=== PATIENT | male | born 1970 | race Caucasian/White ===

== ENCOUNTER 2024-06-07 20:37 | Emergency (ER) | payer MEDICAID, SELFPAY ==
[2024-06-07 20:41] VITALS: BP 147/97; PULSE 114; TEMP 37; O2SAT 96
--- NOTE | 2024-06-07 20:56 | ED_ITS ---
HPI - Alcohol General Chief Complaint: Alcohol Stated Complaint: ALCOHOL Time Seen by Provider: 06/07/24 20:50 Source: patient Mode of arrival: walk-in History of Present Illness HPI narrative: patient states he is an alcoholic. States he has been admitted for alcohol detox in the past. States drinking alcohol today and smoking marijuana. States he ask his family to take him to an alcohol detox facility and they became upset with him and dropped him off here. States he would like help with his alcohol problem. States he does have history of withdrawal Related Data Allergies Allergy/AdvReac Type Severity Reaction Status Date / Time No Known Drug Allergies Allergy Verified 06/07/24 20:48 Review of Systems ROS Status of ROS 10 or more systems reviewed and unremark able except as noted in history and below Exam Constitutional Vital Signs, click to edit/add: Last Vital Signs Temp 98.6 F 06/07/24 20:41 Pulse 114 H 06/07/24 20:41 Resp 18 06/07/24 20:41 BP 147/97 H 06/07/24 20:41 Pulse Ox 96 06/07/24 20:41 O2 Del Method Room Air 06/07/24 20:41 Common normals: no apparent distress, average body habitus, oriented x3, healthy appearing, alert and well nourished [facility] Common normals: normocephalic and head/scalp atraumatic Eye Common normals: EOMs intact bilaterally and conjunctivae normal Respiratory Common normals: normal respiratory effort, no retractions, no use of accessory muscles and clear to auscultation bilaterally Cardio Common normals: regular rate, regular rhythm, S1 normal heart sound and S2 normal heart sound Extremity Common normals: normal to inspection and full ROM Neuro Common normals: oriented x3, CN's II-XII intact bilaterally, moves all extremities and no focal motor deficits Psych Appearance: grossly normal Course Vital Signs Vital signs: Vital Signs Temperature 98.6 F 06/07/24 20:41 Pulse Rate 114 H 06/07/24 20:41 Respiratory Rate 18 06/07/24 20:41 Blood Pressure 147/97 H 06/07/24 20:41 Pulse Oximetry 96 06/07/24 20:41 Oxygen Delivery Method Room Air 06/07/24 20:41 Temperature 98.6 F 06/07/24 20:41 Pulse Rate 114 H 06/07/24 20:41 Respiratory Rate 18 06/07/24 20:41 Blood Pressure 147/97 H 06/07/24 20:41 Pulse Oximetry 96 06/07/24 20:41 Oxygen Delivery Method Room Air 06/07/24 20:41 MDM - Alcohol MDM Narrative Medical decision making narrative: patient is an alcoholic and also uses marijuana. drinking tonight and informed family he wanted to be driven to a facility in [place] for assistance with alcohol abuse. Family upset with him and drop him off here. Patient cooperative . ETOH level over 370. Patient very much awake and during the time in the department felt like he was becoming anxious. medicated with Ativan and spent the rest of the time on the phone calling for a ride home. Did get a hold of someone who will come and get him for ride home Lab Data Labs: Lab Results 06/07/24 06/07/24 Range/Units 20:55 21:45 WBC 6.9 (4.0-11.0) 10^3/uL RBC 4.83 (4.70-6.10) 10^6/uL Hgb 15.8 (14.0-18.0) g/dL Hct 44.1 (42.0-54.0) % MCV 91.3 (80.0-94.0) fL MCH 32.7 (25.9-34.0) pg MCHC 35.8 H (29.9-35.2) g/dL RDW 11.1 (11.0-15.0) % Plt Count 154 (150-450) 10^3/uL MPV 8.3 L (9.5-13.5) fL Neut % (Auto) 68.2 (43.0-75.0) % Lymph % (Auto) 22.2 (20.5-60.0) % [place] % (Auto) 8.1 (1.7-12.0) % Eos % (Auto) 0.7 L (0.9-7.0) % Baso % (Auto) 0.7 (0.2-2.0) % Neut # (Auto) 4.7 (1.4-6.5) 10^3/uL Lymph # (Auto) 1.5 (1.2-3.8) 10^3/uL [place] # (Auto) 0.6 (0.3-0.8) 10^3/uL Eos # (Auto) 0.1 (0.0-0.7) 10^3/uL Baso # (Auto) 0.1 (0.0-0.1) 10^3/uL Abs Immat Gran (auto) 0.01 (0.00-0.03) 10^3/uL Imm/Tot Granulo (auto) 0.1 (0.0-0.5) % PT 13.0 H (9.0-11.6) sec INR 1.25 Sodium 136 (136-145) mmol/L Potassium 3.8 (3.5-5.1) mmol/L Chloride 98 (98-107) mmol/L Carbon Dioxide 25.8 (21.0-32.0) mmol/L Anion Gap 16.0 BUN 6.0 L (7.0-18.0) mg/dL Creatinine 0.94 (0.70-1.30) mg/dL Est GFR ( Amer) >60 (>=60) Est GFR (Non-Af Amer) >60 (>=60) BUN/Creatinine Ratio 6.4 Glucose 122 H (74-106) mg/dL Calcium 8.9 (8.5-10.1) mg/dL Magnesium 1.8 (1.8-2.4) mg/dL Total Bilirubin 0.9 (0.2-1.0) mg/dL AST 70 H (15-37) U/L ALT 51 (16-63) U/L Alkaline Phosphatase 80 (46-116) U/L Total Protein 8.0 (6.4-8.2) g/dL Albumin 4.1 (3.4-5.0) g/dL Globulin 3.9 g/dL Albumin/Globulin Ratio 1.1 Urine Opiates Screen Negative (NEGATIVE) Ur Buprenorphine Scrn Negative (NEGATIVE) Ur Oxycodone Screen Negative (NEGATIVE) Urine Methadone Screen Negative (NEGATIVE) Ur Barbiturates Screen Negative (NEGATIVE) U Tricyclic Antidepress Negative (NEGATIVE) Ur Phencyclidine Scrn Negative (NEGATIVE) Ur Amphetamines Screen Negative (NEGATIVE) U Methamphetamines Scrn Negative (NEGATIVE) U Benzodiazepines Scrn Positive A (NEGATIVE) Urine Cocaine Screen Negative (NEGATIVE) U Cannabinoids Screen Positive A (NEGATIVE) Ethanol Quant 373 mg/dL Discharge Plan Discharge Stand Alone Forms: Portal Instructions Chief Complaint: Alcohol Clinical Impression: Alcoholic intoxication Patient Disposition: Home, Self-Care Print Language: Dominican Instructions: Alcohol Intoxication (ED) Referrals: Physician,Non-Staff, MD [Primary Care Provider] - 1 week
[2024-06-07 21:31] LABS: Basophils Absolute Auto 0.1 10^3/uL (0.0-0.1); Basophils Percent Auto 0.7 % (0.2-2.0); Eosinophils Absolute Auto 0.1 10^3/uL (0.0-0.7); Eosinophils Percent Auto 0.7 % (0.9-7.0); Hematocrit 44.1 % (42.0-54.0); Hemoglobin 15.8 g/dL (14.0-18.0); Immature Granulocytes Abs Auto 0.01 10^3/uL (0.00-0.03); Immature Granulocytes Pct Auto 0.1 % (0.0-0.5); Lymphocytes Absolute Auto 1.5 10^3/uL (1.2-3.8); Lymphocytes Percent Auto 22.2 % (20.5-60.0); Mean Corpuscular HGB Conc 35.8 g/dL (29.9-35.2); Mean Corpuscular Hemoglobin 32.7 pg (25.9-34.0); Mean Corpuscular Volume 91.3 fL (80.0-94.0); Mean Platelet Volume 8.3 fL (9.5-13.5); Monocytes Absolute Auto 0.6 10^3/uL (0.3-0.8); Monocytes Percent Auto 8.1 % (1.7-12.0); Neutrophils Absolute Auto 4.7 10^3/uL (1.4-6.5); Neutrophils Percent Auto 68.2 % (43.0-75.0); Platelet Count 154 10^3/uL (150-450); Red Blood Count 4.83 10^6/uL (4.70-6.10); Red Cell Distribution Width 11.1 % (11.0-15.0); White Blood Count 6.9 10^3/uL (4.0-11.0)
[2024-06-07 21:43] LABS: INR 1.25
[2024-06-07 21:46] LABS: Alanine Aminotransferase 51 U/L (16-63); Albumin Globulin Ratio 1.1; Albumin Level 4.1 g/dL (3.4-5.0); Alkaline Phosphatase 80 U/L (46-116); Aspartate Amino Transferase 70 U/L (15-37); BUN Creatinine Ratio 6.4; Bilirubin Total 0.9 mg/dL (0.2-1.0); Calcium 8.9 mg/dL (8.5-10.1); Carbon Dioxide 25.8 mmol/L (21.0-32.0); Chloride 98 mmol/L (98-107); Estimated GFR (African America >60 (>=60); Estimated GFR (Non-African Ame >60 (>=60); Globulin 3.9 g/dL; Glucose 122 mg/dL (74-106); Potassium 3.8 mmol/L (3.5-5.1); Sodium 136 mmol/L (136-145)
[2024-06-07 21:47] LABS: Ethanol 373 mg/dL
[2024-06-07 21:48] LABS: Magnesium 1.8 mg/dL (1.8-2.4)
[2024-06-07 22:03] LABS: Amphetamine Screen Urine NEGATIVE (NEGATIVE); Barbiturates Screen Urine NEGATIVE (NEGATIVE); Benzodiazepines Screen Urine POSITIVE (NEGATIVE); Cannabinoid Screen Urine POSITIVE (NEGATIVE); Cocaine Screen Urine NEGATIVE (NEGATIVE); Methadone Screen Urine NEGATIVE (NEGATIVE); Methamphetamines Screen Urine NEGATIVE (NEGATIVE); Opiate Screen Urine NEGATIVE (NEGATIVE); Oxycodone Screen Urine NEGATIVE (NEGATIVE); Phencyclidine Screen Urine NEGATIVE (NEGATIVE); Tricyclic Antidepressant Urine NEGATIVE (NEGATIVE)
[2024-06-07 22:04] LABS: Buprenorphine Screen Urine NEGATIVE (NEGATIVE)
[2024-06-07] MEDS: LORAZEPAM 1 MG TABLET PO (22:16)
== END 2024-06-08 00:56 | disposition home or self-care (01) ==
PROVIDERS: Emergency Provider Internal Medicine
DX: F10.129 Alcohol abuse with intoxication, unspecified (principal); Y90.8 Blood alcohol level of 240 mg/100 ml or more
CPT/HCPCS: 36415; 80053; 80307; 80320; 83735; 85025; 85610; 99283

== ENCOUNTER 2024-06-28 16:47 | Emergency (ER) | payer MEDICAID, SELFPAY ==
[2024-06-28 16:52] VITALS: BP 181/97; PULSE 104; TEMP 36.6; O2SAT 96; BMI 40.2
[2024-06-28 17:00] VITALS: PULSE 88
--- NOTE | 2024-06-28 17:08 | ECG_ITS ---
The [facility] Test Date: 2024-06-28 Pat Name: LALI JAIME Department: Room: - Gender: Male Lead Operator: : 1970 Requested By: [id number] Order Number: [id number] Reading MD: ROXANA CHAPMAN Measurements Intervals [place] Rate: 82 P: 40 DE: 130 QRS: 16 QRSD: 86 T: 11 QT: 358 QTc: 396 Interpretive Statements 1100 Sinus rhythm 9110 normal ECG Compared to ECG 03/12/2022 16:08:00 Myocardial infarct finding no longer present Electronically Signed On 06-29-2024 18:27:01 EDT by ROXANA CHAPMAN
--- NOTE | 2024-06-28 17:13 | XR_ITS ---
The [address] [address] Patient Name: LALI JAIME MRN: [id number] date: 1970 Sex: M Assigned Patient Location: ER Current Patient Location: Accession/Order Number: [id number] Exam Date: 06/28/2024 17:44 Report Date: 06/28/2024 19:20 At the request of: JOSIE GLEZ Procedure: XR chest 1V EXAM: XR chest 1V HISTORY: Chest pain COMPARISON: 12/13/2021 TECHNIQUE: Chest X-ray AP, 1 view FINDINGS: Support devices: None. Lungs/pleura: No consolidation, effusion, or pneumothorax. Heart and mediastinum: Normal contours. Bones: No acute abnormality identified. XR/XR chest 1V Impression: No radiographic evidence of acute cardiopulmonary process. Electronically authenticated by: ERMA MIRANDA Date: 06/28/2024 19:20
--- NOTE | 2024-06-28 17:13 | ED_ITS ---
HPI - Chest Pain General Chief Complaint: Anxiety Stated Complaint: PANIC ATTACK Time Seen by Provider: 06/28/24 17:07 Source: patient Mode of arrival: walk-in Limitations: no limitations History of Present Illness HPI narrative: 54-year-old male presents for what he thinks is anxiety. He has been dealing with anxiety for 30 years and is not on any medications for it at home. Since yesterday he has been having a tightness in his chest which she ascribes to anxiety. He had a stress test but it has been many years ago. No fever or cough or injury. His pain is better when he crosses his arms across his chest. He reports he drinks alcohol to help with anxiety and he drank some today. Related Data Home Medications ?Medication ?Instructions ?Recorded ?Confirmed amlodipine 10 mg tablet 10 mg PO DAILY 06/28/24 06/28/24 cholecalciferol (vitamin D3) 125 125 mcg PO DAILY 06/28/24 06/28/24 mcg (5,000 unit) capsule hydrochlorothiazide 25 mg tablet 25 mg PO DAILY 06/28/24 06/28/24 Previous Rx's ?Medication ?Instructions ?Recorded lorazepam 1 mg tablet (Ativan) 1 mg PO Q8H PRN anxiety #10 tabs 06/28/24 Allergies Allergy/AdvReac Type Severity Reaction Status Date / Time hydroxyzine AdvReac Severe Anxiety Verified 06/28/24 16:57 allergy medication AdvReac Severe Anxiety Uncoded 06/28/24 16:57 Review of Systems ROS Narrative A ten point review of systems is negative except as noted above. Exam Narrative Exam Narrative: Nurses note and vital signs reviewed and patient is not hypoxic. General: The patient appears well and in no apparent distress. Patient is resting comfortably on cart. Skin: Warm, dry, no pallor noted. There is no rash noted. Head: Normocephalic, atraumatic Eye: Normal conjunctiva, no drainage Ears, Nose, Mouth, and Throat: oral mucosa is moist. Nares patent. Cardiovascular: Regular Rate and Rhythm Respiratory: Patient is in no distress, no accessory muscle use, lungs are clear to auscultation, no wheezing, rales or rhonchi Back: non-tender. GI: Soft and nontender Musculoskeletal: The patient has no evidence of calf tenderness, no pitting edema, symmetrical pulses noted bilaterally Neurological: Awake and alert Psychiatric: Cooperative Constitutional Vital Signs, click to edit/add: Last Vital Signs Temp 97.9 F 06/28/24 16:52 Pulse 104 H 06/28/24 16:52 Resp 18 06/28/24 16:52 BP 181/97 H 06/28/24 16:52 Pulse Ox 96 06/28/24 16:52 O2 Del Method Room Air 06/28/24 16:52 Course Vital Signs Vital signs: Vital Signs Temperature 97.9 F 06/28/24 16:52 Pulse Rate 104 H 06/28/24 16:52 Respiratory Rate 18 06/28/24 16:52 Blood Pressure 181/97 H 06/28/24 16:52 Pulse Oximetry 96 06/28/24 16:52 Oxygen Delivery Method Room Air 06/28/24 16:52 Temperature 97.9 F 06/28/24 16:52 Pulse Rate 104 H 06/28/24 16:52 Respiratory Rate 18 06/28/24 16:52 Blood Pressure 181/97 H 06/28/24 16:52 Pulse Oximetry 96 06/28/24 16:52 Oxygen Delivery Method Room Air 06/28/24 16:52 MDM - Chest Pain MDM Narrative Medical decision making narrative: His workup is negative. The patient reports that his workup is always negative when he goes to the emergency department with the symptoms. He was given IV Ativan and feels improved and is able to be discharged home with a short course of Ativan by mouth. Treatment diagnosis and follow-up were discussed with the patient. Differential Diagnosis Differential diagnosis: Likely pneumothorax, atypical chest pain, st elevation myocardial infarction, chest pain and other (Anxiety) Lab Data Attestation: I reviewed the patient's lab results. Labs: Lab Results 06/28/24 Range/Units 17:23 WBC 5.6 (4.0-11.0) 10^3/uL RBC 4.51 L (4.70-6.10) 10^6/uL Hgb 15.0 (14.0-18.0) g/dL Hct 41.9 L (42.0-54.0) % MCV 92.9 (80.0-94.0) fL MCH 33.3 (25.9-34.0) pg MCHC 35.8 H (29.9-35.2) g/dL RDW 11.4 (11.0-15.0) % Plt Count 173 (150-450) 10^3/uL MPV 8.4 L (9.5-13.5) fL Seg Neuts % (Manual) 76.0 H (43.0-75.0) Lymphocytes % (Manual) 19.0 L (20.5-60.0) % Monocytes % (Manual) 5.0 (1.7-12.0) % Eosinophils % (Manual) 0.0 L (0.9-7.0) % Basophils % (Manual) 0.0 L (0.2-2.0) % Neutrophils # (Manual) 4.25 (1.4-6.5) 10^3/uL Lymphocytes # (Manual) 1.06 L (1.20-3.80) 10^3/uL Monocytes # (Manual) 0.28 L (0.30-0.80) 10^3/uL Eosinophils # (Manual) 0.00 (0.00-0.70) 10^3/uL Basophils # (Manual) 0.00 (0.00-0.10) 10^3/uL Sodium 135 L (136-145) mmol/L Potassium 3.5 (3.5-5.1) mmol/L Chloride 98 (98-107) mmol/L Carbon Dioxide 26.2 (21.0-32.0) mmol/L Anion Gap 14.3 BUN 5.0 L (7.0-18.0) mg/dL Creatinine 0.89 (0.70-1.30) mg/dL Est GFR ( Amer) >60 (>=60) Est GFR (Non-Af Amer) >60 (>=60) BUN/Creatinine Ratio 5.6 Glucose 114 H (74-106) mg/dL Calcium 8.8 (8.5-10.1) mg/dL Troponin I High Sens 9.0 (4.0-76.1) pg/mL Heart Score History: Slightly/Non-Suspicious ECG: Normal Age: >45-<65 years Risk Factors: 1 or 2 Risk Factors Troponin: <Normal Limit Total Heart Score Recommendations & Risks:: 2 Discharge Plan Discharge Stand Alone Forms: Portal Instructions Chief Complaint: Anxiety Clinical Impression: Anxiety Patient Disposition: Home, Self-Care Time of Disposition Decision: 18:13 Condition: Good Mode of Transportation: Private Vehicle Prescriptions / Home Meds: New lorazepam [Ativan] 1 mg tablet 1 mg PO Q8H PRN (Reason: anxiety) Qty: 10 0RF No Action amlodipine 10 mg tablet 10 mg PO DAILY cholecalciferol (vitamin D3) 125 mcg (5,000 unit) capsule 125 mcg PO DAILY hydrochlorothiazide 25 mg tablet 25 mg PO DAILY Print Language: Sinhala Instructions: Anxiety (ED) Referrals: Physician,Non-Staff, MD [Primary Care Provider] - 1 week
[2024-06-28] MEDS: LORAZEPAM 2 MG/ML VIAL 1 MG IV (17:25)
[2024-06-28 17:31] LABS: Hematocrit 41.9 % (42.0-54.0); Mean Corpuscular HGB Conc 35.8 g/dL (29.9-35.2); Mean Corpuscular Hemoglobin 33.3 pg (25.9-34.0); Mean Corpuscular Volume 92.9 fL (80.0-94.0); Mean Platelet Volume 8.4 fL (9.5-13.5); Platelet Count 173 10^3/uL (150-450); Red Blood Count 4.51 10^6/uL (4.70-6.10); Red Cell Distribution Width 11.4 % (11.0-15.0); White Blood Count 5.6 10^3/uL (4.0-11.0)
[2024-06-28 17:55] LABS: Anion Gap 14.3; BUN Creatinine Ratio 5.6; Calcium 8.8 mg/dL (8.5-10.1); Carbon Dioxide 26.2 mmol/L (21.0-32.0); Chloride 98 mmol/L (98-107); Estimated GFR (African America >60 (>=60); Estimated GFR (Non-African Ame >60 (>=60); Glucose 114 mg/dL (74-106); Potassium 3.5 mmol/L (3.5-5.1); Sodium 135 mmol/L (136-145)
[2024-06-28 18:08] LABS: Lymphocytes Absolute Manual 1.06 10^3/uL (1.20-3.80); Monocytes Absolute Manual 0.28 10^3/uL (0.30-0.80); Segmented Neut Absolute Manual 4.25 10^3/uL (1.4-6.5)
[2024-06-28 18:19] VITALS: BP 129/80
== END 2024-06-28 18:47 | disposition home or self-care (01) ==
PROVIDERS: Emergency Provider Emergency Medicine
DX: F41.9 Anxiety disorder, unspecified (principal)
CPT/HCPCS: 36415; 71045; 80048; 84484; 85007; 85027; 93005; 96374; 99285; J2060

== ENCOUNTER 2024-07-04 20:35 | Emergency (ER) | payer MEDICAID, SELFPAY ==
[2024-07-04] VITALS (7 sets, daily range): BP systolic 111–195; BP diastolic 76–114; PULSE 95–107; TEMP 36.8; O2SAT 91–95; BMI 35.9
--- OUTSIDE RECORDS SUMMARY | 2024-07-04 20:40 | XMS_ITS | CCD ---
Author Organization [facility] Inform ion Partnership [facility] Care Team Providers Care Sas Programmer Remote Name Role Phone PHYSICIAN, DEFAULT Unavailable Unavailable PHYSICIAN, DEFAULT Unavailable Unavailable NO FAMILY, PHYSICIAN Primary Care Provider Madelineva MD Benedict Ulloa Emergency Provider [phone] REQUEST, DR NONE LISTED Primary Care Unavaila SHAIKH Hudson Admitting Unavailable SHAIKH ANDERS Attending Unavailable PAY, DR GOINS Consulting Unavailable FADO, Consulting Unavailable Jn Daly Consulting Unavailable REQUEST, NONE LISTED Primary Care Unavaila conrad SMART, DR BURRLEL Consulting Unavailable SAMSA, SELENE Admitting Unavailable SAMSA, SELENE Attending Unavailable DEON, DR PATRICIA Field Consulting Unavailable GRECHNY, IDRIS ARZOLA Consulting Unavailable HAY, DR KUMAR Consulting Unavailable SAMSA, SELENE Consulting Unavailable ASHELY LANDAVERDE Consulting Unavailable REQUEST, NONE LISTED Primary Care Unavaila TIFFANI Hinds Admitting Unavailable REYES, TIFFANI Attending Unavailable REYES, TIFFANI Consulting Unavailable Problems Problem Classification Problem Date Documented Da te Episodic/Chronic Alcohol-related disorders (8 sources) Alcohol abuse; Translations: [Alcohol abuse, uncomplicated] Onset: 12-19-2021 03-13-2022 Chronic Anxiety disorders (5 sources) Anxiety disorder, unspecified; Translations: [ANXIETY DISORDER UNSPECIFIED] Onset: 10-11-2021 Chronic E Codes: Unspecified (1 source) Blood alcohol level of 240 mg/100 ml or more; Translations: [BLOOD ALCOHOL LV 240 MG/100 ML/MORE] Onset: 03-15-2022 Episodic Essential hypertension (1 source) Essential (primary) hypertension; Translations: [ESSENTIAL PRIMARY HYPERTENSION] Onset: 12-19-2021 Chronic Nonspecific chest pain (1 source) Chest pain, unspecified; Translations: [CHEST PAIN UNSPECIFIED] Onset: 03-15-2022 Episodic Other aftercare (1 source) 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; Translations: [OTH CARE PROGRAM DIRECTOR CURRENT DRUG THERAPY] Onset: 03-15-2022 Episodic Other circulatory disease (1 source) Elevated blood-pressure reading, without diagnosis of hypertension; Translations: [ELEVATED BP READING W/O DX HTN] Onset: 03-15-2022 Episodic Other lower respiratory disease (1 source) Dyspnea, unspecified; Translations: [DYSPNEA UNSPECIFIED] Onset: 03-15-2022 Episodic Other nutritional; endocrine; and metabolic disorders (1 source) Morbid (severe) obesity due to excess calories; Translations: [MORBID SEVERE OBES D/T EXCESS LIZETTE] Onset: 03-15-2022 Chronic Other nutritional; endocrine; and metabolic disorders (1 source) Body mass index (BMI) 36.0-36.9, adult; Translations: [BODY MASS INDEX BMI 36.0-36.9 ADULT] Onset: 03-15-2022 Chronic Screening and history of mental health and substance abuse codes (1 source) Personal history of nicotine dependence; Translations: [PERSONAL HISTORY OF NICOTINE DEPEND] Onset: 12-19-2021 Episodic Suicide and intentional self-inflicted injury (1 source) Suicidal ideations; Translations: [SUICIDAL IDEATIONS] Onset: 03-15-2022 Episodic Unclassified (1 source) CONTACT W/AND (SUSP) EXPOS COVID-19; Translations: [CONTACT W/AND (SUSP) EXPOS COVID-19] Onset: 12-19-2021 Results Test Name Value Interpretation Reference Range Facility Amphetamine Screen Ql (U)Ord ered By: Benedict Robb on 03-13-2022 Amphetamines Ql (U) Negative Negative [facility] Barbiturates [Presence] in U rineOrdered By: Benedict Robb on 03-13-2022 Barbiturates Ql (U) Negative Negative [facility] Basophils Auto (Bld) [#/Vol] Ordered By: Benedict Robb on 03-13-2022 Basophils (Bld) [#/Vol] 0.0 10*3/uL 0.0-0.2 [facility] Basophils/100 WBC Auto (Bld) Ordered By: Benedict Robb on 03-13-2022 Basophils/100 WBC (Bld) 0.3 % [facility] Benzodiazepines [Presence] i n UrineOrdered By: Benedict Robb on 03-13-2022 Benzodiazepines Ql (U) Negative Negative Fi [facility] Bilirubin Test strip Ql (U)O rdered By: Benedict Robb on 03-13-2022 Bilirubin Ql (U) Negative Negative [facility] Blood hemoglobin measurement (mass/volume)Ordered By: Benedict Robb on 03-13-2022 Hemoglobin (Bld) [Mass/Vol] 14.9 g/dL 13.0-17.0 [facility] Blood leukocytes automated c ount (number/volume)Ordered By: Benedict Robb on 03-13-2022 WBC (Bld) [#/Vol] 6.2 10*3/uL 4.5-11.0 [facility] Body fluid albumin measureme nt (mass/volume)Ordered By: Benedict Robb on 03-13-2022 Albumin (Body fld) [Mass/Vol] 3.7 g/dL 3.2-5.5 [facility] COVID-19 Antigenon 2 COVID-19 Antigen Healthcare Worker?: Y Reference Range: Negative Negative results, from patients with symptom onset beyond five days, should be treated as presumptive and confirmation with a molecular assay, if necessary, for patient management, may be performed. Negative results do not rule out COVID-19 and should not be used as the sole basis for treatment or patient management decisions, including infection control decisions. Negative results should be considered in the context of a patient's recent exposures, history and the presence of clinical signs and symptoms consistent with COVID-19. The Richard SARS Antigen DUTCH does not differentiate between SARS-CoV and SARS-CoV-2. This test was developed and its performance characteristic determined by [employer] and validated at [facility]. This test has not been FDA cleared or approved. This test has been authorized by FDA under an Emergency Use Authorization (EUA). This test has been validated in accordance with the FDA's Guidance Document (Policy for Diagnostics Testing in Laboratories Certified to Perform High Complexity Testing under CLIA prior to Emergency Use Authorization for Coronavirus Disease-2019 during the Public Health Emergency) issued on February 26, 2020. This test is only authorized for the duration of time the declaration that circumstances exist justifying the authorization of the emergency use of in vitro diagnostic tests for detection of SARS-CoV-2 virus and/or diagnosis of COVID-19 infection under section 564(b)(1) of the Act, 21 U.S.C. 360bbb-3(b)(1), unless the authorization is terminated or revoked sooner. SARS-CoV+SARS-CoV-2 (COVID-19) Ag [Presence] in Respiratory specimen by Rapid immunoassay Negative for SARS Antigen by DUTCH PERFORMED BY: [place] [address] PATHOLOGIST LAP WINDER ULYSSES GODDARD M.D. Normal [facility] Comment on above: Performed By: #### C OVID-19 RICHARD, SOFIANEG #### [facility] [address] [place] [address] COVID-19 SOFIAOrdered By: Susan Robb on 03-13-2022 SARS-CoV+SARS-CoV-2 (COVID-19) Ag IA.rapid Ql (Resp) Negative Negative [facility] Comment on above: This is a duplicate Richard SARS Antigen (DUTCH) result to be used for statistical tracking purpose only. Cannabinoids [Presence] in U rine by Screen methodOrdered By: Benedict Robb on 03-13-2022 Cannabinoids Screen Ql (U) Negative Negative [facility] Comment on above: These are unconfirme d results and should not be used for legal purposes. Drug Cut-Off Concentration: AMPH 1000 ng/mL KEARA 200 ng/mL ARIEL 200 ng/mL COCM 300 ng/mL OP 300 ng/mL PCP 25 ng/mL THC 20 ng/mL Color Auto (U)Ordered By: Susan Robb on 03-13-2022 Color (U) Yellow Yellow [facility] Complete Blood Count Auto Di ffon 03-13-2022 Basophils (Bld) [#/Vol] 0.0 10*3/uL Normal 0.0-0.2 [facility] Comment on above: Result Comment: PERF ORMED BY: [place] [address] PATHOLOGIST LAP WINDER ULYSSES GODDARD M.D. Performed By: #### E LISA, CBC, CMP #### [facility] [address] [place], [place] [id number] [facility] Basophils/100 WBC (Bld) 0.3 % Normal . [facility] Comment on above: Performed By: #### E LISA, CBC, CMP #### [address] Eosinophils (Bld) [#/Vol] 0.0 10*3/uL Normal 0.0-0.45 [facility] Comment on above: Performed By: #### E LISA, CBC, CMP #### [address] Eosinophils/100 WBC (Bld) 0.2 % Normal . [facility] Comment on above: Performed By: #### E LISA, CBC, CMP #### [address] Erythrocyte distribution width (RBC) [Ratio] 13.7 % Normal 12.0-14.8 [facility] Comment on above: Performed By: #### E LISA, CBC, CMP #### [address] Hematocrit (Bld) [Volume fraction] 42.7 % Normal 38.8-50.0 [facility] Comment on above: Performed By: #### E LISA, CBC, CMP #### [address] Hemoglobin (Bld) [Mass/Vol] 14.9 g/dL Normal 13.0-17.0 [facility] Comment on above: Performed By: #### E LISA, CBC, CMP #### [address] Lymphocytes (Bld) [#/Vol] 1.1 10*3/uL Normal 1.00-4.8 [facility] Comment on above: Performed By: #### E LISA, CBC, CMP #### [address] Lymphocytes/100 WBC (Bld) 18.0 % Normal . [facility] Comment on above: Performed By: #### E LISA, CBC, CMP #### [address] [address] [place] MCH (RBC) [Entitic mass] 33.0 pg Normal 27.5-35.2 [facility] Comment on above: Performed By: #### E LISA, CBC, CMP #### [address] MCV (RBC) [Entitic vol] 94.2 fL Normal 83.5-101 [facility] Comment on above: Performed By: #### E LISA, CBC, CMP #### [address] Mean Corpuscular HGB Conc 35.0 g/dL Normal 32.5-35.6 [facility] Comment on above: Performed By: #### E LISA, CBC, CMP #### [address] Monocytes (Bld) [#/Vol] 0.5 10*3/uL Normal 0.0-0.8 [facility] Comment on above: Performed By: #### E LISA, CBC, CMP #### [address] Monocytes/100 WBC (Bld) 7.7 % Normal . [facility] Comment on above: Performed By: #### E LISA, CBC, CMP #### [address] Neutrophils (Bld) [#/Vol] 4.6 10*3/uL Normal 1.8-7.7 [facility] Comment on above: Performed By: #### E LISA, CBC, CMP #### [address] Neutrophils/100 WBC (Bld) 73.8 % Normal . [facility] Comment on above: Performed By: #### E LISA, CBC, CMP #### [address] Nucleated RBC/100 WBC (Bld) [Ratio] 0.1 % Normal 0-0.5 [facility] Comment on above: Performed By: #### E LISA, CBC, CMP #### [address] Platelet mean volume (Bld) [Entitic vol] 6.6 fL Normal 6.6-10.1 [facility] Comment on above: Performed By: #### E LISA CBC, CMP #### [address] Platelets (Bld) [#/Vol] 194 10*3/uL Normal 150-450 [facility] Comment on above: Performed By: #### E LISA CBC, CMP #### [address] RBC (Bld) [#/Vol] 4.53 10*6/uL Normal 3.90-5.60 [facility] Comment on above: Performed By: #### E LISA CBC, CMP #### [address] WBC (Bld) [#/Vol] 6.2 10*3/uL Normal 4.5-11.0 [facility] Comment on above: Performed By: #### E LISA CBC, CMP #### [address] Comprehensive Metabolic Pane jelly 03-13-2022 Albumin [Mass/Vol] 3.7 g/dL Normal 3.2-5.5 [facility] Comment on above: Performed By: #### E LISA CBC, CMP #### [address] Albumin/Globulin [Mass ratio] 1.3 {ratio} Normal [facility] Comment on above: Performed By: #### E LISA CBC, CMP #### [address] ALP [Catalytic activity/Vol] 56 U/L Normal 32-92 [facility] Comment on above: Performed By: #### E LIAS CBC, CMP #### [address] ALT [Catalytic activity/Vol] 23 U/L Normal 10-60 [facility] Comment on above: Performed By: #### E LISA CBC, CMP #### [facility] [address] [place] [address] [place] AST [Catalytic activity/Vol] 37 U/L Normal 10-42 [facility] Comment on above: Performed By: #### E LISA CBC, CMP #### [facility] [address] [place] [address] [place] Bilirubin [Mass/Vol] 1.2 mg/dL Normal 0.3-1.2 [facility] Comment on above: Performed By: #### E LISA CBC, CMP #### [facility] [address] Calcium [Mass/Vol] 8.7 mg/dL Normal 8.2-10.2 [facility] Comment on above: Performed By: #### E LISA CBC, CMP #### [place] [address] [place] Chloride [Moles/Vol] 100 mmol/L Normal 95-114 [facility] Comment on above: Performed By: #### E LISA CBC, CMP #### [place] [address] [place] CO2 [Moles/Vol] 22.9 mmol/L Normal 22.0-30.0 [facility] Comment on above: Performed By: #### E LISA CBC, CMP #### [facility] [address] [place] [address] [place] Creatinine [Mass/Vol] 0.93 mg/dL Normal 0.64-1.27 [facility] Comment on above: Performed By: #### E LISA CBC, CMP #### [facility] [address] [place] [address] [place] Creatinine Clr Calc Pharmacy 117.39 Normal [facility] Comment on above: Result Comment: PERF ORMED BY: [place] [address] PATHOLOGIST LAP WINDER ULYSSES GODDARD M.D. Performed By: #### E LISA, CBC, CMP #### [facility] [address] Estimated GFR ( Jia > 60 [facility] Comment on above: Result Comment: GFR estimated reference range: According to KDOQI guidelines, <60 ml/min/1.73m2 is sufficient to diagnose a patient with chronic kidney disease. Performed By: #### E LISA CBC, CMP #### [facility] [address] Estimated GFR (Non- Am > 60 [facility] Comment on above: Performed By: #### E LISA CBC, CMP #### [address] Globulin (S) [Mass/Vol] 2.9 g/dL Normal [facility] Comment on above: Performed By: #### E LISA CBC, CMP #### [address] Glucose [Mass/Vol] 93 mg/dL Normal 70-100 [facility] Comment on above: Result Comment: [place] Glucose Reference Range is dependent on time and content of last meal. Glucose of more than 200 mg/dL in a nonstressed, ambulatory subject supports the diagnosis of Diabetes Mellitus. ADA recommended reference range Performed By: #### E LISA CBC, CMP #### [address] Potassium [Moles/Vol] 3.6 mmol/L Normal 3.5-5.1 [facility] Comment on above: Performed By: #### E LISA CBC, CMP #### [address] Protein [Mass/Vol] 6.6 g/dL Normal 6.1-7.9 [facility] Comment on above: Performed By: #### E LISA CBC, CMP #### [address] Sodium [Moles/Vol] 137 mmol/L Normal 136-146 [facility] Comment on above: Performed By: #### E LISA, CBC, CMP #### [facility] [address] Urea nitrogen [Mass/Vol] 9 mg/dL Normal - [facility] Comment on above: Performed By: #### E LISA, CBC, CMP #### [address] Creatinine and Glomerular fi ltration rate.predicted panel (S/P/Bld)Ordered By: Benedict Robb on 03-13-2022 Creatinine [Mass/Vol] 0.93 mg/dL 0.64-1.27 [facility] Drug Screen,Urineon 03-13-20 Amphetamine Screen,Urine Negative Normal Negative [facility] Comment on above: Performed By: #### U RDS, UA #### [place] [address] [place] Barbiturate Screen,Urine Negative Normal Negative [facility] Comment on above: Performed By: #### U RDS, UA #### [place] [address] [place] Benzodiazepines Screen,Urine Negative Normal Negative [facility] Comment on above: Performed By: #### U RDS, UA #### [place] [address] [place] Cannabinoid Screen,Urine Negative Normal Negative [facility] Comment on above: Result Comment: Thes e are unconfirmed results and should not be used for legal purposes. Drug Cut-Off Concentration: AMPH 1000 ng/mL KEARA 200 ng/mL ARIEL 200 ng/mL COCM 300 ng/mL OP 300 ng/mL PCP 25 ng/mL THC 20 ng/mL PERFORMED BY: [place] [address] PATHOLOGIST LAP WINDER ULYSSES GODDARD M.D. Performed By: #### U RDS, UA #### [place] [address] [place] Cocaine Screen,Urine Negative Normal Negative [facility] Comment on above: Performed By: #### U RDS, UA #### [place] [address] [place] Opiate Screen,Urine Negative Normal Negative [facility] Comment on above: Performed By: #### U RDS, UA #### [facility] [address] [place] [id number] [facility] Phencyclidine Screen,Urine Negative Normal Negative [facility] Comment on above: Performed By: #### U RDS, UA #### [facility] [address] [place] [id number] [facility] ECHOCARDIO M/2D COMPLETEon 0 03-13-2022 ECHOCARDIO M/2D COMPLETE Patient: BRENT JAIME Exam Date: 03/13/2022 : 1970 Gender:M Ordering : SHAIKH Jim ANDERS . Admission #: [id number] Family : Order #: [id number] CLICK HERE TO VIEW EXAM ECHOCARDIOGRAM REPORT PROCEDURE: CARDIO PULMONARY ECHOCARDIO M/2D COMP INDICATIONS: Elevated cardiac enzymes, alcoholic COMPARISON: None. DESCRIPTION: COMPLETE ECHOCARDIOGRAM Real-time transthoracic echocardiography with 2D, M-mode, spectral and color flow Doppler performed. QUALITY: Technical quality was good. LEFT VENTRICLE: Normal chamber size. Normal left ventricular wall thickness. No regional wall motion abnormalities. LV EF: Normal left ventricular ejection fraction, (>55%). DIASTOLIC: Normal diastolic function. ATRIAL SEPTUM: Inadequately seen. LEFT ATRIUM: Normal chamber size. RIGHT ATRIUM: Normal chamber size. RIGHT VENTRICLE: Normal chamber size. Normal right ventricular systolic function. TRICUSPID VALVE: Normal mobility and thickness. No stenosis with no regurgitation. MITRAL VALVE: Normal mobility and thickness. No evidence of mitral valve stenosis. Mild mitral annular calcification. No mitral regurgitation. AORTIC VALVE: Normal trileaflet appearance. No visible sclerosis. Normal leaflet mobility. No evidence of aortic valve stenosis. No aortic regurgitation. AORTIC ROOT: Normal diameter and appearance. Ascending aorta is normal in size. PULMONIC VALVE: Normal thickness and mobility. No stenosis. No regurgitation. PERICARDIUM: No evidence of pericardial effusion. IVC: Not well visualized. CONCLUSION: Global left ventricular systolic function is normal; visually estimated ejection fraction is 60 to 65%. No significant wall motion abnormalities. Normal diastolic function. The right ventricle is normal in size and systolic function. No significant valvular abnormalities. Adult Echocardiography Procedure Report Left Ventricle Left Atrium Mitral Valve Right Ventricle Aorta Aortic Valve Peak Velocity(Antegrade Flow): 149.00 cm/s Peak Gradient(Antegrade Flow): 9 mm[Hg] Tricuspid Valve Pulmonic Valve Right Atrium Dictated by: Mahin Mills M.D. on 03/13/2022 at 15:30 Approved by: Mahin Mills M.D. on 03/13/2022 at 15:32 Normal [facility] Eosinophils Auto (Bld) [#/Vo l]Ordered By: Benedict Robb on 03-13-2022 Eosinophils (Bld) [#/Vol] 0.0 10*3/uL 0.0-0.45 [facility] Eosinophils/100 WBC Auto (Bl d)Ordered By: Benedict Robb on 03-13-2022 Eosinophils/100 WBC (Bld) 0.2 % [facility] Erythrocyte distribution wid th Auto (RBC) [Ratio]Ordered By: Benedict Robb on 03-13-2022 Erythrocyte distribution width (RBC) [Ratio] 13.7 % 12.0-14.8 [facility] Estimated glomerular filtrat ion rate (GFR) non- AmericanOrdered By: Benedict Robb on 03-13-2022 GFR/1.73 sq M.predicted among non-blacks MDRD (S/P/Bld) [Vol rate/Area] > 60 mL/Min [facility] Ethyl Alcohol Profileon 02-24 Ethanol [Mass/Vol] 94 mg/dL Normal [facility] Comment on above: Performed By: #### E LISA, CBC, CMP #### [facility] [address] Percent Ethanol 0.094 % Normal [facility] Comment on above: Result Comment: PERF ORMED BY: [place] [address] PATHOLOGIST LAP WINDER ULYSSES GODDARD M.D. Performed By: #### E LISA, CBC, CMP #### [facility] [address] [place] [address] [place] GLYCOHEMOGLOBIN A1Con 2021 ADA RECOMMENDATION ADA THERAPEUTIC TARGET 6.0 - 7.0 ACTION SUGGESTED > 7.0 Normal [facility] Comment on above: Performed By: #### A 1C #### [facility] [address] [address] [address] Hood Loco Glucose [Mass/Vol] 94 mg/dL Normal [facility] Comment on above: Performed By: #### A 1C #### [facility] [address] [address] [address] Hood Loco HbA1c (Bld) [Mass fraction] 4.9 % Normal <=6.0 [facility] Comment on above: Performed By: #### A 1C #### [facility] [address] [address] [address] Hood Loco Globulin Calc (S) [Mass/Vol] Ordered By: Benedict Robb on 03-13-2022 Globulin (S) [Mass/Vol] 2.9 g/dL [facility] Hematocrit Auto (Bld) [Volum e fraction]Ordered By: Benedict Robb on 03-13-2022 Hematocrit (Bld) [Volume fraction] 42.7 % 38.8-50.0 [facility] Ketones Auto test strip (U) [Mass/Vol]Ordered By: Benedict Robb on 03-13-2022 Ketones (U) [Mass/Vol] Negative Negative [facility] LIPID PROFILEon 03-13-2022 CHOL-HDL RATIO NORM SEE BELOW Normal [facility] Comment on above: Result Comment: 3.3 - 4.4 LOW RISK 4.4 - 7.1 AVERAGE RISK 7.1 - 11.0 MODERATE RISK >11.0 HIGH RISK Performed By: #### D BEENA WEINER #### [facility] [address] [address] [address] Hood Loco Cholesterol [Mass/Vol] 158 mg/dL Normal <=200 [facility] Comment on above: Performed By: #### D BEENA WEINER #### [facility] [address] [address] [address] Hood Loco Cholesterol in HDL [Mass/Vol] 70 mg/dL Critically high 40-60 [facility] Comment on above: Performed By: #### D BEENA WEINER #### [facility] [address] [address] [address] Hood Loco Cholesterol in LDL [Mass/Vol] 51.2 mg/dL Normal [facility] Comment on above: Performed By: #### D HUSAM, ERUR #### [facility] [address] [address] [address] Hood Loco Cholesterol.total/Shanti sterol in HDL [Mass ratio] 2.3 {ratio} Normal [facility] Comment on above: Performed By: #### D HUSAM, ERUR #### [facility] [address] [address] [address] Hood Loco HDL NORMAL > or = 60 mg/dl - LOW CARDIOVASCULAR RISK <40 mg/dl - HIGH CARDIOVASCULAR RISK Normal [facility] Comment on above: Performed By: #### D HUSAM, ERUR #### [facility] [address] [place] [address] Dr. Hood Loco LDL CALC NORMAL SEE BELOW Normal [facility] Comment on above: Result Comment: <100 mg/dl OPTIMAL 100 - 129 mg/dl NEAR OR ABOVE OPTIMAL 130 - 159 mg/dl BORDERLINE HIGH 160 - 189 mg/dl HIGH >190 mg/dl VERY HIGH Performed By: #### D HUSAM, ERUR #### [facility] [address] [place] [address] Dr. Hood Loco Triglyceride [Mass/Vol] 184 mg/dL Critically high <=150 [facility] Comment on above: Performed By: #### D HUSAM, ERUR #### [facility] [address] [place] [address] Dr. Hood Loco VLDL CALC 36.8 mg/dL Normal [facility] Comment on above: Performed By: #### D HUSAM, ERUR #### [facility] [address] [place] [address] Dr[address] Hood Loco [facility] - Drug toxicology Ordered By: Benedict Robb on 03-13-2022 Opiates Ql (U) Negative Negative [facility] Laboratory - Hematology and Cell countsOrdered By: Benedict Robb on 03-13-2022 Nucleated RBC/100 WBC (Bld) [Ratio] 0.1 % 0-0.5 [facility] Lymphocytes Auto (Bld) [#/Vo l]Ordered By: Benedict Robb on 03-13-2022 Lymphocytes (Bld) [#/Vol] 1.1 10*3/uL 1.00-4.8 [facility] Lymphocytes/100 WBC Auto (Bl d)Ordered By: Benedict Robb on 03-13-2022 Lymphocytes/100 WBC (Bld) 18.0 % [facility] MCH Auto (RBC) [Entitic mass ]Ordered By: Benedict Robb on 03-13-2022 MCH (RBC) [Entitic mass] 33.0 pg 27.5-35.2 [facility] MCHC Auto (RBC) [Mass/Vol]Or dered By: Benedict Robb on 03-13-2022 MCHC (RBC) [Mass/Vol] 35.0 g/dL 32.5-35.6 [facility] MCV Auto (RBC) [Entitic vol] Ordered By: Benedict Robb on 03-13-2022 MCV (RBC) [Entitic vol] 94.2 fL 83.5-101 [facility] Monocytes Auto (Bld) [#/Vol] Ordered By: Benedict Robb on 03-13-2022 Monocytes (Bld) [#/Vol] 0.5 10*3/uL 0.0-0.8 [facility] Monocytes/100 WBC Auto (Bld) Ordered By: Benedict Robb on 03-13-2022 Monocytes/100 WBC (Bld) 7.7 % [facility] Neutrophils Auto (Bld) [#/Vo l]Ordered By: Benedict Robb on 03-13-2022 Neutrophils (Bld) [#/Vol] 4.6 10*3/uL 1.8-7.7 [facility] Neutrophils/100 WBC Auto (Bl d)Ordered By: Benedict Robb on 03-13-2022 Neutrophils/100 WBC (Bld) 73.8 % [facility] Nitrite Test strip Ql (U)Ord ered By: Benedict Robb on 03-13-2022 Nitrite Ql (U) Negative Negative [facility] No Panel InformationOrdered By: Benedict Robb on 03-13-2022 SARS Antigen (LFIA) [facility] Estimated GFR () > 60 mL/Min [facility] Comment on above: GFR estimated refere nce range: According to KDOQI guidelines, <60 ml/min/1.73m2 is sufficient to diagnose a patient with chronic kidney disease. Pharmacy Creatinine Clearance (Chem 117.39 [facility] Phencyclidine Screen Ql (U)O rdered By: Benedict Robb on 03-13-2022 Phencyclidine Ql (U) Negative Negative [facility] Platelet mean volume Auto (B ld) [Entitic vol]Ordered By: Benedict Robb on 03-13-2022 Platelet mean volume (Bld) [Entitic vol] 6.6 fL 6.6-10.1 [facility] Platelets Auto (Bld) [#/Vol] Ordered By: Benedict Robb on 03-13-2022 Platelets (Bld) [#/Vol] 194 10*3/uL 150-450 [facility] Protein Auto test strip (U) [Mass/Vol]Ordered By: Benedict Robb on 03-13-2022 Protein (U) [Mass/Vol] Negative Negative Fi [facility] Protein [Mass/volume] in Ser um or PlasmaOrdered By: Benedict Robb on 03-13-2022 Protein [Mass/Vol] 6.6 g/dL 6.1-7.9 [facility] RBC Auto (Bld) [#/Vol]Ordere d By: Benedict Robb on 03-13-2022 RBC (Bld) [#/Vol] 4.53 10*6/uL 3.90-5.60 [facility] Serum or plasma alanine garcia otransferase measurement without P-5'-P (enzymatic activiOrdered By: Benedict Robb on 03-13-2022 ALT No additional P-5'-P [Catalytic activity/Vol] 23 U/L 10-60 [facility] Serum or plasma albumin/glob ulin mass ratioOrdered By: Benedict Robb on 03-13-2022 Albumin/Globulin [Mass ratio] 1.3 {ratio} [facility] Serum or plasma alkaline malini sphatase measurement (enzymatic activity/volume)Ordered By: Benedict Robb on 03-13-2022 ALP [Catalytic activity/Vol] 56 U/L 32-92 [facility] Serum or plasma aspartate am inotransferase measurement (enzymatic activity/volume)Ordered By: Benedict Robb on 03-13-2022 AST [Catalytic activity/Vol] 37 U/L 10-42 [facility] Serum or plasma calcium jennifer urement (mass/volume)Ordered By: Benedict Robb on 03-13-2022 Calcium [Mass/Vol] 8.7 mg/dL 8.2-10.2 [facility] Serum or plasma chloride joel surement (moles/volume)Ordered By: Benedict Robb on 03-13-2022 Chloride [Moles/Vol] 100 mmol/L 95-114 [facility] Serum or plasma ethanol jennifer urement (mass/volume)Ordered By: Benedict Robb on 03-13-2022 Ethanol [Mass/Vol] 94 mg/dL [facility] Ethanol [Mass/Vol] 0.094 % [facility] Serum or plasma glucose jennifer urement (mass/volume)Ordered By: Benedict Robb on 03-13-2022 Glucose [Mass/Vol] 93 mg/dL 70-100 [facility] Comment on above: ADA recommended refe rence rangeRandom Glucose Reference Range is dependent on time and content of last meal. Glucose of more than 200 mg/dL in a nonstressed, ambulatory subject supports the diagnosis of Diabetes Mellitus. Serum or plasma potassium me asurement (moles/volume)Ordered By: Benedict Robb on 03-13-2022 Potassium [Moles/Vol] 3.6 mmol/L 3.5-5.1 [facility] Serum or plasma sodium measu rement (moles/volume)Ordered By: Benedict Robb on 03-13-2022 Sodium [Moles/Vol] 137 mmol/L 136-146 [facility] Serum or plasma total biliru bin measurement (mass/volume)Ordered By: Benedict Robb on 03-13-2022 Bilirubin [Mass/Vol] 1.2 mg/dL 0.3-1.2 [facility] Serum or plasma total carbon dioxide measurement (moles/volume)Ordered By: Benedict Robb on 03-13-2022 CO2 [Moles/Vol] 22.9 mmol/L 22.0-30.0 [facility] Serum or plasma urea nitroge n measurement (mass/volume)Ordered By: Benedict Robb on 03-13-2022 Urea nitrogen [Mass/Vol] 9 mg/dL 08-18 [facility] Richard Ag Negativeon 03-13-20 Richard Ag Negative Negative Normal Negative [facility] Comment on above: Result Comment: This is a duplicate Richard SARS Antigen (DUTCH) result to be used for statistical tracking purpose only. PERFORMED BY: [place] [address] PATHOLOGIST LAP WINDER ULYSSES GODDARD M.D. Performed By: #### C OVID-19 RICHARD, SOFIANEG #### [facility] [place] [facility] [address] [place] [address] [place] Specific gravity Auto test s trip (U) [Rel density]Ordered By: Benedict Robb on 03-13-2022 Specific gravity (U) [Rel density] 1.019 1.001-1.030 [facility] TROPONIN, HIGH SENSITIVITYon 03-13-2022 HSTROP 9.9 pg/mL Normal 4.0-42.2 [facility] Comment on above: Result Comment: CUT- OFF POINTS HAVE BEEN ESTABLISHED BASED ON THE FOURTH UNIVERSAL DEFINITIONS OF MYOCARDIAL INFARCTION. THE UPPER REFERENCE LIMIT (URL) OF TROPONIN, DEFINED THE 99TH PERCENTILE OF cTnI DISTRIBUTION IN A REFERENCE POPULATION, HAS BEEN CONFIRMED THE DECISION THRESHOLD FOR IA DIAGNOSIS. Performed By: #### H STROPN #### [facility] [address] [place], [place] [address] Dr. Hood Loco Urinalysison 03-13-2022 Appearance (U) Clear Normal Clear [facility] Comment on above: Order Comment: Name Collection Type:: Clean-Voided Midstream Performed By: #### U RDS, UA #### [facility] [place] [facility] [address] [place] [address] [place] Bilirubin,Urine Negative Normal Negative [facility] Comment on above: Order Comment: Name Collection Type:: Clean-Voided Midstream Performed By: #### U RDS, UA #### [facility] [place] [facility] [address] [place] [id number] [place] Color (U) Yellow Normal Yellow [facility] Comment on above: Order Comment: Name Collection Type:: Clean-Voided Midstream Performed By: #### U RDS, UA #### [facility] [place] [facility] [address] [place] [address] [place] Glucose Ql (U) Normal Normal Normal [facility] Comment on above: Order Comment: Name Collection Type:: Clean-Voided Midstream Performed By: #### U RDS, UA #### [facility] [place] [facility] [address] [place] [address] [place] Ketones Ql (U) Negative Normal Negative [facility] Comment on above: Order Comment: Name Collection Type:: Clean-Voided Midstream Performed By: #### U RDS, UA #### [facility] [place] [facility] [address] [place] [address] [place] Leukocyte esterase Test strip Ql (U) Negative Normal Negative [facility] Comment on above: Order Comment: Name Collection Type:: Clean-Voided Midstream Performed By: #### U RDS, UA #### [facility] [place] [facility] [address] [place] [address] [place] Nitrite,Urine Negative Normal Negative [facility] Comment on above: Order Comment: Name Collection Type:: Clean-Voided Midstream Performed By: #### U RDS, UA #### [facility] [place] [facility] [address] [place] [address] [place] Occult Blood,Urine Negative Normal Negative [facility] Comment on above: Order Comment: Name Collection Type:: Clean-Voided Midstream Result Comment: PERF ORMED BY: [place] [address] PATHOLOGIST LAP WINDER ULYSSES GODDARD M.D. Performed By: #### U RDS, UA #### [facility] [place] [facility] [address] [place] [address] [place] pH (U) 7.0 [pH] Normal 5.0-9.0 [facility] Comment on above: Order Comment: Name Collection Type:: Clean-Voided Midstream Performed By: #### U RDS, UA #### [facility] [place] [facility] [address] [place] [address] [place] Protein,Urine Negative Normal Negative [facility] Comment on above: Order Comment: Name Collection Type:: Clean-Voided Midstream Performed By: #### U RDS, UA #### [facility] [address] Specificy [place],Urine 1.019 Normal 1.001-1.030 [facility] Comment on above: Order Comment: Name Collection Type:: Clean-Voided Midstream Performed By: #### U RDS, UA #### [facility] [place] [facility] [address] Urobilinogen,Urine Normal Normal Normal [facility] Comment on above: Order Comment: Name Collection Type:: Clean-Voided Midstream Performed By: #### U RDS, UA #### [facility] [place] [facility] [address] Urine clarity by refractomet ry automatedOrdered By: Benedict Robb on 03-13-2022 Clarity Refractometry automated (U) Clear Clear [facility] Urine cocaine detectionOrder ed By: Benedict Robb on 03-13-2022 Cocaine Ql (U) Negative Negative [facility] Urine glucose measurement by automated test strip (mass/volume)Ordered By: Benedict Robb on 03-13-2022 Glucose Auto test strip (U) [Mass/Vol] Normal mg/dL Normal [facility] Urine hemoglobin detection b y automated test stripOrdered By: Benedict Robb on 03-13-2022 Hemoglobin Auto test strip Ql (U) Negative Negative [facility] Urine leukocyte esterase det ection by automated test stripOrdered By: Benedict Robb on 03-13-2022 Leukocyte esterase Auto test strip Ql (U) Negative Negative [facility] Urobilinogen Auto test strip (U) [Mass/Vol]Ordered By: Benedict Robb on 03-13-2022 Urobilinogen (U) [Mass/Vol] Normal mg/dL Normal [facility] pH Auto test strip (U)Ordere d By: Benedict Robb on 03-13-2022 pH (U) 7.0 [pH] 5.0-9.0 [facility] AMMONIAon 03-12-2022 Ammonia (P) [Moles/Vol] 27 umol/L Normal 11-32 T [facility] Comment on above: Performed By: #### D YASH WEINERR #### [facility] [address] [place] [address] [address] Hood Loco BNPon 03-12-2022 Natriuretic peptide B (Bld) [Mass/Vol] 28.0 pg/mL Normal <=900.0 [facility] Comment on above: Performed By: #### P HVEN #### [facility] [address] [place] [address] Dr. Hood Loco CARDIAC GINGER ADMITon 022 CK [Catalytic activity/Vol] 338 U/L Critically high 55-170 [facility] Comment on above: Performed By: #### P HVEN #### [facility] [address] [place] [address] Dr. Hood Loco CK.MB [Mass/Vol] 1.90 ng/mL Normal <=2.37 [facility] Comment on above: Performed By: #### P HVEN #### [facility] [address] [place] [address] Dr. Hood Loco HSTROP 8.3 pg/mL Normal 4.0-42.2 [facility] Comment on above: Result Comment: CUT- OFF POINTS HAVE BEEN ESTABLISHED BASED ON THE FOURTH UNIVERSAL DEFINITIONS OF MYOCARDIAL INFARCTION. THE UPPER REFERENCE LIMIT (URL) OF TROPONIN, DEFINED THE 99TH PERCENTILE OF cTnI DISTRIBUTION IN A REFERENCE POPULATION, HAS BEEN CONFIRMED THE DECISION THRESHOLD FOR IA DIAGNOSIS. Performed By: #### P HVEN #### [facility] [address] [place] [address] Dr. Hood Loco MARY 68.0 ng/mL Normal <=121.0 [facility] Comment on above: Performed By: #### P HVEN #### [facility] [address] [place] [address] Dr. Hood Loco CBC AUTO DIFFon 03-12-2022 BASO # 0.1 103/ul Normal 0.0-0.1 [facility] Comment on above: Performed By: #### D HUSAM, ERUR #### [facility] [address] [place] [address] Dr. Hood Loco Basophils/100 WBC (Bld) 0.7 % Normal 0.2-2.0 [facility] Comment on above: Performed By: #### D HUSAM, ERUR #### [facility] [address] [place] [address] Dr. Hood Loco EO # 0.0 103/ul Normal 0.0-0.7 [facility] Comment on above: Performed By: #### D HUSAM, ERUR #### [facility] [address] [place] [address] Dr. Hood Loco Eosinophils/100 WBC (Bld) 0.3 % Critically low 0.9-7.0 [facility] Comment on above: Performed By: #### Gage WEINER, ERUR #### [facility] [address] [place] [address] Dr. Hood Loco Erythrocyte distribution width (RBC) [Ratio] 12.7 % Normal 11.0-15.0 [facility] Comment on above: Performed By: #### Gage WEINER, ERUR #### [facility] [address] [place] [address] Dr. Hood Loco Hematocrit (Bld) [Volume fraction] 44.8 % Normal 42.0-54.0 [facility] Comment on above: Performed By: #### Gage WEINER ERUR #### [facility] [address] [place] [address] Dr. Hood Loco Hemoglobin (Bld) [Mass/Vol] 15.8 g/dL Normal 14.0-18.0 [facility] Comment on above: Performed By: #### Gage WEINER, ERUR #### [facility] [address] [place] [address] Dr. Hood Loco IG # 0.04 10e3/ul Critically high 0.00-0.03 [facility] Comment on above: Performed By: #### Gage WEINER, ERUR #### [facility] [address] [place] [address] Dr. Hood Loco IG % 0.5 % Normal 0.0-0.5 [facility] Comment on above: Performed By: #### Gage WEINER, ERUR #### [facility] [address] [place] [address] Dr. Hood Loco LYMPH # 1.9 103/ul Normal 1.2-3.8 [facility] Comment on above: Performed By: #### D HUSAM, ERUR #### [facility] [address] [place] [address] Dr. Hood Loco Lymphocytes/100 WBC (Bld) 24.5 % Normal 20.5-60.0 [facility] Comment on above: Performed By: #### D HUSAM, ERUR #### [facility] [address] [place] [address] Dr. Hood Loco MANUAL DIFF REQ NO Normal [facility] Comment on above: Performed By: #### D HUSAM, ERUR #### [facility] [address] [place] [address] Dr. Hood Loco MCH (RBC) [Entitic mass] 32.6 pg Normal 25.9-34.0 [facility] Comment on above: Performed By: #### D HUSAM, ERUR #### [facility] [address] [place] [address] Dr. Hood Loco MCHC (RBC) [Mass/Vol] 35.3 g/dL Critically high 29.9-35.2 [facility] Comment on above: Performed By: #### D HUSAM, ERUR #### [facility] [address] [place] [address] Dr. Hood Loco MCV (RBC) [Entitic vol] 92.4 fL Normal 80.0-94.0 [facility] Comment on above: Performed By: #### D HUSAM, ERUR #### [facility] [address] [place] [address] Dr. Hood Loco MONO # 0.7 103/ul Normal 0.3-0.8 [facility] Comment on above: Performed By: #### D HUSAM, ERUR #### [facility] [address] [place] [address] Dr. Hood Loco Monocytes/100 WBC (Bld) 9.5 % Normal 1.7-12.0 [facility] Comment on above: Performed By: #### D HUSAM, ERUR #### [facility] [address] [place] [address] Dr. Hood Loco NEUT # 4.9 103/ul Normal 1.4-6.5 [facility] Comment on above: Performed By: #### D HUSAM, ERUR #### [facility] [address] [place] [address] Dr. Hood Loco Neutrophils/100 WBC (Bld) 64.5 % Normal 43.0-75.0 [facility] Comment on above: Performed By: #### D HUSAM, ERUR #### [facility] [address] [place] [address] Dr. Hood Loco Platelet mean volume (Bld) [Entitic vol] 8.3 fL Critically low 9.5-13.5 [facility] Comment on above: Performed By: #### D HUSAM, ERUR #### [facility] [address] [place] [address] Dr. Hood Loco PLT 187 103/ul Normal 150-450 [facility] Comment on above: Performed By: #### D HUSAM, ERUR #### [facility] [address] [place] [address] Dr. Hood Loco RBC 4.85 106/ul Normal 4.70-6.10 [facility] Comment on above: Performed By: #### D HUSAM, ERUR #### [facility] [address] [place] [address] Dr. Hood Loco WBC 7.6 103/ul Normal 4.0-11.0 [facility] Comment on above: Performed By: #### D HUSAM, ERUR #### [facility] [address] [place] [address] Dr. Hood Loco DRUG SCREEN RAPID (URINE)on 03-12-2022 AMP Negative Normal NEGATIVE [facility] Comment on above: Performed By: #### D HUSAM, ERUR #### [facility] [address] [place] [address] Dr. Hood Loco BAR Negative Normal NEGATIVE [facility] Comment on above: Performed By: #### D RUGRPD, ERUR #### [facility] [address] [place] [address] [address] Hood Loco BUP Negative Normal NEGATIVE [facility] Comment on above: Performed By: #### D RUGRPD, ERUR #### [facility] [address] [place] [address] [address] Hood Loco BZO Negative Normal NEGATIVE [facility] Comment on above: Performed By: #### D RUGRPD, ERUR #### [facility] [address] [place] [address] [address] Hood Loco TREY Negative Normal NEGATIVE [facility] Comment on above: Performed By: #### D SLAVAD, ERUR #### [facility] [address] [place] [address] [address] Hood Loco CUT-OFFS SEE BELOW Normal [facility] Comment on above: Result Comment: AMP (Amphetamine): 500ng/mL, BAR (Barbituates): 200 ng/mL, BZO (Benzodiazepines): 150 ng/mL, BUP (Buprenorphine): 10 ng/mL, TREY (Cocaine): 150 ng/mL, mAMP (Methamphetamine): 500 ng/mL, MTD (Methadone): 200 ng/mL, OPI (Opiates): 100 ng/mL, OXY (Oxycodone): 100 ng/mL, PCP (Phencyclidine): 25 ng/mL, PPX (Propoxyphene): 300 ng/mL, THC (Cannabinoids): 50 ng/mL, TCA (Trycyclic Antidepressants): 300 ng/mL Performed By: #### D RUGRPD, ERUR #### [facility] [address] [place] [address] [address] Hood Loco DRUG CUT HEADER DRUG CLASS TEST SYSTEM CUT-OFF CONCENTRATIONS ARE FOLLOWS: Normal [facility] Comment on above: Performed By: #### D SLVAAD, ERUR #### [facility] [address] [place] [address] [address] Hood Loco mAMP Negative Normal NEGATIVE [facility] Comment on above: Performed By: #### D HUSAM, ERUR #### [facility] [address] [place] [address] Dr. Hood Loco MTD Negative Normal NEGATIVE [facility] Comment on above: Performed By: #### D SLAVAD, ERUR #### [facility] [address] [place] [address] [address] Hood Loco OPI Negative Normal NEGATIVE [facility] Comment on above: Performed By: #### D RUGMILTOND, ERUR #### [facility] [address] [place] [address] Dr. Hood Loco OXY Negative Normal NEGATIVE [facility] Comment on above: Performed By: #### D RUGMILTOND, ERUR #### [facility] [address] [place] [address] Dr. Hood Loco PCP Negative Normal NEGATIVE [facility] Comment on above: Performed By: #### D HUSAM, ERUR #### [facility] [address] [place] [address] Dr. Hood Loco PPX Negative Normal NEGATIVE [facility] Comment on above: Performed By: #### D HUSAM, ERUR #### [facility] [address] [place] [address] Dr. Hood Loco TCA Negative Normal NEGATIVE [facility] Comment on above: Performed By: #### D HUSAM, ERUR #### [facility] [address] [place] [address] Dr. Hood Loco THC Negative Normal NEGATIVE [facility] Comment on above: Performed By: #### D HUSAM, ERUR #### [facility] [address] [place] [address] Dr. Hood Loco ER URINE PROFILEon 2 Bilirubin Ql (U) Negative Normal NEGATIVE [facility] Comment on above: Performed By: #### D HUSAM, ERUR #### [facility] [address] [place] [address] Dr. Hood Loco Clarity (U) CLEAR Normal CLEAR [facility] Comment on above: Performed By: #### D HUSAM, ERUR #### [facility] [address] [place] [address] Dr. Hood Loco Color (U) LT. YELLOW Normal YELLOW [facility] Comment on above: Performed By: #### Gage WEINER, ERUR #### [facility] [address] [place] [address] Dr. Hood VIDAL A micrscopic examination will be performed if indicated. Normal [facility] Comment on above: Performed By: #### D HUSAM, ERUR #### [facility] [address] [place] [address] [address] Hood Loco Glucose Ql (U) 100 mg/dl Abnormal NEGATIVE [facility] Comment on above: Performed By: #### D HUSAM, ERUR #### [facility] [address] [place] [address] Dr. Hood Loco Hemoglobin Ql (U) Negative Normal NEGATIVE [facility] Comment on above: Performed By: #### Gage WEINER, ERUR #### [facility] [address] [place] [address] Dr. Hood Loco Ketones Ql (U) Negative Normal NEGATIVE [facility] Comment on above: Performed By: #### Gage WEINER, ERUR #### [facility] [address] [place] [address] Dr. Hood Loco LEUKOCYTES Negative Normal NEGATIVE [facility] Comment on above: Performed By: #### Gage WEINER, ERUR #### [facility] [address] [place] [address] Dr. Hood Loco Nitrite Ql (U) Negative Normal NEGATIVE [facility] Comment on above: Performed By: #### Gage WEINER, ERUR #### [facility] [address] [place] [address] Dr. Hood Loco pH (U) 6.0 [pH] Normal 5-9 [facility] Comment on above: Performed By: #### Gage WEINER, ERUR #### [facility] [address] [place] [address] Dr. Hood Loco SPEC GRAVITY 1.005 Normal 1.005-<=1.[address] [facility] Comment on above: Performed By: #### D HUSAM, ERUR #### [facility] [address] [place] [address] Dr. Hood Loco UA PROTEIN Negative Normal NEGATIVE/ TRACE The [facility] Comment on above: Performed By: #### D HUSAM, ERUR #### [facility] [address] [place] [address] Dr. Hood Loco UR MICRO IND NOT INDICATED Normal The [facility] Comment on above: Performed By: #### D HUSAM, ERUR #### [facility] [address] [place] [address] Dr. Hood Loco Urobilinogen Qn (U) 0.2 {Rohith'U}/dL Normal 0.2 - 1. 0 [facility] Comment on above: Performed By: #### D HUSAM, ERUR #### [facility] [address] [place] [address] Dr. Hood Loco ETHANOL (BLD ALC)on 03-12-20 ALC NOTE NOTE: 80 mg/dl is the legal limit for a blood alcohol level Normal [facility] Comment on above: Performed By: #### D HUSAM, ERUR #### [facility] [address] [place] [address] Dr. Hood Loco Ethanol [Mass/Vol] 451 mg/dL Normal [facility] Comment on above: Performed By: #### D HUSAM, ERUR #### [facility] [address] [place] [address] Dr. Hood Loco LIPASEon 03-12-2022 Lipase [Catalytic activity/Vol] 112.0 U/L Normal 23.0-300.0 [facility] Comment on above: Performed By: #### P HVEN #### [facility] [address] [place] [address] Dr. Hood Loco MAGNESIUMon 03-12-2022 Magnesium [Mass/Vol] 1.9 mg/dL Normal 1.6-2.3 [facility] Comment on above: Performed By: #### M G #### [facility] [address] [place] [address] Dr. Hood Loco PH VENOUS BLOODon 03-12-2022 PCO2 VENOUS 42.2 mmHg Normal 40.0-52.0 [facility] Comment on above: Performed By: #### P HVEN #### [facility] [address] [place] [address] Dr. Hood Loco pH VENOUS 7.444 Critically high 7.330-7.430 [facility] Comment on above: Performed By: #### P HVEN #### [facility] [address] [place] [address] Dr. Hood Loco PROF 14(COMP METB)on 022 Albumin [Mass/Vol] 3.8 g/dL Normal 3.4-5.0 [facility] Comment on above: Performed By: #### P HVEN #### [facility] [address] [place] [address] Dr. Hood Loco Albumin/Globulin [Mass ratio] 1.0 {ratio} Normal [facility] Comment on above: Performed By: #### P HVEN #### [facility] [address] [place] [address] Dr. Hood Loco ALP [Catalytic activity/Vol] 75 U/L Normal 46-116 [facility] Comment on above: Performed By: #### P HVEN #### [facility] [address] [place] [address] Dr. Hood Loco ALT [Catalytic activity/Vol] 30 U/L Normal 16-63 [facility] Comment on above: Performed By: #### P HVEN #### [facility] [address] [place] [address] Dr. Hood Loco Anion gap [Moles/Vol] 15.4 mmol/L Normal [facility] Comment on above: Performed By: #### P HVEN #### [facility] [address] [place] [address] Dr. Hood Loco AST [Catalytic activity/Vol] 55 U/L Critically high 15-37 [facility] Comment on above: Performed By: #### P HVEN #### [facility] [address] [place] [address] Dr. Hood Loco Bilirubin [Mass/Vol] 0.8 mg/dL Normal 0.2-1.3 [facility] Comment on above: Performed By: #### P HVEN #### [facility] [address] [address] [address] Hood Loco Calcium [Mass/Vol] 8.3 mg/dL Critically low 8.5-10.1 Th e [facility] Comment on above: Performed By: #### P HVEN #### [facility] [address] [address] [address] Hood Loco Chloride [Moles/Vol] 99 mmol/L Normal 98-107 [facility] Comment on above: Performed By: #### P HVEN #### [facility] [address] [place] [address] Dr. Hood Loco CO2 [Moles/Vol] 26.9 mmol/L Normal 22.0-30.0 [facility] Comment on above: Performed By: #### P HVEN #### [facility] [address] [place] [address] Dr. Hood Loco Creatinine [Mass/Vol] 0.77 mg/dL Normal 0.66-1.25 [facility] Comment on above: Performed By: #### P HVEN #### [facility] [address] [place] [address] Dr. Hood Loco EGFR-AF TRISTANIAN >60 Normal >=60 [facility] Comment on above: Performed By: #### P HVEN #### [facility] [address] [place] [address] Dr. Hood Loco EGFR-NON AF TRISTANIAN >60 Normal >=60 [facility] Comment on above: Performed By: #### P HVEN #### [facility] [address] [place] [address] Dr. Hood Loco Globulin (S) [Mass/Vol] 3.8 g/dL Normal T [facility] Comment on above: Performed By: #### P HVEN #### [facility] [address] [place] [address] Dr. Hood Loco Glucose [Mass/Vol] 115 mg/dL Critically high 74-106 T [facility] Comment on above: Performed By: #### P HVEN #### [facility] [address] [address] [address] Hood Loco Potassium [Moles/Vol] 4.3 mmol/L Normal 3.4-5.0 [facility] Comment on above: Performed By: #### P HVEN #### [facility] [address] [place] [address] Dr. Hood Loco Protein [Mass/Vol] 7.6 g/dL Normal 6.1-8.2 [facility] Comment on above: Performed By: #### P HVEN #### [facility] [address] [place] [address] Dr. Hood Loco Sodium [Moles/Vol] 137 mmol/L Normal 137-145 [facility] Comment on above: Performed By: #### P HVEN #### [facility] [address] [place] [address] Dr. Hood Loco Urea nitrogen [Mass/Vol] 10.0 mg/dL Normal 7.0-18.0 [facility] Comment on above: Performed By: #### P HVEN #### [facility] [address] [place] [address] Dr. Hood Loco Urea nitrogen/Creatinine [Mass ratio] 13.0 mg/mg Normal [facility] Comment on above: Performed By: #### P HVEN #### [facility] [address] [place] [address] Dr. Hood Loco PROTIMEon 03-12-2022 INR Coag (PPP) [Relative time] 1.08 {INR} Normal [facility] Comment on above: Performed By: #### D BEENA WEINER #### [facility] [address] [place] [address] Dr. Hood Loco INR GUIDELINES SEE BELOW Normal [facility] Comment on above: Result Comment: CONNIE RED INR: 2.0 - 3.0 CONDITIONS NOT LISTED BELOW 2.5 - 3.5 FOR PROSTHETIC HEART VALVE REPLACEMENT 2.5 - 3.5 RECURRENT THROMBOSIS Performed By: #### D HUSAM, ERUR #### [facility] [address] [address] [address] Hood Loco PT Coag (PPP) [Time] 11.6 s Normal 9.0-11.6 [facility] Comment on above: Performed By: #### D HUSAM, ERUR #### [facility] [id number] Hood Loco PTTon 03-12-2022 aPTT Coag (Bld) [Time] 25.6 s Normal 22.3-36.2 Th e [facility] Comment on above: Performed By: #### D HUSAM, ERUR #### [facility] [address] [place] [address] Dr. Hood Loco TROPONIN, HIGH SENSITIVITYon 03-12-2022 HSTROP 8.4 pg/mL Normal 4.0-42.2 The [facility] Comment on above: Result Comment: CUT- OFF POINTS HAVE BEEN ESTABLISHED BASED ON THE FOURTH UNIVERSAL DEFINITIONS OF MYOCARDIAL INFARCTION. THE UPPER REFERENCE LIMIT (URL) OF TROPONIN, DEFINED THE 99TH PERCENTILE OF cTnI DISTRIBUTION IN A REFERENCE POPULATION, HAS BEEN CONFIRMED THE DECISION THRESHOLD FOR IA DIAGNOSIS. Performed By: #### D HUSAM, ERUR #### [facility] [address] [place] [address] Dr. Hood Loco XR CHEST 1 Von 03-12-2022 XR CHEST 1 V XR CHEST 1 V CLINICAL: CHEST PAIN, UNSPECIFIED COMPARISON: No prior studies are available. TECHNIQUE: Single AP view of the chest. FINDINGS: Heart is upper normal for technique. Central pulmonary vasculature does not appear significantly enlarged. No regional airspace consolidation, large effusion or pneumothorax. Haziness at the left lung base likely related in part to soft tissue and bronchovascular overlap. Osseous structures appear intact. IMPRESSION: No airspace consolidation or effusion. Slight asymmetric haziness left lung base likely bronchovascular and soft tissue overlap, less likely early interstitial infiltrate. Electronically authenticated by: JN DALY Date: 2022-03-12 16:33 Normal [facility] Covid-19 PCR (CVDTB)on 11-26 SARS-CoV-2 (COVID-19) RNA IGLESIA+probe Ql (Unsp spec) Not detected Normal NOT DETECTED The [facility] Comment on above: Result Comment: This test is not yet approved or cleared by the [place] FDA. When there are no FDA-approved or cleared tests available, and other criteria are met, FDA can make tests available under an emergency access mechanism called an Emergency Use Authorization (EUA). The EUA for this test is supported by the Retail Coordinator of Health and Human Service's (HHS's) declaration that circumstances exist to justify the emergency use of in vitro diagnostics for the detection and/or diagnosis of the virus that causes COVID-19. This EUA will remain in effect (meaning this test can be used) for the duration of the COVID-19 declaration justifying emergency of IVDs, unless it is terminated or revoked by FDA (after which the test may no longer be used). When diagnostic testing is negative, the possibility of a false negative should be considered in the context of a patient's recent exposures and the presence of clinical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 a n alternate section FOR RECORDS PERTAINING TO PATIENTS WHO ARE OR HAVE BEEN ENROLLED IN A CHEMICAL DEPENDENCY/SUBSTANCEABUSE PROGRAM, SOME INFORMATION MAY BE OMITTED. This clinical summary was aggregated from multiple sources. Caution should be exercised in using it in the provision of clinical care. This summary normalizes information from multiple sources, and as a consequence, information in this document may materially change the coding, format and clinical context of patient data. In addition, data may be omitted in some cases. CLINICAL DECISIONS SHOULD BE BASED ON THE PRIMARY CLINICAL RECORDS. [facility]. provides no warranty or guarantee of the accuracy or completeness of information in this document.
--- NOTE | 2024-07-04 21:01 | ED.GENADUL1 ---
HPI HPI - General Adult General Chief complaint: Nausea/Vomiting/Diarrhea Stated complaint: SOB Time Seen by Provider: 07/04/24 20:51 Source: patient Mode of arrival: Wheelchair Limitations: no limitations History of Present Illness HPI narrative: states a friend gave him a vicodin pill this AM. State he only took 1/2 of the pill. Has been sleeping all day since 10AM. Woke up and did not feel right. Decided to take a drink of alcohol and vomited. Has a history of anxiety. Feels like he is having a major anxiety attack. Took Ativan before coming in. Has not help yet Related Data Home Medications ?Medication ?Instructions ?Recorded ?Confirmed amlodipine 10 mg tablet 10 mg PO DAILY 06/28/24 07/04/24 cholecalciferol (vitamin D3) 125 125 mcg PO DAILY 06/28/24 07/04/24 mcg (5,000 unit) capsule hydrochlorothiazide 25 mg tablet 25 mg PO DAILY 06/28/24 07/04/24 Previous Rx's ?Medication ?Instructions ?Recorded lorazepam 1 mg tablet (Ativan) 1 mg PO Q8H PRN anxiety #10 tabs 06/28/24 Allergies Allergy/AdvReac Type Severity Reaction Status Date / Time hydroxyzine AdvReac Severe Anxiety Verified 06/28/24 16:57 allergy medication AdvReac Severe Anxiety Uncoded 06/28/24 16:57 Opioid HPI Opioid Management Most Recent Opioid Data: Ur Phencyclidine Scrn Negative (NEGATIVE) 07/04/24 21:10 Exam Constitutional Vital Signs, click to edit/add: Last Vital Signs Temp 98.3 F 07/04/24 20:38 Pulse 95 H 07/04/24 21:42 Resp 13 07/04/24 21:42 BP 143/94 H 07/04/24 21:42 Pulse Ox 91 L 07/04/24 21:42 O2 Del Method Room Air 07/04/24 20:38 Course Vital Signs Vital signs: Vital Signs Temperature 98.3 F 07/04/24 20:38 Pulse Rate 107 H 07/04/24 20:38 Respiratory Rate 20 07/04/24 20:38 Blood Pressure 150/80 H 07/04/24 20:38 Pulse Oximetry 95 07/04/24 20:38 Oxygen Delivery Method Room Air 07/04/24 20:38 Temperature 98.3 F 07/04/24 20:38 Pulse Rate 95 H 07/04/24 21:42 Respiratory Rate 13 07/04/24 21:42 Blood Pressure 143/94 H 07/04/24 21:42 Pulse Oximetry 91 L 07/04/24 21:42 Oxygen Delivery Method Room Air 07/04/24 20:38 Medical Decision Making MDM Narrative Medical decision making narrative: patient presents complaining of increased anxiety and vomiting. States someone gave him 1/2 vicodin pill this AM. He has been asleep all day after taking it. Woke up . Did not feel right. States he poured himself a drink of alcohol and vomited. Now presents complaining of nausea and feeling very anxious. Took Ativan before coming in but had not help yet. treated in the department with catapres for his elevated BP and anxiety. given IV magnesium to also help him relax. He is now feeling better except for dry mouth. Urine drug screen positive for oxycodone, benzo and marijuana. Patient discharged home in improved condition Lab Data Labs: Lab Results 07/04/24 07/04/24 Range/Units 20:47 21:10 WBC 5.2 (4.0-11.0) 10^3/uL RBC 4.68 L (4.70-6.10) 10^6/uL Hgb 15.4 (14.0-18.0) g/dL Hct 44.0 (42.0-54.0) % MCV 94.0 (80.0-94.0) fL MCH 32.9 (25.9-34.0) pg MCHC 35.0 (29.9-35.2) g/dL RDW 11.8 (11.0-15.0) % Plt Count 154 (150-450) 10^3/uL MPV 8.6 L (9.5-13.5) fL Neut % (Auto) 54.0 (43.0-75.0) % Lymph % (Auto) 31.3 (20.5-60.0) % [place] % (Auto) 11.9 (1.7-12.0) % Eos % (Auto) 1.0 (0.9-7.0) % Baso % (Auto) 1.0 (0.2-2.0) % Neut # (Auto) 2.8 (1.4-6.5) 10^3/uL Lymph # (Auto) 1.6 (1.2-3.8) 10^3/uL [place] # (Auto) 0.6 (0.3-0.8) 10^3/uL Eos # (Auto) 0.1 (0.0-0.7) 10^3/uL Baso # (Auto) 0.1 (0.0-0.1) 10^3/uL Abs Immat Gran (auto) 0.04 H (0.00-0.03) 10^3/uL Imm/Tot Granulo (auto) 0.8 H (0.0-0.5) % Sodium 137 (136-145) mmol/L Potassium 3.3 L (3.5-5.1) mmol/L Chloride 97 L (98-107) mmol/L Carbon Dioxide 27.8 (21.0-32.0) mmol/L Anion Gap 15.5 BUN 6.0 L (7.0-18.0) mg/dL Creatinine 1.01 (0.70-1.30) mg/dL Est GFR ( Amer) >60 (>=60) Est GFR (Non-Af Amer) >60 (>=60) BUN/Creatinine Ratio 5.9 Glucose 107 H (74-106) mg/dL Calcium 9.0 (8.5-10.1) mg/dL Troponin I High Sens 6.2 (4.0-76.1) pg/mL Urine Opiates Screen Negative (NEGATIVE) Ur Buprenorphine Scrn Negative (NEGATIVE) Ur Oxycodone Screen Positive A (NEGATIVE) Urine Methadone Screen Negative (NEGATIVE) Ur Barbiturates Screen Negative (NEGATIVE) U Tricyclic Antidepress Negative (NEGATIVE) Ur Phencyclidine Scrn Negative (NEGATIVE) Ur Amphetamines Screen Negative (NEGATIVE) U Methamphetamines Scrn Negative (NEGATIVE) U Benzodiazepines Scrn Positive A (NEGATIVE) Urine Cocaine Screen Negative (NEGATIVE) U Cannabinoids Screen Positive A (NEGATIVE) Discharge Plan Discharge Stand Alone Forms: Portal Instructions Chief Complaint: Nausea/Vomiting/Diarrhea Clinical Impression: Drug-induced nausea and vomiting, Anxiety Patient Disposition: Home, Self-Care Prescriptions / Home Meds: No Action amlodipine 10 mg tablet 10 mg PO DAILY cholecalciferol (vitamin D3) 125 mcg (5,000 unit) capsule 125 mcg PO DAILY hydrochlorothiazide 25 mg tablet 25 mg PO DAILY lorazepam [Ativan] 1 mg tablet 1 mg PO Q8H PRN (Reason: anxiety) Qty: 10 0RF Print Language: Kyrgyz Instructions: Acute Nausea and Vomiting (ED), Anxiety (ED) Additional Instructions: follow up with your doctor next week Referrals: Physician,Non-Staff, MD [Primary Care Provider] - 1 week
[2024-07-04 21:04] LABS: Basophils Absolute Auto 0.1 10^3/uL (0.0-0.1); Eosinophils Absolute Auto 0.1 10^3/uL (0.0-0.7); Hemoglobin 15.4 g/dL (14.0-18.0); Immature Granulocytes Abs Auto 0.04 10^3/uL (0.00-0.03); Immature Granulocytes Pct Auto 0.8 % (0.0-0.5); Lymphocytes Absolute Auto 1.6 10^3/uL (1.2-3.8); Lymphocytes Percent Auto 31.3 % (20.5-60.0); Mean Corpuscular Hemoglobin 32.9 pg (25.9-34.0); Mean Platelet Volume 8.6 fL (9.5-13.5); Monocytes Absolute Auto 0.6 10^3/uL (0.3-0.8); Monocytes Percent Auto 11.9 % (1.7-12.0); Neutrophils Absolute Auto 2.8 10^3/uL (1.4-6.5); Platelet Count 154 10^3/uL (150-450); Red Blood Count 4.68 10^6/uL (4.70-6.10); Red Cell Distribution Width 11.8 % (11.0-15.0); White Blood Count 5.2 10^3/uL (4.0-11.0)
[2024-07-04] MEDS: CLONIDINE HCL 0.1 MG TABLET PO (21:07)
[2024-07-04 21:21] LABS: Anion Gap 15.5; BUN Creatinine Ratio 5.9; Carbon Dioxide 27.8 mmol/L (21.0-32.0); Chloride 97 mmol/L (98-107); Estimated GFR (African America >60 (>=60); Estimated GFR (Non-African Ame >60 (>=60); Glucose 107 mg/dL (74-106); Potassium 3.3 mmol/L (3.5-5.1); Sodium 137 mmol/L (136-145); Troponin I High Sensitivity 6.2 pg/mL (4.0-76.1)
[2024-07-04 21:26] LABS: Amphetamine Screen Urine NEGATIVE (NEGATIVE); Barbiturates Screen Urine NEGATIVE (NEGATIVE); Benzodiazepines Screen Urine POSITIVE (NEGATIVE); Buprenorphine Screen Urine NEGATIVE (NEGATIVE); Cannabinoid Screen Urine POSITIVE (NEGATIVE); Cocaine Screen Urine NEGATIVE (NEGATIVE); Methadone Screen Urine NEGATIVE (NEGATIVE); Methamphetamines Screen Urine NEGATIVE (NEGATIVE); Opiate Screen Urine NEGATIVE (NEGATIVE); Oxycodone Screen Urine POSITIVE (NEGATIVE); Phencyclidine Screen Urine NEGATIVE (NEGATIVE); Tricyclic Antidepressant Urine NEGATIVE (NEGATIVE)
[2024-07-04] MEDS: CALCIUM CARBONATE 500 MG (200MG ELEMENTAL) TAB CHEW 1000 MG PO (21:33)
[2024-07-04] MEDS: MAGNESIUM SULFATE IN WATER 2 GM/50 ML PREMIX IV (22:10)
--- NOTE | 2024-07-04 22:51 | ECG_ITS ---
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
== END 2024-07-04 23:31 | disposition home or self-care (01) ==
PROVIDERS: Emergency Provider Internal Medicine
DX: R11.2 Nausea with vomiting, unspecified (principal); F41.9 Anxiety disorder, unspecified; T50.905A Adverse effect of unspecified drugs, medicaments and biological substances, initial encounter; R82.5 Elevated urine levels of drugs, medicaments and biological substances
CPT/HCPCS: 36415; 80048; 80307; 84484; 85025; 93005; 96365; 99285; J3475

== ENCOUNTER 2024-09-15 17:21 | Emergency (ER) | payer MEDICAID, SELFPAY ==
[2024-09-15 17:24] VITALS: BP 160/96; PULSE 107; TEMP 36.9; O2SAT 96; BMI 38.0
--- NOTE | 2024-09-15 17:41 | ECG_ITS ---
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
--- NOTE | 2024-09-15 17:45 | ED.GENADUL1 ---
HPI HPI - General Adult General Chief complaint: Alcohol Stated complaint: Alcohol Withdrawal Time Seen by Provider: 09/15/24 17:32 Source: patient Mode of arrival: walk-in History of Present Illness HPI narrative: Patient is a 54-year-old who is presenting to the ER today for medical clearance. Patient wants to be admitted to [facility] detox facility. Patient was just in detox facility 2 to 3 months ago. Patient has a friend at bedside to help with history. Patient has been drinking excessive alcohol for approximately 40+ years. Patient states he does not do any illicit drug use. Patient has no headache or neck pain. No chest pain or shortness of breath. No nausea but thinks he may get nauseated if the david up somewhat. Patient currently has no DTs or seizures. Patient says that he does have a history of DTs and seizure from alcohol withdrawal in the past. No recent head injury, no recent alcohol withdrawal. All systems are negative except as noted/marked. All systems reviewed and otherwise negative. Nurses note and vital signs reviewed and patient is not hypoxic. General: The patient appears pleasant, admittedly intoxicated. Patient is resting comfortably on cart. Patient is not toxic, lethargic, or listless Skin: Warm, dry, no pallor noted. There is no rash noted. No petechiae, purpura. Head: Normocephalic, atraumatic Eye: Normal conjunctiva, no drainage, EOMI. PERRL Ears, Nose, Mouth, and Throat: oral mucosa is moist. Nares patent. Mouth without vesicles. Cardiovascular: Regular Rate and Rhythm, no murmur, gallop, rub Respiratory: Patient is in no distress, no accessory muscle use, lungs are clear to auscultation, no wheezing, rales or rhonchi Back: non-tender, no CVA tenderness bilaterally to percussion. No CT LS midline pain GI: Soft, obese, no tenderness to palpation, no masses appreciated. No rebound, guarding, or rigidity noted. No distention Musculoskeletal: Patient has full range of motion of all of the extremities, no motor, sensory, or focal neurological deficits Neurological: A&O x4, normal speech Psychiatric: Cooperative, not suicidal homicidal, admittedly intoxicated, smells of alcohol. Related Data Home Medications ?Medication ?Instructions ?Recorded ?Confirmed amlodipine 10 mg tablet 10 mg PO DAILY 06/28/24 07/04/24 cholecalciferol (vitamin D3) 125 125 mcg PO DAILY 06/28/24 07/04/24 mcg (5,000 unit) capsule hydrochlorothiazide 25 mg tablet 25 mg PO DAILY 06/28/24 07/04/24 Previous Rx's ?Medication ?Instructions ?Recorded lorazepam 1 mg tablet (Ativan) 1 mg PO Q8H PRN anxiety #10 tabs 06/28/24 Allergies Allergy/AdvReac Type Severity Reaction Status Date / Time hydroxyzine AdvReac Severe Anxiety Verified 06/28/24 16:57 allergy medication AdvReac Severe Anxiety Uncoded 06/28/24 16:57 Opioid HPI Opioid Management Most Recent Opioid Data: Ur Phencyclidine Scrn Negative (NEGATIVE) 09/15/24 18:18 09/15/24 Exam Constitutional Vital Signs, click to edit/add: Last Vital Signs Temp 98.2 F 09/15/24 19:01 Pulse 97 H 09/15/24 19:01 Resp 18 09/15/24 19:01 BP 157/83 H 09/15/24 19:01 Pulse Ox 95 09/15/24 19:01 O2 Del Method Room Air 09/15/24 17:24 Course Vital Signs Vital signs: Vital Signs Temperature 98.4 F 09/15/24 17:24 Pulse Rate 107 H 09/15/24 17:24 Respiratory Rate 18 09/15/24 17:24 Blood Pressure 160/96 H 09/15/24 17:24 Pulse Oximetry 96 09/15/24 17:24 Oxygen Delivery Method Room Air 09/15/24 17:24 Temperature 98.2 F 09/15/24 19:01 Pulse Rate 97 H 09/15/24 19:01 Respiratory Rate 18 09/15/24 19:01 Blood Pressure 157/83 H 09/15/24 19:01 Pulse Oximetry 95 09/15/24 19:01 Oxygen Delivery Method Room Air 09/15/24 17:24 Medical Decision Making MDM Narrative Medical decision making narrative: Patient alcohol was 350. Patient potassium was 3.4, he was given oral potassium to drink. KAUSHIK RN will be calling [facility] facility to let them know about patient's alcohol level and see what their parameters are for taking patient for alcohol rehabilitation, detox and to help prevent withdrawal. 1900 patient is transition to Dr. Freeman for final disposition admission or transfer. Lab Data Lab results reviewed: Yes I reviewed the patient's lab results Labs: Lab Results 09/15/24 09/15/24 09/15/24 Range/Units 18:10 18:18 18:41 WBC 7.1 (4.0-11.0) 10^3/uL RBC 4.94 (4.70-6.10) 10^6/uL Hgb 16.4 (14.0-18.0) g/dL Hct 44.8 (42.0-54.0) % MCV 90.7 (80.0-94.0) fL MCH 33.2 (25.9-34.0) pg MCHC 36.6 H (29.9-35.2) g/dL RDW 11.4 (11.0-15.0) % Plt Count 251 (150-450) 10^3/uL MPV 8.2 L (9.5-13.5) fL Neut % (Auto) 59.2 (43.0-75.0) % Lymph % (Auto) 27.4 (20.5-60.0) % [place] % (Auto) 11.7 (1.7-12.0) % Eos % (Auto) 0.6 L (0.9-7.0) % Baso % (Auto) 0.8 (0.2-2.0) % Neut # (Auto) 4.2 (1.4-6.5) 10^3/uL Lymph # (Auto) 2.0 (1.2-3.8) 10^3/uL [place] # (Auto) 0.8 (0.3-0.8) 10^3/uL Eos # (Auto) 0.0 (0.0-0.7) 10^3/uL Baso # (Auto) 0.1 (0.0-0.1) 10^3/uL Abs Immat Gran (auto) 0.02 (0.00-0.03) 10^3/uL Imm/Tot Granulo (auto) 0.3 (0.0-0.5) % Sodium 138 (136-145) mmol/L Potassium 3.3 L (3.5-5.1) mmol/L Chloride 96 L (98-107) mmol/L Carbon Dioxide 29.7 (21.0-32.0) mmol/L Anion Gap 15.6 BUN 6.0 L (7.0-18.0) mg/dL Creatinine 1.03 (0.70-1.30) mg/dL Est GFR ( Amer) >60 (>=60 mL/min/1.73m^2) Est GFR (Non-Af Amer) >60 (>=60 mL/min/1.73m^2) BUN/Creatinine Ratio 5.8 Glucose 115 H (74-106) mg/dL Calcium 9.4 (8.5-10.1) mg/dL Total Bilirubin 0.8 (0.2-1.0) mg/dL AST 69 H (15-37) U/L ALT 48 (16-63) U/L Alkaline Phosphatase 71 (46-116) U/L Total Protein 7.8 (6.4-8.2) g/dL Albumin 3.9 (3.4-5.0) g/dL Globulin 3.9 g/dL Albumin/Globulin Ratio 1.0 Urine Opiates Screen Negative (NEGATIVE) Ur Buprenorphine Scrn Negative (NEGATIVE) Ur Oxycodone Screen Negative (NEGATIVE) Urine Methadone Screen Negative (NEGATIVE) Ur Barbiturates Screen Negative (NEGATIVE) U Tricyclic Antidepress Negative (NEGATIVE) Ur Phencyclidine Scrn Negative (NEGATIVE) Ur Amphetamines Screen Negative (NEGATIVE) U Methamphetamines Scrn Negative (NEGATIVE) U Benzodiazepines Scrn Positive A (NEGATIVE) Urine Cocaine Screen Negative (NEGATIVE) U Cannabinoids Screen Negative (NEGATIVE) Ethanol Quant 350 mg/dL ECG Data Attestation: I personally reviewed and interpreted this ECG as follows: (EKG interpretation. Sinus tachycardia at 101. Normal axis deviation. No acute ST elevation, no acute ectopy. QTc of 402.) Discharge Plan Discharge Chief Complaint: Alcohol Clinical Impression: Alcoholic intoxication, Hypokalemia Patient Disposition: Still a Patient Prescriptions / Home Meds: No Action amlodipine 10 mg tablet 10 mg PO DAILY cholecalciferol (vitamin D3) 125 mcg (5,000 unit) capsule 125 mcg PO DAILY hydrochlorothiazide 25 mg tablet 25 mg PO DAILY lorazepam [Ativan] 1 mg tablet 1 mg PO Q8H PRN (Reason: anxiety) Qty: 10 0RF Print Language: French Referrals: Physician,Non-Staff, MD [Primary Care Provider] - 1 week
--- OUTSIDE RECORDS SUMMARY | 2024-09-15 18:13 | XMS_ITS | CCD ---
Author Organization [facility] Care Team Providers Care [place] Supervisor Name Role Phone PHYSICIAN, DEFAULT Unavailable Unavailable PHYSICIAN, DEFAULT Unavailable Unavailable NO FAMILY, PHYSICIAN Primary Care Provider Madelineva MD Benedict Ulloa Emergency Provider REQUEST, DR NONE LISTED Primary Care Unavaila SHAIKH Hudson Admitting Unavailable SHAIKH ANDERS Attending Unavailable PAY, DR GOINS Consulting Unavailable FADO, Consulting Unavailable Jn Daly Consulting Unavailable REQUEST, NONE LISTED Primary Care Unavaila conrad SMART, DR BURRELL Consulting Unavailable SAMSA, SELENE Admitting Unavailable SAMSA, SELENE Attending Unavailable DEON, DR PATRICIA Field Consulting Unavailable GRECHNY, IDRIS ARZOLA Consulting Unavailable HAY, DR KUMAR Consulting Unavailable SAMSA, SELENE Consulting Unavailable ASHELY LANDAVERDE Consulting Unavailable REQUEST, NONE LISTED Primary Care Unavaila TIFFANI Hinds Admitting Unavailable TIFFANI CHAMBERS Attending Unavailable REYES, TIFFANI Consulting Unavailable Problems [...] 03-15-2022 Episodic Other aftercare (1 source) Other custodial (current) drug therapy; Translations: [[facility] CURRENT [facility]ERAPY] Onset: 03-15-2022 Episodic Other [...] on 03-13-2022 Amphetamines Ql (U) Negative Negative [facility] Barbiturates [Presence] in U rineOrdered By: Benedict Robb on 03-13-2022 Barbiturates Ql (U) Negative Negative [facility] Basophils Auto (Bld) [#/Vol] Ordered By: Benedict Robb on 03-13-2022 Basophils (Bld) [#/Vol] 0.0 10*3/uL 0.0-0.2 [facility] Basophils/100 WBC Auto (Bld) Ordered By: Benedict Robb on 03-13-2022 Basophils/100 WBC (Bld) 0.3 % F [facility] Benzodiazepines [Presence] i n UrineOrdered By: Benedict Robb on 03-13-2022 Benzodiazepines Ql (U) Negative Negative Fi [facility] Bilirubin Test strip Ql (U)O rdered By: Benedict Robb on 03-13-2022 Bilirubin Ql (U) Negative Negative [facility] Blood hemoglobin measurement (mass/volume)Ordered By: Benedict Robb on 03-13-2022 Hemoglobin (Bld) [Mass/Vol] 14.9 g/dL 13.0-17.0 [facility] Blood leukocytes automated c ount (number/volume)Ordered By: Benedict Robb on 03-13-2022 WBC (Bld) [#/Vol] 6.2 10*3/uL 4.5-11.0 [facility] Body fluid albumin measureme nt (mass/volume)Ordered By: Benedict Robb on 03-13-2022 Albumin (Body fld) [Mass/Vol] 3.7 g/dL 3.2-5.5 [facility] COVID-19 Antigenon 2 COVID-19 Antigen Healthcare Worker?: [...] developed and its performance characteristic determined by [employer] and validated at [facility]. This test has not been FDA cleared [...] for SARS Antigen by DUTCH PERFORMED BY: [place] [address] PATHOLOGIST BLENDER ULYSSES GODDARD M.D. Normal [facility] Comment on above: Performed By: #### C OVID-19 RICHARD, SOFIANEG #### [facility] [address] [place] [address] COVID-19 SOFIAOrdered By: Susan Robb on 03-13-2022 SARS-CoV+SARS-CoV-2 (COVID-19) Ag IA.rapid Ql (Resp) Negative Negative [facility] Comment on above: This is a duplicate Richard SARS Antigen (DUTCH) result to be used for statistical tracking purpose only. Cannabinoids [Presence] in U rine by Screen methodOrdered By: Benedict Robb on 03-13-2022 Cannabinoids Screen Ql (U) Negative Negative [facility] Comment on above: These are unconfirme d results and should not be used for legal purposes. Drug Cut-Off Concentration: AMPH 1000 ng/mL KEARA 200 ng/mL ARIEL 200 ng/mL COCM 300 ng/mL OP 300 ng/mL PCP 25 ng/mL THC 20 ng/mL Color Auto (U)Ordered By: Susan Robb on 03-13-2022 Color (U) Yellow Yellow [facility] Complete Blood Count Auto Di ffon 03-13-2022 Basophils (Bld) [#/Vol] 0.0 10*3/uL Normal 0.0-0.2 [facility] Comment on above: Result Comment: PERF ORMED BY: [place] [address] PATHOLOGIST BLENDER ULYSSES GODDARD M.D. Performed By: #### E LISA, CBC, CMP #### [facility] [address] [place], [place] [id number] [place] Basophils/100 WBC (Bld) 0.3 % Normal . [facility] Comment on above: Performed By: #### E LISA, CBC, CMP #### [address] Eosinophils (Bld) [#/Vol] 0.0 10*3/uL Normal 0.0-0.45 [facility] Comment on above: Performed By: #### E LISA, CBC, CMP #### [address] Eosinophils/100 WBC (Bld) 0.2 % Normal . [facility] Comment on above: Performed By: #### E LISA, CBC, CMP #### [address] Erythrocyte distribution width (RBC) [Ratio] 13.7 % Normal 12.0-14.8 [facility] Comment on above: Performed By: #### E LISA, CBC, CMP #### [address] Hematocrit (Bld) [Volume fraction] 42.7 % Normal 38.8-50.0 [facility] Comment on above: Performed By: #### E LISA, CBC, CMP #### [address] Hemoglobin (Bld) [Mass/Vol] 14.9 g/dL Normal 13.0-17.0 [facility] Comment on above: Performed By: #### E LISA, CBC, CMP #### [address] Lymphocytes (Bld) [#/Vol] 1.1 10*3/uL Normal 1.00-4.8 [facility] Comment on above: Performed By: #### E LISA, CBC, CMP #### [address] Lymphocytes/100 WBC (Bld) 18.0 % Normal . [facility] Comment on above: Performed By: #### E LISA, CBC, CMP #### [address] [address] [place] MCH (RBC) [Entitic mass] 33.0 pg Normal 27.5-35.2 [facility] Comment on above: Performed By: #### E LISA, CBC, CMP #### [address] MCV (RBC) [Entitic vol] 94.2 fL Normal 83.5-101 F [facility] Comment on above: Performed By: #### E LISA, CBC, CMP #### [address] Mean Corpuscular HGB Conc 35.0 g/dL Normal 32.5-35.6 [facility] Comment on above: Performed By: #### E LISA, CBC, CMP #### [address] Monocytes (Bld) [#/Vol] 0.5 10*3/uL Normal 0.0-0.8 [facility] Comment on above: Performed By: #### E LISA, CBC, CMP #### [address] Monocytes/100 WBC (Bld) 7.7 % Normal . [facility] Comment on above: Performed By: #### E LISA, CBC, CMP #### [address] Neutrophils (Bld) [#/Vol] 4.6 10*3/uL Normal 1.8-7.7 [facility] Comment on above: Performed By: #### E LISA, CBC, CMP #### [address] Neutrophils/100 WBC (Bld) 73.8 % Normal . [facility] Comment on above: Performed By: #### E LISA, CBC, CMP #### [address] Nucleated RBC/100 WBC (Bld) [Ratio] 0.1 % Normal 0-0.5 [facility] Comment on above: Performed By: #### E LISA, CBC, CMP #### [address] Platelet mean volume (Bld) [Entitic vol] 6.6 fL Normal 6.6-10.1 [facility] Comment on above: Performed By: #### E LISA CBC, CMP #### [address] Platelets (Bld) [#/Vol] 194 10*3/uL Normal 150-450 [facility] Comment on above: Performed By: #### E LISA CBC, CMP #### [address] RBC (Bld) [#/Vol] 4.53 10*6/uL Normal 3.90-5.60 [facility] Comment on above: Performed By: #### E LISA CBC, CMP #### [address] WBC (Bld) [#/Vol] 6.2 10*3/uL Normal 4.5-11.0 [facility] Comment on above: Performed By: #### E LISA CBC, CMP #### [address] Comprehensive Metabolic Pane jelly 03-13-2022 Albumin [Mass/Vol] 3.7 g/dL Normal 3.2-5.5 [facility] Comment on above: Performed By: #### E LISA CBC, CMP #### [address] Albumin/Globulin [Mass ratio] 1.3 {ratio} Normal [facility] Comment on above: Performed By: #### E LISA CBC, CMP #### [address] ALP [Catalytic activity/Vol] 56 U/L Normal 32-92 [facility] Comment on above: Performed By: #### E LISA CBC, CMP #### [address] ALT [Catalytic activity/Vol] 23 U/L Normal 10-60 [facility] Comment on above: Performed By: #### E LISA CBC, CMP #### [facility] [address] [place] [address] [place] AST [Catalytic activity/Vol] 37 U/L Normal 10-42 [facility] Comment on above: Performed By: #### E LISA CBC, CMP #### [facility] [address] [place] [address] [place] Bilirubin [Mass/Vol] 1.2 mg/dL Normal 0.3-1.2 [facility] Comment on above: Performed By: #### E LISA CBC, CMP #### [facility] [address] Calcium [Mass/Vol] 8.7 mg/dL Normal 8.2-10.2 [facility] Comment on above: Performed By: #### E LISA CBC, CMP #### [place] [address] [place] Chloride [Moles/Vol] 100 mmol/L Normal 95-114 [facility] Comment on above: Performed By: #### E LISA CBC, CMP #### [place] [address] [place] CO2 [Moles/Vol] 22.9 mmol/L Normal 22.0-30.0 [facility] Comment on above: Performed By: #### E LISA CBC, CMP #### [facility] [address] [place] [address] [place] Creatinine [Mass/Vol] 0.93 mg/dL Normal 0.64-1.27 [facility] Comment on above: Performed By: #### E LISA CBC, CMP #### [facility] [address] [place] [address] [place] Creatinine Clr Calc Pharmacy 117.39 Normal [facility] Comment on above: Result Comment: PERF ORMED BY: [place] [address] PATHOLOGIST BLENDER ULYSSES GODDARD M.D. Performed By: #### E LISA, CBC, CMP #### [facility] [address] Estimated GFR ( Jia > 60 [facility] Comment on above: Result Comment: GFR estimated reference range: According to KDOQI guidelines, <60 ml/min/1.73m2 is sufficient to diagnose a patient with chronic kidney disease. Performed By: #### E LISA CBC, CMP #### [facility] [address] Estimated GFR (Non- Am > 60 [facility] Comment on above: Performed By: #### E LISA CBC, CMP #### [address] Globulin (S) [Mass/Vol] 2.9 g/dL Normal [facility] Comment on above: Performed By: #### E LISA CBC, CMP #### [address] Glucose [Mass/Vol] 93 mg/dL Normal 70-100 [facility] Comment on above: Result Comment: [place] Glucose Reference Range is dependent on time and content of last meal. Glucose of more than 200 mg/dL in a nonstressed, ambulatory subject supports the diagnosis of Diabetes Mellitus. ADA recommended reference range Performed By: #### E LISA CBC, CMP #### [address] Potassium [Moles/Vol] 3.6 mmol/L Normal 3.5-5.1 [facility] Comment on above: Performed By: #### E LISA CBC, CMP #### [address] Protein [Mass/Vol] 6.6 g/dL Normal 6.1-7.9 [facility] Comment on above: Performed By: #### E LISA CBC, CMP #### [address] Sodium [Moles/Vol] 137 mmol/L Normal 136-146 [facility] Comment on above: Performed By: #### E LISA, CBC, CMP #### [facility] [address] Urea nitrogen [Mass/Vol] 9 mg/dL Normal - [facility] Comment on above: Performed By: #### E LISA, CBC, CMP #### [address] Creatinine and Glomerular fi ltration rate.predicted panel (S/P/Bld)Ordered By: Benedict Robb on 03-13-2022 Creatinine [Mass/Vol] 0.93 mg/dL 0.64-1.27 [facility] Drug Screen,Urineon 03-13-20 Amphetamine Screen,Urine Negative Normal Negative [facility] Comment on above: Performed By: #### U RDS, UA #### [place] [address] [place] Barbiturate Screen,Urine Negative Normal Negative [facility] Comment on above: Performed By: #### U RDS, UA #### [place] [address] [place] Benzodiazepines Screen,Urine Negative Normal Negative [facility] Comment on above: Performed By: #### U RDS, UA #### [place] [address] [place] Cannabinoid Screen,Urine Negative Normal Negative [facility] Comment on above: Result Comment: Thes e are unconfirmed results and should not be used for legal purposes. Drug Cut-Off Concentration: AMPH 1000 ng/mL KEARA 200 ng/mL ARIEL 200 ng/mL COCM 300 ng/mL OP 300 ng/mL PCP 25 ng/mL THC 20 ng/mL PERFORMED BY: [place] [address] PATHOLOGIST BLENDER ULYSSES GODDARD M.D. Performed By: #### U RDS, UA #### [place] [address] [place] Cocaine Screen,Urine Negative Normal Negative [facility] Comment on above: Performed By: #### U RDS, UA #### [place] [address] [place] Opiate Screen,Urine Negative Normal Negative [facility] Comment on above: Performed By: #### U RDS, UA #### [facility] [address] [place] [id number] [place] Phencyclidine Screen,Urine Negative Normal Negative [facility] Comment on above: Performed By: #### U RDS, UA #### [facility] [address] [place] [id number] [place] ECHOCARDIO M/2D COMPLETEon 0 03-13-2022 ECHOCARDIO M/2D COMPLETE Patient: BRENT JAIME Exam Date: 03/13/2022 : 1970 Gender:M Ordering : SHAIKH Jim ANDRES . Admission #: [id number] Family : Order #: [id number] CLICK HERE TO VIEW EXAM ECHOCARDIOGRAM REPORT [...] Mills M.D. on 03/13/2022 at 15:32 Normal [facility] Eosinophils Auto (Bld) [#/Vo l]Ordered By: Benedict Robb on 03-13-2022 Eosinophils (Bld) [#/Vol] 0.0 10*3/uL 0.0-0.45 [facility] Eosinophils/100 WBC Auto (Bl d)Ordered By: Benedict Robb on 03-13-2022 Eosinophils/100 WBC (Bld) 0.2 % [facility] Erythrocyte distribution wid th Auto (RBC) [Ratio]Ordered By: Benedict Robb on 03-13-2022 Erythrocyte distribution width (RBC) [Ratio] 13.7 % 12.0-14.8 [facility] Estimated glomerular filtrat ion rate (GFR) non- AmericanOrdered By: Benedict Robb on 03-13-2022 GFR/1.73 sq M.predicted among non-blacks MDRD (S/P/Bld) [Vol rate/Area] > 60 mL/Min [facility] Ethyl Alcohol Profileon 02-24 Ethanol [Mass/Vol] 94 mg/dL Normal [facility] Comment on above: Performed By: #### E LISA, CBC, CMP #### [facility] [address] Percent Ethanol 0.094 % Normal [facility] Comment on above: Result Comment: PERF ORMED BY: [place] [address] PATHOLOGIST BLENDER ULYSSES GODDARD M.D. Performed By: #### E LISA, CBC, CMP #### [facility] [address] [place] [address] [place] GLYCOHEMOGLOBIN A1Con 2021 ADA RECOMMENDATION ADA THERAPEUTIC TARGET 6.0 - 7.0 ACTION SUGGESTED > 7.0 Normal [facility] Comment on above: Performed By: #### A 1C #### [facility] [address] [place] [address] [address] Hood Loco Glucose [Mass/Vol] 94 mg/dL Normal [facility] Comment on above: Performed By: #### A 1C #### [facility] [address] [place] [address] [address] Hood Loco HbA1c (Bld) [Mass fraction] 4.9 % Normal <=6.0 [facility] Comment on above: Performed By: #### A 1C #### [facility] [address] [place] [address] [address] Hood Loco Globulin Calc (S) [Mass/Vol] Ordered By: Benedict Robb on 03-13-2022 Globulin (S) [Mass/Vol] 2.9 g/dL [facility] Hematocrit Auto (Bld) [Volum e fraction]Ordered By: Benedict Robb on 03-13-2022 Hematocrit (Bld) [Volume fraction] 42.7 % 38.8-50.0 [facility] Ketones Auto test strip (U) [Mass/Vol]Ordered By: Benedict Robb on 03-13-2022 Ketones (U) [Mass/Vol] Negative Negative [facility] LIPID PROFILEon 03-13-2022 CHOL-HDL RATIO NORM SEE BELOW Normal [facility] Comment on above: Result Comment: 3.3 - 4.4 LOW RISK 4.4 - 7.1 AVERAGE RISK 7.1 - 11.0 MODERATE RISK >11.0 HIGH RISK Performed By: #### D BEENA WEINER #### [facility] [address] [place] [address] [address] Hood Loco Cholesterol [Mass/Vol] 158 mg/dL Normal <=200 [facility] Comment on above: Performed By: #### D BEENA WEINER #### [facility] [address] [place] [address] [address] Hood Loco Cholesterol in HDL [Mass/Vol] 70 mg/dL Critically high 40-60 [facility] Comment on above: Performed By: #### D BEENA WEINER #### [facility] [address] [place] [address] [address] Hood Loco Cholesterol in LDL [Mass/Vol] 51.2 mg/dL Normal [facility] Comment on above: Performed By: #### D HUSAM, ERUR #### [facility] [address] [place] [address] [address] Hood Loco Cholesterol.total/Shanti sterol in HDL [Mass ratio] 2.3 {ratio} Normal [facility] Comment on above: Performed By: #### D HUSAM, ERUR #### [facility] [address] [place] [address] [address] Hood Loco HDL NORMAL > or = 60 mg/dl - LOW CARDIOVASCULAR RISK <40 mg/dl - HIGH CARDIOVASCULAR RISK Normal [facility] Comment on above: Performed By: #### D HUSAM, ERUR #### [facility] [address] [place] [address] Dr. Hood Loco LDL CALC NORMAL SEE BELOW Normal [facility] Comment on above: Result Comment: <100 mg/dl OPTIMAL 100 - 129 mg/dl NEAR OR ABOVE OPTIMAL 130 - 159 mg/dl BORDERLINE HIGH 160 - 189 mg/dl HIGH >190 mg/dl VERY HIGH Performed By: #### D HUSAM, ERUR #### [facility] [address] [place] [address] Dr. Hood Loco Triglyceride [Mass/Vol] 184 mg/dL Critically high <=150 [facility] Comment on above: Performed By: #### D HUSAM, ERUR #### [facility] [address] [place] [address] Dr. Hood Loco VLDL CALC 36.8 mg/dL Normal [facility] Comment on above: Performed By: #### D HUSAM, ERUR #### [facility] [address] [place] [address] [address] Hood Loco Laboratory - Drug toxicology Ordered By: Benedict Robb on 03-13-2022 Opiates Ql (U) Negative Negative [facility] Laboratory - Hematology and Cell countsOrdered By: Benedict Robb on 03-13-2022 Nucleated RBC/100 WBC (Bld) [Ratio] 0.1 % 0-0.5 [facility] Lymphocytes Auto (Bld) [#/Vo l]Ordered By: Benedict Robb on 03-13-2022 Lymphocytes (Bld) [#/Vol] 1.1 10*3/uL 1.00-4.8 [facility] Lymphocytes/100 WBC Auto (Bl d)Ordered By: Benedict Robb on 03-13-2022 Lymphocytes/100 WBC (Bld) 18.0 % [facility] MCH Auto (RBC) [Entitic mass ]Ordered By: Benedict Robb on 03-13-2022 MCH (RBC) [Entitic mass] 33.0 pg 27.5-35.2 [facility] MCHC Auto (RBC) [Mass/Vol]Or dered By: Benedict Robb on 03-13-2022 MCHC (RBC) [Mass/Vol] 35.0 g/dL 32.5-35.6 [facility] MCV Auto (RBC) [Entitic vol] Ordered By: Benedict Robb on 03-13-2022 MCV (RBC) [Entitic vol] 94.2 fL 83.5-101 F [facility] Monocytes Auto (Bld) [#/Vol] Ordered By: Benedict Robb on 03-13-2022 Monocytes (Bld) [#/Vol] 0.5 10*3/uL 0.0-0.8 [facility] Monocytes/100 WBC Auto (Bld) Ordered By: Benedict Robb on 03-13-2022 Monocytes/100 WBC (Bld) 7.7 % [facility] Neutrophils Auto (Bld) [#/Vo l]Ordered By: Benedict Robb on 03-13-2022 Neutrophils (Bld) [#/Vol] 4.6 10*3/uL 1.8-7.7 [facility] Neutrophils/100 WBC Auto (Bl d)Ordered By: Benedict Robb on 03-13-2022 Neutrophils/100 WBC (Bld) 73.8 % [facility] Nitrite Test strip Ql (U)Ord ered By: Benedict Robb on 03-13-2022 Nitrite Ql (U) Negative Negative [facility] No Panel InformationOrdered By: Benedict Robb on 03-13-2022 SARS Antigen (LFIA) [facility] Estimated GFR () > 60 mL/Min [facility] Comment on above: GFR estimated refere nce range: According to KDOQI guidelines, <60 ml/min/1.73m2 is sufficient to diagnose a patient with chronic kidney disease. Pharmacy Creatinine Clearance (Chem 117.39 [facility] Phencyclidine Screen Ql (U)O rdered By: Benedict Robb on 03-13-2022 Phencyclidine Ql (U) Negative Negative [facility] Platelet mean volume Auto (B ld) [Entitic vol]Ordered By: Benedict Robb on 03-13-2022 Platelet mean volume (Bld) [Entitic vol] 6.6 fL 6.6-10.1 [facility] Platelets Auto (Bld) [#/Vol] Ordered By: Beendict Robb on 03-13-2022 Platelets (Bld) [#/Vol] 194 10*3/uL 150-450 [facility] Protein Auto test strip (U) [Mass/Vol]Ordered By: Benedict Robb on 03-13-2022 Protein (U) [Mass/Vol] Negative Negative Fi [facility] Protein [Mass/volume] in Ser um or PlasmaOrdered By: Benedict Robb on 03-13-2022 Protein [Mass/Vol] 6.6 g/dL 6.1-7.9 [facility] RBC Auto (Bld) [#/Vol]Ordere d By: Benedict Robb on 03-13-2022 RBC (Bld) [#/Vol] 4.53 10*6/uL 3.90-5.60 [facility] Serum or plasma alanine garcia otransferase measurement without P-5'-P (enzymatic activiOrdered By: Benedict Robb on 03-13-2022 ALT No additional P-5'-P [Catalytic activity/Vol] 23 U/L 10-60 [facility] Serum or plasma albumin/glob ulin mass ratioOrdered By: Benedict Robb on 03-13-2022 Albumin/Globulin [Mass ratio] 1.3 {ratio} [facility] Serum or plasma alkaline malini sphatase measurement (enzymatic activity/volume)Ordered By: Benedict Robb on 03-13-2022 ALP [Catalytic activity/Vol] 56 U/L 32-92 [facility] Serum or plasma aspartate am inotransferase measurement (enzymatic activity/volume)Ordered By: Benedict Robb on 03-13-2022 AST [Catalytic activity/Vol] 37 U/L 10-42 [facility] Serum or plasma calcium jennifer urement (mass/volume)Ordered By: Benedict Robb on 03-13-2022 Calcium [Mass/Vol] 8.7 mg/dL 8.2-10.2 [facility] Serum or plasma chloride joel surement (moles/volume)Ordered By: Benedict Robb on 03-13-2022 Chloride [Moles/Vol] 100 mmol/L 95-114 [facility] Serum or plasma ethanol jennifer urement (mass/volume)Ordered By: Benedict Robb on 03-13-2022 Ethanol [Mass/Vol] 94 mg/dL [facility] Ethanol [Mass/Vol] 0.094 % [facility] Serum or plasma glucose jennifer urement (mass/volume)Ordered By: Benedict Robb on 03-13-2022 Glucose [Mass/Vol] 93 mg/dL 70-100 [facility] Comment on above: ADA recommended refe rence rangeRandom Glucose Reference Range is dependent on time and content of last meal. Glucose of more than 200 mg/dL in a nonstressed, ambulatory subject supports the diagnosis of Diabetes Mellitus. Serum or plasma potassium me asurement (moles/volume)Ordered By: Benedict Robb on 03-13-2022 Potassium [Moles/Vol] 3.6 mmol/L 3.5-5.1 [facility] Serum or plasma sodium measu rement (moles/volume)Ordered By: Benedict Robb on 03-13-2022 Sodium [Moles/Vol] 137 mmol/L 136-146 [facility] Serum or plasma total biliru bin measurement (mass/volume)Ordered By: Benedict Robb on 03-13-2022 Bilirubin [Mass/Vol] 1.2 mg/dL 0.3-1.2 [facility] Serum or plasma total carbon dioxide measurement (moles/volume)Ordered By: Benedict Robb on 03-13-2022 CO2 [Moles/Vol] 22.9 mmol/L 22.0-30.0 [facility] Serum or plasma urea nitroge n measurement (mass/volume)Ordered By: Benedict Robb on 03-13-2022 Urea nitrogen [Mass/Vol] 9 mg/dL 08-18 [facility] Richard Ag Negativeon 03-13-20 Richard Ag Negative Negative Normal Negative [facility] Comment on above: Result Comment: This is a duplicate Richard SARS Antigen (DUTCH) result to be used for statistical tracking purpose only. PERFORMED BY: [place] [address] PATHOLOGIST BLENDER ULYSSES GODDARD M.D. Performed By: #### C OVID-19 RICHARD, SOFIANEG #### [facility] [address] [place] [address] [place] Specific gravity Auto test s trip (U) [Rel density]Ordered By: Benedict Robb on 03-13-2022 Specific gravity (U) [Rel density] 1.019 1.001-1.030 [facility] TROPONIN, HIGH SENSITIVITYon 03-13-2022 HSTROP 9.9 pg/mL Normal 4.0-42.2 [facility] Comment on above: Result Comment: CUT- OFF POINTS HAVE BEEN ESTABLISHED BASED ON THE FOURTH UNIVERSAL DEFINITIONS OF MYOCARDIAL INFARCTION. THE UPPER REFERENCE LIMIT (URL) OF TROPONIN, DEFINED THE 99TH PERCENTILE OF cTnI DISTRIBUTION IN A REFERENCE POPULATION, HAS BEEN CONFIRMED THE DECISION THRESHOLD FOR CT DIAGNOSIS. Performed By: #### H STROPN #### [facility] [address] [place], [place] [address] Dr. Hood Loco Urinalysison 03-13-2022 Appearance (U) Clear Normal Clear [facility] Comment on above: Order Comment: Name Collection Type:: Clean-Voided Midstream Performed By: #### U RDS, UA #### [facility] [address] [place] [address] [place] Bilirubin,Urine Negative Normal Negative [facility] Comment on above: Order Comment: Name Collection Type:: Clean-Voided Midstream Performed By: #### U RDS, UA #### [facility] [address] [place] [id number] [place] Color (U) Yellow Normal Yellow [facility] Comment on above: Order Comment: Name Collection Type:: Clean-Voided Midstream Performed By: #### U RDS, UA #### [facility] [address] [place] [address] [place] Glucose Ql (U) Normal Normal Normal [facility] Comment on above: Order Comment: Name Collection Type:: Clean-Voided Midstream Performed By: #### U RDS, UA #### [facility] [address] [place] [address] [place] Ketones Ql (U) Negative Normal Negative [facility] Comment on above: Order Comment: Name Collection Type:: Clean-Voided Midstream Performed By: #### U RDS, UA #### [facility] [address] [place] [address] [place] Leukocyte esterase Test strip Ql (U) Negative Normal Negative [facility] Comment on above: Order Comment: Name Collection Type:: Clean-Voided Midstream Performed By: #### U RDS, UA #### [facility] [address] [place] [address] [place] Nitrite,Urine Negative Normal Negative [facility] Comment on above: Order Comment: Name Collection Type:: Clean-Voided Midstream Performed By: #### U RDS, UA #### [facility] [address] [place] [address] [place] Occult Blood,Urine Negative Normal Negative [facility] Comment on above: Order Comment: Name Collection Type:: Clean-Voided Midstream Result Comment: PERF ORMED BY: [place] [address] PATHOLOGIST BLENDER ULYSSES GODDARD M.D. Performed By: #### U RDS, UA #### [facility] [address] [place] [address] [place] pH (U) 7.0 [pH] Normal 5.0-9.0 [facility] Comment on above: Order Comment: Name Collection Type:: Clean-Voided Midstream Performed By: #### U RDS, UA #### [facility] [address] [place] [address] [place] Protein,Urine Negative Normal Negative [facility] Comment on above: Order Comment: Name Collection Type:: Clean-Voided Midstream Performed By: #### U RDS, UA #### [facility] [address] Specificy [place],Urine 1.019 Normal 1.001-1.030 [facility] Comment on above: Order Comment: Name Collection Type:: Clean-Voided Midstream Performed By: #### U RDS, UA #### [facility] [address] Urobilinogen,Urine Normal Normal Normal [facility] Comment on above: Order Comment: Name Collection Type:: Clean-Voided Midstream Performed By: #### U RDS, UA #### [facility] [address] Urine clarity by refractomet ry automatedOrdered By: Benedict Robb on 03-13-2022 Clarity Refractometry automated (U) Clear Clear [facility] Urine cocaine detectionOrder ed By: Benedict Robb on 03-13-2022 Cocaine Ql (U) Negative Negative [facility] Urine glucose measurement by automated test strip (mass/volume)Ordered By: Benedict Robb on 03-13-2022 Glucose Auto test strip (U) [Mass/Vol] Normal mg/dL Normal [facility] Urine hemoglobin detection b y automated test stripOrdered By: Benedict Robb on 03-13-2022 Hemoglobin Auto test strip Ql (U) Negative Negative [facility] Urine leukocyte esterase det ection by automated test stripOrdered By: Benedict Robb on 03-13-2022 Leukocyte esterase Auto test strip Ql (U) Negative Negative [facility] Urobilinogen Auto test strip (U) [Mass/Vol]Ordered By: Benedict Robb on 03-13-2022 Urobilinogen (U) [Mass/Vol] Normal mg/dL Normal [facility] pH Auto test strip (U)Ordere d By: Benedict Robb on 03-13-2022 pH (U) 7.0 [pH] 5.0-9.0 [facility] AMMONIAon 03-12-2022 Ammonia (P) [Moles/Vol] 27 umol/L Normal 11-32 T [facility] Comment on above: Performed By: #### D YASH WEINERR #### [facility] [address] [address] [address] Hood Loco BNPon 03-12-2022 Natriuretic peptide B (Bld) [Mass/Vol] 28.0 pg/mL Normal <=900.0 [facility] Comment on above: Performed By: #### P HVEN #### [facility] [address] [place] [address] Dr. Hood Loco CARDIAC GINGER ADMITon 022 CK [Catalytic activity/Vol] 338 U/L Critically high 55-170 [facility] Comment on above: Performed By: #### P HVEN #### [facility] [address] [place] [address] Dr. Hood Loco CK.MB [Mass/Vol] 1.90 ng/mL Normal <=2.37 [facility] Comment on above: Performed By: #### P HVEN #### [facility] [address] [place] [address] Dr. Hood Loco HSTROP 8.3 pg/mL Normal 4.0-42.2 [facility] Comment on above: Result Comment: CUT- OFF POINTS HAVE BEEN ESTABLISHED BASED ON THE FOURTH UNIVERSAL DEFINITIONS OF MYOCARDIAL INFARCTION. THE UPPER REFERENCE LIMIT (URL) OF TROPONIN, DEFINED THE 99TH PERCENTILE OF cTnI DISTRIBUTION IN A REFERENCE POPULATION, HAS BEEN CONFIRMED THE DECISION THRESHOLD FOR CT DIAGNOSIS. Performed By: #### P HVEN #### [facility] [address] [place] [address] Dr. Hood Loco MARY 68.0 ng/mL Normal <=121.0 [facility] Comment on above: Performed By: #### P HVEN #### [facility] [address] [place] [address] Dr. Hood Loco CBC AUTO DIFFon 03-12-2022 BASO # 0.1 103/ul Normal 0.0-0.1 [facility] Comment on above: Performed By: #### D HUSAM, ERUR #### [facility] [address] [place] [address] Dr. Hood Loco Basophils/100 WBC (Bld) 0.7 % Normal 0.2-2.0 [facility] Comment on above: Performed By: #### D HUSAM, ERUR #### [facility] [address] [place] [address] Dr. Hood Loco EO # 0.0 103/ul Normal 0.0-0.7 [facility] Comment on above: Performed By: #### D HUSAM, ERUR #### [facility] [address] [place] [address] Dr. Hood Loco Eosinophils/100 WBC (Bld) 0.3 % Critically low 0.9-7.0 [facility] Comment on above: Performed By: #### Gage WEINER, ERUR #### [facility] [address] [place] [address] Dr. Hood Loco Erythrocyte distribution width (RBC) [Ratio] 12.7 % Normal 11.0-15.0 [facility] Comment on above: Performed By: #### Gage WEINER, ERUR #### [facility] [address] [place] [address] Dr. Hood Loco Hematocrit (Bld) [Volume fraction] 44.8 % Normal 42.0-54.0 [facility] Comment on above: Performed By: #### Gage WEINER ERUR #### [facility] [address] [place] [address] Dr. Hood Loco Hemoglobin (Bld) [Mass/Vol] 15.8 g/dL Normal 14.0-18.0 [facility] Comment on above: Performed By: #### Gage WEINER, ERUR #### [facility] [address] [place] [address] Dr. Hood Loco IG # 0.04 10e3/ul Critically high 0.00-0.03 [facility] Comment on above: Performed By: #### Gage WEINER, ERUR #### [facility] [address] [place] [address] Dr. Hood Loco IG % 0.5 % Normal 0.0-0.5 [facility] Comment on above: Performed By: #### Gage WEINER, ERUR #### [facility] [address] [place] [address] Dr. Hood Loco LYMPH # 1.9 103/ul Normal 1.2-3.8 [facility] Comment on above: Performed By: #### D HUSAM, ERUR #### [facility] [address] [place] [address] Dr. Hood Loco Lymphocytes/100 WBC (Bld) 24.5 % Normal 20.5-60.0 [facility] Comment on above: Performed By: #### D HUSAM, ERUR #### [facility] [address] [place] [address] Dr. Hood Loco MANUAL DIFF REQ NO Normal [facility] Comment on above: Performed By: #### D HUSAM, ERUR #### [facility] [address] [place] [address] Dr. Hood Loco MCH (RBC) [Entitic mass] 32.6 pg Normal 25.9-34.0 [facility] Comment on above: Performed By: #### D HUSAM, ERUR #### [facility] [address] [place] [address] Dr. Hood Loco MCHC (RBC) [Mass/Vol] 35.3 g/dL Critically high 29.9-35.2 [facility] Comment on above: Performed By: #### D HUSAM, ERUR #### [facility] [address] [place] [address] Dr. Hood Loco MCV (RBC) [Entitic vol] 92.4 fL Normal 80.0-94.0 [facility] Comment on above: Performed By: #### D HUSAM, ERUR #### [facility] [address] [place] [address] Dr. Hood Loco MONO # 0.7 103/ul Normal 0.3-0.8 [facility] Comment on above: Performed By: #### D HUSAM, ERUR #### [facility] [address] [place] [address] Dr. Hood Loco Monocytes/100 WBC (Bld) 9.5 % Normal 1.7-12.0 [facility] Comment on above: Performed By: #### D HUSAM, ERUR #### [facility] [address] [place] [address] Dr. Hood Loco NEUT # 4.9 103/ul Normal 1.4-6.5 [facility] Comment on above: Performed By: #### D HUSAM, ERUR #### [facility] [address] [place] [address] Dr. Hood Loco Neutrophils/100 WBC (Bld) 64.5 % Normal 43.0-75.0 [facility] Comment on above: Performed By: #### D HUSAM, ERUR #### [facility] [address] [place] [address] Dr. Hood Loco Platelet mean volume (Bld) [Entitic vol] 8.3 fL Critically low 9.5-13.5 [facility] Comment on above: Performed By: #### D HUSAM, ERUR #### [facility] [address] [place] [address] Dr. Hood Loco PLT 187 103/ul Normal 150-450 [facility] Comment on above: Performed By: #### D HUSAM, ERUR #### [facility] [address] [place] [address] Dr. Hood Loco RBC 4.85 106/ul Normal 4.70-6.10 [facility] Comment on above: Performed By: #### D HUASM, ERUR #### [facility] [address] [place] [address] Dr. Hood Loco WBC 7.6 103/ul Normal 4.0-11.0 [facility] Comment on above: Performed By: #### D HUSAM, ERUR #### [facility] [address] [place] [address] Dr. Hood Loco DRUG SCREEN RAPID (URINE)on 03-12-2022 AMP Negative Normal NEGATIVE [facility] Comment on above: Performed By: #### D HUSAM, ERUR #### [facility] [address] [place] [address] Dr. Hood Loco BAR Negative Normal NEGATIVE The [facility] Comment on above: Performed By: #### D RUGRPD, ERUR #### [facility] [address] [address] [address] Hood Loco BUP Negative Normal NEGATIVE [facility] Comment on above: Performed By: #### D RUGRPD, ERUR #### [facility] [address] [address] [address] Hood Loco BZO Negative Normal NEGATIVE The [facility] Comment on above: Performed By: #### D RUGRPD, ERUR #### [facility] [address] [address] [address] Hood Loco TREY Negative Normal NEGATIVE [facility] Comment on above: Performed By: #### D SLAVAD, ERUR #### [facility] [address] [address] [address] Hood Loco CUT-OFFS SEE BELOW Normal [facility] Comment on above: Result Comment: AMP [...] Performed By: #### D RUGRPD, ERUR #### [facility] [address] [address] [address] Hood Loco DRUG CUT HEADER DRUG CLASS TEST SYSTEM CUT-OFF CONCENTRATIONS ARE FOLLOWS: Normal The [facility] Comment on above: Performed By: #### D SLAVAD, ERUR #### [facility] [address] [address] [address] Hood Loco mAMP Negative Normal NEGATIVE The [facility] Comment on above: Performed By: #### D HUSAM, ERUR #### [facility] [address] [place] [address] Dr. Hood Loco MTD Negative Normal NEGATIVE The [facility] Comment on above: Performed By: #### D SLAVAD, ERUR #### [facility] [address] [address] [address] Hood Loco OPI Negative Normal NEGATIVE The [facility] Comment on above: Performed By: #### D RUGMILTOND, ERUR #### [facility] [address] [place] [address] Dr. Hood Loco OXY Negative Normal NEGATIVE The [facility] Comment on above: Performed By: #### D RUGMILTOND, ERUR #### [facility] [address] [place] [address] Dr. Hood Loco PCP Negative Normal NEGATIVE [facility] Comment on above: Performed By: #### D HUSAM, ERUR #### [facility] [address] [place] [address] Dr. Hood Loco PPX Negative Normal NEGATIVE The [facility] Comment on above: Performed By: #### D HUSAM, ERUR #### [facility] [address] [place] [address] Dr. Hood Loco TCA Negative Normal NEGATIVE The [facility] Comment on above: Performed By: #### D HUSAM, ERUR #### [facility] [address] [place] [address] Dr. Hood Loco THC Negative Normal NEGATIVE The [facility] Comment on above: Performed By: #### D HUSAM, ERUR #### [facility] [address] [place] [address] Dr. Hood Loco ER URINE PROFILEon 2 Bilirubin Ql (U) Negative Normal NEGATIVE [facility] Comment on above: Performed By: #### D HUSAM, ERUR #### [facility] [address] [place] [address] Dr. Hood Loco Clarity (U) CLEAR Normal CLEAR The [facility] Comment on above: Performed By: #### D HUSAM, ERUR #### [facility] [address] [place] [address] Dr. Hood Loco Color (U) LT. YELLOW Normal YELLOW The [facility] Comment on above: Performed By: #### Gage WEINER, ERUR #### [facility] [address] [place] [address] Dr. Hood VIDAL A micrscopic examination will be performed if indicated. Normal The [facility] Comment on above: Performed By: #### D HUSAM, ERUR #### [facility] [address] [address] [address] Hood Loco Glucose Ql (U) 100 mg/dl Abnormal NEGATIVE [facility] Comment on above: Performed By: #### D HUSAM, ERUR #### [facility] [address] [place] [address] Dr. Hood Loco Hemoglobin Ql (U) Negative Normal NEGATIVE [facility] Comment on above: Performed By: #### Gage WEINER, ERUR #### [facility] [address] [place] [address] Dr. Hood Loco Ketones Ql (U) Negative Normal NEGATIVE [facility] Comment on above: Performed By: #### Gage WEINER, ERUR #### [facility] [address] [place] [address] Dr. Hood Loco LEUKOCYTES Negative Normal NEGATIVE [facility] Comment on above: Performed By: #### Gage WEINER, ERUR #### [facility] [address] [place] [address] Dr. Hood Loco Nitrite Ql (U) Negative Normal NEGATIVE [facility] Comment on above: Performed By: #### Gage WEINER, ERUR #### [facility] [address] [place] [address] Dr. Hood Loco pH (U) 6.0 [pH] Normal 5-9 [facility] Comment on above: Performed By: #### Gage WEINER, ERUR #### [facility] [address] [place] [address] Dr. Hood Loco SPEC GRAVITY 1.005 Normal 1.005-<=1.025 [facility] Comment on above: Performed By: #### D HUSAM, ERUR #### [facility] [address] [place] [address] Dr. Hood Loco UA PROTEIN Negative Normal NEGATIVE/ TRACE The [facility] Comment on above: Performed By: #### D HUSAM, ERUR #### [facility] [address] [place] [address] Dr. Hood Loco UR MICRO IND NOT INDICATED Normal [facility] Comment on above: Performed By: #### D HUSAM, ERUR #### [facility] [address] [place] [address] Dr. Hood Loco Urobilinogen Qn (U) 0.2 {Rohith'U}/dL Normal 0.2 - 1. 0 [facility] Comment on above: Performed By: #### D HUSAM, ERUR #### [facility] [address] [place] [address] Dr. Hood Loco ETHANOL (BLD ALC)on 03-12-20 ALC NOTE NOTE: 80 mg/dl is the legal limit for a blood alcohol level Normal [facility] Comment on above: Performed By: #### D HUSAM, ERUR #### [facility] [address] [place] [address] Dr. Hood Loco Ethanol [Mass/Vol] 451 mg/dL Normal [facility] Comment on above: Performed By: #### D HUSAM, ERUR #### [facility] [address] [place] [address] Dr. Hood Loco LIPASEon 03-12-2022 Lipase [Catalytic activity/Vol] 112.0 U/L Normal 23.0-300.0 [facility] Comment on above: Performed By: #### P HVEN #### [facility] [address] [place] [address] Dr. Hood Loco MAGNESIUMon 03-12-2022 Magnesium [Mass/Vol] 1.9 mg/dL Normal 1.6-2.3 [facility] Comment on above: Performed By: #### M G #### [facility] [address] [place] [address] Dr. Hood Loco PH VENOUS BLOODon 03-12-2022 PCO2 VENOUS 42.2 mmHg Normal 40.0-52.0 [facility] Comment on above: Performed By: #### P HVEN #### [facility] [address] [place] [address] Dr. Hood Loco pH VENOUS 7.444 Critically high 7.330-7.430 [facility] Comment on above: Performed By: #### P HVEN #### [facility] [address] [place] [address] Dr. Hood Loco PROF 14(COMP METB)on 022 Albumin [Mass/Vol] 3.8 g/dL Normal 3.4-5.0 [facility] Comment on above: Performed By: #### P HVEN #### [facility] [address] [place] [address] Dr. Hood Loco Albumin/Globulin [Mass ratio] 1.0 {ratio} Normal [facility] Comment on above: Performed By: #### P HVEN #### [facility] [address] [place] [address] Dr. Hood Loco ALP [Catalytic activity/Vol] 75 U/L Normal 46-116 [facility] Comment on above: Performed By: #### P HVEN #### [facility] [address] [place] [address] Dr. Hood Loco ALT [Catalytic activity/Vol] 30 U/L Normal 16-63 [facility] Comment on above: Performed By: #### P HVEN #### [facility] [address] [place] [address] Dr. Hood Loco Anion gap [Moles/Vol] 15.4 mmol/L Normal [facility] Comment on above: Performed By: #### P HVEN #### [facility] [address] [place] [address] Dr. Hood Loco AST [Catalytic activity/Vol] 55 U/L Critically high 15-37 [facility] Comment on above: Performed By: #### P HVEN #### [facility] [address] [place] [address] Dr. Hood Loco Bilirubin [Mass/Vol] 0.8 mg/dL Normal 0.2-1.3 [facility] Comment on above: Performed By: #### P HVEN #### [facility] [address] [address] [address] Hood Loco Calcium [Mass/Vol] 8.3 mg/dL Critically low 8.5-10.1 Th e [facility] Comment on above: Performed By: #### P HVEN #### [facility] [address] [address] [address] Hood Loco Chloride [Moles/Vol] 99 mmol/L Normal 98-107 [facility] Comment on above: Performed By: #### P HVEN #### [facility] [address] [place] [address] Dr. Hood Loco CO2 [Moles/Vol] 26.9 mmol/L Normal 22.0-30.0 [facility] Comment on above: Performed By: #### P HVEN #### [facility] [address] [place] [address] Dr. Hood Loco Creatinine [Mass/Vol] 0.77 mg/dL Normal 0.66-1.25 [facility] Comment on above: Performed By: #### P HVEN #### [facility] [address] [place] [address] Dr. Hood Loco EGFR-AF TAJIK >60 Normal >=60 [facility] Comment on above: Performed By: #### P HVEN #### [facility] [address] [place] [address] Dr. Hood Loco EGFR-NON AF TAJIK >60 Normal >=60 [facility] Comment on above: Performed By: #### P HVEN #### [facility] [address] [place] [address] Dr. Hood Loco Globulin (S) [Mass/Vol] 3.8 g/dL Normal T [facility] Comment on above: Performed By: #### P HVEN #### [facility] [address] [place] [address] Dr. Hood Loco Glucose [Mass/Vol] 115 mg/dL Critically high 74-106 T [facility] Comment on above: Performed By: #### P HVEN #### [facility] [address] [address] [address] Hood Loco Potassium [Moles/Vol] 4.3 mmol/L Normal 3.4-5.0 [facility] Comment on above: Performed By: #### P HVEN #### [facility] [address] [place] [address] Dr. Hood Loco Protein [Mass/Vol] 7.6 g/dL Normal 6.1-8.2 [facility] Comment on above: Performed By: #### P HVEN #### [facility] [address] [place] [address] Dr. Hood Loco Sodium [Moles/Vol] 137 mmol/L Normal 137-145 [facility] Comment on above: Performed By: #### P HVEN #### [facility] [address] [place] [address] Dr. Hood Loco Urea nitrogen [Mass/Vol] 10.0 mg/dL Normal 7.0-18.0 [facility] Comment on above: Performed By: #### P HVEN #### [facility] [address] [place] [address] Dr. Hood Loco Urea nitrogen/Creatinine [Mass ratio] 13.0 mg/mg Normal [facility] Comment on above: Performed By: #### P HVEN #### [facility] [address] [place] [address] Dr. Hood Loco PROTIMEon 03-12-2022 INR Coag (PPP) [Relative time] 1.08 {INR} Normal [facility] Comment on above: Performed By: #### D BEENA WEINER #### [facility] [address] [place] [address] Dr. Hood Loco INR GUIDELINES SEE BELOW Normal [facility] Comment on above: Result Comment: CONNIE RED INR: 2.0 - 3.0 CONDITIONS NOT LISTED BELOW 2.5 - 3.5 FOR PROSTHETIC HEART VALVE REPLACEMENT 2.5 - 3.5 RECURRENT THROMBOSIS Performed By: #### D HUSAM, ERUR #### [facility] [address] [address] [address] Hood Loco PT Coag (PPP) [Time] 11.6 s Normal 9.0-11.6 [facility] Comment on above: Performed By: #### D HUSAM, ERUR #### [facility] [id number] Hood Loco PTTon 03-12-2022 aPTT Coag (Bld) [Time] 25.6 s Normal 22.3-36.2 Th e [facility] Comment on above: Performed By: #### D HUSAM, ERUR #### [facility] [address] [place] [address] Dr. Hood Loco TROPONIN, HIGH SENSITIVITYon 03-12-2022 HSTROP 8.4 pg/mL Normal 4.0-42.2 The [facility] Comment on above: Result Comment: CUT- OFF POINTS HAVE BEEN ESTABLISHED BASED ON THE FOURTH UNIVERSAL DEFINITIONS OF MYOCARDIAL INFARCTION. THE UPPER REFERENCE LIMIT (URL) OF TROPONIN, DEFINED THE 99TH PERCENTILE OF cTnI DISTRIBUTION IN A REFERENCE POPULATION, HAS BEEN CONFIRMED THE DECISION THRESHOLD FOR CT DIAGNOSIS. Performed By: #### D HUSAM, ERUR #### [facility] [address] [place] [address] Dr. Hood Loco XR CHEST 1 Von [...] JN DALY Date: 2022-03-12 16:33 Normal The [facility] Covid-19 PCR (CVDTB)on 11-26 SARS-CoV-2 (COVID-19) RNA IGLESIA+probe Ql (Unsp spec) Not detected Normal NOT DETECTED The [facility] Comment on above: Result Comment: This test is not yet approved or cleared by the [place] FDA. When there are no FDA-approved or cleared tests available, and other criteria are met, FDA can make tests available under an emergency access mechanism called an Emergency Use Authorization (EUA). The EUA for this test is supported by the [place] Supervisor of Health and Human Service's (HHS's) declaration [...] Performed By: #### D HUSAM ERUR #### [facility] [address] [place] [address] Dr. Hood Loco ETHANOL (BLD ALC)on 12-14-19 22 ALC NOTE NOTE: 80 mg/dl is the legal limit for a blood alcohol level Normal [facility] Comment on above: Performed By: #### D HUSAM ERUR #### [facility] [address] [place] [address] Dr. Hood Loco Ethanol [Mass/Vol] 51 mg/dL Normal [facility] Comment on above: Performed By: #### D HUSAM, ERUR #### [facility] [address] [place] [address] Dr. Hood Loco ALC NOTE NOTE: 80 mg/dl is the legal limit for a blood alcohol level Normal The [facility] Comment on above: Performed By: #### E TH #### [facility] [address] [place] [address] Dr. Hood Loco Ethanol [Mass/Vol] 154 mg/dL Normal [facility] Comment on above: Performed By: #### E TH #### [facility] [address] [place] [address] Dr. Hood Loco ACETAMINOPHENon 12-13-2021 Acetaminophen [Mass/Vol] ug/mL Normal [facility] Comment on above: Performed By: #### P HVEN #### [facility] [address] [place] [address] Dr. Hood Loco CARDIAC GINGER ADMITon 022 CK [Catalytic activity/Vol] 215 U/L Critically high 55-170 [facility] Comment on above: Result Comment: test repeated critical value verified Performed By: #### P HVEN #### [facility] [address] [place] [address] Dr. oHod Loco CK.MB [Mass/Vol] 0.98 ng/mL Normal <=2.37 [facility] Comment on above: Performed By: #### P HVEN #### [facility] [address] [place] [address] Dr. Hood Loco HSTROP 11.3 pg/mL Normal 4.0-42.2 [facility] Comment on above: Result Comment: CUT- OFF POINTS HAVE BEEN ESTABLISHED BASED ON THE FOURTH UNIVERSAL DEFINITIONS OF MYOCARDIAL INFARCTION. THE UPPER REFERENCE LIMIT (URL) OF TROPONIN, DEFINED THE 99TH PERCENTILE OF cTnI DISTRIBUTION IN A REFERENCE POPULATION, HAS BEEN CONFIRMED THE DECISION THRESHOLD FOR CT DIAGNOSIS. Performed By: #### P HVEN #### [facility] [address] [place] [address] Dr. Hood Loco MARY 59.0 ng/mL Normal <=121.0 [facility] Comment on above: Performed By: #### P HVEN #### [facility] [address] [place] [address] Dr. Hood Loco CBC AUTO DIFFon 12-13-2021 BASO # 0.0 103/ul Normal 0.0-0.1 [facility] Comment on above: Performed By: #### C BC #### [facility] [address] [place] [address] Dr. Hood Loco Basophils/100 WBC (Bld) 0.7 % Normal 0.2-2.0 [facility] Comment on above: Performed By: #### C BC #### [facility] [address] [place] [address] Dr. Hood Loco EO # 0.0 103/ul Normal 0.0-0.7 [facility] Comment on above: Performed By: #### C BC #### [facility] [address] [place] [address] Dr. Hood Loco Eosinophils/100 WBC (Bld) 0.9 % Normal 0.9-7.0 [facility] Comment on above: Performed By: #### C BC #### [facility] [address] [place] [address] Dr. Hood Loco Erythrocyte distribution width (RBC) [Ratio] 11.8 % Normal 11.0-15.0 [facility] Comment on above: Performed By: #### C BC #### [facility] [address] [place] [address] Dr. Hood Loco Hematocrit (Bld) [Volume fraction] 42.3 % Normal 42.0-54.0 [facility] Comment on above: Performed By: #### C BC #### [facility] [address] [place] [address] Dr. Hood Loco Hemoglobin (Bld) [Mass/Vol] 14.8 g/dL Normal 14.0-18.0 [facility] Comment on above: Performed By: #### C BC #### [facility] [address] [place] [address] Dr. Hood Loco IG # 0.02 10e3/ul Normal 0.00-0.03 [facility] Comment on above: Performed By: #### C BC #### [facility] [address] [place] [address] Dr. Hood Loco IG % 0.5 % Normal 0.0-0.5 The [facility] Comment on above: Performed By: #### C BC #### [facility] [address] [place] [address] Dr. Hood Loco LYMPH # 1.1 103/ul Critically low 1.2-3.8 The [facility] Comment on above: Performed By: #### C BC #### [facility] [address] [address] [address] Hood Loco Lymphocytes/100 WBC (Bld) 24.7 % Normal 20.5-60.0 [facility] Comment on above: Performed By: #### C BC #### [facility] [address] [address] [address] Hood Loco MANUAL DIFF REQ NO Normal [facility] Comment on above: Performed By: #### C BC #### [facility] [address] [place] [address] Dr. Hood Loco MCH (RBC) [Entitic mass] 33.9 pg Normal 25.9-34.0 The [facility] Comment on above: Performed By: #### C BC #### [facility] [address] [place] [address] Dr. Hood Loco MCHC (RBC) [Mass/Vol] 35.0 g/dL Normal 29.9-35.2 The [facility] Comment on above: Performed By: #### C BC #### [facility] [address] [place] [address] Dr. Hood Loco MCV (RBC) [Entitic vol] 96.8 fL Critically high 80.0-94 .0 [facility] Comment on above: Performed By: #### C BC #### [facility] [address] [place] [address] Dr. Hood Loco MONO # 0.6 103/ul Normal 0.3-0.8 The [facility] Comment on above: Performed By: #### C BC #### [facility] [address] [place] [address] Dr. Hood Loco Monocytes/100 WBC (Bld) 14.0 % Critically high 1.7-12. 0 The [facility] Comment on above: Performed By: #### C BC #### [facility] [address] [place] [address] Dr. Hood Loco NEUT # 2.5 103/ul Normal 1.4-6.5 The [facility] Comment on above: Performed By: #### C BC #### [facility] [address] [address] [address] Hood Loco Neutrophils/100 WBC (Bld) 59.2 % Normal 43.0-75.0 [facility] Comment on above: Performed By: #### C BC #### [facility] [address] [address] [address] Hood Loco Platelet mean volume (Bld) [Entitic vol] 8.1 fL Critically low 9.5-13.5 [facility] Comment on above: Performed By: #### C BC #### [facility] [address] [address] [address] Hood Loco PLT 153 103/ul Normal 150-450 [facility] Comment on above: Performed By: #### C BC #### [facility] [address] [address] [address] Hood Loco RBC 4.37 106/ul Critically low 4.70-6.10 [facility] Comment on above: Performed By: #### C BC #### [facility] [address] [address] [address] Hood Loco WBC 4.3 103/ul Normal 4.0-11.0 [facility] Comment on above: Performed By: #### C BC #### [facility] [address] [place] [address] ABD/PELV W CONon [...] by: ASHELY LANDAVERDE Date: 2021-12-13 19:[address] [facility] [address] CHEST W CONon 12-13-2021 CT [...] ASHELY LANDAVERDE Date: 2021-12-13 19:15 Normal The [facility] CT CSPINE WO CONon 2 CT CSPINE [...] and/or use of iterative reconstruction technique. 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 MINERALIZATION: Normal. CRANIOCERVICAL AND ATLANTOAXIAL [...] ASHELY LANDAVERDE Date: 2021-12-13 19:03 Normal The [facility] CT HEAD WO CONon 12-13-2021 CT HEAD [...] ASHELY LANDAVERDE Date: 2021-12-13 19:00 Normal The [facility] DRUG SCREEN RAPID (URINE)on 12-13-2021 AMP Negative Normal NEGATIVE The [facility] Comment on above: Performed By: #### D BEENA WEINER #### [facility] [address] [address] [address] Hood Loco BAR Negative Normal NEGATIVE The [facility] Comment on above: Performed By: #### D BEENA WEINER #### [facility] [address] [address] [address] Hood Loco BUP Negative Normal NEGATIVE [facility] Comment on above: Performed By: #### D RUGRPD, ERUR #### [facility] [address] [place] [address] Dr. Hood Loco BZO Negative Normal NEGATIVE [facility] Comment on above: Performed By: #### D RUGRPD, ERUR #### [facility] [address] [place] [address] Dr. Hood Loco TREY Negative Normal NEGATIVE [facility] Comment on above: Performed By: #### D RUGRPD, ERUR #### [facility] [address] [place] [address] Dr. Hood Loco CUT-OFFS SEE BELOW Normal [facility] Comment on above: Result Comment: AMP [...] Performed By: #### D RUGRPD, ERUR #### [facility] [address] [place] [address] Dr. Hood Loco DRUG CUT HEADER DRUG CLASS TEST SYSTEM CUT-OFF CONCENTRATIONS ARE FOLLOWS: Normal The [facility] Comment on above: Performed By: #### D RUGRPD, ERUR #### [facility] [address] [place] [address] Dr. Hood Loco mAMP Negative Normal NEGATIVE [facility] Comment on above: Performed By: #### D RUGRPD, ERUR #### [facility] [address] [place] [address] Dr. Hood Loco MTD Negative Normal NEGATIVE The [facility] Comment on above: Performed By: #### D RUGRPD, ERUR #### [facility] [address] [address] [address] Hood Loco OPI Negative Normal NEGATIVE [facility] Comment on above: Performed By: #### D RUGRPD, ERUR #### [facility] [address] [address] [address] Hood Loco OXY Negative Normal NEGATIVE [facility] Comment on above: Performed By: #### D RUGRPD, ERUR #### [facility] [address] [address] [address] Hood Loco PCP Negative Normal NEGATIVE [facility] Comment on above: Performed By: #### D RUGRPD, ERUR #### [facility] [address] [place] [address] Dr. Hood Loco PPX Negative Normal NEGATIVE [facility] Comment on above: Performed By: #### D HUSAM, ERUR #### [facility] [address] [address] [address] Hood Loco TCA Negative Normal NEGATIVE [facility] Comment on above: Performed By: #### D JACKELINRPGage, ERUR #### [facility] [address] [address] [address] Hood Loco THC Negative Normal NEGATIVE [facility] Comment on above: Performed By: #### D HUSAM, ERUR #### [facility] [address] [place] [address] Dr. Hood Loco ER URINE PROFILEon 2 Bilirubin Ql (U) Negative Normal NEGATIVE [facility] Comment on above: Performed By: #### D RUGRPD, ERUR #### [facility] [address] [place] [address] Dr. Hood Loco Clarity (U) CLEAR Normal CLEAR [facility] Comment on above: Performed By: #### D JACKELINRPD, ERUR #### [facility] [address] [place] [address] Dr. Hood Loco Color (U) LT. YELLOW Normal YELLOW [facility] Comment on above: Performed By: #### D SLAVAD, ERUR #### [facility] [address] [address] [address] Hood VIDAL A micrscopic examination will be performed if indicated. Normal The [facility] Comment on above: Performed By: #### D HUSAM, ERUR #### [facility] [address] [address] [address] Hood Loco Glucose Ql (U) Negative Normal NEGATIVE The [facility] Comment on above: Performed By: #### D HUSAM, ERUR #### [facility] [address] [address] [address] Hood Loco Hemoglobin Ql (U) Negative Normal NEGATIVE [facility] Comment on above: Performed By: #### D HUSAM, ERUR #### [facility] [address] [place] [address] Dr. Hood Loco Ketones Ql (U) Negative Normal NEGATIVE The [facility] Comment on above: Performed By: #### D HUSAM, ERUR #### [facility] [address] [place] [address] Dr. Hood Loco LEUKOCYTES Negative Normal NEGATIVE [facility] Comment on above: Performed By: #### D HUSAM, ERUR #### [facility] [address] [address] [address] Hood Loco Nitrite Ql (U) Negative Normal NEGATIVE [facility] Comment on above: Performed By: #### D HUSAM, ERUR #### [facility] [address] [address] [address] Hood Loco pH (U) 7.0 [pH] Normal 5-9 [facility] Comment on above: Performed By: #### D HUSAM, ERUR #### [facility] [address] [address] [address] Hood Loco SPEC GRAVITY <=1.005 Abnormal 1.005-<=1.025 [facility] Comment on above: Performed By: #### D HUSAM, ERUR #### [facility] [address] [address] [address] Hood Loco UA PROTEIN Negative Normal NEGATIVE/ TRACE The [facility] Comment on above: Performed By: #### D HUSAM, ERUR #### [facility] [address] [place] [address] Dr. Hood Loco UR MICRO IND NOT INDICATED Normal [facility] Comment on above: Performed By: #### D HUSAM, ERUR #### [facility] [address] [place] [address] Dr. Hood Loco Urobilinogen Qn (U) 1.0 {Rohith'U}/dL Normal 0.2 - 1. 0 [facility] Comment on above: Performed By: #### D HUSAM, ERUR #### [facility] [address] [place] [address] Dr. Hood Loco ETHANOL (BLD ALC)on 12-13-19 22 ALC NOTE NOTE: 80 mg/dl is the legal limit for a blood alcohol level Normal [facility] Comment on above: Performed By: #### P HVEN #### [facility] [address] [place] [address] Dr. Hood Loco Ethanol [Mass/Vol] mg/dL Normal [facility] Comment on above: Performed By: #### P HVEN #### [facility] [address] [place] [address] Dr. Hood Loco LIPASEon 12-13-2021 Lipase [Catalytic activity/Vol] 106.0 U/L Normal 23.0-300.0 [facility] Comment on above: Performed By: #### P HVEN #### [facility] [address] [place] [address] Dr. Hood Loco PROF 14(COMP METB)on 022 Albumin [Mass/Vol] 3.9 g/dL Normal 3.5-5.0 [facility] Comment on above: Performed By: #### P HVEN #### [facility] [address] [place] [address] Dr. Hood Loco Albumin/Globulin [Mass ratio] 1.1 {ratio} Normal [facility] Comment on above: Performed By: #### P HVEN #### [facility] [address] [address] [address] Hood Loco ALP [Catalytic activity/Vol] 64 U/L Normal 38-126 [facility] Comment on above: Performed By: #### P HVEN #### [facility] [address] [address] [address] Hood Loco ALT [Catalytic activity/Vol] 52 U/L Normal 21-72 [facility] Comment on above: Performed By: #### P HVEN #### [facility] [address] [address] [address] Hood Loco Anion gap [Moles/Vol] 12.6 mmol/L Normal Th [facility] Comment on above: Performed By: #### P HVEN #### [facility] [address] [address] [address] Hood Loco AST [Catalytic activity/Vol] 60 U/L Critically high 17-59 [facility] Comment on above: Performed By: #### P HVEN #### [facility] [address] [address] [address] Hood Loco Bilirubin [Mass/Vol] 0.6 mg/dL Normal 0.2-1.3 The [facility] Comment on above: Performed By: #### P HVEN #### [facility] [address] [address] [address] Hood Loco Calcium [Mass/Vol] 8.6 mg/dL Normal 8.4-10.2 [facility] Comment on above: Performed By: #### P HVEN #### [facility] [address] [address] [address] Hood Loco Chloride [Moles/Vol] 98 mmol/L Normal 98-107 [facility] Comment on above: Performed By: #### P HVEN #### [facility] [address] [address] [address] Hood Loco CO2 [Moles/Vol] 30.6 mmol/L Critically high 22.0-30.0 [facility] Comment on above: Performed By: #### P HVEN #### [facility] [address] [address] [address] Hood Loco Creatinine [Mass/Vol] 0.99 mg/dL Normal 0.66-1.25 [facility] Comment on above: Performed By: #### P HVEN #### [facility] [address] [place] [address] Dr. Hood Loco EGFR-AF TAJIK >60 Normal >=60 [facility] Comment on above: Performed By: #### P HVEN #### [facility] [address] [address] [address] Hood Loco EGFR-NON AF TAJIK >60 Normal >=60 [facility] Comment on above: Performed By: #### P HVEN #### [facility] [address] [place] [address] Dr. Hood Loco Globulin (S) [Mass/Vol] 3.5 g/dL Normal [facility] Comment on above: Performed By: #### P HVEN #### [facility] [address] [place] [address] Dr. Hood Loco Glucose [Mass/Vol] 111 mg/dL Critically high 74-106 [facility] Comment on above: Performed By: #### P HVEN #### [facility] [address] [place] [address] Dr. Hood Loco Potassium [Moles/Vol] 4.2 mmol/L Normal 3.4-5.0 [facility] Comment on above: Performed By: #### P HVEN #### [facility] [address] [place] [address] Dr. Hood Loco Protein [Mass/Vol] 7.4 g/dL Normal 6.1-8.2 [facility] Comment on above: Performed By: #### P HVEN #### [facility] [address] [place] [address] Dr. Hood Loco Sodium [Moles/Vol] 137 mmol/L Normal 137-145 [facility] Comment on above: Performed By: #### P HVEN #### [facility] [address] [place] [address] Dr. Hood Loco Urea nitrogen [Mass/Vol] 5.0 mg/dL Critically low 9.0-20.0 [facility] Comment on above: Performed By: #### P HVEN #### [facility] [address] [place] [address] Dr. Hood Loco Urea nitrogen/Creatinine [Mass ratio] 5.1 mg/mg Normal [facility] Comment on above: Performed By: #### P HVEN #### [facility] [address] [place] [address] Dr. Hood Loco PROTIMEon 12-13-2021 INR Coag (PPP) [Relative time] 1.04 {INR} Normal [facility] Comment on above: Performed By: #### P T, PTT #### [facility] [address] [place] [address] Dr. Hood Loco INR GUIDELINES SEE BELOW Normal [facility] Comment on above: Result Comment: CONNIE RED INR: 2.0 - 3.0 CONDITIONS NOT LISTED BELOW 2.5 - 3.5 FOR PROSTHETIC HEART VALVE REPLACEMENT 2.5 - 3.5 RECURRENT THROMBOSIS Performed By: #### P T, PTT #### [facility] [address] [place] [address] Dr. Hood Loco PT Coag (PPP) [Time] 11.2 s Normal 9.0-11.6 [facility] Comment on above: Performed By: #### P T, PTT #### [facility] [address] [place] [address] Dr. Hood Loco PTTon 12-13-2021 aPTT Coag (Bld) [Time] 24.3 s Normal 22.3-36.2 Th [facility] Comment on above: Performed By: #### P T, PTT #### [facility] [address] [place] [address] Dr. Hood Loco SALICYLATEon 12-13-2021 SALICYLATE <10.0 Normal <=20.0 [facility] Comment on above: Performed By: #### P HVEN #### [facility] [address] [place] [address] Dr. Hood Loco Consenton 02-04-2021 Consent [id number]#1.00CD:127 Normal [facility] Registrationon 02-04-2021 Registration [id number]#[id number]:127 Normal [facility] Vital Signs Date Time Vital Sign Value Performing Clinician Faci lity 03-13-2022 19:00-0400 Body temperature 97.8 [degF] PHYSICIAN NO [facility] 03-13-2022 18:35-0400 Diastolic blood pressure 98 mm[Hg] PHYSICIAN NO [facility] 03-13-2022 18:35-0400 Heart rate 98 /min PHYSICIAN NO [facility] 03-13-2022 18:35-0400 Respiratory rate 22 /min PHYSICIAN NO [facility] 03-13-2022 18:35-0400 SaO2% (BldA) [Mass fraction] 98 % PHYSICIAN NO [facility] 03-13-2022 18:35-0400 Systolic blood pressure 158 mm[Hg] PHYSICIAN NO [facility] 03-13-2022 13:59-0400 Body height 177.8 cm PHYSICIAN NO [facility] 03-13-2022 13:59-0400 Body mass index (BMI) [Ratio] 37.6 kg/m2 PHYSICIAN NO [facility] 03-13-2022 13:59-0400 Body weight 119 kg PHYSICIAN NO [facility] Encounters Encounter Date Encounter Type Care Provider Facility Start: 03-13-2022 End: 03-13-2022 Emergency department patient visit PHYSICIAN NO [facility] Start: 03-12-2022 End: 03-13-[address] NONE LISTED REQUEST Facility:[facility] Start: 12-14-2021 End: 12-15-[address] NONE LISTED REQUEST Facility:[facility] Start: 10-11-2021 End: 10-11-[address] NONE LISTED REQUEST Facility:[facility] Start: 06-06-2018 End: 06-07-2018 Patient encounter DEFAULT PHYSICIAN Facility:[facility] Procedures Date Procedure Procedure Detail Performing Clinician Start: 03-13-2022 SARS Antigen (LFIA) PHY KT NO FAMILY Plan of Treatment Date Care Activity Detail Author Patient referral [facility] Work Phone: Payers Date Payer Category Payer Unknown [id number] 1970 Unknown [id number] 1970 Unknown [id number] 1961 Unknown [id number] 1961 Unknown [id number] Medicaid Self Pay [id number] Self-pay Self Pay [id number] Unknown Social History Date Type Detail Facility Start: 03-13-2022 [facility] Start: 1970 Sex Assigned At Male F [facility] Evaluation note Note Date & Type Note Facility Evaluation note No assessment information availa ble [facility] Work Phone: Summary Purpose Family [...] section and content) DATE CREATED AUTHOR 06/07/2018 [facility] DATE CREATED AUTHOR AUTHOR'S ORGANIZ ATION 02/05/2021 [facility] DATE CREATED AUTHOR AUTHOR'S ORGANIZ ATION 03/14/2022 [facility] DATE CREATED AUTHOR AUTHOR'S NKECHI ATION 03/16/2022 [facility] (unrecognized sec tion and content) [...] BE BASED ON THE PRIMARY CLINICAL RECORDS. [facility]. provides no warranty or guarantee of the accuracy or completeness of information in this document.
[2024-09-15 18:43] LABS: Ethanol 350 mg/dL
[2024-09-15 18:50] LABS: Basophils Absolute Auto 0.1 10^3/uL (0.0-0.1); Basophils Percent Auto 0.8 % (0.2-2.0); Eosinophils Percent Auto 0.6 % (0.9-7.0); Hematocrit 44.8 % (42.0-54.0); Hemoglobin 16.4 g/dL (14.0-18.0); Immature Granulocytes Abs Auto 0.02 10^3/uL (0.00-0.03); Immature Granulocytes Pct Auto 0.3 % (0.0-0.5); Lymphocytes Percent Auto 27.4 % (20.5-60.0); Mean Corpuscular HGB Conc 36.6 g/dL (29.9-35.2); Mean Corpuscular Hemoglobin 33.2 pg (25.9-34.0); Mean Corpuscular Volume 90.7 fL (80.0-94.0); Mean Platelet Volume 8.2 fL (9.5-13.5); Monocytes Absolute Auto 0.8 10^3/uL (0.3-0.8); Monocytes Percent Auto 11.7 % (1.7-12.0); Neutrophils Absolute Auto 4.2 10^3/uL (1.4-6.5); Neutrophils Percent Auto 59.2 % (43.0-75.0); Platelet Count 251 10^3/uL (150-450); Red Blood Count 4.94 10^6/uL (4.70-6.10); Red Cell Distribution Width 11.4 % (11.0-15.0); White Blood Count 7.1 10^3/uL (4.0-11.0)
[2024-09-15] MEDS: ONDANSETRON 4 MG RAPDIS TABLET SL (18:50)
[2024-09-15 18:51] LABS: Alanine Aminotransferase 48 U/L (16-63); Albumin Level 3.9 g/dL (3.4-5.0); Alkaline Phosphatase 71 U/L (46-116); Anion Gap 15.6; Aspartate Amino Transferase 69 U/L (15-37); BUN Creatinine Ratio 5.8; Bilirubin Total 0.8 mg/dL (0.2-1.0); Calcium 9.4 mg/dL (8.5-10.1); Carbon Dioxide 29.7 mmol/L (21.0-32.0); Chloride 96 mmol/L (98-107); Estimated GFR (African America >60 (>=60 mL/min/1.73m^2); Estimated GFR (Non-African Ame >60 (>=60 mL/min/1.73m^2); Globulin 3.9 g/dL; Glucose 115 mg/dL (74-106); Potassium 3.3 mmol/L (3.5-5.1); Sodium 138 mmol/L (136-145); Total Protein 7.8 g/dL (6.4-8.2)
[2024-09-15 18:58] LABS: Amphetamine Screen Urine NEGATIVE (NEGATIVE); Barbiturates Screen Urine NEGATIVE (NEGATIVE); Benzodiazepines Screen Urine POSITIVE (NEGATIVE); Buprenorphine Screen Urine NEGATIVE (NEGATIVE); Cannabinoid Screen Urine NEGATIVE (NEGATIVE); Cocaine Screen Urine NEGATIVE (NEGATIVE); Methadone Screen Urine NEGATIVE (NEGATIVE); Methamphetamines Screen Urine NEGATIVE (NEGATIVE); Opiate Screen Urine NEGATIVE (NEGATIVE); Oxycodone Screen Urine NEGATIVE (NEGATIVE); Phencyclidine Screen Urine NEGATIVE (NEGATIVE); Tricyclic Antidepressant Urine NEGATIVE (NEGATIVE)
[2024-09-15 19:01] VITALS: BP 157/83; PULSE 97; TEMP 36.8; O2SAT 95
[2024-09-15] MEDS: LORAZEPAM 1 MG TABLET PO (19:59)
[2024-09-15] MEDS: POTASSIUM BICARBONATE/CIT 25 MEQ TABLET EFF 50 MEQ PO (19:59)
[2024-09-15] MEDS: lidocaine HCL 15 ML, MAG HYDROX/ALUMINUM HYD/SIMETH 30 ML, HYOSCYAMINE SULFATE 0.25 MG PO (21:07)
[2024-09-15 21:30] LABS: Ethanol 278 mg/dL
--- NOTE | 2024-09-15 21:40 | ED_ITS ---
HPI - Alcohol General Chief Complaint: Alcohol Stated Complaint: Alcohol Withdrawal Time Seen by Provider: 09/15/24 17:32 Source: patient Mode of arrival: walk-in History of Present Illness HPI narrative: 54-year-old male presented to the emergency department and was initially seen by Dr. Cisneros and signed out to me after discussing the case with him thoroughly. Please see his full history and physical exam. Related Data Home Medications ?Medication ?Instructions ?Recorded ?Confirmed amlodipine 10 mg tablet 10 mg PO DAILY 06/28/24 07/04/24 cholecalciferol (vitamin D3) 125 125 mcg PO DAILY 06/28/24 07/04/24 mcg (5,000 unit) capsule hydrochlorothiazide 25 mg tablet 25 mg PO DAILY 06/28/24 07/04/24 Previous Rx's ?Medication ?Instructions ?Recorded lorazepam 1 mg tablet (Ativan) 1 mg PO Q8H PRN anxiety #10 tabs 06/28/24 Allergies Allergy/AdvReac Type Severity Reaction Status Date / Time hydroxyzine AdvReac Severe Anxiety Verified 06/28/24 16:57 allergy medication AdvReac Severe Anxiety Uncoded 06/28/24 16:57 Exam Constitutional Vital Signs, click to edit/add: Last Vital Signs Temp 98.2 F 09/15/24 19:01 Pulse 97 H 09/15/24 19:01 Resp 18 09/15/24 19:01 BP 157/83 H 09/15/24 19:01 Pulse Ox 95 09/15/24 19:01 O2 Del Method Room Air 09/15/24 17:24 Course Vital Signs Vital signs: Vital Signs Temperature 98.4 F 09/15/24 17:24 Pulse Rate 107 H 09/15/24 17:24 Respiratory Rate 18 09/15/24 17:24 Blood Pressure 160/96 H 09/15/24 17:24 Pulse Oximetry 96 09/15/24 17:24 Oxygen Delivery Method Room Air 09/15/24 17:24 Temperature 98.2 F 09/15/24 19:01 Pulse Rate 97 H 09/15/24 19:01 Respiratory Rate 18 09/15/24 19:01 Blood Pressure 157/83 H 09/15/24 19:01 Pulse Oximetry 95 09/15/24 19:01 Oxygen Delivery Method Room Air 09/15/24 17:24 MDM - Alcohol MDM Narrative Medical decision making narrative: The patient has been observed here in the emergency department and alcohol level is now down to 278. He is medically cleared and will be released with the plan to go to [facility] for alcohol treatment. Differential Diagnosis Differential diagnosis: Likely alcohol intoxication and other (Alcohol abuse) Lab Data Attestation: I reviewed the patient's lab results. Labs: Lab Results 09/15/24 09/15/24 09/15/24 Range/Units 18:10 18:18 18:41 WBC 7.1 (4.0-11.0) 10^3/uL RBC 4.94 (4.70-6.10) 10^6/uL Hgb 16.4 (14.0-18.0) g/dL Hct 44.8 (42.0-54.0) % MCV 90.7 (80.0-94.0) fL MCH 33.2 (25.9-34.0) pg MCHC 36.6 H (29.9-35.2) g/dL RDW 11.4 (11.0-15.0) % Plt Count 251 (150-450) 10^3/uL MPV 8.2 L (9.5-13.5) fL Neut % (Auto) 59.2 (43.0-75.0) % Lymph % (Auto) 27.4 (20.5-60.0) % [place] % (Auto) 11.7 (1.7-12.0) % Eos % (Auto) 0.6 L (0.9-7.0) % Baso % (Auto) 0.8 (0.2-2.0) % Neut # (Auto) 4.2 (1.4-6.5) 10^3/uL Lymph # (Auto) 2.0 (1.2-3.8) 10^3/uL [place] # (Auto) 0.8 (0.3-0.8) 10^3/uL Eos # (Auto) 0.0 (0.0-0.7) 10^3/uL Baso # (Auto) 0.1 (0.0-0.1) 10^3/uL Abs Immat Gran (auto) 0.02 (0.00-0.03) 10^3/uL Imm/Tot Granulo (auto) 0.3 (0.0-0.5) % Sodium 138 (136-145) mmol/L Potassium 3.3 L (3.5-5.1) mmol/L Chloride 96 L (98-107) mmol/L Carbon Dioxide 29.7 (21.0-32.0) mmol/L Anion Gap 15.6 BUN 6.0 L (7.0-18.0) mg/dL Creatinine 1.03 (0.70-1.30) mg/dL Est GFR ( Amer) >60 (>=60 mL/min/1.73m^2) Est GFR (Non-Af Amer) >60 (>=60 mL/min/1.73m^2) BUN/Creatinine Ratio 5.8 Glucose 115 H (74-106) mg/dL Calcium 9.4 (8.5-10.1) mg/dL Total Bilirubin 0.8 (0.2-1.0) mg/dL AST 69 H (15-37) U/L ALT 48 (16-63) U/L Alkaline Phosphatase 71 (46-116) U/L Total Protein 7.8 (6.4-8.2) g/dL Albumin 3.9 (3.4-5.0) g/dL Globulin 3.9 g/dL Albumin/Globulin Ratio 1.0 Urine Opiates Screen Negative (NEGATIVE) Ur Buprenorphine Scrn Negative (NEGATIVE) Ur Oxycodone Screen Negative (NEGATIVE) Urine Methadone Screen Negative (NEGATIVE) Ur Barbiturates Screen Negative (NEGATIVE) U Tricyclic Antidepress Negative (NEGATIVE) Ur Phencyclidine Scrn Negative (NEGATIVE) Ur Amphetamines Screen Negative (NEGATIVE) U Methamphetamines Scrn Negative (NEGATIVE) U Benzodiazepines Scrn Positive A (NEGATIVE) Urine Cocaine Screen Negative (NEGATIVE) U Cannabinoids Screen Negative (NEGATIVE) Ethanol Quant 350 mg/dL 09/15/24 Range/Units 21:14 WBC (4.0-11.0) 10^3/uL RBC (4.70-6.10) 10^6/uL Hgb (14.0-18.0) g/dL Hct (42.0-54.0) % MCV (80.0-94.0) fL MCH (25.9-34.0) pg MCHC (29.9-35.2) g/dL RDW (11.0-15.0) % Plt Count (150-450) 10^3/uL MPV (9.5-13.5) fL Neut % (Auto) (43.0-75.0) % Lymph % (Auto) (20.5-60.0) % [place] % (Auto) (1.7-12.0) % Eos % (Auto) (0.9-7.0) % Baso % (Auto) (0.2-2.0) % Neut # (Auto) (1.4-6.5) 10^3/uL Lymph # (Auto) (1.2-3.8) 10^3/uL [place] # (Auto) (0.3-0.8) 10^3/uL Eos # (Auto) (0.0-0.7) 10^3/uL Baso # (Auto) (0.0-0.1) 10^3/uL Abs Immat Gran (auto) (0.00-0.03) 10^3/uL Imm/Tot Granulo (auto) (0.0-0.5) % Sodium (136-145) mmol/L Potassium (3.5-5.1) mmol/L Chloride (98-107) mmol/L Carbon Dioxide (21.0-32.0) mmol/L Anion Gap BUN (7.0-18.0) mg/dL Creatinine (0.70-1.30) mg/dL Est GFR ( Amer) (>=60 mL/min/1.73m^2) Est GFR (Non-Af Amer) (>=60 mL/min/1.73m^2) BUN/Creatinine Ratio Glucose (74-106) mg/dL Calcium (8.5-10.1) mg/dL Total Bilirubin (0.2-1.0) mg/dL AST (15-37) U/L ALT (16-63) U/L Alkaline Phosphatase (46-116) U/L Total Protein (6.4-8.2) g/dL Albumin (3.4-5.0) g/dL Globulin g/dL Albumin/Globulin Ratio Urine Opiates Screen (NEGATIVE) Ur Buprenorphine Scrn (NEGATIVE) Ur Oxycodone Screen (NEGATIVE) Urine Methadone Screen (NEGATIVE) Ur Barbiturates Screen (NEGATIVE) U Tricyclic Antidepress (NEGATIVE) Ur Phencyclidine Scrn (NEGATIVE) Ur Amphetamines Screen (NEGATIVE) U Methamphetamines Scrn (NEGATIVE) U Benzodiazepines Scrn (NEGATIVE) Urine Cocaine Screen (NEGATIVE) U Cannabinoids Screen (NEGATIVE) Ethanol Quant 278 mg/dL Discharge Plan Discharge Chief Complaint: Alcohol Clinical Impression: Alcoholic intoxication, Hypokalemia Patient Disposition: Home, Self-Care Time of Disposition Decision: 21:40 Condition: Fair Mode of Transportation: Private Vehicle Prescriptions / Home Meds: No Action amlodipine 10 mg tablet 10 mg PO DAILY cholecalciferol (vitamin D3) 125 mcg (5,000 unit) capsule 125 mcg PO DAILY hydrochlorothiazide 25 mg tablet 25 mg PO DAILY lorazepam [Ativan] 1 mg tablet 1 mg PO Q8H PRN (Reason: anxiety) Qty: 10 0RF Print Language: Kyrgyz Instructions: Alcohol Intoxication (ED), Abuse of Alcohol (ED), At-Risk Alcohol Use (ED), Alcohol Withdrawal (ED) Referrals: Physician,Non-Staff, MD [Primary Care Provider] - 1 week
== END 2024-09-15 22:00 | disposition home or self-care (01) ==
PROVIDERS: Emergency Medicine; Emergency Provider Emergency Medicine
DX: E87.6 Hypokalemia (principal); F10.129 Alcohol abuse with intoxication, unspecified; Y90.8 Blood alcohol level of 240 mg/100 ml or more; E66.9 Obesity, unspecified; Z68.38 Body mass index [BMI] 38.0-38.9, adult
CPT/HCPCS: 36415; 80053; 80307; 80320; 85025; 93005; 99284; Q0162

== ENCOUNTER 2024-10-01 12:41 | Emergency (ER) | payer MEDICAID, SELFPAY ==
[2024-10-01] VITALS (29 sets, daily range): BP systolic 111–166; BP diastolic 63–102; PULSE 70–102; TEMP 36.8; O2SAT 88–97; BMI 31.2
--- NOTE | 2024-10-01 12:55 | ECG_ITS ---
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
--- NOTE | 2024-10-01 12:55 | XR_ITS ---
The [address] [address] Patient Name: LALI JAIME MRN: [id number] date: 1970 Sex: M Assigned Patient Location: ED.MAIN Current Patient Location: ER Accession/Order Number: [id number] Exam Date: 10/01/2024 13:40 Report Date: 10/01/2024 14:08 At the request of: JOSE ANTONIO ALBERTO Procedure: XR elbow RT min 3V PROCEDURE: XR elbow RT min 3V COMPARISON: None. HISTORY: fall FINDINGS: BONES:No acute fracture or dislocation. Mild degenerative change with marginal osteophyte formation SOFT TISSUES:Negative. No visible soft tissue swelling. EFFUSION:None visible. OTHER: Negative. XR/XR elbow RT min 3V IMPRESSION: Mild degenerative changes Electronically authenticated by: JN SALOMON Date: 10/01/2024 14:08
--- NOTE | 2024-10-01 12:55 | XR_ITS ---
The [address] [address] Patient Name: LALI JAIME MRN: [id number] date: 1970 Sex: M Assigned Patient Location: ER Current Patient Location: ER Accession/Order Number: [id number] Exam Date: 10/01/2024 13:40 Report Date: 10/01/2024 14:05 At the request of: JOSE ANTONIO ALBERTO Procedure: XR chest 1V EXAMINATION: XR chest 1V HISTORY: weakness COMPARISON: 06/28/2024 TECHNIQUE: AP portable FINDINGS: LUNGS: No significant pulmonary parenchymal abnormalities. VASCULATURE: No increased pulmonary vasculature. PLEURA: No pneumothorax, effusion, or pleural thickening. CARDIAC: No cardiomegaly or cardiac silhouette abnormality. MEDIASTINUM: No visible mass or adenopathy. BONES: No fracture or visible bone lesion. OTHER: Negative. XR/XR chest 1V IMPRESSION: No acute cardiopulmonary process Electronically authenticated by: JN SALOMON Date: 10/01/2024 14:05
--- NOTE | 2024-10-01 12:55 | CT_ITS ---
The [address] [address] Patient Name: LALI JAIME MRN: [id number] date: 1970 Sex: M Assigned Patient Location: ED.MAIN Current Patient Location: ER Accession/Order Number: [id number] Exam Date: 10/01/2024 13:40 Report Date: 10/01/2024 14:23 At the request of: JOSE ANTONIO ALBERTO Procedure: CT head/brain wo con EXAMINATION: CT head/brain wo con, 10/01/2024 1:40 PM EST HISTORY: possible fall COMPARISON: None. TECHNIQUE: CT scan of the head was performed without IV contrast. CT dose reduction technique was used, including Automated Exposure Control. FINDINGS: BRAIN: No edema, hemorrhage, mass, acute infarction, or inappropriate atrophy. CSF SPACES: No hydrocephalus, subarachnoid hemorrhage, or mass. Appropriate for age. SKULL: No fracture, mass, or other significant visible lesion. SINUSES: No significant mucosal thickening or fluid on the limited views. ORBITS: No appreciable abnormality on the limited views. OTHER: Negative CT/CT head/brain wo con IMPRESSION: No acute intracranial abnormality Electronically authenticated by: JN SALOMON Date: 10/01/2024 14:23
[2024-10-01] MEDS: 0.9 % SODIUM CHLORIDE 1,000 ML 100 ML IV (13:10)
--- NOTE | 2024-10-01 13:26 | ED_ITS ---
Documented by User: Galina Rodgers DO 10/01/24 13:29 HPI HPI - General Adult General Chief complaint: Alcohol Stated complaint: GENERAL WEAKNESS/ALTERED MENTAL STATUS Time Seen by Provider: 10/01/24 12:44 Source: patient Mode of arrival: ambulance Limitations: no limitations History of Present Illness HPI narrative: Patient presents to ED complaining of drinking too much alcohol. He states he drinks every day and he drinks a gallon of vodka every day. He states today he drank more than normal so he called EMS. He said he does not want to quit drinking and will continue to drink even if sent to rehab. I asked him if he wanted inpatient rehab and he said now. He said this is just the way I am. Patient is unsure if he has fallen recently he does have some bruises on his elbows and complains of mild right elbow pain. Unsure if he has hit his head. He is extremely intoxicated so I am unsure if this is his mental baseline or if he has any evidence of head injury. Patient denies being suicidal but is tearful on and off during the time that I was talking to them. Patient states he has anxiety and he drinks to cope with the anxiety Related Data Home Medications ?Medication ?Instructions ?Recorded ?Confirmed amlodipine 10 mg tablet 10 mg PO DAILY 06/28/24 10/01/24 hydrochlorothiazide 25 mg tablet 25 mg PO DAILY 06/28/24 10/01/24 Previous Rx's ?Medication ?Instructions ?Recorded chlordiazepoxide HCl 25 mg capsule See Rx Instructions .Route 10/01/24 .COMPLEX #15 caps Allergies Allergy/AdvReac Type Severity Reaction Status Date / Time hydroxyzine AdvReac Severe Anxiety Verified 06/28/24 16:57 allergy medication AdvReac Severe Anxiety Uncoded 06/28/24 16:57 Opioid HPI Opioid Management Most Recent Opioid Data: Ur Phencyclidine Scrn Negative (NEGATIVE) 10/01/24 15:55 05/19 Review of Systems ROS Narrative ROS difficult to obtain due to patient's mental status and intoxication level Exam Narrative Exam Narrative: Time Seen: [] Vital Signs: [Per nurse's notes.] General: [Alert] intoxicated, mildly lethargic Skin: [Warm, dry, no rash.] Head: [Normocephalic, atraumatic.] Neck: [Supple, trachea midline.] Eye: [Pupils are equal, round and reactive to light, extraocular movements are intact, normal conjunctiva.] Ears, nose, mouth and throat: oral mucosa moist. Cardiovascular: [Regular rate and rhythm, no murmur.] Respiratory: [Lungs are clear to auscultation, respirations are non-labored, breath sounds are equal.] Chest wall: [No tenderness, no deformity.] Gastrointestinal: [Soft, nontender, mild distention, normal bowel sounds.] MSK: 5 out of 5 muscle strength x 4 extremities no calf pain or edema Lymphatics: [No lymphadenopathy.] Psychiatric: [Cooperative, tearful, anxious Neurological: [Alert and oriented to person, place, time, no focal neurological deficit observed.] Constitutional Vital Signs, click to edit/add: Last Vital Signs Temp 98.2 F 10/01/24 12:45 Pulse 85 10/01/24 21:01 Resp 19 10/01/24 21:01 BP 128/91 10/01/24 21:01 Pulse Ox 97 10/01/24 21:01 O2 Del Method Room Air 10/01/24 18:39 O2 Flow Rate 2 10/01/24 13:31 Course Vital Signs Vital signs: Vital Signs Temperature 98.2 F 10/01/24 12:45 Pulse Rate 100 H 10/01/24 12:45 Respiratory Rate 18 10/01/24 12:45 Blood Pressure 141/100 H 10/01/24 12:45 Pulse Oximetry 94 L 10/01/24 12:45 Oxygen Delivery Method Room Air 10/01/24 12:45 Temperature 98.2 F 10/01/24 12:45 Pulse Rate 85 10/01/24 21:01 Respiratory Rate 19 10/01/24 21:01 Blood Pressure 128/91 10/01/24 21:01 Pulse Oximetry 97 10/01/24 21:01 Oxygen Delivery Method Room Air 10/01/24 18:39 Oxygen Delivery Flow Rate 2 10/01/24 13:31 Medical Decision Making Lab Data Labs: Lab Results 10/01/24 10/01/24 10/01/24 Range/Units 13:35 15:55 18:48 WBC 6.1 (4.0-11.0) 10^3/uL RBC 4.17 L (4.70-6.10) 10^6/uL Hgb 14.0 (14.0-18.0) g/dL Hct 39.5 L (42.0-54.0) % MCV 94.7 H (80.0-94.0) fL MCH 33.6 (25.9-34.0) pg MCHC 35.4 H (29.9-35.2) g/dL RDW 11.8 (11.0-15.0) % Plt Count 152 (150-450) 10^3/uL MPV 8.1 L (9.5-13.5) fL Neut % (Auto) 63.6 (43.0-75.0) % Lymph % (Auto) 24.8 (20.5-60.0) % Lamar % (Auto) 9.1 (1.7-12.0) % Eos % (Auto) 1.0 (0.9-7.0) % Baso % (Auto) 1.0 (0.2-2.0) % Neut # (Auto) 3.9 (1.4-6.5) 10^3/uL Lymph # (Auto) 1.5 (1.2-3.8) 10^3/uL Lamar # (Auto) 0.6 (0.3-0.8) 10^3/uL Eos # (Auto) 0.1 (0.0-0.7) 10^3/uL Baso # (Auto) 0.1 (0.0-0.1) 10^3/uL Abs Immat Gran (auto) 0.03 (0.00-0.03) 10^3/uL Imm/Tot Granulo (auto) 0.5 (0.0-0.5) % PT 11.5 (9.0-11.6) sec INR 1.09 Sodium 144 (136-145) mmol/L Potassium 3.3 L (3.5-5.1) mmol/L Chloride 104 (98-107) mmol/L Carbon Dioxide 24.9 (21.0-32.0) mmol/L Anion Gap 18.4 BUN 7.0 (7.0-18.0) mg/dL Creatinine 1.00 (0.70-1.30) mg/dL Est GFR ( Amer) >60 (>=60 mL/min/1.73m^2) Est GFR (Non-Af Amer) >60 (>=60 mL/min/1.73m^2) BUN/Creatinine Ratio 7.0 Glucose 109 H (74-106) mg/dL Calcium 8.9 (8.5-10.1) mg/dL Phosphorus 3.6 (2.6-4.7) mg/dL Magnesium 1.7 L (1.8-2.4) mg/dL Total Bilirubin 0.6 (0.2-1.0) mg/dL AST 49 H (15-37) U/L ALT 50 (16-63) U/L Alkaline Phosphatase 65 (46-116) U/L Total Protein 6.5 (6.4-8.2) g/dL Albumin 3.3 L (3.4-5.0) g/dL Globulin 3.2 g/dL Albumin/Globulin Ratio 1.0 Lipase 47.0 (16.0-77.0) U/L Urine Ketones Negative (NEGATIVE) mg/dL Urine Opiates Screen Negative (NEGATIVE) Ur Buprenorphine Scrn Negative (NEGATIVE) Ur Oxycodone Screen Negative (NEGATIVE) Urine Methadone Screen Negative (NEGATIVE) Ur Barbiturates Screen Negative (NEGATIVE) U Tricyclic Antidepress Negative (NEGATIVE) Ur Phencyclidine Scrn Negative (NEGATIVE) Ur Amphetamines Screen Negative (NEGATIVE) U Methamphetamines Scrn Negative (NEGATIVE) U Benzodiazepines Scrn Positive A (NEGATIVE) Urine Cocaine Screen Negative (NEGATIVE) U Cannabinoids Screen Negative (NEGATIVE) Ethanol Quant 390 279 mg/dL ECG Data Attestation: I personally reviewed and interpreted this ECG as follows: Interpretation: EKG INTERPRETATION Time: [] 1248 Rate: [] 99 Rhythm: _ [] Normal sinus rhythm ST segments: _ [] No acute ST elevation or depression T waves: _ [] Ectopy: _ [] P wave/ME interval: _ [] QRS interval: _ [] QT interval: _ [] Comparison: _ [] Comparison EKG date: [] Performed by: [self] Discharge Plan Discharge Chief Complaint: Alcohol Clinical Impression: Alcoholic intoxication, Hypokalemia Patient Disposition: Home, Self-Care Time of Disposition Decision: 21:19 Condition: Good Prescriptions / Home Meds: New chlordiazepoxide HCl 25 mg capsule See Rx Instructions .ROUTE .COMPLEX Qty: 15 0RF Rx Instructions: Day 1: 50mg q6h Day 2: 25mg q6h Day 3: 25mg q12h Day 4: 25mg at night No Action amlodipine 10 mg tablet 10 mg PO DAILY hydrochlorothiazide 25 mg tablet 25 mg PO DAILY Print Language: [place]er Instructions: Hypokalemia (ED), Abuse of Alcohol (DC) Additional Instructions: Follow-up with your PCP in the next 1 to 2 days. Return to the emergency department should symptoms worsen or become worrisome in any way. Referrals: Physician,Non-Staff, [Primary Care Provider] - 1 week Documented by User: Foster Nuñez MD 10/01/24 21:23 HPI HPI - General Adult General Chief complaint: Alcohol Stated complaint: GENERAL WEAKNESS/ALTERED MENTAL STATUS Time Seen by Provider: 10/01/24 12:44 Related Data Home Medications ?Medication ?Instructions ?Recorded ?Confirmed amlodipine 10 mg tablet 10 mg PO DAILY 06/28/24 10/01/24 hydrochlorothiazide 25 mg tablet 25 mg PO DAILY 06/28/24 10/01/24 Previous Rx's ?Medication ?Instructions ?Recorded chlordiazepoxide HCl 25 mg capsule See Rx Instructions .Route 10/01/24 .COMPLEX #15 caps Allergies Allergy/AdvReac Type Severity Reaction Status Date / Time hydroxyzine AdvReac Severe Anxiety Verified 06/28/24 16:57 allergy medication AdvReac Severe Anxiety Uncoded 06/28/24 16:57 Opioid HPI Opioid Management Most Recent Opioid Data: Ur Phencyclidine Scrn Negative (NEGATIVE) 10/01/24 15:55 05/19 Exam Constitutional Vital Signs, click to edit/add: Last Vital Signs Temp 98.2 F 10/01/24 12:45 Pulse 85 10/01/24 21:01 Resp 19 10/01/24 21:01 BP 128/91 10/01/24 21:01 Pulse Ox 97 10/01/24 21:01 O2 Del Method Room Air 10/01/24 18:39 O2 Flow Rate 2 10/01/24 13:31 Course Vital Signs Vital signs: Vital Signs Temperature 98.2 F 10/01/24 12:45 Pulse Rate 100 H 10/01/24 12:45 Respiratory Rate 18 10/01/24 12:45 Blood Pressure 141/100 H 10/01/24 12:45 Pulse Oximetry 94 L 10/01/24 12:45 Oxygen Delivery Method Room Air 10/01/24 12:45 Temperature 98.2 F 10/01/24 12:45 Pulse Rate 85 10/01/24 21:01 Respiratory Rate 19 10/01/24 21:01 Blood Pressure 128/91 10/01/24 21:01 Pulse Oximetry 97 10/01/24 21:01 Oxygen Delivery Method Room Air 10/01/24 18:39 Oxygen Delivery Flow Rate 2 10/01/24 13:31 Medical Decision Making MDM Narrative Medical decision making narrative: 1899 patient was signed out at normal change of shift pending sobriety, Nghia. 1941 alcohol level is noted. Discussed with Nghia 2039 discussed with Ngh[facility] again, they are discussing with her physician 2117 discussed with urology, they are declining patient at this time. I discussed with patient, he is currently alert and oriented x 3, intoxicated, potassium and magnesium have been supplemented. Librium taper to be initiated. Pt that is awake, alert, oriented x 3, ambulating at time of discharge, and with a normal gait. The patient is able to carry a normal conversation; there is no evidence of delusions, hallucinations, suicidal, or homicidal ideation. Discussed with pt need for alcohol cessation. Information given regarding ETOH rehab. Pt clear on s/s that warrant a return to the ED. Advanced guidance has been given. Vss, pex is benign at this time. Pt to fu with pcp 1-2 days for reeval, rter should sx worsen, persist or become worrysome in any way. Pt expressed understanding and agreement with plan of care at this time. Will fu as planned. Pt stable for discharge. Lab Data Labs: Lab Results 10/01/24 10/01/24 10/01/24 Range/Units 13:35 15:55 18:48 WBC 6.1 (4.0-11.0) 10^3/uL RBC 4.17 L (4.70-6.10) 10^6/uL Hgb 14.0 (14.0-18.0) g/dL Hct 39.5 L (42.0-54.0) % MCV 94.7 H (80.0-94.0) fL MCH 33.6 (25.9-34.0) pg MCHC 35.4 H (29.9-35.2) g/dL RDW 11.8 (11.0-15.0) % Plt Count 152 (150-450) 10^3/uL MPV 8.1 L (9.5-13.5) fL Neut % (Auto) 63.6 (43.0-75.0) % Lymph % (Auto) 24.8 (20.5-60.0) % Lamar % (Auto) 9.1 (1.7-12.0) % Eos % (Auto) 1.0 (0.9-7.0) % Baso % (Auto) 1.0 (0.2-2.0) % Neut # (Auto) 3.9 (1.4-6.5) 10^3/uL Lymph # (Auto) 1.5 (1.2-3.8) 10^3/uL Lamar # (Auto) 0.6 (0.3-0.8) 10^3/uL Eos # (Auto) 0.1 (0.0-0.7) 10^3/uL Baso # (Auto) 0.1 (0.0-0.1) 10^3/uL Abs Immat Gran (auto) 0.03 (0.00-0.03) 10^3/uL Imm/Tot Granulo (auto) 0.5 (0.0-0.5) % PT 11.5 (9.0-11.6) sec INR 1.09 Sodium 144 (136-145) mmol/L Potassium 3.3 L (3.5-5.1) mmol/L Chloride 104 (98-107) mmol/L Carbon Dioxide 24.9 (21.0-32.0) mmol/L Anion Gap 18.4 BUN 7.0 (7.0-18.0) mg/dL Creatinine 1.00 (0.70-1.30) mg/dL Est GFR ( Amer) >60 (>=60 mL/min/1.73m^2) Est GFR (Non-Af Amer) >60 (>=60 mL/min/1.73m^2) BUN/Creatinine Ratio 7.0 Glucose 109 H (74-106) mg/dL Calcium 8.9 (8.5-10.1) mg/dL Phosphorus 3.6 (2.6-4.7) mg/dL Magnesium 1.7 L (1.8-2.4) mg/dL Total Bilirubin 0.6 (0.2-1.0) mg/dL AST 49 H (15-37) U/L ALT 50 (16-63) U/L Alkaline Phosphatase 65 (46-116) U/L Total Protein 6.5 (6.4-8.2) g/dL Albumin 3.3 L (3.4-5.0) g/dL Globulin 3.2 g/dL Albumin/Globulin Ratio 1.0 Lipase 47.0 (16.0-77.0) U/L Urine Ketones Negative (NEGATIVE) mg/dL Urine Opiates Screen Negative (NEGATIVE) Ur Buprenorphine Scrn Negative (NEGATIVE) Ur Oxycodone Screen Negative (NEGATIVE) Urine Methadone Screen Negative (NEGATIVE) Ur Barbiturates Screen Negative (NEGATIVE) U Tricyclic Antidepress Negative (NEGATIVE) Ur Phencyclidine Scrn Negative (NEGATIVE) Ur Amphetamines Screen Negative (NEGATIVE) U Methamphetamines Scrn Negative (NEGATIVE) U Benzodiazepines Scrn Positive A (NEGATIVE) Urine Cocaine Screen Negative (NEGATIVE) U Cannabinoids Screen Negative (NEGATIVE) Ethanol Quant 390 279 mg/dL Discharge Plan Discharge Chief Complaint: Alcohol Clinical Impression: Alcoholic intoxication, Hypokalemia Patient Disposition: Home, Self-Care Time of Disposition Decision: 21:19 Condition: Good Prescriptions / Home Meds: New chlordiazepoxide HCl 25 mg capsule See Rx Instructions .ROUTE .COMPLEX Qty: 15 0RF Rx Instructions: Day 1: 50mg q6h Day 2: 25mg q6h Day 3: 25mg q12h Day 4: 25mg at night No Action amlodipine 10 mg tablet 10 mg PO DAILY hydrochlorothiazide 25 mg tablet 25 mg PO DAILY Print Language: [place]er Instructions: Hypokalemia (ED), Abuse of Alcohol (DC) Additional Instructions: Follow-up with your PCP in the next 1 to 2 days. Return to the emergency department should symptoms worsen or become worrisome in any way. Referrals: Physician,Non-Staff, MD [Primary Care Provider] - 1 week
[2024-10-01 13:43] LABS: Basophils Absolute Auto 0.1 10^3/uL (0.0-0.1); Eosinophils Absolute Auto 0.1 10^3/uL (0.0-0.7); Hematocrit 39.5 % (42.0-54.0); Immature Granulocytes Abs Auto 0.03 10^3/uL (0.00-0.03); Immature Granulocytes Pct Auto 0.5 % (0.0-0.5); Lymphocytes Absolute Auto 1.5 10^3/uL (1.2-3.8); Lymphocytes Percent Auto 24.8 % (20.5-60.0); Mean Corpuscular HGB Conc 35.4 g/dL (29.9-35.2); Mean Corpuscular Hemoglobin 33.6 pg (25.9-34.0); Mean Corpuscular Volume 94.7 fL (80.0-94.0); Mean Platelet Volume 8.1 fL (9.5-13.5); Monocytes Absolute Auto 0.6 10^3/uL (0.3-0.8); Monocytes Percent Auto 9.1 % (1.7-12.0); Neutrophils Absolute Auto 3.9 10^3/uL (1.4-6.5); Neutrophils Percent Auto 63.6 % (43.0-75.0); Platelet Count 152 10^3/uL (150-450); Red Blood Count 4.17 10^6/uL (4.70-6.10); Red Cell Distribution Width 11.8 % (11.0-15.0); White Blood Count 6.1 10^3/uL (4.0-11.0)
[2024-10-01 13:58] LABS: INR 1.09; Prothrombin Time 11.5 sec (9.0-11.6)
[2024-10-01 14:00] LABS: Alanine Aminotransferase 50 U/L (16-63); Albumin Level 3.3 g/dL (3.4-5.0); Alkaline Phosphatase 65 U/L (46-116); Anion Gap 18.4; Aspartate Amino Transferase 49 U/L (15-37); Bilirubin Total 0.6 mg/dL (0.2-1.0); Calcium 8.9 mg/dL (8.5-10.1); Carbon Dioxide 24.9 mmol/L (21.0-32.0); Chloride 104 mmol/L (98-107); Estimated GFR (African America >60 (>=60 mL/min/1.73m^2); Estimated GFR (Non-African Ame >60 (>=60 mL/min/1.73m^2); Ethanol 390 mg/dL; Globulin 3.2 g/dL; Glucose 109 mg/dL (74-106); Magnesium 1.7 mg/dL (1.8-2.4); Phosphorus 3.6 mg/dL (2.6-4.7); Potassium 3.3 mmol/L (3.5-5.1); Sodium 144 mmol/L (136-145); Total Protein 6.5 g/dL (6.4-8.2)
[2024-10-01] MEDS: MAGNESIUM SULFATE IN WATER 2 GM/50 ML PREMIX IV (14:28)
[2024-10-01] MEDS: POTASSIUM CHLORIDE IN 0.9%NACL 1,000 ML 250 ML IV (15:30)
[2024-10-01 16:04] LABS: Ketones Urine NEGATIVE (NEGATIVE)
[2024-10-01 16:15] LABS: Amphetamine Screen Urine NEGATIVE (NEGATIVE); Barbiturates Screen Urine NEGATIVE (NEGATIVE); Benzodiazepines Screen Urine POSITIVE (NEGATIVE); Buprenorphine Screen Urine NEGATIVE (NEGATIVE); Cannabinoid Screen Urine NEGATIVE (NEGATIVE); Cocaine Screen Urine NEGATIVE (NEGATIVE); Methadone Screen Urine NEGATIVE (NEGATIVE); Methamphetamines Screen Urine NEGATIVE (NEGATIVE); Opiate Screen Urine NEGATIVE (NEGATIVE); Oxycodone Screen Urine NEGATIVE (NEGATIVE); Phencyclidine Screen Urine NEGATIVE (NEGATIVE); Tricyclic Antidepressant Urine NEGATIVE (NEGATIVE)
[2024-10-01 19:04] LABS: Ethanol 279 mg/dL
[2024-10-01] MEDS: CLORDIAZEPOXIDE HCl 25 MG CAPSULE 50 MG PO (21:52)
== END 2024-10-01 22:01 | disposition home or self-care (01) ==
PROVIDERS: Emergency Provider Emergency Medicine
DX: F10.129 Alcohol abuse with intoxication, unspecified (principal); E87.6 Hypokalemia; Y90.8 Blood alcohol level of 240 mg/100 ml or more
CPT/HCPCS: 36415; 51798; 70450; 71045; 73080; 80053; 80307; 80320; 83690; 83735; 83935; 84100; 85025; 85610; 93005; 96365; 96366; 96367; 99285; J3475

== ENCOUNTER 2024-12-28 14:54 | Emergency (ER) | payer MEDICAID, SELFPAY ==
[2024-12-28 14:58] VITALS: BP 155/99; PULSE 90; TEMP 37.3; O2SAT 94; BMI 40.2
--- OUTSIDE RECORDS SUMMARY | 2024-12-28 15:01 | XMS_ITS | CCD ---
Author Organization [facility] Care Team Providers Care Sand Mixer Name Role Phone PHYSICIAN, DEFAULT Unavailable Unavailable PHYSICIAN, DEFAULT Unavailable Unavailable NO FAMILY, PHYSICIAN Primary Care Provider Unava MD Benedict Ulloa Emergency Provider [phone] REQUEST, NONE LISTED Primary Care Unavaila SHAIKH Hudson Admitting Unavailable SHAIKH ANDERS Attending Unavailable PAY, DR GOINS Consulting Unavailable MARTITA, Consulting Unavailable Jn Daly Consulting Unavailable REQUEST, [...] TIFFANI Attending Unavailable REYES, TIFFANI Consulting Unavailable NONE, XXXX Primary Care Physician Unavailab SEAMUS Moss Referring Unavailable MELISSA PHILIPPE Attending Unavailable ISRAEL SEN Attending Unavailable Allergies Allergy Classification Reported Allergen(s) Allergy Type Date of Onset Reaction(s) Facility (1 source) ALLERGIES NOT ON FILE; Translations: [ALLERGIES NOT ON FILE] Propensity to adverse reactions (disorder) 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-2024 Chronic Nonspecific chest pain (1 source) Chest pain, unspecified; Translations: [CHEST PAIN UNSPECIFIED] Onset: 03-15-2022 Episodic Other aftercare (1 source) Other assisted (current) drug therapy; Translations: [OTH 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 CURRENT 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 THERAPY] Onset: 03-15-2022 Episodic Other [...] Test Name Value Interpretation Reference Range Facility BASIC METABOLIC PANELon 11-27 Anion gap [Moles/Vol] 12 mmol/L Normal 7-20 [facility] Comment on above: Performed By: #### L [id number] #### [facility] ([facility]) [address] [place] [address] Calcium [Mass/Vol] 8.8 mg/dL Normal 8.6-10.3 [facility] Comment on above: Performed By: #### L [id number] #### [facility] ([facility]) [address] [place] [address] Chloride [Moles/Vol] 103 mmol/L Normal 98-107 [facility] Comment on above: Performed By: #### L [id number] #### [facility] ([facility]) [address] [place] [address] CO2 [Moles/Vol] 24 mmol/L Normal 21-31 [facility] Comment on above: Performed By: #### L [id number] #### [facility] ([facility]) [address] [place] [address] Creatinine [Mass/Vol] 0.88 mg/dL Normal 0.70-1.30 [facility] Comment on above: Performed By: #### L [id number] #### [facility] ([facility]) [address] [place] [address] GLOMERULAR FILTRATION RATE ML/MIN/1.73 SQ M.PREDICTED 100.9 mL/min/1.73m*2 Normal >60.[address] [facility] Comment on above: Result Comment: [facility]???s estimated glomerular filtration rate (eGFR) will [...] disproportionately affect any one group of individuals. Performed By: #### L [id number] #### [facility] ([facility] [address] [place] [address] Glucose [Mass/Vol] 114 mg/dL High 70-100 [facility] Comment on above: Performed By: #### L [id number] #### [facility] ([facility]) [address] [place] [address] Potassium [Moles/Vol] 3.3 mmol/L Low 3.5-5.1 [facility] Comment on above: Performed By: #### L [id number] #### [facility] ([facility]) [address] [place] [address] Sodium [Moles/Vol] 136 mmol/L Normal 136-145 [facility] Comment on above: Performed By: #### L [id number] #### [facility] ([facility]) [address] [place] [address] Urea nitrogen [Mass/Vol] 14 mg/dL Normal 7-[address] [facility] Comment on above: Performed By: #### L [id number] #### [facility] ([facility]) [address] [place] [address] UREA NITROGEN/CREATININE (MASS RATIO) IN SER/PLAS 15.[address] [facility] Comment on above: Performed By: #### L [id number] #### [facility] ([facility]) [address] [place] [address] CBC WITH AUTO DIFFERENTIALon 12-18-2024 Basophils (Bld) [#/Vol] 0.04 10*3/uL Normal 0.00-0.[address] [facility] Comment on above: Performed By: #### L [id number] #### [facility] ([facility]) [address] [place] [address] Basophils/100 WBC (Bld) 0.6 % Normal 0.0-1.[address] [facility] Comment on above: Performed By: #### L [id number] #### [facility] [address] [place] [address] Eosinophils (Bld) [#/Vol] 0.14 10*3/uL Normal 0.00-0.[address] [facility] Comment on above: Performed By: #### L [id number] #### [facility] (BEAKER) [address] [place] [address] Eosinophils/100 WBC (Bld) 2.2 % Normal 0.0-6.[address] [facility] Comment on above: Performed By: #### L [id number] #### [facility] ([facility]) [address] [place] [address] Erythrocyte distribution width (RBC) [Ratio] 11.8 % Normal 11.5-15.[address] [facility] Comment on above: Performed By: #### L [id number] #### [facility] ([facility]) [address] [place] [address] ERYTHROCYTE MEAN CORPUSCULAR HEMOGLOBIN CONCENTRATION (G/DL) BY AUTOMATED 36.2 g/dL High 32.0-35.[address] [facility] Comment on above: Performed By: #### L [id number] #### [facility] ([facility]) [address] [place] [address] Hematocrit (Bld) [Volume fraction] 38.1 % Low 39.0-55.[address] [facility] Comment on above: Performed By: #### L [id number] #### [facility] ([facility]) [address] [place] [address] Hemoglobin (Bld) [Mass/Vol] 13.8 g/dL Normal 13.0-17.[address] [facility] Comment on above: Performed By: #### L [id number] #### [facility] ([facility]) [address] [place] [address] Immature granulocytes (Bld) [#/Vol] 0.04 10*3/uL Normal 0.00-0.[address] [facility] Comment on above: Performed By: #### L [id number] #### [facility] ([facility]) [address] [place] [address] Immature granulocytes/100 WBC (Bld) 0.6 % Normal 0.0-1.[address] [facility] Comment on above: Performed By: #### L [id number] #### [facility] ([facility]) [address] [place] [address] Lymphocytes (Bld) [#/Vol] 1.90 10*3/uL Normal 1.20-4.[address] [facility] Comment on above: Performed By: #### L [id number] #### [facility] ([facility]) [address] [place] [address] Lymphocytes/100 WBC (Bld) 29.6 % Normal 20.0-45.[address] [facility] Comment on above: Performed By: #### L [id number] #### [facility] ([facility]) [address] [place] [address] MCH (RBC) [Entitic mass] 33.3 pg High 27.0-33.[address] [facility] Comment on above: Performed By: #### L [id number] #### [facility] ([facility]) [address] [place] [address] MCV (RBC) [Entitic vol] 92.0 fL Normal 82.0-98.[address] [facility] Comment on above: Performed By: #### L [id number] #### [facility] ([facility]) [address] [place] [address] Monocytes (Bld) [#/Vol] 0.68 10*3/uL Normal 0.10-1.[address] [facility] Comment on above: Performed By: #### L [id number] #### [facility] ([facility]) [address] [place] [address] Monocytes/100 WBC (Bld) 10.6 % Normal 5.0-12.[address] [facility] Comment on above: Performed By: #### L [id number] #### [facility] [address] [place] [address] Neutrophils (Bld) [#/Vol] 3.61 10*3/uL Normal 1.60-7.[address] [facility] Comment on above: Performed By: #### L [id number] #### [facility] ([facility]) [address] [place] [address] Neutrophils/100 WBC (Bld) 56.4 % Normal 40.0-72.[address] [facility] Comment on above: Performed By: #### L [id number] #### [facility] ([facility]) [address] [place] [address] NRBC (PER 100 WBCS) BY AUTOMATED COUNT 0.0 % Normal [address] [facility] Comment on above: Performed By: #### L [id number] #### [facility] ([facility]) [address] [place] [address] PLATELETS (10*3/UL) IN BLOOD AUTOMATED COUNT 162 10*3/uL Normal 150-[address] [facility] Comment on above: Performed By: #### L [id number] #### [facility] ([facility]) [address] [place] [address] RBC (Bld) [#/Vol] 4.14 10*6/uL Low 4.20-5.70 [facility] Comment on above: Performed By: #### L [id number] #### [facility] ([facility]) [address] [place] [address] WBC (Bld) [#/Vol] 6.41 10*3/uL Normal 4.00-10.60 [facility] Comment on above: Performed By: #### L [id number] #### [facility] ([facility]) [address] [place] [address] EDNURSon 12-18-2024 EDNURS Mode of arrival (squ ad #, walk in, police, etc): [facility] Chief complaint(s): Urinary Retention Arrival Note (brief scenario, 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 Patient is in detox for ETOH abuse. Patient has a hx of BPH and urinary retention. Patient drinks 1/2 gallon of vodka daily prior to rehab. Patient unable to void and was sent to ED for evaluation Normal [facility] URINALYSIS WITH REFLEX CULTU REon 12-18-2024 BILIRUBIN, TOTAL PRESENCE IN URINE Negative Normal Negative [facility] Comment on above: Order Comment: Micro scopics not performed on urines with negative chemical reactions unless requested on original order. Performed By: #### L [id number] #### [facility] ([facility] [address] [place] [address] Clarity (U) Clear Normal Clear [facility] Comment on above: Order Comment: Micro scopics not performed on urines with negative chemical reactions unless requested on original order. Performed By: #### L [id number] #### [facility] ([facility]) [address] [place] [address] Color (U) Yellow Normal Colorless, Yellow, Light-Yellow [facility] Comment on above: Order Comment: Micro scopics not performed on urines with negative chemical reactions unless requested on original order. Performed By: #### L [id number] #### [facility] ([facility]) [address] [place] [address] GLUCOSE (MG/DL) IN URINE Normal Normal Normal [facility] Comment on above: Order Comment: Micro scopics not performed on urines with negative chemical reactions unless requested on original order. Performed By: #### L [id number] #### [facility] ([facility]) [address] [place] [address] HEMOGLOBIN PRESENCE IN URINE Negative Normal Negative [facility] Comment on above: Order Comment: Micro scopics not performed on urines with negative chemical reactions unless requested on original order. Performed By: #### L [id number] #### [facility] ([facility]) [address] [place] [address] Ketones Ql (U) Negative Normal Negative [facility] Comment on above: Order Comment: Micro scopics not performed on urines with negative chemical reactions unless requested on original order. Performed By: #### L [id number] #### [facility] ([facility]) [address] [place] [address] LEUKOCYTE ESTERASE PRESENCE IN URINE BY TEST STRIP Negative Normal Negative [facility] Comment on above: Order Comment: Micro scopics not performed on urines with negative chemical reactions unless requested on original order. Performed By: #### L [id number] #### [facility] ([facility]) [address] [place] [address] NITRITE PRESENCE IN URINE Negative Normal Negative [facility] Comment on above: Order Comment: Micro scopics not performed on urines with negative chemical reactions unless requested on original order. Performed By: #### L [id number] #### [facility] ([facility]) [address] [place] [address] pH (U) 6.5 [pH] Normal 5.0-8.[address] [facility] Comment on above: Order Comment: Micro scopics not performed on urines with negative chemical reactions unless requested on original order. Performed By: #### L [id number] #### [facility] ([facility]) [address] [place] [address] Protein (U) [Mass/Vol] Negative Normal Negative [facility] Comment on above: Order Comment: Micro scopics not performed on urines with negative chemical reactions unless requested on original order. Performed By: #### L [id number] #### [facility] ([facility]) [address] [place] [address] Specific gravity (U) [Rel density] 1.033 High 1.010-1.[address] [facility] Comment on above: Order Comment: Micro scopics not performed on urines with negative chemical reactions unless requested on original order. Performed By: #### L [id number] #### [facility] ([facility]) [address] [place] [address] UROBILINOGEN (MG/DL) IN URINE >=8.[address] [facility] Comment on above: Order Comment: Micro scopics not performed on urines with negative chemical reactions unless requested on original order. Performed By: #### L [id number] #### [facility] ([facility]) [address] [place] [address] Amphetamine Screen Ql (U)Ord ered By: Benedict Robb on 03-13-2022 Amphetamines Ql (U) Negative Negative [facility] Barbiturates [Presence] in U rineOrdered By: Benedict Robb on 03-13-2022 Barbiturates Ql (U) Negative Negative [facility] Basophils Auto (Bld) [#/Vol] Ordered By: Benedict Robb on 03-13-2022 Basophils (Bld) [#/Vol] 0.0 10*3/uL 0.0-0.2 [facility] Basophils/100 WBC Auto (Bld) Ordered By: Benedict Robb on 03-13-2022 Basophils/100 WBC (Bld) 0.3 % [facility] Benzodiazepines [Presence] i n UrineOrdered By: Benedict Robb on 03-13-2022 Benzodiazepines Ql (U) Negative Negative [facility] Bilirubin Test strip Ql (U)O rdered By: Benedict Robb on 03-13-2022 Bilirubin Ql (U) Negative Negative [facility] Blood hemoglobin measurement (mass/volume)Ordered By: Benedict Robb on 03-13-2022 Hemoglobin (Bld) [Mass/Vol] 14.9 g/dL 13.0-17.0 [facility] Blood leukocytes automated c ount (number/volume)Ordered By: Benedict Robb on 03-13-2022 WBC (Bld) [#/Vol] 6.2 10*3/uL 4.5-11.0 [facility] Body fluid albumin measureme nt (mass/volume)Ordered By: Benedict Robb on 03-13-2022 Albumin (Body fld) [Mass/Vol] 3.7 g/dL 3.2-5.5 [facility] COVID-19 Antigenon 2 COVID-19 Antigen [...] developed and its performance characteristic determined by [employer] and validated at [facility]. This test has not been [...] for SARS Antigen by [employer] PERFORMED BY: [place] [address] PATHOLOGIST LAMINATION ASSEMBLER ULYSSES GODDARD M.D. [facility] Comment on above: Performed By: #### C OVID-19 RICHARD, SOFIANEG #### [address] COVID-19 SOFIAOrdered By: Susan Robb on 03-13-2022 SARS-CoV+SARS-CoV-2 (COVID-19) Ag IA.rapid Ql (Resp) Negative Negative [facility] Comment on above: This is a duplicate Richard SARS Antigen ([facility]) result to be used for statistical tracking purpose only. Cannabinoids [Presence] in U rine by Screen methodOrdered By: Benedict Robb on 03-13-2022 Cannabinoids Screen Ql (U) Negative Negative [facility] Comment on above: These are unconfirme d results and should not be used for legal purposes. Drug Cut-Off Concentration: AMPH 1000 ng/mL KEARA 200 ng/mL ARIEL 200 ng/mL COCM 300 ng/mL OP 300 ng/mL PCP 25 ng/mL THC 20 ng/mL Color Auto (U)Ordered By: Susan Robb on 03-13-2022 Color (U) Yellow Yellow [facility] Complete Blood Count Auto Di ffon 03-13-2022 Basophils (Bld) [#/Vol] 0.0 10*3/uL Normal 0.0-0.2 [facility] Comment on above: Result Comment: PERF ORMED BY: [place] [address] PATHOLOGIST LAMINATION ASSEMBLER ULYSSES GODDARD M.D. Performed By: #### E LISA, CBC, CMP #### [address] Basophils/100 WBC (Bld) 0.3 % Normal . [facility] Comment on above: Performed By: #### E LISA, CBC, CMP #### [facility] [address] [place] [address] Eosinophils (Bld) [#/Vol] 0.0 10*3/uL Normal 0.0-0.45 [facility] Comment on above: Performed By: #### E LISA, CBC, CMP #### [facility] [address] [place] [address] Eosinophils/100 WBC (Bld) 0.2 % Normal . [facility] Comment on above: Performed By: #### E LISA, CBC, CMP #### [facility] [address] [place] [address] Erythrocyte distribution width (RBC) [Ratio] 13.7 % Normal 12.0-14.8 [facility] Comment on above: Performed By: #### E LISA, CBC, CMP #### [facility] [address] [place] [address] Hematocrit (Bld) [Volume fraction] 42.7 % Normal 38.8-50.0 [facility] Comment on above: Performed By: #### E LISA, CBC, CMP #### [facility] [address] [place] [address] Hemoglobin (Bld) [Mass/Vol] 14.9 g/dL Normal 13.0-17.0 [facility] Comment on above: Performed By: #### E LISA, CBC, CMP #### [address] Lymphocytes (Bld) [#/Vol] 1.1 10*3/uL Normal 1.00-4.8 [facility] Comment on above: Performed By: #### E LISA, CBC, CMP #### [address] Lymphocytes/100 WBC (Bld) 18.0 % Normal . [facility] Comment on above: Performed By: #### E LISA, CBC, CMP #### [address] MCH (RBC) [Entitic mass] 33.0 pg Normal 27.5-35.2 [facility] Comment on above: Performed By: #### E LSIA, CBC, CMP #### [address] MCV (RBC) [Entitic vol] 94.2 fL Normal 83.5-101 [facility] Comment on above: Performed By: #### E LISA CBC, CMP #### [address] Mean Corpuscular HGB Conc 35.0 g/dL Normal 32.5-35.6 [facility] Comment on above: Performed By: #### E LISA, CBC, CMP #### [address] Monocytes (Bld) [#/Vol] 0.5 10*3/uL Normal 0.0-0.8 [facility] Comment on above: Performed By: #### E LISA, CBC, CMP #### [address] Monocytes/100 WBC (Bld) 7.7 % Normal . [facility] Comment on above: Performed By: #### E LISA, CBC, CMP #### [address] Neutrophils (Bld) [#/Vol] 4.6 10*3/uL Normal 1.8-7.7 [facility] Comment on above: Performed By: #### E LISA CBC, CMP #### [facility] [address] Neutrophils/100 WBC (Bld) 73.8 % Normal . [facility] Comment on above: Performed By: #### E LISA CBC, CMP #### [facility] [address] Nucleated RBC/100 WBC (Bld) [Ratio] 0.1 % Normal 0-0.5 [facility] Comment on above: Performed By: #### E LISA CBC, CMP #### [address] Platelet mean volume (Bld) [Entitic vol] 6.6 fL Normal 6.6-10.1 [facility] Comment on above: Performed By: #### E LISA CBC, CMP #### [address] Platelets (Bld) [#/Vol] 194 10*3/uL Normal 150-450 [facility] Comment on above: Performed By: #### E LISA CBC, CMP #### [address] RBC (Bld) [#/Vol] 4.53 10*6/uL Normal 3.90-5.60 [facility] Comment on above: Performed By: #### E LISA, CBC, CMP #### [address] WBC (Bld) [#/Vol] 6.2 10*3/uL Normal 4.5-11.0 [facility] Comment on above: Performed By: #### E LISA, CBC, CMP #### [address] Comprehensive Metabolic Pane jelly 03-13-2022 Albumin [Mass/Vol] 3.7 g/dL Normal 3.2-5.5 [facility] Comment on above: Performed By: #### E LISA CBC, CMP #### [facility] [address] Albumin/Globulin [Mass ratio] 1.3 {ratio} Normal [facility] Comment on above: Performed By: #### E LISA CBC, CMP #### [facility] [address] ALP [Catalytic activity/Vol] 56 U/L Normal 32-92 [facility] Comment on above: Performed By: #### E LISA CBC, CMP #### [facility] [address] ALT [Catalytic activity/Vol] 23 U/L Normal 10-60 [facility] Comment on above: Performed By: #### E LISA CBC, CMP #### [facility] [address] [place] [address] AST [Catalytic activity/Vol] 37 U/L Normal 10-42 [facility] Comment on above: Performed By: #### E LISA CBC, CMP #### [facility] [address] [place] [address] [place] Bilirubin [Mass/Vol] 1.2 mg/dL Normal 0.3-1.2 [facility] Comment on above: Performed By: #### E LISA CBC, CMP #### [facility] [address] [place] [address] [place] Calcium [Mass/Vol] 8.7 mg/dL Normal 8.2-10.2 [facility] Comment on above: Performed By: #### E LISA CBC, CMP #### [facility] [address] [place] [address] [place] Chloride [Moles/Vol] 100 mmol/L Normal 95-114 [facility] Comment on above: Performed By: #### E LISA, CBC, CMP #### [facility] [address] [place] [address] [place] CO2 [Moles/Vol] 22.9 mmol/L Normal 22.0-30.0 [facility] Comment on above: Performed By: #### E LISA, CBC, CMP #### [facility] [address] Creatinine [Mass/Vol] 0.93 mg/dL Normal 0.64-1.27 [facility] Comment on above: Performed By: #### E LISA, CBC, CMP #### [facility] [address] Creatinine Clr Calc Pharmacy 117.39 [facility] Comment on above: Result Comment: PERF ORMED BY: [place] [address] PATHOLOGIST LAMINATION ASSEMBLER ULYSSES GODDARD M.D. Performed By: #### E LISA CBC, CMP #### [address] Estimated GFR ( Jia > 60 [facility] Comment on above: Result Comment: GFR estimated reference range: According to KDOQI guidelines, <60 ml/min/1.73m2 is sufficient to diagnose a patient with chronic kidney disease. Performed By: #### E LISA, CBC, CMP #### [address] Estimated GFR (Non- Am > 60 [facility] Comment on above: Performed By: #### E LISA, CBC, CMP #### [facility] [address] [place] [address] Globulin (S) [Mass/Vol] 2.9 g/dL [facility] Comment on above: Performed By: #### E LISA, CBC, CMP #### [facility] [address] [place] [address] Glucose [Mass/Vol] 93 mg/dL Normal 70-100 [facility] Comment on above: Result Comment: [place] Glucose Reference Range is dependent on time and content of last meal. Glucose of more than 200 mg/dL in a nonstressed, ambulatory subject supports the diagnosis of Diabetes Mellitus. ADA recommended reference range Performed By: #### E LISA, CBC, CMP #### [address] [place] [address] [place] Potassium [Moles/Vol] 3.6 mmol/L Normal 3.5-5.1 [facility] [place] Comment on above: Performed By: #### E LISA, CBC, CMP #### [facility] [address] Protein [Mass/Vol] 6.6 g/dL Normal 6.1-7.9 [facility] Comment on above: Performed By: #### E LISA, CBC, CMP #### [facility] [address] Sodium [Moles/Vol] 137 mmol/L Normal 136-146 [facility] Comment on above: Performed By: #### E LISA, CBC, CMP #### [address] Urea nitrogen [Mass/Vol] 9 mg/dL Normal 9-23 [facility] Comment on above: Performed By: #### E LISA, CBC, CMP #### [place] [address] [place] Creatinine and Glomerular fi ltration rate.predicted panel (S/P/Bld)Ordered By: Benedict Robb on 03-13-2022 Creatinine [Mass/Vol] 0.93 mg/dL 0.64-1.27 [facility] [place] Drug Screen,Urineon 03-13-20 22 Amphetamine Screen,Urine Negative Normal Negative [facility] Comment on above: Performed By: #### U RDS, UA #### [place] [address] [place] Barbiturate Screen,Urine Negative Normal Negative [facility] Comment on above: Performed By: #### U RDS, UA #### [place] [address] [place] Benzodiazepines Screen,Urine Negative Normal Negative [facility] Comment on above: Performed By: #### U RDS, UA #### [place] [id number] [place] Cannabinoid Screen,Urine Negative Normal Negative [facility] Comment on above: Result Comment: Thes e are unconfirmed results and should not be used for legal purposes. Drug Cut-Off Concentration: AMPH 1000 ng/mL KEARA 200 ng/mL ARIEL 200 ng/mL COCM 300 ng/mL OP 300 ng/mL PCP 25 ng/mL THC 20 ng/mL PERFORMED BY: [place] [address] PATHOLOGIST LAMINATION ASSEMBLER ULYSSES GODDARD M.D. Performed By: #### U RDS, UA #### [facility] [address] [place] [address] Cocaine Screen,Urine Negative Normal Negative [facility] Comment on above: Performed By: #### U RDS, UA #### [facility] [address] [place] [address] Opiate Screen,Urine Negative Normal Negative [facility] Comment on above: Performed By: #### U RDS, UA #### [facility] [address] [place] [address] Phencyclidine Screen,Urine Negative Normal Negative [facility] Comment on above: Performed By: #### U RDS, UA #### [facility] [address] [place] [address] ECHOCARDIO M/2D COMPLETEon 0 03-13-2022 ECHOCARDIO M/2D COMPLETE Patient: LALI JAIME Exam Date: 03/13/2022 : 1970 Gender:M Ordering : SHAIKH Jim ANDERS . Admission #: [id number] Family : Order #: [id number] CLICK HERE TO VIEW EXAM ECHOCARDIOGRAM REPORT [...] Mills M.D. on 03/13/2022 at 15:32 Normal [facility] Eosinophils Auto (Bld) [#/Vo l]Ordered By: Benedict Robb on 03-13-2022 Eosinophils (Bld) [#/Vol] 0.0 10*3/uL 0.0-0.45 [facility] Eosinophils/100 WBC Auto (Bl d)Ordered By: Benedict Robb on 03-13-2022 Eosinophils/100 WBC (Bld) 0.2 % [facility] Erythrocyte distribution wid th Auto (RBC) [Ratio]Ordered By: Benedict Robb on 03-13-2022 Erythrocyte distribution width (RBC) [Ratio] 13.7 % 12.0-14.8 [facility] Estimated glomerular filtrat ion rate (GFR) non- AmericanOrdered By: Benedict Robb on 03-13-2022 GFR/1.73 sq M.predicted among non-blacks MDRD (S/P/Bld) [Vol rate/Area] > 60 mL/Min [facility] Ethyl Alcohol Profileon 02-24 Ethanol [Mass/Vol] 94 mg/dL Normal [facility] Comment on above: Performed By: #### E LISA, CBC, CMP #### [facility] [address] Percent Ethanol 0.094 % Normal [facility] Comment on above: Result Comment: PERF ORMED BY: [place] [address] PATHOLOGIST LAMINATION ASSEMBLER ULYSSES GODDARD M.D. Performed By: #### E LISA, CBC, CMP #### [facility] [address] GLYCOHEMOGLOBIN A1Con 2021 ADA RECOMMENDATION ADA THERAPEUTIC TARG ET 6.0 - 7.0 ACTION SUGGESTED > 7.0 Normal [facility] Comment on above: Performed By: #### A 1C #### [facility] [address] [place] [address] [address] Hood Loco Glucose [Mass/Vol] 94 mg/dL Normal [facility] Comment on above: Performed By: #### A 1C #### [facility] [address] [place] [address] [address] Hood Loco HbA1c (Bld) [Mass fraction] 4.9 % Normal <=6.0 [facility] Comment on above: Performed By: #### A 1C #### [facility] [address] [place] [address] [address] Hood Loco Globulin Calc (S) [Mass/Vol] Ordered By: Benedict Robb on 03-13-2022 Globulin (S) [Mass/Vol] 2.9 g/dL [facility] Hematocrit Auto (Bld) [Volum e fraction]Ordered By: Benedict Robb on 03-13-2022 Hematocrit (Bld) [Volume fraction] 42.7 % 38.8-50.0 [facility] Ketones Auto test strip (U) [Mass/Vol]Ordered By: Benedict Robb on 03-13-2022 Ketones (U) [Mass/Vol] Negative Negative [facility] LIPID PROFILEon 03-13-2022 CHOL-HDL RATIO NORM SEE BELOW Normal [facility] Comment on above: Result Comment: 3.3 - 4.4 LOW RISK 4.4 - 7.1 AVERAGE RISK 7.1 - 11.0 MODERATE RISK >11.0 HIGH RISK Performed By: #### D HUSAM, ERUR #### [facility] [address] [place] [address] Dr. Hood Loco Cholesterol [Mass/Vol] 158 mg/dL Normal <=200 [facility] Comment on above: Performed By: #### D HUSAM, ERUR #### [facility] [address] [place] [address] [address] Hood Loco Cholesterol in HDL [Mass/Vol] 70 mg/dL Critically high 40-60 [facility] Comment on above: Performed By: #### D HUSAM, ERUR #### [facility] [address] [place] [address] Dr. Hood Loco Cholesterol in LDL [Mass/Vol] 51.2 mg/dL Normal [facility] Comment on above: Performed By: #### D HUSAM, ERUR #### [facility] [address] [place] [address] Dr. Hood Loco Cholesterol.total/Chol esterol in HDL [Mass ratio] 2.3 {ratio} Normal [facility] Comment on above: Performed By: #### D HUSAM, ERUR #### [facility] [address] [place] [address] Dr. Hood Loco HDL NORMAL > or = 60 mg/dl - LO W CARDIOVASCULAR RISK <40 mg/dl - HIGH CARDIOVASCULAR RISK Normal [facility] Comment on above: Performed By: #### D HUSAM, ERUR #### [facility] [address] [place] [address] Dr. Hood Loco LDL CALC NORMAL SEE BELOW Normal [facility] Comment on above: Result Comment: <100 mg/dl OPTIMAL 100 - 129 mg/dl NEAR OR ABOVE OPTIMAL 130 - 159 mg/dl BORDERLINE HIGH 160 - 189 mg/dl HIGH >190 mg/dl VERY HIGH Performed By: #### D HUSAM, ERUR #### [facility] [address] [place] [address] Dr. Hood Loco Triglyceride [Mass/Vol] 184 mg/dL Critically high <=150 [facility] Comment on above: Performed By: #### D HUSAM, ERUR #### [facility] [address] [place], [place] [address] Dr. Hood Loco VLDL CALC 36.8 mg/dL Normal [facility] Comment on above: Performed By: #### D HUSAM, ERUR #### [facility] [address] [place], [place] [address] Dr. Hood Loco Laboratory - Drug toxicology Ordered By: Benedict Robb on 03-13-2022 Opiates Ql (U) Negative Negative [facility] - Hematology and Cell countsOrdered By: Benedict Robb on 03-13-2022 Nucleated RBC/100 WBC (Bld) [Ratio] 0.1 % 0-0.5 [facility] Lymphocytes Auto (Bld) [#/Vo l]Ordered By: Benedict Robb on 03-13-2022 Lymphocytes (Bld) [#/Vol] 1.1 10*3/uL 1.00-4.8 [facility] Lymphocytes/100 WBC Auto (Bl d)Ordered By: Benedict Robb on 03-13-2022 Lymphocytes/100 WBC (Bld) 18.0 % [facility] MCH Auto (RBC) [Entitic mass ]Ordered By: Benedict Robb on 03-13-2022 MCH (RBC) [Entitic mass] 33.0 pg 27.5-35.2 [facility] MCHC Auto (RBC) [Mass/Vol]Or dered By: Benedict Robb on 03-13-2022 MCHC (RBC) [Mass/Vol] 35.0 g/dL 32.5-35.6 [facility] [place] MCV Auto (RBC) [Entitic vol] Ordered By: Benedict Robb on 03-13-2022 MCV (RBC) [Entitic vol] 94.2 fL 83.5-101 [facility] Monocytes Auto (Bld) [#/Vol] Ordered By: Benedict Robb on 03-13-2022 Monocytes (Bld) [#/Vol] 0.5 10*3/uL 0.0-0.8 [facility] Monocytes/100 WBC Auto (Bld) Ordered By: Benedict Robb on 03-13-2022 Monocytes/100 WBC (Bld) 7.7 % [facility] Neutrophils Auto (Bld) [#/Vo l]Ordered By: Benedict Robb on 03-13-2022 Neutrophils (Bld) [#/Vol] 4.6 10*3/uL 1.8-7.7 [facility] Neutrophils/100 WBC Auto (Bl d)Ordered By: Benedict Robb on 03-13-2022 Neutrophils/100 WBC (Bld) 73.8 % [facility] Nitrite Test strip Ql (U)Ord ered By: Benedict Robb on 03-13-2022 Nitrite Ql (U) Negative Negative [facility] No Panel InformationOrdered By: Benedict Robb on 03-13-2022 SARS Antigen (LFIA) [facility] Estimated GFR () > 60 mL/Min [facility] Comment on above: GFR estimated refere nce range: According to KDOQI guidelines, <60 ml/min/1.73m2 is sufficient to diagnose a patient with chronic kidney disease. Pharmacy Creatinine Clearance (Chem 117.39 [facility] Phencyclidine Screen Ql (U)O rdered By: Benedict Robb on 03-13-2022 Phencyclidine Ql (U) Negative Negative [facility] Platelet mean volume Auto (B ld) [Entitic vol]Ordered By: Benedict Robb on 03-13-2022 Platelet mean volume (Bld) [Entitic vol] 6.6 fL 6.6-10.1 [facility] Platelets Auto (Bld) [#/Vol] Ordered By: Benedict Robb on 03-13-2022 Platelets (Bld) [#/Vol] 194 10*3/uL 150-450 [facility] Protein Auto test strip (U) [Mass/Vol]Ordered By: Benedict Robb on 03-13-2022 Protein (U) [Mass/Vol] Negative Negative [facility] Protein [Mass/volume] in Ser um or PlasmaOrdered By: Benedict Robb on 03-13-2022 Protein [Mass/Vol] 6.6 g/dL 6.1-7.9 [facility] RBC Auto (Bld) [#/Vol]Ordere d By: Benedict Robb on 03-13-2022 RBC (Bld) [#/Vol] 4.53 10*6/uL 3.90-5.60 [facility] Serum or plasma alanine garcia otransferase measurement without P-5'-P (enzymatic activiOrdered By: Benedict Robb on 03-13-2022 ALT No additional P-5'-P [Catalytic activity/Vol] 23 U/L 10-60 [facility] Serum or plasma albumin/glob ulin mass ratioOrdered By: Benedict Robb on 03-13-2022 Albumin/Globulin [Mass ratio] 1.3 {ratio} [facility] Serum or plasma alkaline malini sphatase measurement (enzymatic activity/volume)Ordered By: Benedict Robb on 03-13-2022 ALP [Catalytic activity/Vol] 56 U/L 32-92 [facility] Serum or plasma aspartate am inotransferase measurement (enzymatic activity/volume)Ordered By: Benedict Robb on 03-13-2022 AST [Catalytic activity/Vol] 37 U/L 10-42 [facility] Serum or plasma calcium jennifer urement (mass/volume)Ordered By: Benedict Robb on 03-13-2022 Calcium [Mass/Vol] 8.7 mg/dL 8.2-10.2 [facility] Serum or plasma chloride joel surement (moles/volume)Ordered By: Benedict Robb on 03-13-2022 Chloride [Moles/Vol] 100 mmol/L 95-114 [facility] Serum or plasma ethanol jennifer urement (mass/volume)Ordered By: Benedict Robb on 03-13-2022 Ethanol [Mass/Vol] 94 mg/dL [facility] Ethanol [Mass/Vol] 0.094 % [facility] Serum or plasma glucose jennifer urement (mass/volume)Ordered By: Benedict Robb on 03-13-2022 Glucose [Mass/Vol] 93 mg/dL 70-100 [facility] Comment on above: ADA recommended refe rence rangeRandom Glucose Reference Range is dependent on time and content of last meal. Glucose of more than 200 mg/dL in a nonstressed, ambulatory subject supports the diagnosis of Diabetes Mellitus. Serum or plasma potassium me asurement (moles/volume)Ordered By: Benedict Robb on 03-13-2022 Potassium [Moles/Vol] 3.6 mmol/L 3.5-5.1 [facility] [place] Serum or plasma sodium measu rement (moles/volume)Ordered By: Benedict Robb on 03-13-2022 Sodium [Moles/Vol] 137 mmol/L 136-146 [facility] Serum or plasma total biliru bin measurement (mass/volume)Ordered By: Benedict Robb on 03-13-2022 Bilirubin [Mass/Vol] 1.2 mg/dL 0.3-1.2 [facility] Serum or plasma total carbon dioxide measurement (moles/volume)Ordered By: Benedict Robb on 03-13-2022 CO2 [Moles/Vol] 22.9 mmol/L 22.0-30.0 [facility] Serum or plasma urea nitroge n measurement (mass/volume)Ordered By: Benedict Robb on 03-13-2022 Urea nitrogen [Mass/Vol] 9 mg/dL 08-18 [facility] Richard Ag Negativeon 03-13-20 Richard Ag Negative Negative Normal Negative [facility] Comment on above: Result Comment: This is a duplicate Richard SARS Antigen (DUTCH) result to be used for statistical tracking purpose only. PERFORMED BY: [place] [address] PATHOLOGIST LAMINATION ASSEMBLER ULYSSES GODDARD M.D. Performed By: #### C OVID-19 RICHARD, SOFIANEG #### [address] Specific gravity Auto test s trip (U) [Rel density]Ordered By: Benedict Robb on 03-13-2022 Specific gravity (U) [Rel density] 1.019 1.001-1.030 [facility] TROPONIN, HIGH SENSITIVITYon 03-13-2022 HSTROP 9.9 pg/mL Normal 4.0-42.2 [facility] Comment on above: Result Comment: CUT- OFF POINTS HAVE BEEN ESTABLISHED BASED ON THE FOURTH UNIVERSAL DEFINITIONS OF MYOCARDIAL INFARCTION. THE UPPER REFERENCE LIMIT (URL) OF TROPONIN, DEFINED THE 99TH PERCENTILE OF cTnI DISTRIBUTION IN A REFERENCE POPULATION, HAS BEEN CONFIRMED THE DECISION THRESHOLD FOR PA DIAGNOSIS. Performed By: #### H STROPN #### [facility] [address] [place] [address] [address] Hood Loco Urinalysison 03-13-2022 Appearance (U) Clear Normal Clear [facility] Comment on above: Order Comment: Name Collection Type:: Clean-Voided Midstream Performed By: #### U RDS, UA #### [facility] [address] [place] [address] [place] Bilirubin,Urine Negative Normal Negative [facility] Comment on above: Order Comment: Name Collection Type:: Clean-Voided Midstream Performed By: #### U RDS, UA #### [facility] [address] [place] [address] [place] Color (U) Yellow Normal Yellow [facility] Comment on above: Order Comment: Name Collection Type:: Clean-Voided Midstream Performed By: #### U RDS, UA #### [facility] [address] [place] [address] [place] Glucose Ql (U) Normal Normal Normal [facility] Comment on above: Order Comment: Name Collection Type:: Clean-Voided Midstream Performed By: #### U RDS, UA #### [facility] [address] [place] [address] [place] Ketones Ql (U) Negative Normal Negative [facility] Comment on above: Order Comment: Name Collection Type:: Clean-Voided Midstream Performed By: #### U RDS, UA #### [facility] [address] [place] [address] [place] Leukocyte esterase Test strip Ql (U) Negative Normal Negative [facility] Comment on above: Order Comment: Name Collection Type:: Clean-Voided Midstream Performed By: #### U RDS, UA #### [facility] [address] [place] [address] [place] Nitrite,Urine Negative Normal Negative [facility] Comment on above: Order Comment: Name Collection Type:: Clean-Voided Midstream Performed By: #### U RDS, UA #### [facility] [address] [place] [address] [place] Occult Blood,Urine Negative Normal Negative [facility] Comment on above: Order Comment: Name Collection Type:: Clean-Voided Midstream Result Comment: PERF ORMED BY: [place] [address] PATHOLOGIST LAMINATION ASSEMBLER ULYSSES GODDARD M.D. Performed By: #### U RDS, UA #### [address] pH (U) 7.0 [pH] Normal 5.0-9.0 [facility] Comment on above: Order Comment: Name Collection Type:: Clean-Voided Midstream Performed By: #### U RDS, UA #### [place] [address] [place] Protein,Urine Negative Normal Negative [facility] Comment on above: Order Comment: Name Collection Type:: Clean-Voided Midstream Performed By: #### U RDS, UA #### [address] Specificy [place],Urine 1.019 Normal 1.001-1.030 [facility] Comment on above: Order Comment: Name Collection Type:: Clean-Voided Midstream Performed By: #### U RDS, UA #### [place] [address] [place] Urobilinogen,Urine Normal Normal Normal [facility] Comment on above: Order Comment: Name Collection Type:: Clean-Voided Midstream Performed By: #### U RDS, UA #### [address] Urine clarity by refractomet ry automatedOrdered By: Benedict Robb on 03-13-2022 Clarity Refractometry automated (U) Clear Clear [facility] Urine cocaine detectionOrder ed By: Benedict Robb on 03-13-2022 Cocaine Ql (U) Negative Negative [facility] Urine glucose measurement by automated test strip (mass/volume)Ordered By: Benedict Robb on 03-13-2022 Glucose Auto test strip (U) [Mass/Vol] Normal mg/dL Normal [facility] Urine hemoglobin detection b y automated test stripOrdered By: Benedict Robb on 03-13-2022 Hemoglobin Auto test strip Ql (U) Negative Negative [facility] Urine leukocyte esterase det ection by automated test stripOrdered By: Benedict Robb on 03-13-2022 Leukocyte esterase Auto test strip Ql (U) Negative Negative [facility] Urobilinogen Auto test strip (U) [Mass/Vol]Ordered By: Benedict Robb on 03-13-2022 Urobilinogen (U) [Mass/Vol] Normal mg/dL Normal [facility] pH Auto test strip (U)Ordere d By: Benedict Robb on 03-13-2022 pH (U) 7.0 [pH] 5.0-9.0 [facility] AMMONIAon 03-12-2022 Ammonia (P) [Moles/Vol] 27 umol/L Normal 11-32 [facility] Comment on above: Performed By: #### D RUGRPD, ERUR #### [facility] [address] [place] [address] Dr. Hood Loco BNPon 03-12-2022 Natriuretic peptide B (Bld) [Mass/Vol] 28.0 pg/mL Normal <=900.0 [facility] Comment on above: Performed By: #### P HVEN #### [facility] [address] [place] [address] [address] Hood Loco CARDIAC GINGER ADMITon 022 CK [Catalytic activity/Vol] 338 U/L Critically high 55-170 [facility] Comment on above: Performed By: #### P HVEN #### [facility] [address] [place] [address] Dr. Hood Loco CK.MB [Mass/Vol] 1.90 ng/mL Normal <=2.37 [facility] Comment on above: Performed By: #### P HVEN #### [facility] [address] [place] [address] Dr. Hood Loco HSTROP 8.3 pg/mL Normal 4.0-42.2 [facility] Comment on above: Result Comment: CUT- OFF POINTS HAVE BEEN ESTABLISHED BASED ON THE FOURTH UNIVERSAL DEFINITIONS OF MYOCARDIAL INFARCTION. THE UPPER REFERENCE LIMIT (URL) OF TROPONIN, DEFINED THE 99TH PERCENTILE OF cTnI DISTRIBUTION IN A REFERENCE POPULATION, HAS BEEN CONFIRMED THE DECISION THRESHOLD FOR PA DIAGNOSIS. Performed By: #### P HVEN #### [facility] [address] [place] [address] Dr. Hood Loco MARY 68.0 ng/mL Normal <=121.0 [facility] Comment on above: Performed By: #### P HVEN #### [facility] [address] [place] [address] Dr. Hood Loco CBC AUTO DIFFon 03-12-2022 BASO # 0.1 103/ul Normal 0.0-0.1 [facility] Comment on above: Performed By: #### D HUSAM, ERUR #### [facility] [address] [place] [address] Dr. Hood Loco Basophils/100 WBC (Bld) 0.7 % Normal 0.2-2.0 [facility] Comment on above: Performed By: #### D HUSAM, ERUR #### [facility] [address] [place] [address] Dr. Hood Loco EO # 0.0 103/ul Normal 0.0-0.7 [facility] Comment on above: Performed By: #### D HUSAM, ERUR #### [facility] [address] [place] [address] Dr. Hood Loco Eosinophils/100 WBC (Bld) 0.3 % Critically low 0.9-7.0 [facility] Comment on above: Performed By: #### D HUSAM, ERUR #### [facility] [address] [place] [address] Dr. Hood Loco Erythrocyte distribution width (RBC) [Ratio] 12.7 % Normal 11.0-15.0 [facility] Comment on above: Performed By: #### D HUSAM, ERUR #### [facility] [address] [place] [address] Dr. Hood Loco Hematocrit (Bld) [Volume fraction] 44.8 % Normal 42.0-54.0 [facility] Comment on above: Performed By: #### D HUSAM, ERUR #### [facility] [address] [place] [address] Dr. Hood Loco Hemoglobin (Bld) [Mass/Vol] 15.8 g/dL Normal 14.0-18.0 [facility] Comment on above: Performed By: #### D HUSAM, ERUR #### [facility] [address] [place] [address] [address] Hood Loco IG # 0.04 10e3/ul Critically high 0.00-0.03 [facility] Comment on above: Performed By: #### D SLAVAD, ERUR #### [facility] [address] [place] [address] [address] Hood Loco IG % 0.5 % Normal 0.0-0.5 [facility] Comment on above: Performed By: #### D HUSAM, ERUR #### [facility] [address] [place] [address] Dr. Hood Loco LYMPH # 1.9 103/ul Normal 1.2-3.8 [facility] Comment on above: Performed By: #### D HUSAM, ERUR #### [facility] [address] [place] [address] Dr. Hood Loco Lymphocytes/100 WBC (Bld) 24.5 % Normal 20.5-60.0 [facility] Comment on above: Performed By: #### D HUSAM, ERUR #### [facility] [address] [place] [address] Dr. Hood Loco MANUAL DIFF REQ NO Normal [facility] Comment on above: Performed By: #### D HUSAM, ERUR #### [facility] [address] [place] [address] Dr. Hood Loco MCH (RBC) [Entitic mass] 32.6 pg Normal 25.9-34.0 [facility] Comment on above: Performed By: #### D HUSAM, ERUR #### [facility] [address] [place] [address] Dr. Hood Loco MCHC (RBC) [Mass/Vol] 35.3 g/dL Critically high 29.9-35.2 [facility] Comment on above: Performed By: #### D HUSAM, ERUR #### [facility] [address] [place] [address] Dr. Hood Loco MCV (RBC) [Entitic vol] 92.4 fL Normal 80.0-94.0 [facility] Comment on above: Performed By: #### D HUSAM, ERUR #### [facility] [address] [place] [address] Dr. Hood Loco MONO # 0.7 103/ul Normal 0.3-0.8 [facility] Comment on above: Performed By: #### D HUSAM, ERUR #### [facility] [address] [place] [address] Dr. Hood Loco Monocytes/100 WBC (Bld) 9.5 % Normal 1.7-12.0 [facility] Comment on above: Performed By: #### Gage WEINER, ERUR #### [facility] [address] [place] [address] Dr. Hood Loco NEUT # 4.9 103/ul Normal 1.4-6.5 [facility] Comment on above: Performed By: #### Gage WEINER, ERUR #### [facility] [address] [place] [address] Dr. Hood Loco Neutrophils/100 WBC (Bld) 64.5 % Normal 43.0-75.0 [facility] Comment on above: Performed By: #### Gage WEINER, ERUR #### [facility] [address] [place] [address] Dr. Hood Loco Platelet mean volume (Bld) [Entitic vol] 8.3 fL Critically low 9.5-13.5 [facility] Comment on above: Performed By: #### Gage WEINER, ERUR #### [facility] [address] [place] [address] Dr. Hood Loco PLT 187 103/ul Normal 150-450 [facility] Comment on above: Performed By: #### Gage WEINER, ERUR #### [facility] [address] [place] [address] Dr. Hood Loco RBC 4.85 106/ul Normal 4.70-6.10 [facility] Comment on above: Performed By: #### D HUSAM, ERUR #### [facility] [address] [address] [address] Hood Loco WBC 7.6 103/ul Normal 4.0-11.0 [facility] Comment on above: Performed By: #### D HUSAM, ERUR #### [facility] [address] [place] [address] Dr. Hood Loco DRUG SCREEN RAPID (URINE)on 03-12-2022 AMP Negative Normal NEGATIVE [facility] Comment on above: Performed By: #### D HUSAM, ERUR #### [facility] [address] [place] [address] Dr. Hood Loco BAR Negative Normal NEGATIVE [facility] Comment on above: Performed By: #### D HUSAM, ERUR #### [facility] [address] [place] [address] Dr. Hood Loco BUP Negative Normal NEGATIVE [facility] Comment on above: Performed By: #### Gage WEINER, ERUR #### [facility] [address] [place] [address] Dr. Hood Loco BZO Negative Normal NEGATIVE [facility] Comment on above: Performed By: #### D HUSAM, ERUR #### [facility] [address] [place] [address] Dr. Hood Loco TREY Negative Normal NEGATIVE [facility] Comment on above: Performed By: #### Gage WEINER, ERUR #### [facility] [address] [place] [address] Dr. Hood Loco CUT-OFFS SEE BELOW Normal [facility] Comment on above: Result Comment: AMP (Amphetamine): 500ng/mL, BAR (Barbituates): 200 ng/mL, BZO (Benzodiazepines): 150 ng/mL, BUP (Buprenorphine): 10 ng/mL, TREY (Cocaine): 150 ng/mL, mAMP (Methamphetamine): 500 ng/mL, MTD (Methadone): 200 ng/mL, OPI (Opiates): 100 ng/mL, OXY (Oxycodone): 100 ng/mL, PCP (Phencyclidine): 25 ng/mL, PPX (Propoxyphene): 300 ng/mL, THC (Cannabinoids): 50 ng/mL, TCA (Trycyclic Antidepressants): 300 ng/mL Performed By: #### D HUSAM, ERUR #### [facility] [address] [place] [address] Dr. Hood Loco DRUG CUT HEADER DRUG CLASS TEST SYST EM CUT-OFF CONCENTRATIONS ARE FOLLOWS: Normal [facility] Comment on above: Performed By: #### D HUSAM, ERUR #### [facility] [address] [place] [address] Dr. Hood Loco mAMP Negative Normal NEGATIVE [facility] Comment on above: Performed By: #### D HUSAM, ERUR #### [facility] [address] [place] [address] Dr. Hood Loco MTD Negative Normal NEGATIVE [facility] Comment on above: Performed By: #### D HUSAM, ERUR #### [facility] [address] [place] [address] Dr. Hood Loco OPI Negative Normal NEGATIVE [facility] Comment on above: Performed By: #### D HUSAM, ERUR #### [facility] [address] [place] [address] Dr. Hood Loco OXY Negative Normal NEGATIVE [facility] Comment on above: Performed By: #### D HUSAM, ERUR #### [facility] [address] [place] [address] Dr. Hood Loco PCP Negative Normal NEGATIVE [facility] Comment on above: Performed By: #### D HUSAM, ERUR #### [facility] [address] [place] [address] Dr. Hood Loco PPX Negative Normal NEGATIVE [facility] Comment on above: Performed By: #### D HUSAM, ERUR #### [facility] [address] [place] [address] Dr. Hood Loco TCA Negative Normal NEGATIVE [facility] Comment on above: Performed By: #### D HUSAM, ERUR #### [facility] [address] [place] [address] Dr. Hood Loco THC Negative Normal NEGATIVE [facility] Comment on above: Performed By: #### D RUGRPD, ERUR #### [facility] [address] [address] [address] Hood Loco ER URINE PROFILEon 2 Bilirubin Ql (U) Negative Normal NEGATIVE [facility] Comment on above: Performed By: #### D RUGRPD, ERUR #### [facility] [address] [address] [address] Hood Loco Clarity (U) CLEAR Normal CLEAR [facility] Comment on above: Performed By: #### D RUGRPD, ERUR #### [facility] [address] [address] [address] Hood Loco Color (U) LT. YELLOW Normal YELLOW [facility] Comment on above: Performed By: #### D JACKELINRPD, ERUR #### [facility] [address] [place] [address] Dr. Hood VIDAL A micrscopic examination will be performed if indicated. Normal [facility] Comment on above: Performed By: #### D SLAVAD, ERUR #### [facility] [address] [address] [address] Hood Loco Glucose Ql (U) 100 mg/dl Abnormal NEGATIVE [facility] Comment on above: Performed By: #### D JACKELINRPD, ERUR #### [facility] [address] [address] [address] Hood Loco Hemoglobin Ql (U) Negative Normal NEGATIVE [facility] Comment on above: Performed By: #### D RUGRPD, ERUR #### [facility] [address] [address] [address] Hood Loco Ketones Ql (U) Negative Normal NEGATIVE [facility] Comment on above: Performed By: #### D JACKELINRPD, ERUR #### [facility] [address] [address] [address] Hood Loco LEUKOCYTES Negative Normal NEGATIVE [facility] Comment on above: Performed By: #### D RUGRPD, ERUR #### [facility] [address] [place] [address] Dr. Hood Loco Nitrite Ql (U) Negative Normal NEGATIVE [facility] Comment on above: Performed By: #### D HUSAM, ERUR #### [facility] [address] [place] [address] Dr. Hood Loco pH (U) 6.0 [pH] Normal 5-9 [facility] Comment on above: Performed By: #### D HUSAM, ERUR #### [facility] [address] [place] [address] Dr. Hood Loco SPEC GRAVITY 1.005 Normal 1.005-<=1.02 5 [facility] Comment on above: Performed By: #### Gage WEINER, ERUR #### [facility] [address] [place] [address] Dr. Hood Loco UA PROTEIN Negative Normal NEGATIVE/ TRACE [facility] Comment on above: Performed By: #### Gage WEINER, ERUR #### [facility] [address] [place] [address] Dr. Hood Loco UR MICRO IND NOT INDICATED Normal [facility] Comment on above: Performed By: #### Gage WEINER ERUR #### [facility] [address] [place] [address] Dr. Hood Loco Urobilinogen Qn (U) 0.2 {Rohith'U}/dL Normal 0.2 - 1. 0 [facility] Comment on above: Performed By: #### Gage WEINER, ERUR #### [facility] [address] [place] [address] Dr. Hood Loco ETHANOL (BLD ALC)on 03-12-20 22 ALC NOTE NOTE: 80 mg/dl is th e legal limit for a blood alcohol level Normal [facility] Comment on above: Performed By: #### Gage WEINER, ERUR #### [facility] [address] [place] [address] Dr. Hood Loco Ethanol [Mass/Vol] 451 mg/dL Normal [facility] Comment on above: Performed By: #### D RUGRPD, ERUR #### [facility] [address] [place] [address] Dr. Hood Loco LIPASEon 03-12-2022 Lipase [Catalytic activity/Vol] 112.0 U/L Normal 23.0-300.0 [facility] Comment on above: Performed By: #### P HVEN #### [facility] [address] [place] [address] Dr. Hood Loco MAGNESIUMon 03-12-2022 Magnesium [Mass/Vol] 1.9 mg/dL Normal 1.6-2.3 [facility] Comment on above: Performed By: #### M G #### [facility] [address] [place] [address] Dr. Hood Loco PH VENOUS BLOODon 03-12-2022 PCO2 VENOUS 42.2 mmHg Normal 40.0-52.0 [facility] Comment on above: Performed By: #### P HVEN #### [facility] [address] [place] [address] Dr. Hood Loco pH VENOUS 7.444 Critically high 7.330-7.430 [facility] Comment on above: Performed By: #### P HVEN #### [facility] [address] [place] [address] Dr. Hood Loco PROF 14(COMP METB)on 022 Albumin [Mass/Vol] 3.8 g/dL Normal 3.4-5.0 [facility] Comment on above: Performed By: #### P HVEN #### [facility] [address] [place] [address] Dr. Hood Loco Albumin/Globulin [Mass ratio] 1.0 {ratio} Normal [facility] Comment on above: Performed By: #### P HVEN #### [facility] [address] [place] [address] Dr. Hood Loco ALP [Catalytic activity/Vol] 75 U/L Normal 46-116 [facility] Comment on above: Performed By: #### P HVEN #### [facility] [address] [place] [address] Dr. Hood Loco ALT [Catalytic activity/Vol] 30 U/L Normal 16-63 [facility] Comment on above: Performed By: #### P HVEN #### [facility] [address] [place] [address] Dr. Hood Loco Anion gap [Moles/Vol] 15.4 mmol/L Normal [facility] Comment on above: Performed By: #### P HVEN #### [facility] [address] [address] [address] Hood Loco AST [Catalytic activity/Vol] 55 U/L Critically high 15-37 [facility] Comment on above: Performed By: #### P HVEN #### [facility] [address] [address] [address] Hood Loco Bilirubin [Mass/Vol] 0.8 mg/dL Normal 0.2-1.3 [facility] Comment on above: Performed By: #### P HVEN #### [facility] [address] [place] [address] Dr. Hood Loco Calcium [Mass/Vol] 8.3 mg/dL Critically low 8.5-10.1 [facility] Comment on above: Performed By: #### P HVEN #### [facility] [address] [place] [address] Dr. Hood Loco Chloride [Moles/Vol] 99 mmol/L Normal 98-107 [facility] Comment on above: Performed By: #### P HVEN #### [facility] [address] [place] [address] Dr. Hood Loco CO2 [Moles/Vol] 26.9 mmol/L Normal 22.0-30.0 [facility] Comment on above: Performed By: #### P HVEN #### [facility] [address] [place] [address] Dr. Hood Loco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 may be documented in a n alternate section No data available for this section FOR RECORDS PERTAINING TO PATIENTS WHO [...] BE BASED ON THE PRIMARY CLINICAL RECORDS. [employer] provides no warranty or guarantee of the accuracy or completeness of information in this document.
--- NOTE | 2024-12-28 15:02 | ED_ITS ---
HPI - Psych General Chief Complaint: Alcohol Stated Complaint: MEDICAL CLEARANCE FOR [facility] (CALL WHEN READY) Time Seen by Provider: 12/28/24 14:59 Source: Reports patient History of Present Illness HPI Narrative: Patient is a a 54-year-old male was brought to the ER by a friend for medical clearance so that [facility] and treatment of his alcohol abuse. Patient denies any suicidal homicidal ideations admits that he has an alcoholic believes he may have had 3 pints of liquor today and states he drinks daily, he abuses Xanax when it is available but does not report recent use. He denies other drug use. Patient states he was at [facility] when a friend convinced him to get help for his condition. He reports no pain or discomfort he denies any chest pain or shortness of breath. Patient presented to us voluntarily. He has no other concerns or complaints. Alert and oriented x 4 GCS of 15, Context: recent alcohol abuse Details of plan: Patient denies any suicidal or homicidal ideation or plan. Related Data Home Medications ?Medication ?Instructions ?Recorded ?Confirmed amlodipine 10 mg tablet 10 mg PO DAILY 06/28/24 10/01/24 hydrochlorothiazide 25 mg tablet 25 mg PO DAILY 06/28/24 10/01/24 Previous Rx's ?Medication ?Instructions ?Recorded chlordiazepoxide HCl 25 mg capsule See Rx Instructions .Route 10/01/24 .COMPLEX #15 caps Allergies Allergy/AdvReac Type Severity Reaction Status Date / Time hydroxyzine AdvReac Severe Anxiety Verified 06/28/24 16:57 allergy medication AdvReac Severe Anxiety Uncoded 06/28/24 16:57 Review of Systems ROS Constitutional Denies: fever, chills or change in weight Eyes Denies: change in vision or blurry vision Ears, nose, mouth, and throat Denies: throat pain, neck pain or throat swelling Cardiovascular Denies: chest pain, palpitations or edema Respiratory Denies: shortness of breath, cough or wheezing Gastrointestinal Denies: abdominal pain, nausea, vomiting or diarrhea Genitourinary Denies: painful urination Musculoskeletal Denies: back pain, neck pain, extremity pain or extremity swelling Integumentary/Breast Denies: rash Neurological Denies: headache, numbness in extremities or weakness in extremities Psychiatric Denies: anxiety Exam Narrative Exam Narrative: Nurses notes and vital signs reviewed and patient is not hypoxic. General: The patient appears well and in no apparent distress. Patient is resting comfortably on cart. Skin: Warm, dry, no pallor noted. Head: Normocephalic, atraumatic. Neck: Supple, trachea mid-line, no tenderness, no lymphadenopathy. Eye: Pupils are equal, round and reactive to light, EOMI Ears, Nose, Mouth, and Throat: TM are clear, normal light reflex, oral mucosa is moist, no posterior oropharynx erythema or hypertrophy, uvula is mid-line. Cardiovascular: Regular Rate and Rhythm Respiratory: Patient is in no distress, no accessory muscle use, lungs are clear to auscultation, no wheezing, rales or rhonchi. Chest Wall: no tenderness Back: non-tender, no CVA tenderness Musculoskeletal: normal ROM, no tenderness, no swelling GI: Normal bowel sounds, no tenderness to palpation, no masses appreciated. No rebound, guarding, or rigidity noted. Neurological: A&O x4 Psychiatric: Cooperative, + etoh. Constitutional Vital Signs, click to edit/add: Last Vital Signs Temp 99.1 F 12/28/24 14:58 Pulse 90 12/28/24 14:58 Resp 18 12/28/24 14:58 BP 155/99 H 12/28/24 14:58 Pulse Ox 94 L 12/28/24 14:58 O2 Del Method Room Air 12/28/24 14:58 Course Vital Signs Vital signs: Vital Signs Temperature 99.1 F 12/28/24 14:58 Pulse Rate 90 12/28/24 14:58 Respiratory Rate 18 12/28/24 14:58 Blood Pressure 155/99 H 12/28/24 14:58 Pulse Oximetry 94 L 12/28/24 14:58 Oxygen Delivery Method Room Air 12/28/24 14:58 Temperature 99.1 F 12/28/24 14:58 Pulse Rate 90 12/28/24 14:58 Respiratory Rate 18 12/28/24 14:58 Blood Pressure 155/99 H 12/28/24 14:58 Pulse Oximetry 94 L 12/28/24 14:58 Oxygen Delivery Method Room Air 12/28/24 14:58 MDM - Psych MDM Narrative Medical decision making narrative: Patient was reportedly taken to the [facility] facility but due to his self admitted alcohol abuse and intoxication he was then brought to us for medical clearance before being admitted to their facility they advised we can call when he is cleared. Patient is not suicidal or homicidal he presents to us voluntarily seeking help for his alcohol abuse condition. He does not have any signs or symptoms of withdrawal at current time. Positive odor EtOH but patient acting appropriately he does not have any physical exam findings concerning for trauma he denies any head injury or fall, admits to alcohol abuse daily. Patient was given folic acid and thiamine here. Patient is medically clear for voluntary admission to [facility] patient wishing to get treatment for his alcohol abuse. Patient will be discharged to [facility] staff for voluntary treatment at their facility Lab Data Attestation: I reviewed the patient's lab results. Labs: Lab Results 12/28/24 12/28/24 Range/Units 15:17 15:20 WBC 6.4 (4.0-11.0) 10^3/uL RBC 4.64 L (4.70-6.10) 10^6/uL Hgb 15.4 (14.0-18.0) g/dL Hct 43.7 (42.0-54.0) % MCV 94.2 H (80.0-94.0) fL MCH 33.2 (25.9-34.0) pg MCHC 35.2 (29.9-35.2) g/dL RDW 11.7 (11.0-15.0) % Plt Count 269 (150-450) 10^3/uL MPV 8.2 L (9.5-13.5) fL Neut % (Auto) 45.3 (43.0-75.0) % Lymph % (Auto) 41.7 (20.5-60.0) % [place] % (Auto) 10.0 (1.7-12.0) % Eos % (Auto) 1.1 (0.9-7.0) % Baso % (Auto) 1.1 (0.2-2.0) % Neut # (Auto) 2.9 (1.4-6.5) 10^3/uL Lymph # (Auto) 2.7 (1.2-3.8) 10^3/uL [place] # (Auto) 0.6 (0.3-0.8) 10^3/uL Eos # (Auto) 0.1 (0.0-0.7) 10^3/uL Baso # (Auto) 0.1 (0.0-0.1) 10^3/uL Abs Immat Gran (auto) 0.05 H (0.00-0.03) 10^3/uL Imm/Tot Granulo (auto) 0.8 H (0.0-0.5) % Sodium 140 (136-145) mmol/L Potassium 3.7 (3.5-5.1) mmol/L Chloride 101 (98-107) mmol/L Carbon Dioxide 30.0 (21.0-32.0) mmol/L Anion Gap 12.7 BUN 8.0 (7.0-18.0) mg/dL Creatinine 1.11 (0.70-1.30) mg/dL Est GFR ( Amer) >60 (>=60 mL/min/1.73m^2) Est GFR (Non-Af Amer) >60 (>=60 mL/min/1.73m^2) BUN/Creatinine Ratio 7.2 Glucose 117 H (74-106) mg/dL Calcium 8.8 (8.5-10.1) mg/dL Total Bilirubin 0.5 (0.2-1.0) mg/dL AST 30 (15-37) U/L ALT 40 (16-63) U/L Alkaline Phosphatase 65 (46-116) U/L Troponin I High Sens 7.4 (4.0-76.1) pg/mL Total Protein 7.4 (6.4-8.2) g/dL Albumin 3.6 (3.4-5.0) g/dL Globulin 3.8 g/dL Albumin/Globulin Ratio 0.9 Lipase 27.0 (16.0-77.0) U/L Urine Color Lt. yellow (YELLOW) Urine Clarity Clear (CLEAR) Urine pH 6.0 (5.0-9.0) Ur Specific [place] 1.020 (1.005-1.025) Urine Protein Negative (NEG/TRACE) mg/dL Urine Glucose (UA) Negative (NEGATIVE) mg/dL Urine Ketones Negative (NEGATIVE) mg/dL Urine Occult Blood Negative (NEGATIVE) Urine Nitrite Negative (NEGATIVE) Urine Bilirubin Negative (NEGATIVE) Urine Urobilinogen 1.0 (0.2-1.0) EU/dL Ur Leukocyte Esterase Negative (NEGATIVE) Urine RBC None seen (0-2) #/HPF Urine WBC None seen (NONE SEEN) #/HPF Ur Squamous Epith Cells None seen (NONE/RARE) #/LPF Urine Crystals None seen (None Seen) #/HPF Urine Bacteria None seen (NONE SEEN) #/HPF Urine Casts None seen (NONE SEEN) #/LPF Urine Mucus Trace A (NONE SEEN) Ur Culture Indicated? No Salicylates <2.8 (<=19.9) mg/dL Urine Opiates Screen Negative (NEGATIVE) Ur Buprenorphine Scrn Negative (NEGATIVE) Ur Oxycodone Screen Negative (NEGATIVE) Urine Methadone Screen Negative (NEGATIVE) Acetaminophen <2.0 L (10.0-30.0) ug/mL Ur Barbiturates Screen Negative (NEGATIVE) U Tricyclic Antidepress Negative (NEGATIVE) Ur Phencyclidine Scrn Negative (NEGATIVE) Ur Amphetamines Screen Negative (NEGATIVE) U Methamphetamines Scrn Negative (NEGATIVE) U Benzodiazepines Scrn Positive A (NEGATIVE) Urine Cocaine Screen Negative (NEGATIVE) U Cannabinoids Screen Negative (NEGATIVE) Ethanol Quant 318 mg/dL ECG Data Attestation: I personally reviewed and interpreted this ECG as follows: Interpretation: EKG interpretation: Emergency Department physician interpretation, normal sinus rhythm 86 bpm, no ectopy, no ST segment elevation, normal axis. Discharge Plan Discharge Chief Complaint: Alcohol Clinical Impression: Alcohol abuse, Alcoholic intoxication Patient Disposition: Home, Self-Care Time of Disposition Decision: 16:18 Condition: Good Mode of Transportation: Private Vehicle Prescriptions / Home Meds: No Action amlodipine 10 mg tablet 10 mg PO DAILY hydrochlorothiazide 25 mg tablet 25 mg PO DAILY chlordiazepoxide HCl 25 mg capsule See Rx Instructions .ROUTE .COMPLEX Qty: 15 0RF Rx Instructions: Day 1: 50mg q6h Day 2: 25mg q6h Day 3: 25mg q12h Day 4: 25mg at night Print Language: Tuvaluan Instructions: Abuse of Alcohol (ED) Additional Instructions: [facility] Referrals: [facility] [Outside] - 12/28/24 4:19 pm Valente Mcgowan MD [Physician] - As needed
--- NOTE | 2024-12-28 15:03 | ECG_ITS ---
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
[2024-12-28] MEDS: MULTIVITAMIN TABLET 1 TAB PO (15:16)
[2024-12-28] MEDS: THIAMINE MONONITRATE (VIT B1) 100 MG TABLET PO (15:16)
[2024-12-28 15:29] LABS: Basophils Absolute Auto 0.1 10^3/uL (0.0-0.1); Basophils Percent Auto 1.1 % (0.2-2.0); Eosinophils Absolute Auto 0.1 10^3/uL (0.0-0.7); Eosinophils Percent Auto 1.1 % (0.9-7.0); Hematocrit 43.7 % (42.0-54.0); Hemoglobin 15.4 g/dL (14.0-18.0); Immature Granulocytes Abs Auto 0.05 10^3/uL (0.00-0.03); Immature Granulocytes Pct Auto 0.8 % (0.0-0.5); Lymphocytes Absolute Auto 2.7 10^3/uL (1.2-3.8); Lymphocytes Percent Auto 41.7 % (20.5-60.0); Mean Corpuscular HGB Conc 35.2 g/dL (29.9-35.2); Mean Corpuscular Hemoglobin 33.2 pg (25.9-34.0); Mean Corpuscular Volume 94.2 fL (80.0-94.0); Mean Platelet Volume 8.2 fL (9.5-13.5); Monocytes Absolute Auto 0.6 10^3/uL (0.3-0.8); Neutrophils Absolute Auto 2.9 10^3/uL (1.4-6.5); Neutrophils Percent Auto 45.3 % (43.0-75.0); Platelet Count 269 10^3/uL (150-450); Red Blood Count 4.64 10^6/uL (4.70-6.10); Red Cell Distribution Width 11.7 % (11.0-15.0); White Blood Count 6.4 10^3/uL (4.0-11.0)
[2024-12-28 15:30] LABS: Bilirubin Urine NEGATIVE (NEGATIVE); Blood Urine NEGATIVE (NEGATIVE); Clarity Urine CLEAR (CLEAR); Color Urine LT. YELLOW (YELLOW); Glucose Urine UA NEGATIVE (NEGATIVE); Ketones Urine NEGATIVE (NEGATIVE); Leukocyte Esterase Urine NEGATIVE (NEGATIVE); Nitrite Urine NEGATIVE (NEGATIVE); Protein Urine NEGATIVE (NEG/TRACE)
[2024-12-28 15:39] LABS: Amphetamine Screen Urine NEGATIVE (NEGATIVE); Barbiturates Screen Urine NEGATIVE (NEGATIVE); Benzodiazepines Screen Urine POSITIVE (NEGATIVE); Buprenorphine Screen Urine NEGATIVE (NEGATIVE); Cannabinoid Screen Urine NEGATIVE (NEGATIVE); Cocaine Screen Urine NEGATIVE (NEGATIVE); Methadone Screen Urine NEGATIVE (NEGATIVE); Methamphetamines Screen Urine NEGATIVE (NEGATIVE); Opiate Screen Urine NEGATIVE (NEGATIVE); Oxycodone Screen Urine NEGATIVE (NEGATIVE); Phencyclidine Screen Urine NEGATIVE (NEGATIVE); Tricyclic Antidepressant Urine NEGATIVE (NEGATIVE)
[2024-12-28 15:42] LABS: Bacteria Urine NONE SEEN #/HPF (NONE SEEN); Cast Seen? NONE SEEN #/LPF (NONE SEEN); Crystals Seen? None Seen #/HPF (None Seen); Mucus Urine TRACE (NONE SEEN); RBC Urine NONE SEEN #/HPF (0-2); Squamous Epithelial Cell Urine NONE SEEN #/LPF (NONE/RARE); Urine Culture Indicated NO; WBC Urine NONE SEEN #/HPF (NONE SEEN)
[2024-12-28 16:00] LABS: Alanine Aminotransferase 40 U/L (16-63); Albumin Globulin Ratio 0.9; Albumin Level 3.6 g/dL (3.4-5.0); Alkaline Phosphatase 65 U/L (46-116); Anion Gap 12.7; Aspartate Amino Transferase 30 U/L (15-37); BUN Creatinine Ratio 7.2; Bilirubin Total 0.5 mg/dL (0.2-1.0); Calcium 8.8 mg/dL (8.5-10.1); Chloride 101 mmol/L (98-107); Estimated GFR (African America >60 (>=60 mL/min/1.73m^2); Estimated GFR (Non-African Ame >60 (>=60 mL/min/1.73m^2); Ethanol 318 mg/dL; Globulin 3.8 g/dL; Glucose 117 mg/dL (74-106); Potassium 3.7 mmol/L (3.5-5.1); Salicylate <2.8 mg/dL (<=19.9); Sodium 140 mmol/L (136-145); Total Protein 7.4 g/dL (6.4-8.2); Troponin I High Sensitivity 7.4 pg/mL (4.0-76.1)
[2024-12-28 16:01] LABS: Acetaminophen <2.0 ug/mL (10.0-30.0)
== END 2024-12-28 16:41 | disposition home or self-care (01) ==
PROVIDERS: Personal Emergency Response Attendant; Emergency Provider Emergency Medicine
DX: F10.129 Alcohol abuse with intoxication, unspecified (principal); Y90.8 Blood alcohol level of 240 mg/100 ml or more
CPT/HCPCS: 36415; 80053; 80179; 80307; 80320; 80329; 81001; 83690; 84484; 85025; 93005; 99285

== ENCOUNTER 2025-03-27 05:42 | Emergency (ER) | payer MEDICAID, SELFPAY ==
[2025-03-27 05:43] VITALS: BP 165/103; PULSE 68; TEMP 36.9; O2SAT 99; BMI 39.1
--- NOTE | 2025-03-27 06:08 | ED_ITS ---
HPI - Psych General Chief Complaint: Psychiatric Symptoms Stated Complaint: PSYCHIATRIC SYMPTOMS Time Seen by Provider: 03/27/25 06:03 Source: Reports patient and other Source comment: squad Mode of arrival: ambulance Limitations: Reports altered mental status Limitations comment: intoxicated History of Present Illness HPI Narrative: The patient is a 65-year-old gentleman presenting to the emergency department with EMS for evaluation of psychiatric symptoms. A friend called and notified police of the gentleman who wanted to kill himself. The patient was making suicidal statements stating I am . He would also state that he does not want to do this . No friends accompanied him to the emergency department. The patient is a very difficult historian due to the profound alcohol intoxication. Patient does admit to drinking alcohol but will not disclose how much. He denies that anybody is verbally, sexually, or physically assaulting him. He denies any spouse. He states he has no children. He states that he has many problems no worse than anybody else does. He denies any legal problems. He said he wants to go to [facility]. MD complaint: suicidal ideation, feels depressed and altered mental status Related Data Home Medications ?Medication ?Instructions ?Recorded ?Confirmed amlodipine 10 mg tablet 10 mg PO DAILY 06/28/2405/19 hydrochlorothiazide 25 mg tablet 25 mg PO DAILY 10/01/24 Previous Rx's ?Medication ?Instructions ?Recorded chlordiazepoxide HCl 25 mg capsule See Rx Instructions .Route 10/01/24 .COMPLEX #15 caps Allergies Allergy/AdvReac Type Severity Reaction Status Date / Time hydroxyzine AdvReac Severe Anxiety Verified 06/28/24 16:57 allergy medication AdvReac Severe Anxiety Uncoded 06/28/24 16:57 Review of Systems ROS Narrative 10 Systems were reviewed, and unless not ed in the HPI, all other systems are reviewed, unremarkable, or noncontributory. Exam Narrative Exam Narrative: Prior to examining the patient, I have washed with hospital approved and provided Antiseptic Hand Licensed Dispensing Optician and have also applied gloves.? Prior to touching the patient, I asked for consent to examine the patient.? General: Alert and oriented, well nourished, moderate psychiatric distress. Alcohol halitosis. Obese. Eye: PERRL, EOMI, normal conjunctiva. HENT: Normocephalic, normal hearing, moist oral mucosa, no scleral icterus Neck: Supple, non-tender, no carotid bruits, no JVD, no lymphadenopathy. Lungs: Clear to auscultation and percussion, non-labored respiration. Heart: Normal rate, regular rhythm, no murmur, gallop or edema. Abdomen: Soft, non-tender, non-distended, normal bowel sounds, no masses. Protuberant abdomen. Musculoskeletal: Normal range of motion and strength, no tenderness or swelling. Skin: Skin is warm, dry and pink, no rashes or lesions. Neurologic: Awake, alert, and oriented X3, CN II-XII intact. Psychiatric: Cooperative, appropriate mood and affect.? Following the conclusion of the examination, I have washed my hands thoroughly after removing examination gloves. Constitutional Vital Signs, click to edit/add: Last Vital Signs Temp 98.5 F 03/27/25 05:43 Pulse 68 03/27/25 05:43 Resp 18 03/27/25 05:43 BP 165/103 H 03/27/25 05:43 Pulse Ox 99 03/27/25 05:43 O2 Del Method Room Air 03/27/25 05:43 Course Course Hospital Course: Patient was brought into the emergency department. Patient was actually fairly agitated when he first arrived. He does seem to have a problem with male practitioners. The gentleman however was able to be convinced to put on the [facility] psychiatric scrubs and was told that he was going to have to submit to a blood draw so that he could find out what his blood alcohol level was. The patient states he feels really good . He states he feels like his alcohol level is over 500. Consultations Consultation #1: Once the patient is sober he will be seen by [facility]. Vital Signs Vital signs: Vital Signs Temperature 98.5 F 03/27/25 05:43 Pulse Rate 68 03/27/25 05:43 Respiratory Rate 18 03/27/25 05:43 Blood Pressure 165/103 H 03/27/25 05:43 Pulse Oximetry 99 03/27/25 05:43 Oxygen Delivery Method Room Air 03/27/25 05:43 Temperature 98.5 F 03/27/25 05:43 Pulse Rate 68 03/27/25 05:43 Respiratory Rate 18 03/27/25 05:43 Blood Pressure 165/103 H 03/27/25 05:43 Pulse Oximetry 99 03/27/25 05:43 Oxygen Delivery Method Room Air 03/27/25 05:43 MDM - Psych MDM Narrative Medical decision making narrative: The patient is going to take some time to sober. This gentleman will not be dispo would on my shift. I will speak to the oncoming physician about his condition. Differential Diagnosis Differential diagnosis: Likely acute psychosis, suicidal ideation, depression, drug-induced psychotic disorder, acute anxiety and other (Alcohol intoxication) Medical Records Attestation: I reviewed the patient's medical records. (Patient's been seen at the hospital numerous times before. He is usually intoxicated. He has went to rehab from the emergency department before.) Lab Data Attestation: I reviewed the patient's lab results. Discharge Plan Discharge Chief Complaint: Psychiatric Symptoms Clinical Impression: Alcoholic intoxication Condition: Good Prescriptions / Home Meds: No Action amlodipine 10 mg tablet 10 mg PO DAILY hydrochlorothiazide 25 mg tablet 25 mg PO DAILY chlordiazepoxide HCl 25 mg capsule See Rx Instructions .ROUTE .COMPLEX Qty: 15 0RF Rx Instructions: Day 1: 50mg q6h Day 2: 25mg q6h Day 3: 25mg q12h Day 4: 25mg at night Print Language: French Instructions: Alcohol Intoxication (ED) Referrals: Physician,Non-Staff, MD [Primary Care Provider] - 1 week
[2025-03-27 06:41] LABS: Basophils Percent Auto 0.6 % (0.2-2.0); Eosinophils Absolute Auto 0.1 10^3/uL (0.0-0.7); Eosinophils Percent Auto 1.9 % (0.9-7.0); Hematocrit 42.6 % (42.0-54.0); Hemoglobin 15.6 g/dL (14.0-18.0); Immature Granulocytes Abs Auto 0.02 10^3/uL (0.00-0.03); Immature Granulocytes Pct Auto 0.3 % (0.0-0.5); Lymphocytes Absolute Auto 2.2 10^3/uL (1.2-3.8); Lymphocytes Percent Auto 34.2 % (20.5-60.0); Mean Corpuscular HGB Conc 36.6 g/dL (29.9-35.2); Mean Corpuscular Volume 87.3 fL (80.0-94.0); Mean Platelet Volume 8.2 fL (9.5-13.5); Monocytes Absolute Auto 0.5 10^3/uL (0.3-0.8); Monocytes Percent Auto 7.7 % (1.7-12.0); Neutrophils Absolute Auto 3.5 10^3/uL (1.4-6.5); Neutrophils Percent Auto 55.3 % (43.0-75.0); Platelet Count 168 10^3/uL (150-450); Red Blood Count 4.88 10^6/uL (4.70-6.10); Red Cell Distribution Width 11.8 % (11.0-15.0); White Blood Count 6.3 10^3/uL (4.0-11.0)
[2025-03-27 06:53] LABS: INR 1.09; Prothrombin Time 11.5 sec (9.0-11.6)
[2025-03-27 06:54] LABS: Salicylate <2.8 mg/dL (<=19.9)
[2025-03-27 06:58] LABS: Alanine Aminotransferase 31 U/L (16-63); Albumin Globulin Ratio 1.1; Albumin Level 3.8 g/dL (3.4-5.0); Alkaline Phosphatase 81 U/L (46-116); Anion Gap 14.8; Aspartate Amino Transferase 42 U/L (15-37); BUN Creatinine Ratio 11.1; Bilirubin Total 0.6 mg/dL (0.2-1.0); Calcium 8.7 mg/dL (8.5-10.1); Carbon Dioxide 30.7 mmol/L (21.0-32.0); Chloride 100 mmol/L (98-107); Estimated GFR (African America >60 (>=60 mL/min/1.73m^2); Estimated GFR (Non-African Ame >60 (>=60 mL/min/1.73m^2); Ethanol 394 mg/dL; Globulin 3.5 g/dL; Glucose 99 mg/dL (74-106); Magnesium 1.6 mg/dL (1.8-2.4); Potassium 3.5 mmol/L (3.5-5.1); Sodium 142 mmol/L (136-145); Total Protein 7.3 g/dL (6.4-8.2)
[2025-03-27 07:00] LABS: Acetaminophen <2.0 ug/mL (10.0-30.0)
[2025-03-27] MEDS: SUCRALFATE 1 GM TABLET PO (08:04)
--- NOTE | 2025-03-27 09:34 | PC.NURSE ---
pt talking with Lilia from [employer] at this time
--- NOTE | 2025-03-27 09:35 | PC.NURSE ---
Lilia with [facility] speaking with pt at this time. Breakfast ordered for pt
--- NOTE | 2025-03-27 10:18 | PC.NURSE ---
Spoke with Vincent at [facility], and she states the pt is not allowed to be admitted there again (Per Doctors) due to behavioral issues in the past. Informed Dr Cohen. will attempt other facilities for admission
[2025-03-27 10:26] VITALS: BP 103/60; PULSE 85; O2SAT 96
--- NOTE | 2025-03-27 11:19 | PC.NURSE ---
PT REFUSING TO TALK TO [facility] ON THE PHONE FOR ADMISSION. REFUSES TO GO THERE BECAUSE THEY GAVE ME COVID THE LAST TIME I WAS THERE . ASKING THIS RN TO CALL [facility].
--- NOTE | 2025-03-27 11:23 | PC.NURSE ---
pt speaking with [facility] on the phone at this time
== END 2025-03-27 13:32 | disposition home or self-care (01) ==
PROVIDERS: Emergency Provider Emergency Medicine
DX: F10.129 Alcohol abuse with intoxication, unspecified (principal); Y90.8 Blood alcohol level of 240 mg/100 ml or more
CPT/HCPCS: 36415; 80053; 80179; 80307; 80320; 80329; 81001; 83690; 83735; 85025; 85610; 99284

== ENCOUNTER 2025-04-20 22:55 | Emergency (ER) | payer MEDICAID, SELFPAY ==
--- OUTSIDE RECORDS SUMMARY | 2024-12-18 17:10 | XMS_ITS ---
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 Name Role Phone MELISSA PHILIPPE Attending Unavailable SEAMUS PEREZ Referring Unavailable ISRAEL SEN Attending Unavailable PROBLEMS DATE TYPE CONDITION / CODE ATTENDING STATUS [facility] 12/18/2024 Admitting Diagnosis Hypokalemia / E87.6(ICD-10) ISRAEL SEN Active [facility] 12/18/2024 Admitting Diagnosis Post-void dribbling / N39.43(ICD-10) ISRAEL SEN Active [facility] PROCEDURES No Procedure Records Found RESULTS BASIC METABOLIC PANEL Collected: 2024 5:51 PM Status: UNK Source: [facility] TYPE CODE TESTS RESULT OUT OF RANGE REFERENCE UNITS LAB [id number] SODIUM (MMOL/L) IN SER/PLAS 136 136-145 mmol/L LAB [id number] POTASSIUM (MMOL/L) IN SER/PLAS 3.3 Low 3.5-5.1 mmol/L LAB 1245807 CHLORIDE (MMOL/L) IN SER/PLAS 103 98-107 mmol/L LAB [id number] CARBON DIOXIDE, TOTAL (MMOL/L) IN SER/PLAS 24 21-31 mmol/L LAB 6541957 UREA NITROGEN (MG/DL) IN SER/PLAS 14 7-25 mg/dL LAB 6993527 CREATININE (MG/DL) IN SER/PLAS 0.88 0.70-1.30 mg/dL LAB [id number] GLUCOSE (MG/DL) IN SER/PLAS 114 High 70-100 mg/dL LAB 2362088 CALCIUM (MG/DL) IN SER/PLAS 8.8 8.6-10.3 mg/dL LAB [id number] ANION GAP IN SER/PLAS 12 7-20 mmol/L LAB [id number] GLOMERULAR FILTRATION RATE ML/MIN/1.73 SQ M.PREDICTED 100.9 >60.0 mL/min/ 1.73m*2 Result Comment: The [facility]???s estimated glomerular filtration rate (eGFR) will no longer include consideration of race in its calculation. The National Kid[employer]???s eGFR Task Force developed new recommendations for the estimation of the glomerular filtration rate in the [place] They recommend immediate implementation of the new equation refit without the race variable in all laboratories because the calculation does not include race. In addition to not including race in the calculation and reporting, it included diversity in its development, and has acceptable performance characteristics and potential consequences that do not disproportionately affect any one group of individuals. LAB 8101227 UREA NITROGEN/CREA TININE (MASS RATIO) IN SER/PLAS 15.9 NA Performed By: #### [id number] ### # [facility] ([facility]) [address] [place] [address] CBC WITH AUTO DIFFERENTIAL Collected: 12/18/2024 5:51 PM Status: UNK Source: [facility] TYPE CODE TESTS RESULT OUT OF RANGE REFERENCE UNITS LAB 2654077 LEUKOCYTES(10*3/ UL) IN BLOOD BY AUTOMATED COUNT 6.41 4.00-10.60 10*3/uL LAB 5768624 ERYTHROCYTES (10*6/UL) IN BLOOD BY AUTOMATED COUNT 4.14 Low 4.20-5.70 10*6/uL LAB 0028523 HEMOGLOBIN (G/DL) IN BLOOD 13.8 13.0-17.0 g/dL LAB 4922009 HEMATOCRIT (%) IN BLOOD BY AUTOMATED COUNT 38.1 Low 39.0-55.0 % LAB [id number] ERYTHROCYTE MEAN CORPUSCULAR VOLUME (FL) BY AUTOMATED COUNT 92.0 82.0-98.0 fL LAB [id number] ERYTHROCYTE MEAN CORPUSCULAR HEMOGLOBIN (PG) BY AUTOMATED COUNT 33.3 High 27.0-33.0 pg LAB [id number] ERYTHROCYTE MEAN CORPUSCULAR HEMOGLOBIN CONCENTRATION (G/DL) BY AUTOMATED 36.2 High 32.0-35.0 g/dL LAB 0833701 ERYTHROCYTE DISTRIBUTION WIDTH (RATIO) BY AUTOMATED COUNT 11.8 11.5-15.0 % LAB 8986730 NEUTROPHILS/100 LEUKOCYTES IN BLOOD BY AUTOMATED COUNT 56.4 40.0-72.0 % LAB 5509575 LYMPHOCYTES/100 LEUKOCYTES IN BLOOD BY AUTOMATED COUNT 29.6 20.0-45.0 % LAB [id number] MONOCYTES/100 LEUKOCYTES IN BLOOD BY AUTOMATED COUNT 10.6 5.0-12.0 % LAB 6198372 EOSINOPHILS/100 LEUKOCYTES IN BLOOD BY AUTOMATED COUNT 2.2 0.0-6.0 % LAB 1435251 BASOPHILS/100 LEUKOCYTES IN BLOOD BY AUTOMATED COUNT 0.6 0.0-1.0 % LAB 9417916 NEUTROPHILS (10*3/UL) IN BLOOD BY AUTOMATED COUNT 3.61 1.60-7.60 10*3/uL LAB 0111481 LYMPHOCYTES (10*3/UL) IN BLOOD BY AUTOMATED COUNT 1.90 1.20-4.00 10*3/uL LAB 0574970 MONOCYTES (10*3/UL) IN BLOOD BY AUTOMATED COUNT 0.68 0.10-1.00 10*3/uL LAB 9421615 EOSINOPHILS (10*3/UL) IN BLOOD BY AUTOMATED COUNT 0.14 0.00-0.50 10*3/uL LAB 3853840 BASOPHILS (10*3/UL) IN BLOOD BY AUTOMATED COUNT 0.04 0.00-0.20 10*3/uL LAB 7858536 PLATELETS (10*3/UL) IN BLOOD AUTOMATED COUNT 162 150-400 10*3/uL LAB 254 NRBC (PER 100 WBCS) BY AUTOMATED COUNT 0.0 0 % LAB 1767 IMMATURE GRANULOCYTES/100 LEUKOCYTES IN BLOOD BY AUTOMATED COUNT 0.6 0.0-1.0 % LAB 1768 IMMATURE GRANULOCYTES (10*3/UL) IN BLOOD BY AUTOMATED COUNT 0.04 0.00-0.20 10*3/uL Performed By: #### [id number] # ### [facility] ([facility]) [address] [place] [address] EDNURS Observed: 12/18/2024 5:06 PM Status: COMPLETED Source: [facility] Mode of arrival (squad #, wa lk in, police, etc): [facility] Chief complaint(s): Urinary Retention Arrival Note (brief scenario, 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 Patient is in detox for ETOH abuse. Patient has a hx of BPH and urinary retention. Patient drinks 1/2 gallon of vodka daily prior to rehab. Patient unable to void and was sent to ED for evaluation URINALYSIS WITH REFLEX CULTURE Collected: 12/18/2024 5:03 PM Status: UNK Source: [facility] Order Comment: Microscopics not performed on urines with negative chemical reactions unless requested on original order. TYPE CODE TESTS RESULT OUT OF RANGE REFERENCE UNITS LAB 6862884 COLOR OF URINE Yellow Color less, Yellow, Light-Yellow LAB 7004122 CLARITY OF URINE Clear Clear LAB 1380208 PH OF URINE 6.5 5.0-8.0 pH LAB 6802522 LEUKOCYTE ESTERASE PRESENCE IN URINE BY TEST STRIP Negative Negative LAB 7420152 NITRITE PRESENCE IN URINE Negative Negative LAB 1119254 PROTEIN (MG/DL) IN URINE BY TEST STRIP Negative Negative mg/dL LAB 6708051 GLUCOSE (MG/DL) IN URINE Normal Normal mg/dL LAB 8693386 BILIRUBIN, TOTAL PRESENCE IN URINE Negative Negative LAB 9 SPECIFIC GRAVITY OF URINE 1.033 High 1.010-1.030 NA LAB 548 KETONES (MG/DL) IN URINE Negative Negative mg/dL LAB 549 HEMOGLOBIN PRESENCE IN URINE Negative Negative LAB 3755512 UROBILINOGEN (MG/DL) IN URINE >=8.0 Abnormal Normal mg/dL Performed By: #### [id number] # ### [facility] ([facility]) [address] [place] [address] EDPROV Observed: 12/18/2024 4:33 PM Status: COMPLETED Source: [facility] [address] [id number] EMERGENCY DEPARTMENT ENCOUNTER 12/18/2024 CHIEF COMPLAINT Chief Complaint Patient presents with Urinary Retention HISTORY OF PRESENT ILLNESS 54 y/o male with a h/o EtOH abuse presents to the ED from [facility] for evaluation of urinary retention. Pt reports he has essentially been dribbling urine for the last 2d. Pt reports his last large urine output was 2d ago, though does report he was able to urinate some this morning. Pt denies flank pain, abd pain, fevers, chills, n/v/d. Pt reports he has h/o urinary retention with prior EtOH withdrawal episodes and reports he is currently residing at [facility] for EtOH withdrawal/detox. REVIEW OF SYSTEMS Review of Systems Constitutional: Negative for chills and fever. Respiratory: Negative for shortness of breath. Cardiovascular: Negative for chest pain. Gastrointestinal: Negative for abdominal pain, diarrhea and vomiting. Genitourinary: Positive for difficulty urinating. Negative for flank pain and hematuria. Musculoskeletal: Negative for back pain and neck pain. Skin: Negative for rash. Neurological: Negative for headaches. Psychiatric/Behavioral: Negative for confusion. All other systems reviewed and are negative. PAST MEDICAL HISTORY has a past medical history of BPH (benign prostatic hyperplasia). SURGICAL HISTORY has no past surgical history on file. CURRENT MEDICATIONS Previous Medications No medications on file ALLERGIES has no allergies on file. FAMILY HISTORY has no family status information on file. family history is not on file. SOCIAL HISTORY reports that he has quit smoking. His smoking use included cigarettes. He does not have any smokeless tobacco history on file. He reports that he does not currently use alcohol. PHYSICIAL EXAM INITIAL VITALS: height is 1.702 m (5' 7 ). His oral temperature is 36.9 ???C (98.5 ???F). His blood pressure is 122/78 and his pulse is 68. His respiration is 14 and oxygen saturation is 97%. Physical Exam Vitals reviewed. Constitutional: General: He is not in acute distress. Appearance: Normal appearance. He is not ill-appearing or toxic-appearing. HENT: Head: Normocephalic and atraumatic. Mouth/Throat: Mouth: Mucous membranes are moist. Eyes: Extraocular Movements: Extraocular movements intact. Conjunctiva/sclera: Conjunctivae normal. Cardiovascular: Rate and Rhythm: Normal rate and regular rhythm. Pulmonary: Effort: Pulmonary effort is normal. No respiratory distress. Abdominal: General: Bowel sounds are normal. Palpations: Abdomen is soft. Tenderness: There is no abdominal tenderness. Musculoskeletal: General: Normal range of motion. Cervical back: Normal range of motion and neck supple. Skin: General: Skin is warm and dry. Neurological: General: No focal deficit present. Mental Status: He is alert and oriented to person, place, and time. Gait: Gait is intact. Gait normal. Psychiatric: Mood and Affect: Mood normal. Behavior: Behavior normal. DIAGNOSTIC RESULTS EKG: not indicated RADIOLOGY: not indicated LABS: Labs Reviewed URINALYSIS WITH REFLEX CULTURE - Abnormal Result Value Color, Urine Yellow Clarity, Urine Clear pH, Urine 6.5 Leukocytes, Urine Negative Nitrite, Urine Negative Protein, Urine Negative Glucose, Urine Normal Bilirubin, Urine Negative Specific [place], Urine 1.033 (*) Ketones, Urine Negative Blood, Urine Negative Urobilinogen, Urine >=8.0 (*) Narrative: Microscopics not performed on urines with negative chemical reactions unless requested on original order. BASIC METABOLIC PANEL - Abnormal Sodium 136 Potassium 3.3 (*) Chloride 103 CO2 24 BUN 14 Creatinine 0.88 Glucose 114 (*) Calcium 8.8 Anion Gap 12 eGFR 100.9 BUN/Creatinine Ratio 15.9 CBC WITH AUTO DIFFERENTIAL - Abnormal Auto WBC 6.41 RBC 4.14 (*) Hemoglobin 13.8 Hematocrit 38.1 (*) MCV 92.0 MCH 33.3 (*) MCHC 36.2 (*) RDW 11.8 Neutrophils Relative 56.4 Lymphocytes Relative 29.6 Monocytes Relative 10.6 Eosinophils Relative 2.2 Basophils Relative 0.6 Neutrophils Absolute 3.61 Lymphocytes Absolute 1.90 Monocytes Absolute 0.68 Eosinophils Absolute 0.14 Basophils Absolute 0.04 Platelets 162 nRBC % 0.0 Immature Granulocytes Relative 0.6 Immature Granulocytes Absolute 0.04 CBC AND DIFFERENTIAL Narrative: The following orders were created for panel order CBC and differential. Procedure Abnormality Status --------- ------ CBC auto differential[[id number]] Abnormal Final result Please view results for these tests on the individual orders. EMERGENCY DEPARMENT COURSE Vitals: Vitals: 12/18/24 1717 12/18/24 1800 BP: 122/78 122/78 BP Location: Left arm Patient Position: Lying Pulse: 68 Resp: 14 Temp: 36.9 ???C (98.5 ???F) TempSrc: Oral SpO2: 100% 97% Height: 1.702 m (5' 7 ) BP: 122/78, Temp: 36.9 ???C (98.5 ???F), Temp Source: Oral, Heart Rate: 68, Resp: 14 ED Course as of 12/18/24 1902 Audrey Dec 18, 2024 175 Post void bladder scan 0mL [JS] 1844 Potassium(!): 3.3 Will replace orally [JS] 1901 Patient was reevaluated and updated on results of testing. No urinary retention noted on exam, no CARLOS noted on labs. Patient without UTI. Discussed plan for oral potassium replacement and discharge back to [facility], [place]. Patient agreeable to plan. [JS] ED Course User Index [JS] IDRIS Perez Diagnoses as of 12/18/24 1902 Hypokalemia Dribbling of urine CONSULTS: none PROCEDURES: none DIFFERENTIAL DIAGNOSIS / DISPOSITION / PLAN / Medical Decision Making Problems Addressed: Dribbling of urine: acute illness or injury Hypokalemia: acute illness or injury Amount and/or Complexity of Data Reviewed Labs: ordered. Decision-making details documented in ED Course. Radiology: ordered. Decision-making details documented in ED Course. FINAL IMPRESSION 1. Hypokalemia 2. Dribbling of urine PATIENT REFERRED TO: No follow-up provider specified. DISCHARGE MEDICATIONS: New Prescriptions No medications on file I have reviewed the disposition diagnosis with the patient and/or their family/guardian. I have answered their questions and given discharge instructions. They voiced understanding of these instructions and did not have any further questions or complaints. (Please note that portions of this note were completed with a voice recognition program. Efforts were made to edit the dictions but occasionally words are mis-transcribed.) IDRIS Perez PA-C 12/28/242053 ALLERGIES DATE TYPE / CODE NAME / CODE REACTION SEVERITY SOURCE SYSTEMIC/[id number] 6(SNOMED CT) ALLERGIES NOT ON FILE [facility] ENCOUNTERS ADMIT/DISCHARGE ACCOUNT NUMBER ADMITTING ENCOUNTER CLASS LOCATION SOURCE 12/18/2024/ 5 [id number] Emergency Building:[facility] RRoom: 08Bed: [address] [place] [address] 12/05/2024/ 5 [id number] [place] [facility] 11/06/2024 [id number] [place] PAYERS ENCOUNTER GUARANTOR PAYER SUBSCRIBER SOURCE 12/18/2024 Primary Insurance:JAELYN MCKEON MEDICAIDPolicy Number: [id number] Date:2024-11-26 LALI SELF: [id number] [address] [facility] 12/05/2024 LALI SELF: W [address] STTel: ~[phone]) Primary Insurance:MedicaidPoli cy Number: [id number] Date:2023-11-26[address] [place] [id number]: [facility] 11/06/2024 LALI SELF: W [address] STTel: ~[phone]) Primary Insurance:MedicaidPoli cy Number: [id number] Date:2023-11-26[address], [place] [address]FD: [facility]
[2025-04-20] VITALS (10 sets, daily range): BP systolic 132–153; BP diastolic 85–97; PULSE 99–110; TEMP 36.5; O2SAT 92–104; BMI 37.3
--- NOTE | 2025-04-20 23:04 | ECG_ITS ---
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 Measurements Intervals [place] Rate: 96 P: 50 NV: 134 QRS: 30 QRSD: 84 T: 46 QT: 332 QTc: 385 Interpretive Statements 1100 Sinus rhythm 9110 normal ECG Compared to ECG 12/28/2024 15:12:41 No significant changes Electronically Signed On 04-21-2025 13:32:56 EDT by YULISA EUBANKS M.D.
--- OUTSIDE RECORDS SUMMARY | 2025-04-20 23:05 | XMS_ITS | Referral Summary ---
Author Organization [facility] Address [address] [address] Care Team Providers Care Assembler 1St Shift Name Role Phone Self, Referred Primary Care Provider Unavailabl e Social History Tobacco Use Types Packs/Day Years Used Date Smoking Tobacco: Former Cigarettes Tobacco Cessation:Counseling Given: Not Answered Alcohol Use Standard Drinks/Week Comments Not Currently 0 (1 standard drink = 0.6 oz pur e alcohol) [place] Safety & Environment Answer Date Rec orded Fear of Current or Ex-Partner Not on file Emotionally Abused Not on file 01/17/2024 Physically Abused Not on file 01/17/2024 Sexually Abused Not on file 01/17/2024 Physically or Sexually Abused Not on file Sex and Gender Information Value Date Recorded Sex Assigned at Male 12/18/2024 4:56 PM EST Gender Identity Male 12/18/2024 4:56 PM EST Sexual Orientation Choose not to disclose 2024 4:56 PM EST Last Filed Vital Signs Vital Sign Reading Time Taken Comments Blood Pressure 134/65 12/18/2024 7:00 PM EST Pulse 68 12/18/2024 7:00 PM EST Temperature 36.9 C (98.5 F) 12/18/2024 6:00 PM EST Respiratory Rate 20 12/18/2024 7:00 PM EST Oxygen Saturation 98% 12/18/2024 7:00 PM EST Inhaled Oxygen Concentration - - Weight 122 kg (270 lb) 12/18/2024 7:00 PM EST Height 177.8 cm (5' 10 ) 12/18/2024 7:00 PM EST Body Mass Index 38.74 12/18/2024 7:00 PM EST Plan of Treatment Not on file Care Teams Assembler 1St Shift Relationship Specialty Start Date End Date SELF, REFERRED [address] PCP - General 12/18/24
--- OUTSIDE RECORDS SUMMARY | 2025-04-20 23:05 | XMS_ITS | Clinical Summary ---
Author Organization [facility] Address [address] [place] [address] Care Team Providers Care Filing Writer Name Role Phone Deb James Tabby Primary Care Provider [phone] Allergies No known active allergies Medications AMLODIPINE BESYLATE (NORVASC ORAL) Take 1 tablet by mouth once daily. Active ALPRAZOLAM (XANAX ORAL) Take 1 tablet by mouth twice daily. Active PROPRANOLOL HCL (INDERAL LA ORAL) Take 1 tablet by mouth once daily. Active Active Problems Problem Noted Date Diagnosed Date Spine pain 10/07/2012 Seizure 10/07/2012 Benzodiazepine withdrawal 10/07/2012 History of ETOH abuse 10/07/2012 Back pain 10/07/2012 Leg pain 10/07/2012 Foot pain 10/07/2012 Social History Tobacco Use Types Packs/Day Years Used Date Smoking Tobacco: Every Day Cigarettes Tobacco Cessation:Ready to Q uit: Yes; Counseling Given: Yes Comments:quit for 23 years but restarted Alcohol Use Standard Drinks/Week Comments No 0 (1 standard drink = 0.6 oz pur e alcohol) in rehab 08/2012 Sex and Gender Information Value Date Recorded Sex Assigned at Not on file Legal Sex Male 10:17 AM EST Gender Identity Not on file Sexual Orientation Not on file Last Filed Vital Signs Vital Sign Reading Time Taken Comments Blood Pressure 122/79 10/07/2012 9:08 AM EST Pulse 73 10/07/2012 9:08 AM EST Temperature - - Respiratory Rate 12 10/07/2012 9:08 AM EST Oxygen Saturation - - Inhaled Oxygen Concentration - - Weight 107.5 kg (237 lb) 10/07/2012 9:08 AM EST Height 177.8 cm (5' 10 ) 08/28/2012 11:09 AM EDT Body Mass Index 34.01 08/28/2012 11:09 AM EDT Plan of Treatment Health Maintenance Due Date Last Done Comments Anxiety Screening 02/08/1986 Depression Screening 02/08/1986 HIV Screening 02/08/1986 Hepatitis C Screening 02/08/1986 DTaP,Tdap,Td Vaccine (1 - Tdap) 02/08/1987 Hepatitis B Vaccine (1 of 3 - 19+ 3-dose series) 02/08 Lipid Screening 02/08/2003 CT Colonography 02/08/2013 Cologuard (FIT-DNA) 02/08/2013 Colonoscopy 02/08/2013 Colorectal Cancer Screening 02/08/2013 Diabetes Screening 02/08/2013 Fecal Occult Blood 02/08/2013 Prostate Cancer Screening Discussion 02/08/2013 Sigmoidoscopy 02/08/2013 Pneumococcal Vaccine: 50+ (1 of 1 - PCV) 02/08/2018 Shingrix Vaccine (1 of 2) 02/08/2018 Covid-19 Vaccine (1 - season) 2024 Influenza Vaccine (Season Ended) 2025 Care Teams Filing Writer Relationship Specialty Start Date End Date Deb James [address] [place] [address] PCP - General Family Medicine 08/21/12
--- OUTSIDE RECORDS SUMMARY | 2025-04-20 23:05 | XMS_ITS | Clinical Summary ---
Author Organization [facility] Address [address] [place] [address] Care Team Providers Care Terrazzo Worker Apprentice Name Role Phone Self, Referred Primary Care [...] 12/18/2024 7:00 PM EST Plan of Treatment Health Maintenance Due Date Last Done Comments CT Colonography 1970 Colonoscopy 1968 Colorectal Cancer Screening 1970 FIT-DNA 1968 FIT 1968 FOBT 1970 Sigmoidoscopy 1968 Depression Screening 1980 Hepatitis B Vaccines (1 of 3 - 19+ 3-dose series) 02/08/1987 Adult Tetanus 02/08/1990 Zoster Vaccines (1 of 2) 02/08/2018 COVID-19 Vaccine ( - 2023-2 5 season) 2024 Influenza Vaccine (Season Ended) 2025 HIB Vaccines Aged Out No longer eligi ble based on patient's age to complete this topic HPV Vaccines Aged Out No longer eligi ble based on patient's age to complete this topic IPV Vaccines Aged Out No longer eligi ble based on patient's age to complete this topic Meningococcal B Vaccine Aged Out No l onger eligible based on patient's age to complete this topic Meningococcal Vaccine Aged Out No jelly alejandrina eligible based on patient's age to complete this topic Pneumococcal Vaccine: Pediat rics (0 to 5 Years) and At-Risk Patients (6 to 64 Years) Aged Out No longer eligible b ased on patient's age to complete this topic Rotavirus Vaccines Aged Out No longer eligible based on patient's age to complete this topic Care Teams Terrazzo Worker Apprentice Relationship Specialty Start Date End Date SELF, REFERRED [address] PCP - General 12/18/24
--- NOTE | 2025-04-20 23:32 | ED.GENADUL1 ---
HPI HPI - General Adult General Chief complaint: Alcohol Stated complaint: ALCOHOL WITHDRAWAL Time Seen by Provider: 04/20/25 23:27 Source: patient Mode of arrival: ambulance Limitations: no limitations History of Present Illness HPI narrative: past history of alcohol abuse and anxiety. States he drinks alcohol to treat his anxiety but when he becomes intoxicated his anxiety gets worse. States last drink was this AM. Now presents complaining of anxiety. No chest or abdominal pain. Related Data Home Medications ?Medication ?Instructions ?Recorded ?Confirmed amlodipine 10 mg tablet 10 mg PO DAILY 06/28/24 04/20/25 cholecalciferol (vitamin D3) 125 5,000 unit PO DAILY 04/20/25 04/20/25 mcg (5,000 unit) capsule Previous Rx's ?Medication ?Instructions ?Recorded chlordiazepoxide HCl 25 mg capsule See Rx Instructions .Route 10/01/24 .COMPLEX #15 caps Allergies Allergy/AdvReac Type Severity Reaction Status Date / Time hydroxyzine AdvReac Severe Anxiety Verified 04/20/25 23:10 allergy medication AdvReac Severe Anxiety Uncoded 04/20/25 23:10 Opioid HPI Opioid Management Most Recent Opioid Data: Ur Phencyclidine Scrn, (NEGATIVE) Negative 04/20/25, 03:48 Review of Systems ROS Status of ROS 10 or more systems reviewed and unremarkable except as noted in history and below PFSH PFSH Social History Little interest or pleasure in doing things: not at all Feeling down, depressed, or hopeless: not at all Exam Constitutional Vital Signs, click to edit/add: Last Vital Signs Temp 97.7 F 04/20/25 22:59 Pulse 110 H 04/21/25 02:20 Resp 23 H 04/21/25 02:20 BP 122/86 04/21/25 02:01 Pulse Ox 94 L 04/21/25 02:20 O2 Del Method Room Air 04/20/25 22:59 Common normals: no apparent distress, average body habitus, oriented x3, no limitations and healthy appearing HENMT Common normals: normocephalic and head/scalp atraumatic Eye Common normals: PERRL, EOMs intact bilaterally and conjunctivae normal Respiratory Common normals: normal respiratory effort, no retractions, no use of accessory muscles and clear to auscultation bilaterally Cardio Common normals: regular rate, regular rhythm, S1 normal heart sound and S2 normal heart sound GI Common normals: Normal to inspection, nondistended, normoactive bowel sounds present, soft to palpation and non-tender Extremity Common normals: normal to inspection and full ROM Neuro Common normals: oriented x3, CN's II-XII intact bilaterally, moves all extremities and no focal motor deficits Psych Appearance: grossly normal Course Vital Signs Vital signs: Vital Signs Temperature 97.7 F 04/20/25 22:59 Pulse Rate 110 H 04/20/25 22:59 Respiratory Rate 19 04/20/25 22:59 Blood Pressure 153/92 H 04/20/25 22:59 Pulse Oximetry 97 04/20/25 22:59 Oxygen Delivery Method Room Air 04/20/25 22:59 Temperature 97.7 F 04/20/25 22:59 Pulse Rate 110 H 04/21/25 02:20 Respiratory Rate 23 H 04/21/25 02:20 Blood Pressure 122/86 04/21/25 02:01 Pulse Oximetry 94 L 04/21/25 02:20 Oxygen Delivery Method Room Air 04/20/25 22:59 Medical Decision Making MDM Narrative Medical decision making narrative: alcoholic with history of anxiety. Presents complaining of anxiety. came via [facility]. alcohol level less than 3. Patient without gross signs of withdrawal. No tremor, piloerection, dry skin , no distress and cooperative. treated with Ativan for anxiety and is now feeling better. Discharged home to follow up with his doctor Lab Data Labs: Lab Results 04/20/25 04/20/25 Range/Units 03:48 23:37 WBC 7.0 (4.0-11.0) 10^3/uL RBC 4.78 (4.70-6.10) 10^6/uL Hgb 15.5 (14.0-18.0) g/dL Hct 42.4 (42.0-54.0) % MCV 88.7 (80.0-94.0) fL MCH 32.4 (25.9-34.0) pg MCHC 36.6 H (29.9-35.2) g/dL RDW 12.4 (11.0-15.0) % Plt Count 154 (150-450) 10^3/uL MPV 8.2 L (9.5-13.5) fL Seg Neuts % (Manual) 92.0 H (43.0-75.0) Lymphocytes % (Manual) 2.0 L (20.5-60.0) % Monocytes % (Manual) 5.0 (1.7-12.0) % Eosinophils % (Manual) 0.0 L (0.9-7.0) % Basophils % (Manual) 1.0 (0.2-2.0) % Neutrophils # (Manual) 6.44 (1.4-6.5) 10^3/uL Lymphocytes # (Manual) 0.14 L (1.20-3.80) 10^3/uL Monocytes # (Manual) 0.35 (0.30-0.80) 10^3/uL Eosinophils # (Manual) 0.00 (0.00-0.70) 10^3/uL Basophils # (Manual) 0.07 (0.00-0.10) 10^3/uL Sodium 134 L (136-145) mmol/L Potassium 4.0 (3.5-5.1) mmol/L Chloride 97 L (98-107) mmol/L Carbon Dioxide 26.8 (21.0-32.0) mmol/L Anion Gap 14.2 BUN 7.0 (7.0-18.0) mg/dL Creatinine 1.28 (0.70-1.30) mg/dL Est GFR ( Amer) >60 (>=60 mL/min/1.73m^2) Est GFR (Non-Af Amer) 58 L (>=60 mL/min/1.73m^2) BUN/Creatinine Ratio 5.5 Glucose 158 H (74-106) mg/dL Calcium 9.4 (8.5-10.1) mg/dL Total Bilirubin 1.5 H (0.2-1.0) mg/dL AST 140 H (15-37) U/L ALT 144 H (16-63) U/L Alkaline Phosphatase 84 (46-116) U/L Total Protein 7.1 (6.4-8.2) g/dL Albumin 3.5 (3.4-5.0) g/dL Globulin 3.6 g/dL Albumin/Globulin Ratio 1.0 Urine Color Dk. yellow (YELLOW) Urine Clarity Clear (CLEAR) Urine pH >=9.0 A (5.0-9.0) Ur Specific [place] 1.010 (1.005-1.025) Urine Protein 30 A (NEG/TRACE) mg/dL Urine Glucose (UA) Negative (NEGATIVE) mg/dL Urine Ketones Negative (NEGATIVE) mg/dL Urine Occult Blood Negative (NEGATIVE) Urine Nitrite Negative (NEGATIVE) Urine Bilirubin Negative (NEGATIVE) Urine Urobilinogen 1.0 (0.2-1.0) EU/dL Ur Leukocyte Esterase Negative (NEGATIVE) Urine RBC 0-2 (0-2) #/HPF Urine WBC 0-2 A (NONE SEEN) #/HPF Ur Squamous Epith Cells Rare (NONE/RARE) #/LPF Urine Crystals None seen (None Seen) #/HPF Urine Bacteria Trace A (NONE SEEN) #/HPF Urine Casts None seen (NONE SEEN) #/LPF Urine Mucus Trace A (NONE SEEN) Ur Culture Indicated? No Urine Opiates Screen Negative (NEGATIVE) Ur Buprenorphine Scrn Negative (NEGATIVE) Ur Oxycodone Screen Negative (NEGATIVE) Urine Methadone Screen Negative (NEGATIVE) Ur Barbiturates Screen Positive A (NEGATIVE) U Tricyclic Antidepress Negative (NEGATIVE) Ur Phencyclidine Scrn Negative (NEGATIVE) Ur Amphetamines Screen Negative (NEGATIVE) U Methamphetamines Scrn Negative (NEGATIVE) U Benzodiazepines Scrn Positive A (NEGATIVE) Urine Cocaine Screen Negative (NEGATIVE) U Cannabinoids Screen Negative (NEGATIVE) Ethanol Quant <3 mg/dL Discharge Plan Discharge Chief Complaint: Alcohol Clinical Impression: Anxiety Patient Disposition: Home, Self-Care Prescriptions / Home Meds: No Action cholecalciferol (vitamin D3) 125 mcg (5,000 unit) capsule 5,000 unit PO DAILY amlodipine 10 mg tablet 10 mg PO DAILY chlordiazepoxide HCl 25 mg capsule See Rx Instructions .ROUTE .COMPLEX Qty: 15 0RF Rx Instructions: Day 1: 50mg q6h Day 2: 25mg q6h Day 3: 25mg q12h Day 4: 25mg at night Print Language: Lithuanian Instructions: Anxiety (ED) Additional Instructions: follow up with your doctor this week Referrals: Physician,Non-Staff, MD [Primary Care Provider] - 1 week Discharge Date/Time: 04/21/25 09:23
[2025-04-20 23:44] LABS: Hematocrit 42.4 % (42.0-54.0); Hemoglobin 15.5 g/dL (14.0-18.0); Mean Corpuscular HGB Conc 36.6 g/dL (29.9-35.2); Mean Corpuscular Hemoglobin 32.4 pg (25.9-34.0); Mean Corpuscular Volume 88.7 fL (80.0-94.0); Mean Platelet Volume 8.2 fL (9.5-13.5); Platelet Count 154 10^3/uL (150-450); Red Blood Count 4.78 10^6/uL (4.70-6.10); Red Cell Distribution Width 12.4 % (11.0-15.0)
[2025-04-20] MEDS: LORAZEPAM 1 MG TABLET PO (23:45)
[2025-04-21] VITALS (19 sets, daily range): BP systolic 117–151; BP diastolic 62–98; PULSE 90–111; O2SAT 83–99
[2025-04-21 00:03] LABS: Alanine Aminotransferase 144 U/L (16-63); Albumin Level 3.5 g/dL (3.4-5.0); Alkaline Phosphatase 84 U/L (46-116); Anion Gap 14.2; Aspartate Amino Transferase 140 U/L (15-37); BUN Creatinine Ratio 5.5; Bilirubin Total 1.5 mg/dL (0.2-1.0); Calcium 9.4 mg/dL (8.5-10.1); Carbon Dioxide 26.8 mmol/L (21.0-32.0); Chloride 97 mmol/L (98-107); Estimated GFR (African America >60 (>=60 mL/min/1.73m^2); Estimated GFR (Non-African Ame 58 (>=60 mL/min/1.73m^2); Ethanol <3 mg/dL; Globulin 3.6 g/dL; Glucose 158 mg/dL (74-106); Sodium 134 mmol/L (136-145); Total Protein 7.1 g/dL (6.4-8.2)
[2025-04-21 00:19] LABS: Segmented Neut Absolute Manual 6.44 10^3/uL (1.4-6.5)
[2025-04-21 00:20] LABS: Basophils Abs Manual 0.07 10^3/uL (0.00-0.10); Lymphocytes Absolute Manual 0.14 10^3/uL (1.20-3.80); Monocytes Absolute Manual 0.35 10^3/uL (0.30-0.80)
[2025-04-21] MEDS: ONDANSETRON PF 4 MG/2 ML VIAL IV (00:56)
[2025-04-21] MEDS: METOCLOPRAMIDE HCL 10 MG/2 ML VIAL IVP (02:01)
[2025-04-21] MEDS: LORAZEPAM 1 MG TABLET PO ×2 (02:33→08:37)
[2025-04-21 03:56] LABS: Bilirubin Urine NEGATIVE (NEGATIVE); Blood Urine NEGATIVE (NEGATIVE); Clarity Urine CLEAR (CLEAR); Color Urine DK. YELLOW (YELLOW); Glucose Urine UA NEGATIVE (NEGATIVE); Ketones Urine NEGATIVE (NEGATIVE); Leukocyte Esterase Urine NEGATIVE (NEGATIVE); Nitrite Urine NEGATIVE (NEGATIVE); Protein Urine 30 mg/dL (NEG/TRACE); pH Urine >=9.0 (5.0-9.0)
[2025-04-21 04:08] LABS: Amphetamine Screen Urine NEGATIVE (NEGATIVE); Barbiturates Screen Urine POSITIVE (NEGATIVE); Benzodiazepines Screen Urine POSITIVE (NEGATIVE); Buprenorphine Screen Urine NEGATIVE (NEGATIVE); Cannabinoid Screen Urine NEGATIVE (NEGATIVE); Cocaine Screen Urine NEGATIVE (NEGATIVE); Methadone Screen Urine NEGATIVE (NEGATIVE); Methamphetamines Screen Urine NEGATIVE (NEGATIVE); Opiate Screen Urine NEGATIVE (NEGATIVE); Oxycodone Screen Urine NEGATIVE (NEGATIVE); Phencyclidine Screen Urine NEGATIVE (NEGATIVE); Tricyclic Antidepressant Urine NEGATIVE (NEGATIVE)
[2025-04-21 04:17] LABS: Bacteria Urine TRACE #/HPF (NONE SEEN); Mucus Urine TRACE (NONE SEEN); RBC Urine 0-2 #/HPF (0-2); Squamous Epithelial Cell Urine RARE #/LPF (NONE/RARE); WBC Urine 0-2 #/HPF (NONE SEEN)
[2025-04-21 04:18] LABS: Cast Seen? NONE SEEN #/LPF (NONE SEEN); Crystals Seen? None Seen #/HPF (None Seen); Urine Culture Indicated NO
[2025-04-21] MEDS: ONDANSETRON 4 MG RAPDIS TABLET SL (08:38)
== END 2025-04-21 09:23 | disposition home or self-care (01) ==
PROVIDERS: Emergency Provider Internal Medicine
DX: F41.9 Anxiety disorder, unspecified (principal); F10.10 Alcohol abuse, uncomplicated
CPT/HCPCS: 36415; 80053; 80307; 80320; 81001; 85007; 85027; 93005; 96374; 96375; 99284; J2405; J2765; Q0162

== ENCOUNTER 2025-08-05 12:52 | Emergency (ER) | payer MEDICAID, SELFPAY ==
--- OUTSIDE RECORDS SUMMARY | 2024-06-17 04:45 | XMS_ITS ---
Author Organization [facility] Address [address] [place], [place] [id number] Care Team Providers Care Director Of Convention Services Name Role Phone Karolina Dominguez Primary Care Provider REASON FOR VISIT [facility] alcohol, needs referrals made by facility, wanted primary first Encounters Encounter Location Date Provider Diagnosis [place] [address] [place] [address] 06/17/2024 Karolina Dominguez Plan Of Treatment No Information Progress Notes * SUNNYBrentDOB: 8 (55 yo M)Acc No.[id number]:06/17/2024 Medical Note Patient: Brent ALLEN Provider: Melissa Dominguez :1970 A ge:54 Y S ex:Male Date:06/17/2024 Address:[address] [place] [address], [id number] Subjective: * Chief Complaints: * 1 . [facility] alcohol, needs referrals made by facility, wanted primary first. * Medical History: Objective: * Vitals: Assessment: Plan: * Treatment: * Billing Information: * Visit Code: * Procedure Codes: * Electronic signature of MIKI Royal on 08/05/2025 at 01:09 PM EDT Sign off status: Pending * Provider: Melissa Dominguez Date: 06/17/2024 Generated for Chucky adams/Jo/Carrie on: 08/05/2025 01:09 PM EDT
--- OUTSIDE RECORDS SUMMARY | 2025-04-01 09:21 | XMS_ITS | Continuity of Care Document ---
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 index [BMI] 40.0-44.9, adult Dietary management e ducation, guidance, and counseling Related to Body mass index [BMI] 40.0-44.9, adult Follow up 3 months Related to Es sential (primary) hypertension Giving encouragement to exercise Related to Body mass index [BMI] 38.0-38.9, adult Lifestyle education regarding di et Related to Body mass index [BMI] 38.0-38.9, adult 1. Take blood pressu re medication daily as prescribed.2. Monitor blood pressure at home regularly and record for next follow up visit.3. Limit sodium intake to 1 tsp (2300mg) per day maximum 4. Participate in moderate intensity aerobic exercise 3-5 days per week 30 minutes5. Avoid cigarette smoke6. Stop drinking alcoholFollow up: 4 weeks, plan for labs at follow up Related to Essential (primary) hypertension Dietary management e ducation, guidance, and counseling Related to Body mass index [BMI] 40.0-44.9, adult Giving encouragement to exercise Related to Body mass index [BMI] 40.0-44.9, adult Giving encouragement to exercise Related to Body mass index [BMI] 38.0-38.9, adult Dietary management e ducation, guidance, and counseling Related to Body mass index [BMI] 38.0-38.9, adult Take blood pressure medication daily as prescribed.Monitor blood pressure at home regularly and record for next follow up visit.Limit sodium intake to 1 tsp (2300mg) per day maximum Avoid cigarette smokeStop drinking alcohol Follow up: 4-6 weeks Related to Essential (primary) hypertension Giving encouragement to exercise Related to Body mass index [BMI] 38.0-38.9, adult Dietary management e ducation, guidance, and counseling Related to Body mass index [BMI] 38.0-38.9, adult Dietary management e ducation, guidance, and counseling Related to Body mass index [BMI] 37.0-37.9, adult Giving encouragement to exercise Related to Body mass index [BMI] 37.0-37.9, adult Giving encouragement to exercise Related to Body mass index [BMI] 37.0-37.9, adult Lifestyle education regarding di et Related to Body mass index [BMI] 37.0-37.9, adult Encourage PO fluids - Related to Alcohol dependence with withdrawal, uncomplicated Assessments Type Assessment Date No Information Patient Care Teams Name Effective Dates (start - stop) Status Members No Information
[2025-08-05] VITALS (8 sets, daily range): BP systolic 89–147; BP diastolic 59–97; PULSE 73–98; TEMP 37–37.2; O2SAT 88–98; BMI 40.2
--- OUTSIDE RECORDS SUMMARY | 2025-08-05 13:09 | XMS_ITS | Clinical Summary ---
Author Organization [facility] Address [address] [place] [address] Care Team Providers Care Physician General Internal Medicine Name Role Phone Self, Referred Primary Care [...] Assigned at Male 12/18/2024 4:56 PM EST Legal Sex Male 12:06 AM EDT Gender Identity Male 12/18/2024 4:56 PM EST [...] Vaccines (1 of 2) 02/08/2018 COVID-19 Vaccine (1 - 2023-2 5 season) 2025 Influenza Vaccine (#1) 2025 HIB Vaccines Aged Out No longer [...] on patient's age to complete this topic Insurance FOR[facility]LY [facility] MEDICAID Care Teams Physician General Internal Medicine Relationship Specialty Start Date End Date SELF, REFERRED [address] PCP - General 12/18/24
--- OUTSIDE RECORDS SUMMARY | 2025-08-05 13:09 | XMS_ITS | Clinical Summary ---
Author Organization [facility] Address [address] [place] [address] Care Team Providers Care Senior Principal Process Engineer Name Role Phone Deb James Primary Care Provider [phone] Allergies No known active allergies Medications AMLODIPINE [...] 02/08/2018 Shingrix Vaccine (1 of 2) 02/08/2018 Influenza Vaccine (#1) 2025 Care Teams Senior Principal Process Engineer Relationship Specialty Start Date End Date Deb James [address] [place] [address] PCP - General Family Medicine 08/21/12
--- NOTE | 2025-08-05 13:24 | ECG_ITS ---
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
--- NOTE | 2025-08-05 13:29 | ED.GENADUL1 ---
HPI HPI - General Adult General Chief complaint: Psychiatric Symptoms Stated complaint: INTOXICATED SUCIDIAL Time Seen by Provider: 08/05/25 13:01 Source: patient Mode of arrival: ambulance Limitations: other Limitations comment: intoxicated History of Present Illness HPI narrative: 55-year-old male presented to the emergency department for alcohol intoxication and threats of hurting himself. He is a poor historian, he is intoxicated. Apparently his mother called paramedics and they brought him here. Apparently he has been on a 3-day binge of drinking alcohol. No further history is obtainable. Related Data Home Medications ?Medication ?Instructions ?Recorded ?Confirmed cholecalciferol (vitamin D3) 125 5,000 unit PO DAILY 04/20/25 08/05/25 mcg (5,000 unit) capsule Allergies Allergy/AdvReac Type Severity Reaction Status Date / Time hydroxyzine AdvReac Severe Anxiety Verified 08/05/25 13:01 allergy medication AdvReac Severe Anxiety Uncoded 08/05/25 13:01 Opioid HPI Opioid Management Most Recent Opioid Data: Ur Phencyclidine Scrn, (NEGATIVE) Negative Today, 15:02 Review of Systems ROS Narrative Not obtainable, intoxicated [facility] Social History Little interest or pleasure in doing things: not at all Feeling down, depressed, or hopeless: not at all Exam Narrative Exam Narrative: Nurses note and vital signs reviewed and patient is not hypoxic. General: The patient appears drowsy but is able to speak to me. Skin: Warm, dry, no pallor noted. There is no rash noted. Head: Normocephalic, atraumatic Eye: Normal conjunctiva, no drainage Ears, Nose, Mouth, and Throat: oral mucosa is moist. Nares patent. Cardiovascular: Regular Rate and Rhythm Respiratory: Patient is in no distress, no accessory muscle use, lungs are clear to auscultation, no wheezing, rales or rhonchi Back: non-tender GI: Soft and nontender Musculoskeletal: The patient has no evidence of calf tenderness, no pitting edema, symmetrical pulses noted bilaterally Neurological: Awake and alert. He knows his name and where he is and why he is here. Psychiatric: Moderately Constitutional Vital Signs, click to edit/add: Last Vital Signs Temp 98.7 F 08/05/25 13:01 Pulse 98 H 08/05/25 13:01 Resp 18 08/05/25 13:01 BP 147/97 H 08/05/25 13:01 Pulse Ox 92 L 08/05/25 13:51 O2 Del Method Nasal Cannula 08/05/25 13:51 O2 Flow Rate 2 08/05/25 13:51 Course Vital Signs Vital signs: Vital Signs Temperature 98.7 F 08/05/25 13:01 Pulse Rate 98 H 08/05/25 13:01 Respiratory Rate 18 08/05/25 13:01 Blood Pressure 147/97 H 08/05/25 13:01 Pulse Oximetry 94 L 08/05/25 13:01 Oxygen Delivery Method Room Air 08/05/25 13:01 Temperature 98.7 F 08/05/25 13:01 Pulse Rate 98 H 08/05/25 13:01 Respiratory Rate 18 08/05/25 13:01 Blood Pressure 147/97 H 08/05/25 13:01 Pulse Oximetry 92 L 08/05/25 13:51 Oxygen Delivery Method Nasal Cannula 08/05/25 13:51 Oxygen Delivery Flow Rate 2 08/05/25 13:51 Medical Decision Making MDM Narrative Medical decision making narrative: The patient was found to be alcohol intoxicated. His level is 393. He was given IV fluids here and observed. He has been sleeping and the patient is signed out to Dr. rGanados at change of shift. Lab Data Lab results reviewed: Yes I reviewed the patient's lab results Labs: Lab Results 08/05/25 08/05/25 Range/Units 13:37 15:02 WBC 4.5 (4.0-11.0) 10^3/uL RBC 4.56 L (4.70-6.10) 10^6/uL Hgb 14.8 (14.0-18.0) g/dL Hct 40.5 L (42.0-54.0) % MCV 88.8 (80.0-94.0) fL MCH 32.5 (25.9-34.0) pg MCHC 36.5 H (29.9-35.2) g/dL RDW 11.3 (11.0-15.0) % Plt Count 113 L (150-450) 10^3/uL MPV 8.5 L (9.5-13.5) fL Neut % (Auto) 64.6 (43.0-75.0) % Lymph % (Auto) 25.7 (20.5-60.0) % [place] % (Auto) 6.6 (1.7-12.0) % Eos % (Auto) 2.0 (0.9-7.0) % Baso % (Auto) 0.7 (0.2-2.0) % Neut # (Auto) 2.9 (1.4-6.5) 10^3/uL Lymph # (Auto) 1.2 (1.2-3.8) 10^3/uL [place] # (Auto) 0.3 (0.3-0.8) 10^3/uL Eos # (Auto) 0.1 (0.0-0.7) 10^3/uL Baso # (Auto) 0.0 (0.0-0.1) 10^3/uL Abs Immat Gran (auto) 0.02 (0.00-0.03) 10^3/uL Imm/Tot Granulo (auto) 0.4 (0.0-0.5) % Sodium 142 (136-145) mmol/L Potassium 3.5 (3.5-5.1) mmol/L Chloride 105 (98-107) mmol/L Carbon Dioxide 26.1 (21.0-32.0) mmol/L Anion Gap 14.4 BUN 11.0 (7.0-18.0) mg/dL Creatinine 0.76 (0.70-1.30) mg/dL Est GFR ( Amer) >60 (>=60 mL/min/1.73m^2) Est GFR (Non-Af Amer) >60 (>=60 mL/min/1.73m^2) BUN/Creatinine Ratio 14.5 Glucose 111 H (74-106) mg/dL Calcium 8.4 L (8.5-10.1) mg/dL Total Bilirubin 0.8 (0.2-1.0) mg/dL Direct Bilirubin 0.2 (0.0-0.2) mg/dL AST 43 H (15-37) U/L ALT 31 (16-63) U/L Alkaline Phosphatase 69 (46-116) U/L Total Protein 7.3 (6.4-8.2) g/dL Albumin 3.6 (3.4-5.0) g/dL Globulin 3.7 g/dL Albumin/Globulin Ratio 1.0 Urine Color Lt. yellow (YELLOW) Urine Clarity Clear (CLEAR) Urine pH 6.0 (5.0-9.0) Ur Specific Skipwith <=1.005 A (1.005-1.025) Urine Protein Negative (NEG/TRACE) mg/dL Urine Glucose (UA) Negative (NEGATIVE) mg/dL Urine Ketones Negative (NEGATIVE) mg/dL Urine Occult Blood Negative (NEGATIVE) Urine Nitrite Negative (NEGATIVE) Urine Bilirubin Negative (NEGATIVE) Urine Urobilinogen 0.2 (0.2-1.0) EU/dL Ur Leukocyte Esterase Negative (NEGATIVE) Urine RBC None seen (0-2) #/HPF Urine WBC None seen (NONE SEEN) #/HPF Ur Squamous Epith Cells Rare (NONE/RARE) #/LPF Urine Crystals None seen (None Seen) #/HPF Urine Bacteria None seen (NONE SEEN) #/HPF Urine Casts None seen (NONE SEEN) #/LPF Urine Mucus None seen (NONE SEEN) Ur Culture Indicated? No Urine Opiates Screen Negative (NEGATIVE) Ur Buprenorphine Scrn Negative (NEGATIVE) Ur Oxycodone Screen Negative (NEGATIVE) Urine Methadone Screen Negative (NEGATIVE) Ur Barbiturates Screen Negative (NEGATIVE) U Tricyclic Antidepress Negative (NEGATIVE) Ur Phencyclidine Scrn Negative (NEGATIVE) Ur Amphetamines Screen Negative (NEGATIVE) U Methamphetamines Scrn Negative (NEGATIVE) U Benzodiazepines Scrn Negative (NEGATIVE) Urine Cocaine Screen Negative (NEGATIVE) U Cannabinoids Screen Negative (NEGATIVE) Ethanol Quant 393 mg/dL ECG Data Attestation: I personally reviewed and interpreted this ECG as follows: (EKG on my interpretation shows sinus rhythm with a rate of 101 and no acute change) Discharge Plan Discharge Patient Disposition: Still a Patient
--- OUTSIDE RECORDS SUMMARY | 2025-08-05 13:29 | XMS_ITS | CCD ---
Author Organization [facility] Care Team Providers Care [employer] [facility] Name Role Phone PHYSICIAN, DEFAULT Unavailable Unavailable PHYSICIAN, DEFAULT Unavailable Unavailable NO FAMILY, PHYSICIAN Primary Care Provider Unava MD Benedict Ulloa Emergency Provider REQUEST, NONE LISTED Primary Care Unavaila SHAIKH [...] ON FILE] Propensity to adverse reactions (disorder) [facility] Repository Problems Problem Classification Problem Date Documented [...] 03-15-2022 Episodic Other aftercare (1 source) Other prison (current) drug therapy; Translations: [OTH PRISON CURRENT DRUG THERAPY] Onset: 03-15-2022 Episodic Other [...] Anion gap [Moles/Vol] 12 mmol/L Normal 7-20 [facility] Comment on above: Performed By: #### L [id number] #### [facility] ([facility]) [address] [place] [address] Calcium [Mass/Vol] 8.8 mg/dL Normal 8.6-10.3 [facility] Comment on above: Performed By: #### L [id number] #### [facility] ([facility]) [address] [place] [address] Chloride [Moles/Vol] 103 mmol/L Normal 98-107 [facility] Comment on above: Performed By: #### L [id number] #### [facility] ([facility]) [address] [place] [address] CO2 [Moles/Vol] 24 mmol/L Normal 21-31 [facility] Comment on above: Performed By: #### L [id number] #### [facility] ([facility]) [address] [place] [address] Creatinine [Mass/Vol] 0.88 mg/dL Normal 0.70-1.30 [facility] Comment on above: Performed By: #### L [id number] #### [facility] ([facility]) [address] [place] [address] GLOMERULAR FILTRATION RATE ML/MIN/1.73 SQ M.PREDICTED 100.9 mL/min/1.73m*2 Normal >60.0 [facility] Comment on above: Result Comment: The [facility]???s estimated glomerular filtration rate (eGFR) will no [...] individuals. Performed By: #### L [id number] #### [facility] [address] [place] [address] Glucose [Mass/Vol] 114 mg/dL High 70-100 [facility] Comment on above: Performed By: #### L [id number] #### [facility] ([facility]) [address] [place] [address] Potassium [Moles/Vol] 3.3 mmol/L Low 3.5-5.1 [facility] Comment on above: Performed By: #### L [id number] #### [facility] ([facility]) [address] [place] [address] Sodium [Moles/Vol] 136 mmol/L Normal 136-145 [facility] Comment on above: Performed By: #### L [id number] #### [facility] ([facility]) [address] [place] [address] Urea nitrogen [Mass/Vol] 14 mg/dL Normal 7-25 [facility] Comment on above: Performed By: #### L [id number] #### [facility] ([facility]) [address] [place] [address] UREA NITROGEN/CREATININE (MASS RATIO) IN SER/PLAS 15.9 Normal [facility] Comment on above: Performed By: #### L [id number] #### [facility] ([facility]) [address] [place] [address] CBC WITH AUTO DIFFERENTIALon 12-18-2024 Basophils (Bld) [#/Vol] 0.04 10*3/uL Normal 0.00-0.20 [facility] Comment on above: Performed By: #### L [id number] #### [facility] ([facility]) [address] [place] [address] Basophils/100 WBC (Bld) 0.6 % Normal 0.0-1.0 [facility] Comment on above: Performed By: #### L [id number] #### [facility] ([facility]) [address] [place] [address] Eosinophils (Bld) [#/Vol] 0.14 10*3/uL Normal 0.00-0.50 [facility] Comment on above: Performed By: #### L [id number] #### [facility] ([facility]) [address] [place] [address] Eosinophils/100 WBC (Bld) 2.2 % Normal 0.0-6.0 [facility] Comment on above: Performed By: #### L [id number] #### [facility] ([facility]) [address] [place] [address] Erythrocyte distribution width (RBC) [Ratio] 11.8 % Normal 11.5-15.0 [facility] Comment on above: Performed By: #### L [id number] #### [facility] ([facility]) [address] [place] [address] ERYTHROCYTE MEAN CORPUSCULAR HEMOGLOBIN CONCENTRATION (G/DL) BY AUTOMATED 36.2 g/dL High 32.0-35.0 [facility] Comment on above: Performed By: #### L [id number] #### [facility] ([facility]) [address] [place] [address] Hematocrit (Bld) [Volume fraction] 38.1 % Low 39.0-55.0 [facility] Comment on above: Performed By: #### L [id number] #### [facility] ([facility]) [address] [place] [address] Hemoglobin (Bld) [Mass/Vol] 13.8 g/dL Normal 13.0-17.0 [facility] Comment on above: Performed By: #### L [id number] #### [facility] ([facility]) [address] [place] [address] Immature granulocytes (Bld) [#/Vol] 0.04 10*3/uL Normal 0.00-0.20 [facility] Comment on above: Performed By: #### L [id number] #### [facility] ([facility]) [address] [place] [address] Immature granulocytes/100 WBC (Bld) 0.6 % Normal 0.0-1.0 [facility] Comment on above: Performed By: #### L [id number] #### [facility] ([facility]) [address] [place] [address] Lymphocytes (Bld) [#/Vol] 1.90 10*3/uL Normal 1.20-4.00 [facility] Comment on above: Performed By: #### L [id number] #### [facility] ([facility]) [address] [place] [address] Lymphocytes/100 WBC (Bld) 29.6 % Normal 20.0-45.0 [facility] Comment on above: Performed By: #### L [id number] #### [facility] ([facility]) [address] [place] [address] MCH (RBC) [Entitic mass] 33.3 pg High 27.0-33.0 [facility] Comment on above: Performed By: #### L [id number] #### [facility] ([facility]) [address] [place] [address] MCV (RBC) [Entitic vol] 92.0 fL Normal 82.0-98.0 [facility] Comment on above: Performed By: #### L [id number] #### [facility] ([facility]) [address] [place] [address] Monocytes (Bld) [#/Vol] 0.68 10*3/uL Normal 0.10-1.00 [facility] Comment on above: Performed By: #### L [id number] #### [facility] ([facility]) [address] [place] [address] Monocytes/100 WBC (Bld) 10.6 % Normal 5.0-12.0 [facility] Comment on above: Performed By: #### L [id number] #### [facility] ([facility]) [address] [place] [address] Neutrophils (Bld) [#/Vol] 3.61 10*3/uL Normal 1.60-7.60 [facility] Comment on above: Performed By: #### L [id number] #### [facility] ([facility]) [address] [place] [address] Neutrophils/100 WBC (Bld) 56.4 % Normal 40.0-72.0 [facility] Comment on above: Performed By: #### L [id number] #### [facility] ([facility]) [address] [place] [address] NRBC (PER 100 WBCS) BY AUTOMATED COUNT 0.0 % Normal 0 [facility] Comment on above: Performed By: #### L [id number] #### [facility] ([facility]) [address] [place] [address] PLATELETS (10*3/UL) IN BLOOD AUTOMATED COUNT 162 10*3/uL Normal 150-400 [facility] Comment on above: Performed By: #### L [id number] #### [facility] ([facility]) [address] [place] [address] RBC (Bld) [#/Vol] 4.14 10*6/uL Low 4.20-5.70 [facility] Comment on above: Performed By: #### L [id number] #### [facility] ([facility]) [address] [place] [address] WBC (Bld) [#/Vol] 6.41 10*3/uL Normal 4.00-10.60 [facility] Comment on above: Performed By: #### L [id number] #### [facility] ([facility]) [address] [place] [address] EDNURSon 12-18-2024 EDNURS Mode of arrival (squ ad #, walk in, police, etc): [facility] Chief complaint(s): Urinary Retention Arrival 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 Patient is in detox for ETOH abuse. Patient has a hx of BPH and urinary retention. Patient drinks 1/2 gallon of vodka daily prior to rehab. Patient unable to void and was sent to ED for evaluation Normal [facility] EDPROVon 12-18-2024 EDPROV [facility] Dipti [facility] [id number] EMERGENCY DEPARTMENT ENCOUNTER 12/18/2024 CHIEF COMPLAINT Chief Complaint Patient presents with Urinary Retention HISTORY OF PRESENT ILLNESS 54 y/o male with a h/o EtOH abuse presents to the ED from [facility] for evaluation of urinary retention. Pt [...] and reports he is currently residing at [facility] for EtOH withdrawal/detox. REVIEW OF SYSTEMS Review of Systems Constitutional: Negative for chills and fever. Respiratory: Negative for shortness of breath. Cardiovascular: Negative for chest pain. Gastrointestinal: Negative for abdominal pain, diarrhea and vomiting. Genitourinary: Positive for difficulty urinating. Negative for flank pain and hematuria. Musculoskeletal: Negative for back pain and neck pain. Skin: Negative for rash. Neurological: Negative for headaches. Psychiatric/Behavioral : Negative for confusion. All other systems reviewed [...] Glucose, Urine Normal Bilirubin, Urine Negative Specific [place], Urine 1.033 (*) Ketones, Urine Negative Blood, [...] Procedure Abnormality Status --------- ------ CBC auto differential[[id number]] Abnormal Final result Please view results for these tests on the individual orders. EMERGENCY DEPARMENT COURSE Vitals: Vitals: 12/18/24 1717 12/18/24 1800 BP: 122/78 122/78 BP Location: Left arm Patient Position: Lying Pulse: 68 Resp: 14 Temp: 36.9 ???C (98.5 ???F) TempS (more content not included)... Normal [facility] URINALYSIS WITH REFLEX CULTU REon 12-18-2024 BILIRUBIN, TOTAL PRESENCE IN URINE Negative Normal Negative [facility] Comment on above: Order Comment: Micro scopics not performed on urines with negative chemical reactions unless requested on original order. Performed By: #### L [id number] #### [facility] ([facility]) [address] [place] [address] Clarity (U) Clear Normal Clear [facility] Comment on above: Order Comment: Micro scopics not performed on urines with negative chemical reactions unless requested on original order. Performed By: #### L [id number] #### [facility] ([facility]) [address] [place] [address] Color (U) Yellow Normal Colorless, Yellow, Light-Yellow [facility] Comment on above: Order Comment: Micro scopics not performed on urines with negative chemical reactions unless requested on original order. Performed By: #### L [id number] #### [facility] ([facility]) [address] [place] [address] GLUCOSE (MG/DL) IN URINE Normal Normal Normal [facility] Comment on above: Order Comment: Micro scopics not performed on urines with negative chemical reactions unless requested on original order. Performed By: #### L [id number] #### [facility] ([facility]) [address] [place] [address] HEMOGLOBIN PRESENCE IN URINE Negative Normal Negative [facility] Comment on above: Order Comment: Micro scopics not performed on urines with negative chemical reactions unless requested on original order. Performed By: #### L [id number] #### [facility] ([facility]) [address] [place] [address] Ketones Ql (U) Negative Normal Negative [facility] Comment on above: Order Comment: Micro scopics not performed on urines with negative chemical reactions unless requested on original order. Performed By: #### L [id number] #### [facility] ([facility]) [address] [place] [address] LEUKOCYTE ESTERASE PRESENCE IN URINE BY TEST STRIP Negative Normal Negative [facility] Comment on above: Order Comment: Micro scopics not performed on urines with negative chemical reactions unless requested on original order. Performed By: #### L [id number] #### [facility] ([facility]) [address] [place] [address] NITRITE PRESENCE IN URINE Negative Normal Negative [facility] Comment on above: Order Comment: Micro scopics not performed on urines with negative chemical reactions unless requested on original order. Performed By: #### L [id number] #### [facility] ([facility]) [address] [place] [address] pH (U) 6.5 [pH] Normal 5.0-8.0 [facility] Comment on above: Order Comment: Micro scopics not performed on urines with negative chemical reactions unless requested on original order. Performed By: #### L [id number] #### [facility] ([facility]) [address] [place] [address] Protein (U) [Mass/Vol] Negative Normal Negative [facility] Comment on above: Order Comment: Micro scopics not performed on urines with negative chemical reactions unless requested on original order. Performed By: #### L [id number] #### [facility] ([facility]) [address] [place] [address] Specific gravity (U) [Rel density] 1.033 High 1.010-1.030 [facility] Comment on above: Order Comment: Micro scopics not performed on urines with negative chemical reactions unless requested on original order. Performed By: #### L [id number] #### [facility] ([facility]) [address] [place] [address] UROBILINOGEN (MG/DL) IN URINE >=8.0 Abnormal Normal [facility] Comment on above: Order Comment: Micro scopics not performed on urines with negative chemical reactions unless requested on original order. Performed By: #### L [id number] #### [facility] ([facility]) [address] [place] [address] Amphetamine Screen Ql (U)Ord ered By: Benedict Robb on 03-13-2022 Amphetamines Ql (U) Negative Negative [facility] Barbiturates [Presence] in U rineOrdered By: Benedict Robb on 03-13-2022 Barbiturates Ql (U) Negative Negative [facility] Basophils Auto (Bld) [#/Vol] Ordered By: Benedict Robb on 03-13-2022 Basophils (Bld) [#/Vol] 0.0 10*3/uL 0.0-0.2 [facility] Basophils/100 WBC Auto (Bld) Ordered By: Benedict Robb on 03-13-2022 Basophils/100 WBC (Bld) 0.3 % [facility] Benzodiazepines [Presence] i n UrineOrdered By: Benedict Robb on 03-13-2022 Benzodiazepines Ql (U) Negative Negative [facility] Bilirubin Test strip Ql (U)O rdered By: Benedict Robb on 03-13-2022 Bilirubin Ql (U) Negative Negative [facility] Blood hemoglobin measurement (mass/volume)Ordered By: Benedict Robb on 03-13-2022 Hemoglobin (Bld) [Mass/Vol] 14.9 g/dL 13.0-17.0 [facility] Blood leukocytes automated c ount (number/volume)Ordered By: Benedict Robb on 03-13-2022 WBC (Bld) [#/Vol] 6.2 10*3/uL 4.5-11.0 [facility] Body fluid albumin measureme nt (mass/volume)Ordered By: Benedict Robb on 03-13-2022 Albumin (Body fld) [Mass/Vol] 3.7 g/dL 3.2-5.5 [facility] COVID-19 Antigenon 2 COVID-19 Antigen Healthcare Worker?: [...] developed and its performance characteristic determined by [facility] and validated at [facility]. This test has not been FDA cleared [...] for SARS Antigen by [facility] PERFORMED BY: [place] [address] PATHOLOGIST MERCURY WASHER ULYSSES GODDARD M.D. Normal [facility] Comment on above: Performed By: #### C OVID-19 RICHARD, SOFIANEG #### [address] COVID-19 SOFIAOrdered By: Susan Robb on 03-13-2022 SARS-CoV+SARS-CoV-2 (COVID-19) Ag IA.rapid Ql (Resp) Negative Negative [facility] Comment on above: This is a duplicate Richard SARS Antigen ([facility]) result to be used for statistical tracking purpose only. Cannabinoids [Presence] in U rine by Screen methodOrdered By: Benedict Robb on 03-13-2022 Cannabinoids Screen Ql (U) Negative Negative [facility] Comment on above: These are unconfirme d results and should not be used for legal purposes. Drug Cut-Off Concentration: AMPH 1000 ng/mL KEARA 200 ng/mL ARIEL 200 ng/mL COCM 300 ng/mL OP 300 ng/mL PCP 25 ng/mL THC 20 ng/mL Color Auto (U)Ordered By: Susan Robb on 03-13-2022 Color (U) Yellow Yellow [facility] Complete Blood Count Auto Di ffon 03-13-2022 Basophils (Bld) [#/Vol] 0.0 10*3/uL Normal 0.0-0.2 [facility] Comment on above: Result Comment: PERF ORMED BY: [place] [address] PATHOLOGIST MERCURY WASHER ULYSSES GODDARD M.D. Performed By: #### E LISA, CBC, CMP #### [address] Basophils/100 WBC (Bld) 0.3 % Normal . [facility] Comment on above: Performed By: #### E LISA, CBC, CMP #### [address] Eosinophils (Bld) [#/Vol] 0.0 10*3/uL Normal 0.0-0.45 [facility] Comment on above: Performed By: #### E LISA, CBC, CMP #### [place] [address] [place] Eosinophils/100 WBC (Bld) 0.2 % Normal . [facility] Comment on above: Performed By: #### E LISA, CBC, CMP #### [address] Erythrocyte distribution width (RBC) [Ratio] 13.7 % Normal 12.0-14.8 [facility] Comment on above: Performed By: #### E LISA, CBC, CMP #### [address] [place] [address] [place] Hematocrit (Bld) [Volume fraction] 42.7 % Normal 38.8-50.0 [facility] Comment on above: Performed By: #### E LISA CBC, CMP #### [address] Hemoglobin (Bld) [Mass/Vol] 14.9 g/dL Normal 13.0-17.0 [facility] Comment on above: Performed By: #### E LISA CBC, CMP #### [address] Lymphocytes (Bld) [#/Vol] 1.1 10*3/uL Normal 1.00-4.8 [facility] Comment on above: Performed By: #### E LISA CBC, CMP #### [address] Lymphocytes/100 WBC (Bld) 18.0 % Normal . [facility] Comment on above: Performed By: #### E LISA CBC, CMP #### [address] MCH (RBC) [Entitic mass] 33.0 pg Normal 27.5-35.2 [facility] Comment on above: Performed By: #### E LISA CBC, CMP #### [address] MCV (RBC) [Entitic vol] 94.2 fL Normal 83.5-101 [facility] Comment on above: Performed By: #### E LISA CBC, CMP #### [address] Mean Corpuscular HGB Conc 35.0 g/dL Normal 32.5-35.6 [facility] Comment on above: Performed By: #### E LISA CBC, CMP #### [address] Monocytes (Bld) [#/Vol] 0.5 10*3/uL Normal 0.0-0.8 [facility] Comment on above: Performed By: #### E LISA, CBC, CMP #### [facility] [address] [place] [address] [place] Monocytes/100 WBC (Bld) 7.7 % Normal . [facility] Comment on above: Performed By: #### E LISA, CBC, CMP #### [facility] [address] [place] [address] [place] Neutrophils (Bld) [#/Vol] 4.6 10*3/uL Normal 1.8-7.7 [facility] Comment on above: Performed By: #### E LISA, CBC, CMP #### [facility] [address] [place] [address] [place] Neutrophils/100 WBC (Bld) 73.8 % Normal . [facility] Comment on above: Performed By: #### E LISA, CBC, CMP #### [facility] [address] [place] [address] [place] Nucleated RBC/100 WBC (Bld) [Ratio] 0.1 % Normal 0-0.5 [facility] Comment on above: Performed By: #### E LIAS, CBC, CMP #### [facility] [address] [place] [address] [place] Platelet mean volume (Bld) [Entitic vol] 6.6 fL Normal 6.6-10.1 [facility] Comment on above: Performed By: #### E LISA, CBC, CMP #### [facility] [address] [place] [address] [place] Platelets (Bld) [#/Vol] 194 10*3/uL Normal 150-450 [facility] Comment on above: Performed By: #### E LISA, CBC, CMP #### [facility] [address] [place] [address] [place] RBC (Bld) [#/Vol] 4.53 10*6/uL Normal 3.90-5.60 [facility] Comment on above: Performed By: #### E LISA, CBC, CMP #### [facility] [address] [place] [address] [place] WBC (Bld) [#/Vol] 6.2 10*3/uL Normal 4.5-11.0 [facility] Comment on above: Performed By: #### E ORLANDO GONZALEZ, CMP #### [facility] [address] [place] [address] Comprehensive Metabolic Pane jelly 03-13-2022 Albumin [Mass/Vol] 3.7 g/dL Normal 3.2-5.5 [facility] Comment on above: Performed By: #### E LISA CBC, CMP #### [address] Albumin/Globulin [Mass ratio] 1.3 {ratio} Normal [facility] Comment on above: Performed By: #### E ORLANDO GONZALEZ, CMP #### [address] ALP [Catalytic activity/Vol] 56 U/L Normal 32-92 [facility] Comment on above: Performed By: #### E ORLANDO GONZALEZ, CMP #### [address] ALT [Catalytic activity/Vol] 23 U/L Normal 10-60 [facility] Comment on above: Performed By: #### E ORLANDO GONZALEZ, CMP #### [address] AST [Catalytic activity/Vol] 37 U/L Normal 10-42 [facility] Comment on above: Performed By: #### E ORLANDO GONZALEZ, CMP #### [address] Bilirubin [Mass/Vol] 1.2 mg/dL Normal 0.3-1.2 [facility] Comment on above: Performed By: #### E ORLANDO GONZALEZ, CMP #### [address] Calcium [Mass/Vol] 8.7 mg/dL Normal 8.2-10.2 [facility] Comment on above: Performed By: #### E LISA CBC, CMP #### [facility] [address] [place] [address] Chloride [Moles/Vol] 100 mmol/L Normal 95-114 [facility] Comment on above: Performed By: #### E ORLANDO GONZALEZ, CMP #### [address] CO2 [Moles/Vol] 22.9 mmol/L Normal 22.0-30.0 [facility] Comment on above: Performed By: #### E LISA CBC, CMP #### [address] Creatinine [Mass/Vol] 0.93 mg/dL Normal 0.64-1.27 [facility] Comment on above: Performed By: #### E ORLANDO GONZALEZ, CMP #### [address] Creatinine Clr Calc Pharmacy 117.39 [facility] Comment on above: Result Comment: PERF ORMED BY: [place] [address] PATHOLOGIST MERCURY WASHER ULYSSES GODDARD M.D. Performed By: #### E ORLANDO GONZALEZ, CMP #### [address] Estimated GFR ( Jia > 60 [facility] Comment on above: Result Comment: GFR estimated reference range: According to KDOQI guidelines, <60 ml/min/1.73m2 is sufficient to diagnose a patient with chronic kidney disease. Performed By: #### E LISA CBC, CMP #### [address] Estimated GFR (Non- Am > 60 [facility] Comment on above: Performed By: #### E LISA CBC, CMP #### [address] Globulin (S) [Mass/Vol] 2.9 g/dL [facility] Comment on above: Performed By: #### E LISA CBC, CMP #### [address] Glucose [Mass/Vol] 93 mg/dL Normal 70-100 [facility] Comment on above: Result Comment: Energy Glucose Reference Range is dependent on time and content of last meal. Glucose of more than 200 mg/dL in a nonstressed, ambulatory subject supports the diagnosis of Diabetes Mellitus. ADA recommended reference range Performed By: #### E LISA, CBC, CMP #### [facility] [address] Potassium [Moles/Vol] 3.6 mmol/L Normal 3.5-5.1 [facility] Comment on above: Performed By: #### E LISA, CBC, CMP #### [facility] [address] [place] [address] [place] Protein [Mass/Vol] 6.6 g/dL Normal 6.1-7.9 [facility] Comment on above: Performed By: #### E LISA, CBC, CMP #### [facility] [address] [place] [address] [place] Sodium [Moles/Vol] 137 mmol/L Normal 136-146 [facility] Comment on above: Performed By: #### E LISA, CBC, CMP #### [facility] [address] [place] [address] [place] Urea nitrogen [Mass/Vol] 9 mg/dL Normal 9-23 [facility] Comment on above: Performed By: #### E LISA, CBC, CMP #### [facility] [address] [place] [address] [place] Creatinine and Glomerular fi ltration rate.predicted panel (S/P/Bld)Ordered By: Benedict Robb on 03-13-2022 Creatinine [Mass/Vol] 0.93 mg/dL 0.64-1.27 [facility] Drug Screen,Urineon 03-13-20 Amphetamine Screen,Urine Negative Normal Negative [facility] Comment on above: Performed By: #### U RDS, UA #### [facility] [address] [place] [address] [place] Barbiturate Screen,Urine Negative Normal Negative [facility] Comment on above: Performed By: #### U RDS, UA #### [place] [address] [place] Benzodiazepines Screen,Urine Negative Normal Negative [facility] Comment on above: Performed By: #### U RDS, UA #### [address] Cannabinoid Screen,Urine Negative Normal Negative [facility] Comment on above: Result Comment: Thes e are unconfirmed results and should not be used for legal purposes. Drug Cut-Off Concentration: AMPH 1000 ng/mL KEARA 200 ng/mL ARIEL 200 ng/mL COCM 300 ng/mL OP 300 ng/mL PCP 25 ng/mL THC 20 ng/mL PERFORMED BY: [place] [address] PATHOLOGIST [employer] WASHER ULYSSES GODDARD M.D. Performed By: #### U RDS, UA #### [address] Cocaine Screen,Urine Negative Normal Negative [facility] Comment on above: Performed By: #### U RDS, UA #### [place] [address] [place] Opiate Screen,Urine Negative Normal Negative [facility] Comment on above: Performed By: #### U RDS, UA #### [address] Phencyclidine Screen,Urine Negative Normal Negative [facility] Comment on above: Performed By: #### U RDS, UA #### [address] ECHOCARDIO M/2D COMPLETEon 0 03-13-2022 ECHOCARDIO M/2D COMPLETE Patient: LALI JAIME Exam Date: 03/13/2022 : 1970 Gender:M Ordering : SHAIKH Jim ANDERS . Admission #: [id number] Family : Order #: [id number] CLICK HERE TO VIEW EXAM ECHOCARDIOGRAM REPORT [...] Mills M.D. on 03/13/2022 at 15:32 Normal [facility] Eosinophils Auto (Bld) [#/Vo l]Ordered By: Benedict Robb on 03-13-2022 Eosinophils (Bld) [#/Vol] 0.0 10*3/uL 0.0-0.45 [facility] Eosinophils/100 WBC Auto (Bl d)Ordered By: Benedict Robb on 03-13-2022 Eosinophils/100 WBC (Bld) 0.2 % [facility] Erythrocyte distribution wid th Auto (RBC) [Ratio]Ordered By: Benedict Robb on 03-13-2022 Erythrocyte distribution width (RBC) [Ratio] 13.7 % 12.0-14.8 [facility] Estimated glomerular filtrat ion rate (GFR) non- AmericanOrdered By: Benedict Robb on 03-13-2022 GFR/1.73 sq M.predicted among non-blacks MDRD (S/P/Bld) [Vol rate/Area] > 60 mL/Min [facility] Ethyl Alcohol Profileon 02-24 Ethanol [Mass/Vol] 94 mg/dL Normal [facility] Comment on above: Performed By: #### E LISA, CBC, CMP #### [facility] [address] Percent Ethanol 0.094 % Normal [facility] Comment on above: Result Comment: PERF ORMED BY: [place] [address] PATHOLOGIST [employer] ULYSSES GODDARD M.D. Performed By: #### E LISA, CBC, CMP #### [facility] [address] GLYCOHEMOGLOBIN A1Con 2021 ADA RECOMMENDATION ADA THERAPEUTIC TARG ET 6.0 - 7.0 ACTION SUGGESTED > 7.0 Normal [facility] Comment on above: Performed By: #### A 1C #### [facility] [address] [address] [address] Hood Loco Glucose [Mass/Vol] 94 mg/dL Normal [facility] Comment on above: Performed By: #### A 1C #### [facility] [address] [address] [address] Hood Loco HbA1c (Bld) [Mass fraction] 4.9 % Normal <=6.0 [facility] Comment on above: Performed By: #### A 1C #### [facility] [address] [address] [address] Hood Loco Globulin Calc (S) [Mass/Vol] Ordered By: Benedict Robb on 03-13-2022 Globulin (S) [Mass/Vol] 2.9 g/dL [facility] Hematocrit Auto (Bld) [Volum e fraction]Ordered By: Benedict Robb on 03-13-2022 Hematocrit (Bld) [Volume fraction] 42.7 % 38.8-50.0 [facility] Ketones Auto test strip (U) [Mass/Vol]Ordered By: Benedict Robb on 03-13-2022 Ketones (U) [Mass/Vol] Negative Negative [facility] LIPID PROFILEon 03-13-2022 CHOL-HDL RATIO NORM SEE BELOW Normal [facility] Comment on above: Result Comment: 3.3 - 4.4 LOW RISK 4.4 - 7.1 AVERAGE RISK 7.1 - 11.0 MODERATE RISK >11.0 HIGH RISK Performed By: #### D HUSAM, ERUR #### [facility] [address] [address] [address] Hood Loco Cholesterol [Mass/Vol] 158 mg/dL Normal <=200 [facility] Comment on above: Performed By: #### D HUSAM, ERUR #### [facility] [address] [address] [address] Hood Loco Cholesterol in HDL [Mass/Vol] 70 mg/dL Critically high 40-60 [facility] Comment on above: Performed By: #### Gage WEINER, ERUR #### [facility] [address] [address] [address] Hood Loco Cholesterol in LDL [Mass/Vol] 51.2 mg/dL Normal [facility] Comment on above: Performed By: #### D HUSAM, ERUR #### [facility] [address] [address] [address] Hood Loco Cholesterol.total/Chol esterol in HDL [Mass ratio] 2.3 {ratio} Normal [facility] Comment on above: Performed By: #### D HUSAM, ERUR #### [facility] [address] [address] [address] Hood Loco HDL NORMAL > or = 60 mg/dl - LO W CARDIOVASCULAR RISK <40 mg/dl - HIGH CARDIOVASCULAR RISK Normal [facility] Comment on above: Performed By: #### D HUSAM, ERUR #### [facility] [address] [address] [address] Hood Loco LDL CALC NORMAL SEE BELOW Normal [facility] Comment on above: Result Comment: <100 mg/dl OPTIMAL 100 - 129 mg/dl NEAR OR ABOVE OPTIMAL 130 - 159 mg/dl BORDERLINE HIGH 160 - 189 mg/dl HIGH >190 mg/dl VERY HIGH Performed By: #### D HUSAM, ERUR #### [facility] [address] [place], [place] [address] Dr. Hood Loco Triglyceride [Mass/Vol] 184 mg/dL Critically high <=150 [facility] Comment on above: Performed By: #### D HUSAM, ERUR #### [facility] [address] [address] [address] Hood Loco VLDL CALC 36.8 mg/dL Normal [facility] Comment on above: Performed By: #### D HUSAM, ERUR #### [facility] [id number] Hood Loco Laboratory - Drug toxicology Ordered By: Benedict Robb on 03-13-2022 Opiates Ql (U) Negative Negative [facility] Laboratory - Hematology and Cell countsOrdered By: Benedict Robb on 03-13-2022 Nucleated RBC/100 WBC (Bld) [Ratio] 0.1 % 0-0.5 [facility] Lymphocytes Auto (Bld) [#/Vo l]Ordered By: Benedict Robb on 03-13-2022 Lymphocytes (Bld) [#/Vol] 1.1 10*3/uL 1.00-4.8 [facility] Lymphocytes/100 WBC Auto (Bl d)Ordered By: Benedict Robb on 03-13-2022 Lymphocytes/100 WBC (Bld) 18.0 % [facility] MCH Auto (RBC) [Entitic mass ]Ordered By: Benedict Robb on 03-13-2022 MCH (RBC) [Entitic mass] 33.0 pg 27.5-35.2 [facility] MCHC Auto (RBC) [Mass/Vol]Or dered By: Benedict Robb on 03-13-2022 MCHC (RBC) [Mass/Vol] 35.0 g/dL 32.5-35.6 [facility] MCV Auto (RBC) [Entitic vol] Ordered By: Benedict Robb on 03-13-2022 MCV (RBC) [Entitic vol] 94.2 fL 83.5-101 [facility] Monocytes Auto (Bld) [#/Vol] Ordered By: Benedict Robb on 03-13-2022 Monocytes (Bld) [#/Vol] 0.5 10*3/uL 0.0-0.8 [facility] Monocytes/100 WBC Auto (Bld) Ordered By: Benedict Robb on 03-13-2022 Monocytes/100 WBC (Bld) 7.7 % [facility] Neutrophils Auto (Bld) [#/Vo l]Ordered By: Benedict Robb on 03-13-2022 Neutrophils (Bld) [#/Vol] 4.6 10*3/uL 1.8-7.7 [facility] Neutrophils/100 WBC Auto (Bl d)Ordered By: Benedict Robb on 03-13-2022 Neutrophils/100 WBC (Bld) 73.8 % [facility] Nitrite Test strip Ql (U)Ord ered By: Benedict Robb on 03-13-2022 Nitrite Ql (U) Negative Negative [facility] No Panel InformationOrdered By: Benedict Robb on 03-13-2022 SARS Antigen (LFIA) [facility] Estimated GFR () > 60 mL/Min [facility] Comment on above: GFR estimated refere nce range: According to KDOQI guidelines, <60 ml/min/1.73m2 is sufficient to diagnose a patient with chronic kidney disease. Pharmacy Creatinine Clearance (Chem 117.39 [facility] Phencyclidine Screen Ql (U)O rdered By: Benedict Robb on 03-13-2022 Phencyclidine Ql (U) Negative Negative [facility] Platelet mean volume Auto (B ld) [Entitic vol]Ordered By: Benedict Robb on 03-13-2022 Platelet mean volume (Bld) [Entitic vol] 6.6 fL 6.6-10.1 [facility] Platelets Auto (Bld) [#/Vol] Ordered By: Benedict Robb on 03-13-2022 Platelets (Bld) [#/Vol] 194 10*3/uL 150-450 [facility] Protein Auto test strip (U) [Mass/Vol]Ordered By: Benedict Robb on 03-13-2022 Protein (U) [Mass/Vol] Negative Negative [facility] Protein [Mass/volume] in Ser um or PlasmaOrdered By: Benedict Robb on 03-13-2022 Protein [Mass/Vol] 6.6 g/dL 6.1-7.9 [facility] RBC Auto (Bld) [#/Vol]Ordere d By: Benedict Robb on 03-13-2022 RBC (Bld) [#/Vol] 4.53 10*6/uL 3.90-5.60 [facility] Serum or plasma alanine garcia otransferase measurement without P-5'-P (enzymatic activiOrdered By: Benedict Robb on 03-13-2022 ALT No additional P-5'-P [Catalytic activity/Vol] 23 U/L 10-60 [facility] Serum or plasma albumin/glob ulin mass ratioOrdered By: Benedict Robb on 03-13-2022 Albumin/Globulin [Mass ratio] 1.3 {ratio} [facility] Serum or plasma alkaline malini sphatase measurement (enzymatic activity/volume)Ordered By: Benedict Robb on 03-13-2022 ALP [Catalytic activity/Vol] 56 U/L 32-92 [facility] Serum or plasma aspartate am inotransferase measurement (enzymatic activity/volume)Ordered By: Benedict Robb on 03-13-2022 AST [Catalytic activity/Vol] 37 U/L 10-42 [facility] Serum or plasma calcium jennifer urement (mass/volume)Ordered By: Benedict Robb on 03-13-2022 Calcium [Mass/Vol] 8.7 mg/dL 8.2-10.2 [facility] Serum or plasma chloride joel surement (moles/volume)Ordered By: Benedict Robb on 03-13-2022 Chloride [Moles/Vol] 100 mmol/L 95-114 [facility] Serum or plasma ethanol jennifer urement (mass/volume)Ordered By: Benedict Robb on 03-13-2022 Ethanol [Mass/Vol] 94 mg/dL [facility] Ethanol [Mass/Vol] 0.094 % [facility] Serum or plasma glucose jennifer urement (mass/volume)Ordered By: Benedict Robb on 03-13-2022 Glucose [Mass/Vol] 93 mg/dL 70-100 [facility] Comment on above: ADA recommended refe rence rangeRandom Glucose Reference Range is dependent on time and content of last meal. Glucose of more than 200 mg/dL in a nonstressed, ambulatory subject supports the diagnosis of Diabetes Mellitus. Serum or plasma potassium me asurement (moles/volume)Ordered By: Benedict Robb on 03-13-2022 Potassium [Moles/Vol] 3.6 mmol/L 3.5-5.1 [facility] Serum or plasma sodium measu rement (moles/volume)Ordered By: Benedict Robb on 03-13-2022 Sodium [Moles/Vol] 137 mmol/L 136-146 [facility] Serum or plasma total biliru bin measurement (mass/volume)Ordered By: Benedict Robb on 03-13-2022 Bilirubin [Mass/Vol] 1.2 mg/dL 0.3-1.2 [facility] Serum or plasma total carbon dioxide measurement (moles/volume)Ordered By: Benedict Robb on 03-13-2022 CO2 [Moles/Vol] 22.9 mmol/L 22.0-30.0 [facility] Serum or plasma urea nitroge n measurement (mass/volume)Ordered By: Benedict Robb on 03-13-2022 Urea nitrogen [Mass/Vol] 9 mg/dL 9-23 [facility] Richard Ag Negativeon 03-13-20 Richard Ag Negative Negative Normal Negative [facility] Comment on above: Result Comment: This is a duplicate Richard SARS Antigen (DUTCH) result to be used for statistical tracking purpose only. PERFORMED BY: [place] [address] PATHOLOGIST [employer] WASHER ULYSSES GODDARD M.D. Performed By: #### C OVID-19 RICHARD, SOFIANEG #### [place] [address] [place] Specific gravity Auto test s trip (U) [Rel density]Ordered By: Benedict Robb on 03-13-2022 Specific gravity (U) [Rel density] 1.019 1.001-1.030 [facility] TROPONIN, HIGH SENSITIVITYon 03-13-2022 HSTROP 9.9 pg/mL Normal 4.0-42.2 [facility] Comment on above: Result Comment: CUT- OFF POINTS HAVE BEEN ESTABLISHED BASED ON THE FOURTH UNIVERSAL DEFINITIONS OF MYOCARDIAL INFARCTION. THE UPPER REFERENCE LIMIT (URL) OF TROPONIN, DEFINED THE 99TH PERCENTILE OF cTnI DISTRIBUTION IN A REFERENCE POPULATION, HAS BEEN CONFIRMED THE DECISION THRESHOLD FOR UT DIAGNOSIS. Performed By: #### H STROPN #### [facility] [address] [address] [address] Hood Loco Urinalysison 03-13-2022 Appearance (U) Clear Normal Clear [facility] Comment on above: Order Comment: Name Collection Type:: Clean-Voided Midstream Performed By: #### U RDS, UA #### [facility] [address] [id number] [place] Bilirubin,Urine Negative Normal Negative [facility] Comment on above: Order Comment: Name Collection Type:: Clean-Voided Midstream Performed By: #### U RDS, UA #### [facility] [address] [id number] [place] Color (U) Yellow Normal Yellow [facility] Comment on above: Order Comment: Name Collection Type:: Clean-Voided Midstream Performed By: #### U RDS, UA #### [facility] [address] [id number] [place] Glucose Ql (U) Normal Normal Normal [facility] Comment on above: Order Comment: Name Collection Type:: Clean-Voided Midstream Performed By: #### U RDS, UA #### [facility] [address] [id number] [place] Ketones Ql (U) Negative Normal Negative [facility] Comment on above: Order Comment: Name Collection Type:: Clean-Voided Midstream Performed By: #### U RDS, UA #### [facility] [address] [id number] [place] Leukocyte esterase Test strip Ql (U) Negative Normal Negative [facility] Comment on above: Order Comment: Name Collection Type:: Clean-Voided Midstream Performed By: #### U RDS, UA #### [facility] [address] [id number] [place] Nitrite,Urine Negative Normal Negative [facility] Comment on above: Order Comment: Name Collection Type:: Clean-Voided Midstream Performed By: #### U RDS, UA #### [facility] [address] [place] [address] [place] Occult Blood,Urine Negative Normal Negative [facility] Comment on above: Order Comment: Name Collection Type:: Clean-Voided Midstream Result Comment: PERF ORMED BY: [place] [address] PATHOLOGIST [employer] WASH[employer] ULYSSES GODDARD M.D. Performed By: #### U RDS, UA #### [facility] [address] [place] [address] [place] pH (U) 7.0 [pH] Normal 5.0-9.0 [facility] Comment on above: Order Comment: Name Collection Type:: Clean-Voided Midstream Performed By: #### U RDS, UA #### [facility] [address] [place] [address] [place] Protein,Urine Negative Normal Negative [facility] Comment on above: Order Comment: Name Collection Type:: Clean-Voided Midstream Performed By: #### U RDS, UA #### [facility] [address] [place] [address] [place] Specificy [place],Urine 1.019 Normal 1.001-1.030 [facility] Comment on above: Order Comment: Name Collection Type:: Clean-Voided Midstream Performed By: #### U RDS, UA #### [facility] [address] [place] [address] [place] Urobilinogen,Urine Normal Normal Normal [facility] Comment on above: Order Comment: Name Collection Type:: Clean-Voided Midstream Performed By: #### U RDS, UA #### [facility] [address] [place] [address] [place] Urine clarity by refractomet ry automatedOrdered By: Benedict Robb on 03-13-2022 Clarity Refractometry automated (U) Clear Clear [facility] Urine cocaine detectionOrder ed By: Benedict Robb on 03-13-2022 Cocaine Ql (U) Negative Negative [facility] Urine glucose measurement by automated test strip (mass/volume)Ordered By: Benedict Robb on 03-13-2022 Glucose Auto test strip (U) [Mass/Vol] Normal mg/dL Normal [facility] Urine hemoglobin detection b y automated test stripOrdered By: Benedict Robb on 03-13-2022 Hemoglobin Auto test strip Ql (U) Negative Negative [facility] Urine leukocyte esterase det ection by automated test stripOrdered By: Benedict Robb on 03-13-2022 Leukocyte esterase Auto test strip Ql (U) Negative Negative [facility] Urobilinogen Auto test strip (U) [Mass/Vol]Ordered By: Benedict Robb on 03-13-2022 Urobilinogen (U) [Mass/Vol] Normal mg/dL Normal [facility] pH Auto test strip (U)Ordere d By: Benedict Robb on 03-13-2022 pH (U) 7.0 [pH] 5.0-9.0 [facility] AMMONIAon 03-12-2022 Ammonia (P) [Moles/Vol] 27 umol/L Normal 11-32 [facility] Comment on above: Performed By: #### D YASH WEINERR #### [facility] [address] [place] [address] Dr. Hood Loco BNPon 03-12-2022 Natriuretic peptide B (Bld) [Mass/Vol] 28.0 pg/mL Normal <=900.0 [facility] Comment on above: Performed By: #### P HVEN #### [facility] [address] [place] [address] Dr. Hood Loco CARDIAC GINGER ADMITon 022 CK [Catalytic activity/Vol] 338 U/L Critically high 55-170 [facility] Comment on above: Performed By: #### P HVEN #### [facility] [address] [place] [address] Dr. Hood Loco CK.MB [Mass/Vol] 1.90 ng/mL Normal <=2.37 [facility] Comment on above: Performed By: #### P HVEN #### [facility] [address] [place] [address] Dr. Hood Loco HSTROP 8.3 pg/mL Normal 4.0-42.2 [facility] Comment on above: Result Comment: CUT- OFF POINTS HAVE BEEN ESTABLISHED BASED ON THE FOURTH UNIVERSAL DEFINITIONS OF MYOCARDIAL INFARCTION. THE UPPER REFERENCE LIMIT (URL) OF TROPONIN, DEFINED THE 99TH PERCENTILE OF cTnI DISTRIBUTION IN A REFERENCE POPULATION, HAS BEEN CONFIRMED THE DECISION THRESHOLD FOR UT DIAGNOSIS. Performed By: #### P HVEN #### [facility] [address] [place] [address] Dr. Hood Loco MARY 68.0 ng/mL Normal <=121.0 [facility] Comment on above: Performed By: #### P HVEN #### [facility] [address] [place] [address] Dr. Hood Loco CBC AUTO DIFFon 03-12-2022 BASO # 0.1 103/ul Normal 0.0-0.1 [facility] Comment on above: Performed By: #### D SLAVAD, ERUR #### [facility] [address] [place] [address] Dr. Hood Loco Basophils/100 WBC (Bld) 0.7 % Normal 0.2-2.0 [facility] Comment on above: Performed By: #### D HSUAM, ERUR #### [facility] [address] [place] [address] Dr. Hood Loco EO # 0.0 103/ul Normal 0.0-0.7 [facility] Comment on above: Performed By: #### D HUSAM, ERUR #### [facility] [address] [place] [address] Dr. Hood Loco Eosinophils/100 WBC (Bld) 0.3 % Critically low 0.9-7.0 [facility] Comment on above: Performed By: #### D SLAVAD, ERUR #### [facility] [address] [place] [address] Dr. Hood Loco Erythrocyte distribution width (RBC) [Ratio] 12.7 % Normal 11.0-15.0 [facility] Comment on above: Performed By: #### D SLAVAD, ERUR #### [facility] [address] [place] [address] Dr. Hood Loco Hematocrit (Bld) [Volume fraction] 44.8 % Normal 42.0-54.0 [facility] Comment on above: Performed By: #### D HUSAM, ERUR #### [facility] [address] [place] [address] Dr. Hood Loco Hemoglobin (Bld) [Mass/Vol] 15.8 g/dL Normal 14.0-18.0 [facility] Comment on above: Performed By: #### D HUSAM, ERUR #### [facility] [address] [place] [address] Dr. Hood Loco IG # 0.04 10e3/ul Critically high 0.00-0.03 [facility] Comment on above: Performed By: #### D HUSAM, ERUR #### [facility] [address] [place] [address] Dr. Hood Loco IG % 0.5 % Normal 0.0-0.5 [facility] Comment on above: Performed By: #### Gage WEINER, ERUR #### [facility] [address] [place] [address] Dr. Hood Loco LYMPH # 1.9 103/ul Normal 1.2-3.8 [facility] Comment on above: Performed By: #### Gage WEINER, ERUR #### [facility] [address] [place] [address] Dr. Hood Loco Lymphocytes/100 WBC (Bld) 24.5 % Normal 20.5-60.0 [facility] Comment on above: Performed By: #### Gage WEINER, ERUR #### [facility] [address] [place] [address] Dr. Hood Loco MANUAL DIFF REQ NO Normal [facility] Comment on above: Performed By: #### D HUSAM, ERUR #### [facility] [address] [place] [address] Dr. Hood Loco MCH (RBC) [Entitic mass] 32.6 pg Normal 25.9-34.0 [facility] Comment on above: Performed By: #### Gage WEINER, ERUR #### [facility] [address] [place] [address] Dr. Hood Loco MCHC (RBC) [Mass/Vol] 35.3 g/dL Critically high 29.9-35.2 [facility] Comment on above: Performed By: #### D HUSAM, ERUR #### [facility] [address] [place] [address] Dr. Hood Loco MCV (RBC) [Entitic vol] 92.4 fL Normal 80.0-94.0 [facility] Comment on above: Performed By: #### D HUSAM, ERUR #### [facility] [address] [place] [address] Dr. Hood Loco MONO # 0.7 103/ul Normal 0.3-0.8 [facility] Comment on above: Performed By: #### D HUSAM, ERUR #### [facility] [address] [place] [address] Dr. Hood Loco Monocytes/100 WBC (Bld) 9.5 % Normal 1.7-12.0 [facility] Comment on above: Performed By: #### D HUSAM, ERUR #### [facility] [address] [place] [address] Dr. Hood Loco NEUT # 4.9 103/ul Normal 1.4-6.5 [facility] Comment on above: Performed By: #### D HUSAM, ERUR #### [facility] [address] [place] [address] Dr. Hood Loco Neutrophils/100 WBC (Bld) 64.5 % Normal 43.0-75.0 [facility] Comment on above: Performed By: #### D HUSAM, ERUR #### [facility] [address] [place] [address] Dr. Hood Loco Platelet mean volume (Bld) [Entitic vol] 8.3 fL Critically low 9.5-13.5 [facility] Comment on above: Performed By: #### D HUSAM, ERUR #### [facility] [address] [place] [address] Dr. Hood Loco PLT 187 103/ul Normal 150-450 [facility] Comment on above: Performed By: #### D HUSAM, ERUR #### [facility] [address] [place] [address] Dr. Hood Loco RBC 4.85 106/ul Normal 4.70-6.10 [facility] Comment on above: Performed By: #### D HUSAM, ERUR #### [facility] [address] [place] [address] Dr. Hood Loco WBC 7.6 103/ul Normal 4.0-11.0 [facility] Comment on above: Performed By: #### D HUSAM, ERUR #### [facility] [address] [place] [address] Dr. Hood Loco DRUG SCREEN RAPID (URINE)on 03-12-2022 AMP Negative Normal NEGATIVE [facility] Comment on above: Performed By: #### D HUSAM, ERUR #### [facility] [address] [place] [address] Dr. Hood Loco BAR Negative Normal NEGATIVE [facility] Comment on above: Performed By: #### D RUGANJALI, ERUR #### [facility] [address] [place] [address] Dr. Hood Loco BUP Negative Normal NEGATIVE [facility] Comment on above: Performed By: #### D SLAVAD, ERUR #### [facility] [address] [place] [address] Dr. Hood Loco BZO Negative Normal NEGATIVE [facility] Comment on above: Performed By: #### D RUGRPD, ERUR #### [facility] [address] [place] [address] Dr. Hood Loco TREY Negative Normal NEGATIVE [facility] Comment on above: Performed By: #### D HUSAM, ERUR #### [facility] [address] [place] [address] Dr. Hood Loco CUT-OFFS SEE BELOW Normal [facility] Comment on above: Result Comment: [...] Performed By: #### D RUGRPD, ERUR #### [facility] [address] [place] [address] Dr. Hood Loco DRUG CUT HEADER DRUG CLASS TEST SYST EM CUT-OFF CONCENTRATIONS ARE FOLLOWS: Normal [facility] Comment on above: Performed By: #### D RUGRPD, ERUR #### [facility] [address] [place] [address] Dr. Hood Loco mAMP Negative Normal NEGATIVE [facility] Comment on above: Performed By: #### D RUGRPD, ERUR #### [facility] [address] [place] [address] Dr. Hood Loco MTD Negative Normal NEGATIVE [facility] Comment on above: Performed By: #### D RUGRPD, ERUR #### [facility] [address] [place] [address] Dr. Hood Loco OPI Negative Normal NEGATIVE [facility] Comment on above: Performed By: #### D RUGRPD, ERUR #### [facility] [address] [place] [address] Dr. Hood Loco OXY Negative Normal NEGATIVE [facility] Comment on above: Performed By: #### D RUGRPD, ERUR #### [facility] [address] [place] [address] Dr. Hood Loco PCP Negative Normal NEGATIVE [facility] Comment on above: Performed By: #### D RUGRPD, ERUR #### [facility] [address] [place] [address] Dr. Hood Loco PPX Negative Normal NEGATIVE [facility] Comment on above: Performed By: #### D HUSAM, ERUR #### [facility] [address] [place] [address] Dr. Hood Loco TCA Negative Normal NEGATIVE [facility] Comment on above: Performed By: #### D HUSAM, ERUR #### [facility] [address] [place] [address] Dr. Hood Loco THC Negative Normal NEGATIVE [facility] Comment on above: Performed By: #### D HUSAM, ERUR #### [facility] [address] [place] [address] Dr. Hood Loco ER URINE PROFILEon 2 Bilirubin Ql (U) Negative Normal NEGATIVE [facility] Comment on above: Performed By: #### D HUSAM, ERUR #### [facility] [address] [place] [address] Dr. Hood Loco Clarity (U) CLEAR Normal CLEAR [facility] Comment on above: Performed By: #### Gage WEINER, ERUR #### [facility] [address] [place] [address] Dr. Hood Loco Color (U) LT. YELLOW Normal YELLOW [facility] Comment on above: Performed By: #### D HUSMA, ERUR #### [facility] [address] [place] [address] Dr. Hood VIDAL A micrscopic examination will be performed if indicated. Normal [facility] Comment on above: Performed By: #### Gage WEINER, ERUR #### [facility] [address] [place] [address] Dr. Hood Loco Glucose Ql (U) 100 mg/dl Abnormal NEGATIVE [facility] Comment on above: Performed By: #### D HUSAM, ERUR #### [facility] [address] [place] [address] Dr. Hood Loco Hemoglobin Ql (U) Negative Normal NEGATIVE [facility] Comment on above: Performed By: #### D HUSAM, ERUR #### [facility] [address] [place] [address] Dr. Hood Loco Ketones Ql (U) Negative Normal NEGATIVE [facility] Comment on above: Performed By: #### D HUSAM, ERUR #### [facility] [address] [address] [address] Hood Loco LEUKOCYTES Negative Normal NEGATIVE [facility] Comment on above: Performed By: #### D HUSAM, ERUR #### [facility] [address] [address] [address] Hood Loco Nitrite Ql (U) Negative Normal NEGATIVE [facility] Comment on above: Performed By: #### D HUSAM, ERUR #### [facility] [address] [address] [address] Hood Loco pH (U) 6.0 [pH] Normal 5-9 [facility] Comment on above: Performed By: #### D HUSAM, ERUR #### [facility] [address] [place] [address] Dr. Hood Loco SPEC GRAVITY 1.005 Normal 1.005-<=1.02 5 [facility] Comment on above: Performed By: #### D HUSAM, ERUR #### [facility] [address] [address] [address] Hood Loco UA PROTEIN Negative Normal NEGATIVE/ TRACE [facility] Comment on above: Performed By: #### D HUSAM, ERUR #### [facility] [address] [place] [address] Dr. Hood Loco UR MICRO IND NOT INDICATED Normal [facility] Comment on above: Performed By: #### D HUSAM, ERUR #### [facility] [address] [address] [address] Hood Loco Urobilinogen Qn (U) 0.2 {Rohith'U}/dL Normal 0.2 - 1. 0 [facility] Comment on above: Performed By: #### D HUSAM, ERUR #### [facility] [address] [place] [address] Dr. Hood Loco ETHANOL (BLD ALC)on 03-12-20 ALC NOTE NOTE: 80 mg/dl is th e legal limit for a blood alcohol level Normal [facility] Comment on above: Performed By: #### D YASH WEINERR #### [facility] [address] [place] [address] Dr. Hood Loco Ethanol [Mass/Vol] 451 mg/dL Normal [facility] Comment on above: Performed By: #### D YASH WEINERR #### [facility] [address] [place] [address] Dr. Hood Loco LIPASEon 03-12-2022 Lipase [Catalytic activity/Vol] 112.0 U/L Normal 23.0-300.0 [facility] Comment on above: Performed By: #### P HVEN #### [facility] [address] [place] [address] Dr. Hood Loco MAGNESIUMon 03-12-2022 Magnesium [Mass/Vol] 1.9 mg/dL Normal 1.6-2.3 [facility] Comment on above: Performed By: #### M G #### [facility] [address] [place] [address] Dr. Hood Loco PH VENOUS BLOODon 03-12-2022 PCO2 VENOUS 42.2 mmHg Normal 40.0-52.0 [facility] Comment on above: Performed By: #### P HVEN #### [facility] [address] [place] [address] Dr. Hood Loco pH VENOUS 7.444 Critically high 7.330-7.430 [facility] Comment on above: Performed By: #### P HVEN #### [facility] [address] [place] [address] Dr. Hood Loco PROF 14(COMP METB)on 022 Albumin [Mass/Vol] 3.8 g/dL Normal 3.4-5.0 [facility] Comment on above: Performed By: #### P HVEN #### [facility] [address] [place] [address] Dr. Hood Loco Albumin/Globulin [Mass ratio] 1.0 {ratio} Normal [facility] Comment on above: Performed By: #### P HVEN #### [facility] [address] [address] [address] Hood Loco ALP [Catalytic activity/Vol] 75 U/L Normal 46-116 [facility] Comment on above: Performed By: #### P HVEN #### [facility] [address] [address] [address] Hood Loco ALT [Catalytic activity/Vol] 30 U/L Normal 16-63 [facility] Comment on above: Performed By: #### P HVEN #### [facility] [address] [address] [address] Hood Loco Anion gap [Moles/Vol] 15.4 mmol/L Normal [facility] Comment on above: Performed By: #### P HVEN #### [facility] [address] [address] [address] Hood Loco AST [Catalytic activity/Vol] 55 U/L Critically high 15-37 [facility] Comment on above: Performed By: #### P HVEN #### [facility] [address] [address] [address] Hood Loco Bilirubin [Mass/Vol] 0.8 mg/dL Normal 0.2-1.3 [facility] Comment on above: Performed By: #### P HVEN #### [facility] [address] [address] [address] Hood Loco Calcium [Mass/Vol] 8.3 mg/dL Critically low 8.5-10.1 [facility] Comment on above: Performed By: #### P HVEN #### [facility] [address] [address] [address] Hood Loco Chloride [Moles/Vol] 99 mmol/L Normal 98-107 [facility] Comment on above: Performed By: #### P HVEN #### [facility] [address] [address] [address] Hood Loco CO2 [Moles/Vol] 26.9 mmol/L Normal 22.0-30.0 [facility] Comment on above: Performed By: #### P HVEN #### [facility] [address] [address] [address] Hood Loco Creatinine [Mass/Vol] 0.77 mg/dL Normal 0.66-1.25 [facility] Comment on above: Performed By: #### P HVEN #### [facility] [address] [address] [address] Hood Loco EGFR-AF [place] >60 Normal >=60 [facility] Comment on above: Performed By: #### P HVEN #### [facility] [address] [address] [address] Hood Loco EGFR-NON AF [place] >60 Normal >=60 [facility] Comment on above: Performed By: #### P HVEN #### [facility] [address] [place] [address] Dr. Hood Loco Globulin (S) [Mass/Vol] 3.8 g/dL Normal [facility] Comment on above: Performed By: #### P HVEN #### [facility] [address] [address] [address] Hood Loco Glucose [Mass/Vol] 115 mg/dL Critically high 74-106 [facility] Comment on above: Performed By: #### P HVEN #### [facility] [address] [place] [address] Dr. Hood Loco Potassium [Moles/Vol] 4.3 mmol/L Normal 3.4-5.0 [facility] Comment on above: Performed By: #### P HVEN #### [facility] [address] [address] [address] Hood Loco Protein [Mass/Vol] 7.6 g/dL Normal 6.1-8.2 [facility] Comment on above: Performed By: #### P HVEN #### [facility] [address] [place] [address] Dr. Hood Loco Sodium [Moles/Vol] 137 mmol/L Normal 137-145 [facility] Comment on above: Performed By: #### P HVEN #### [facility] [address] [place] [address] Dr. Hood Loco Urea nitrogen [Mass/Vol] 10.0 mg/dL Normal 7.0-18.0 [facility] Comment on above: Performed By: #### P HVEN #### [facility] [address] [place] [address] Dr. Hood Loco Urea nitrogen/Creatinine [Mass ratio] 13.0 mg/mg Normal [facility] Comment on above: Performed By: #### P HVEN #### [facility] [address] [place] [address] Dr. Hood Loco PROTIMEon 03-12-2022 INR Coag (PPP) [Relative time] 1.08 {INR} Normal [facility] Comment on above: Performed By: #### D HUSAM, ERUR #### [facility] [address] [place] [address] Dr. Hood Loco INR GUIDELINES SEE BELOW Normal [facility] Comment on above: Result Comment: CONNIE RED INR: 2.0 - 3.0 CONDITIONS NOT LISTED BELOW 2.5 - 3.5 FOR PROSTHETIC HEART VALVE REPLACEMENT 2.5 - 3.5 RECURRENT THROMBOSIS Performed By: #### D HUSAM, ERUR #### [facility] [address] [place] [address] Dr. Hood Loco PT Coag (PPP) [Time] 11.6 s Normal 9.0-11.6 [facility] Comment on above: Performed By: #### D HUSAM, ERUR #### [facility] [address] [place] [address] Dr. Hood Loco PTTon 03-12-2022 aPTT Coag (Bld) [Time] 25.6 s Normal 22.3-36.2 [facility] Comment on above: Performed By: #### D HUSAM, ERUR #### [facility] [address] [place] [address] Dr. Hood Loco TROPONIN, HIGH SENSITIVITYon 03-12-2022 HSTROP 8.4 pg/mL Normal 4.0-42.2 [facility] Comment on above: Result Comment: CUT- OFF POINTS HAVE BEEN ESTABLISHED BASED ON THE FOURTH UNIVERSAL DEFINITIONS OF MYOCARDIAL INFARCTION. THE UPPER REFERENCE LIMIT (URL) OF TROPONIN, DEFINED THE 99TH PERCENTILE OF cTnI DISTRIBUTION IN A REFERENCE POPULATION, HAS BEEN CONFIRMED THE DECISION THRESHOLD FOR UT DIAGNOSIS. Performed By: #### D BEENA WEINER #### [facility] [address] [address] [address] Hood Loco XR CHEST 1 Von [...] JN DALY Date: 2022-03-12 16:33 Normal [facility] Covid-19 PCR (CVDTB)on 11-26 SARS-CoV-2 (COVID-19) RNA IGLESIA+probe Ql (Unsp spec) Not detected Normal NOT DETECTED [facility] Comment on above: Result Comment: This test is not yet approved or cleared by the [place] FDA. When there are no FDA-approved or cleared tests available, and other criteria are met, FDA can make tests available under an emergency access mechanism called an Emergency Use Authorization (EUA). The EUA for this test is supported by the [place] of Health and Human Service's (HHS's) declaration [...] consistent with SARS-CoV-2. Performed By: #### D YASH WEINERR #### [facility] [address] [address] [address] Hood Loco ETHANOL (BLD ALC)on 12-14-19 ALC NOTE NOTE: 80 mg/dl is th e legal limit for a blood alcohol level Normal [facility] Comment on above: Performed By: #### D HUSAM, ERUR #### [facility] [address] [address] [address] Hood Loco Ethanol [Mass/Vol] 51 mg/dL Normal [facility] Comment on above: Performed By: #### D HUSAM, ERUR #### [facility] [address] [address] [address] Hood Loco ALC NOTE NOTE: 80 mg/dl is th e legal limit for a blood alcohol level Normal [facility] Comment on above: Performed By: #### E TH #### [facility] [address] [place] [address] Dr. Hood Loco Ethanol [Mass/Vol] 154 mg/dL Normal [facility] Comment on above: Performed By: #### E TH #### [facility] [address] [place] [address] Dr. Hood Loco ACETAMINOPHENon 12-13-2021 Acetaminophen [Mass/Vol] ug/mL Normal [facility] Comment on above: Performed By: #### P HVEN #### [facility] [address] [place] [address] Dr. Hood Loco CARDIAC GINGER ADMITon 022 CK [Catalytic activity/Vol] 215 U/L Critically high 55-170 [facility] Comment on above: Result Comment: test repeated critical value verified Performed By: #### P HVEN #### [facility] [address] [place] [address] Dr. Hood Loco CK.MB [Mass/Vol] 0.98 ng/mL Normal <=2.37 [facility] Comment on above: Performed By: #### P HVEN #### [facility] [address] [place] [address] Dr. Hood Loco HSTROP 11.3 pg/mL Normal 4.0-42.2 [facility] Comment on above: Result Comment: CUT- OFF POINTS HAVE BEEN ESTABLISHED BASED ON THE FOURTH UNIVERSAL DEFINITIONS OF MYOCARDIAL INFARCTION. THE UPPER REFERENCE LIMIT (URL) OF TROPONIN, DEFINED THE 99TH PERCENTILE OF cTnI DISTRIBUTION IN A REFERENCE POPULATION, HAS BEEN CONFIRMED THE DECISION THRESHOLD FOR UT DIAGNOSIS. Performed By: #### P HVEN #### [facility] [address] [place] [address] Dr. Hood Loco MARY 59.0 ng/mL Normal <=121.0 [facility] Comment on above: Performed By: #### P HVEN #### [facility] [address] [place] [address] Dr. Hood Loco CBC AUTO DIFFon 12-13-2021 BASO # 0.0 103/ul Normal 0.0-0.1 [facility] Comment on above: Performed By: #### C BC #### [facility] [address] [place] [address] Dr. Hood Loco Basophils/100 WBC (Bld) 0.7 % Normal 0.2-2.0 [facility] Comment on above: Performed By: #### C BC #### [facility] [address] [place] [address] Dr. Hood Loco EO # 0.0 103/ul Normal 0.0-0.7 [facility] Comment on above: Performed By: #### C BC #### [facility] [address] [place] [address] Dr. Hood Loco Eosinophils/100 WBC (Bld) 0.9 % Normal 0.9-7.0 [facility] Comment on above: Performed By: #### C BC #### [facility] [address] [place] [address] Dr. Hood Loco Erythrocyte distribution width (RBC) [Ratio] 11.8 % Normal 11.0-15.0 [facility] Comment on above: Performed By: #### C BC #### [facility] [address] [place] [address] Dr. Hood Loco Hematocrit (Bld) [Volume fraction] 42.3 % Normal 42.0-54.0 [facility] Comment on above: Performed By: #### C BC #### [facility] [address] [address] [address] Hood Loco Hemoglobin (Bld) [Mass/Vol] 14.8 g/dL Normal 14.0-18.0 [facility] Comment on above: Performed By: #### C BC #### [facility] [address] [place] [address] Dr. Hood Loco IG # 0.02 10e3/ul Normal 0.00-0.03 [facility] Comment on above: Performed By: #### C BC #### [facility] [address] [place] [address] Dr. Hood Loco IG % 0.5 % Normal 0.0-0.5 [facility] Comment on above: Performed By: #### C BC #### [facility] [address] [place] [address] Dr. Hood Loco LYMPH # 1.1 103/ul Critically low 1.2-3.8 [facility] Comment on above: Performed By: #### C BC #### [facility] [address] [place] [address] Dr. Hood Loco Lymphocytes/100 WBC (Bld) 24.7 % Normal 20.5-60.0 [facility] Comment on above: Performed By: #### C BC #### [facility] [address] [place] [address] Dr. Hood Loco MANUAL DIFF REQ NO Normal [facility] Comment on above: Performed By: #### C BC #### [facility] [address] [place] [address] Dr. Hood Loco MCH (RBC) [Entitic mass] 33.9 pg Normal 25.9-34.0 [facility] Comment on above: Performed By: #### C BC #### [facility] [address] [place] [address] Dr. Hood Loco MCHC (RBC) [Mass/Vol] 35.0 g/dL Normal 29.9-35.2 [facility] Comment on above: Performed By: #### C BC #### [facility] [address] [address] [address] Hood Loco MCV (RBC) [Entitic vol] 96.8 fL Critically high 80.0-94.0 [facility] Comment on above: Performed By: #### C BC #### [facility] [address] [address] [address] Hood Loco MONO # 0.6 103/ul Normal 0.3-0.8 [facility] Comment on above: Performed By: #### C BC #### [facility] [address] [address] [address] Hood Loco Monocytes/100 WBC (Bld) 14.0 % Critically high 1.7-12.0 [facility] Comment on above: Performed By: #### C BC #### [facility] [address] [address] [address] Hood Loco NEUT # 2.5 103/ul Normal 1.4-6.5 [facility] Comment on above: Performed By: #### C BC #### [facility] [address] [address] [address] Hood Loco Neutrophils/100 WBC (Bld) 59.2 % Normal 43.0-75.0 [facility] Comment on above: Performed By: #### C BC #### [facility] [address] [address] [address] Hood Loco Platelet mean volume (Bld) [Entitic vol] 8.1 fL Critically low 9.5-13.5 [facility] Comment on above: Performed By: #### C BC #### [facility] [address] [address] [address] Hood Loco PLT 153 103/ul Normal 150-450 [facility] Comment on above: Performed By: #### C BC #### [facility] [address] [address] [address] Hood Loco RBC 4.37 106/ul Critically low 4.70-6.[address] [facility] Comment on above: Performed By: #### C BC #### [facility] [address] [place], [place] [address] Dr. Hood Loco WBC 4.3 103/ul Normal 4.0-11.0 [facility] Comment on above: Performed By: #### C #### [facility] [id number] Hood Loco CT ABD/PELV W CONon [...] by: ASHELY LANDAVERDE Date: 2021-12-13 19:12 Normal [facility] CT CHEST W CONon 12-13-2021 [...] ASHELY LANDAVERDE Date: 2021-12-13 19:15 Normal [facility] CT CSPINE WO CONon 2 CT CSPINE [...] and/or use of iterative reconstruction technique. 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 MINERALIZATION: Normal. CRANIOCERVICAL AND ATLANTOAXIAL [...] ASHELY LANDAVERDE Date: 2021-12-13 19:03 [address] [facility] [address] HEAD WO CONon 12-13-2021 CT HEAD [...] ASHELY LANDAVERDE Date: 2021-12-13 19:00 Normal [facility] DRUG SCREEN RAPID (URINE)on 12-13-2021 AMP Negative Normal NEGATIVE [facility] Comment on above: Performed By: #### D HUSAM, ERUR #### [facility] [address] [place] [address] Dr. Hood Loco BAR Negative Normal NEGATIVE [facility] Comment on above: Performed By: #### D HUSAM, ERUR #### [facility] [address] [place] [address] Dr. Hood Loco BUP Negative Normal NEGATIVE [facility] Comment on above: Performed By: #### D HUSAM, ERUR #### [facility] [address] [place] [address] Dr. Hood Loco BZO Negative Normal NEGATIVE [facility] Comment on above: Performed By: #### D HUSAM, ERUR #### [facility] [address] [place] [address] Dr. Hood Loco TREY Negative Normal NEGATIVE [facility] Comment on above: Performed By: #### D HUSAM, ERUR #### [facility] [address] [place] [address] Dr. Hood Loco CUT-OFFS SEE BELOW Normal [facility] Comment on above: Result Comment: [...] Performed By: #### D RUGRPD, ERUR #### [facility] [address] [place] [address] Dr. Hood Loco DRUG CUT HEADER DRUG CLASS TEST SYST EM CUT-OFF CONCENTRATIONS ARE FOLLOWS: Normal [facility] Comment on above: Performed By: #### D RUGRPD, ERUR #### [facility] [address] [place] [address] Dr. Hood Loco mAMP Negative Normal NEGATIVE [facility] Comment on above: Performed By: #### D RUGRPD, ERUR #### [facility] [address] [place] [address] Dr. Hood Loco MTD Negative Normal NEGATIVE [facility] Comment on above: Performed By: #### D RUGRPD, ERUR #### [facility] [address] [place] [address] Dr. Hood Loco OPI Negative Normal NEGATIVE [facility] Comment on above: Performed By: #### D RUGRPD, ERUR #### [facility] [address] [place] [address] Dr. Hood Loco OXY Negative Normal NEGATIVE [facility] Comment on above: Performed By: #### D RUGRPD, ERUR #### [facility] [address] [place] [address] Dr. Hood Loco PCP Negative Normal NEGATIVE [facility] Comment on above: Performed By: #### D RUGRPD, ERUR #### [facility] [address] [place] [address] Dr. Hood Loco PPX Negative Normal NEGATIVE [facility] Comment on above: Performed By: #### D RUGRPD, ERUR #### [facility] [address] [place] [address] Dr. Hood Loco TCA Negative Normal NEGATIVE [facility] Comment on above: Performed By: #### D RUGRPD, ERUR #### [facility] [address] [address] [address] Hood Loco THC Negative Normal NEGATIVE [facility] Comment on above: Performed By: #### D RUGRPD, ERUR #### [facility] [address] [address] [address] Hood Loco ER URINE PROFILEon 2 Bilirubin Ql (U) Negative Normal NEGATIVE [facility] Comment on above: Performed By: #### D RUGRPD, ERUR #### [facility] [address] [place] [address] Dr. Hood Loco Clarity (U) CLEAR Normal CLEAR [facility] Comment on above: Performed By: #### D JACKELINRPD, ERUR #### [facility] [address] [place] [address] Dr. Hood Loco Color (U) LT. YELLOW Normal YELLOW [facility] Comment on above: Performed By: #### D SLAVAD, ERUR #### [facility] [address] [place] [address] Dr. Hood VIDAL A micrscopic examination will be performed if indicated. Normal [facility] Comment on above: Performed By: #### D SLAVAD, ERUR #### [facility] [address] [place] [address] Dr. Hood Loco Glucose Ql (U) Negative Normal NEGATIVE [facility] Comment on above: Performed By: #### D RUGRPD, ERUR #### [facility] [address] [address] [address] Hood Loco Hemoglobin Ql (U) Negative Normal NEGATIVE [facility] Comment on above: Performed By: #### D JACKELINRPD, ERUR #### [facility] [address] [place] [address] Dr. Hood Loco Ketones Ql (U) Negative Normal NEGATIVE [facility] Comment on above: Performed By: #### D HUSAM, ERUR #### [facility] [address] [place] [address] Dr. Hood Loco LEUKOCYTES Negative Normal NEGATIVE [facility] Comment on above: Performed By: #### D HUSAM, ERUR #### [facility] [address] [place] [address] Dr. Hood Loco Nitrite Ql (U) Negative Normal NEGATIVE [facility] Comment on above: Performed By: #### D HUSAM, ERUR #### [facility] [address] [place] [address] Dr. Hood Loco pH (U) 7.0 [pH] Normal 5-9 [facility] Comment on above: Performed By: #### D HUSAM ERUR #### [facility] [address] [place] [address] Dr. Hood Loco SPEC GRAVITY <=1.005 Abnormal 1.005-<=1.02 5 [facility] Comment on above: Performed By: #### Gage WEINER ERUR #### [facility] [address] [place] [address] Dr. Hood Loco UA PROTEIN Negative Normal NEGATIVE/ TRACE [facility] Comment on above: Performed By: #### D HUSAM ERUR #### [facility] [address] [place] [address] Dr. Hood Loco UR MICRO IND NOT INDICATED Normal [facility] Comment on above: Performed By: #### D HUSAM ERUR #### [facility] [address] [place] [address] Dr. Hood Loco Urobilinogen Qn (U) 1.0 {Rohith'U}/dL Normal 0.2 - 1. 0 [facility] Comment on above: Performed By: #### D HUSAM ERUR #### [facility] [address] [place] [address] Dr. Hood Loco ETHANOL (BLD ALC)on 12-13-19 ALC NOTE NOTE: 80 mg/dl is th e legal limit for a blood alcohol level Normal [facility] Comment on above: Performed By: #### P HVEN #### [facility] [address] [address] [address] Hood Loco Ethanol [Mass/Vol] mg/dL Normal [facility] Comment on above: Performed By: #### P HVEN #### [facility] [address] [place] [address] Dr. Hood Loco LIPASEon 12-13-2021 Lipase [Catalytic activity/Vol] 106.0 U/L Normal 23.0-300.0 [facility] Comment on above: Performed By: #### P HVEN #### [facility] [address] [place] [address] Dr. Hood Loco PROF 14(COMP METB)on Albumin [Mass/Vol] 3.9 g/dL Normal 3.5-5.0 [facility] Comment on above: Performed By: #### P HVEN #### [facility] [address] [place] [address] Dr. Hood Loco Albumin/Globulin [Mass ratio] 1.1 {ratio} Normal [facility] Comment on above: Performed By: #### P HVEN #### [facility] [address] [place] [address] Dr. Hood Loco ALP [Catalytic activity/Vol] 64 U/L Normal 38-126 [facility] Comment on above: Performed By: #### P HVEN #### [facility] [address] [place] [address] Dr. Hood Loco ALT [Catalytic activity/Vol] 52 U/L Normal 21-72 [facility] Comment on above: Performed By: #### P HVEN #### [facility] [address] [place] [address] Dr. Hood Loco Anion gap [Moles/Vol] 12.6 mmol/L Normal [facility] Comment on above: Performed By: #### P HVEN #### [facility] [address] [place] [address] Dr. Hood Loco AST [Catalytic activity/Vol] 60 U/L Critically high 17-59 [facility] Comment on above: Performed By: #### P HVEN #### [facility] [address] [address] [address] Hood Loco Bilirubin [Mass/Vol] 0.6 mg/dL Normal 0.2-1.3 [facility] Comment on above: Performed By: #### P HVEN #### [facility] [address] [address] [address] Hood Loco Calcium [Mass/Vol] 8.6 mg/dL Normal 8.4-10.2 [facility] Comment on above: Performed By: #### P HVEN #### [facility] [address] [address] [address] Hood Loco Chloride [Moles/Vol] 98 mmol/L Normal 98-107 [facility] Comment on above: Performed By: #### P HVEN #### [facility] [address] [address] [address] Hood Loco CO2 [Moles/Vol] 30.6 mmol/L Critically high 22.0-30.0 [facility] Comment on above: Performed By: #### P HVEN #### [facility] [address] [address] [address] Hood Loco Creatinine [Mass/Vol] 0.99 mg/dL Normal 0.66-1.25 [facility] Comment on above: Performed By: #### P HVEN #### [facility] [address] [address] [address] Hood Loco EGFR-AF [place]OUTH [place]ORE[place] >60 Normal >=60 [facility] Comment on above: Performed By: #### P HVEN #### [facility] [address] [address] [address] Hood Loco EGFR-NON AF [place] >60 Normal >=60 [facility] Comment on above: Performed By: #### P HVEN #### [facility] [address] [address] [address] Hood Loco Globulin (S) [Mass/Vol] 3.5 g/dL Normal [facility] Comment on above: Performed By: #### P HVEN #### [facility] [address] [address] [address] Hood Loco Glucose [Mass/Vol] 111 mg/dL Critically high 74-106 [facility] Comment on above: Performed By: #### P HVEN #### [facility] [address] [address] [address] Hood Loco Potassium [Moles/Vol] 4.2 mmol/L Normal 3.4-5.0 [facility] Comment on above: Performed By: #### P HVEN #### [facility] [address] [address] [address] Hood Loco Protein [Mass/Vol] 7.4 g/dL Normal 6.1-8.2 [facility] Comment on above: Performed By: #### P HVEN #### [facility] [address] [address] [address] Hood Loco Sodium [Moles/Vol] 137 mmol/L Normal 137-145 [facility] Comment on above: Performed By: #### P HVEN #### [facility] [address] [address] [address] Hood Loco Urea nitrogen [Mass/Vol] 5.0 mg/dL Critically low 9.0-20.0 [facility] Comment on above: Performed By: #### P HVEN #### [facility] [address] [address] [address] Hood Loco Urea nitrogen/Creatinine [Mass ratio] 5.1 mg/mg Normal [facility] Comment on above: Performed By: #### P HVEN #### [facility] [address] [address] [address] Hood Loco PROTIMEon 12-13-2021 INR Coag (PPP) [Relative time] 1.04 {INR} Normal [facility] Comment on above: Performed By: #### P T, PTT #### [facility] [address] [address] [address] Hood Loco INR GUIDELINES SEE BELOW Normal [facility] Comment on above: Result Comment: CONNIE RED INR: 2.0 - 3.0 CONDITIONS NOT LISTED BELOW 2.5 - 3.5 FOR PROSTHETIC HEART VALVE REPLACEMENT 2.5 - 3.5 RECURRENT THROMBOSIS Performed By: #### P T, PTT #### [facility] [address] [address] [address] Hood Loco PT Coag (PPP) [Time] 11.2 s Normal 9.0-11.6 [facility] Comment on above: Performed By: #### P T, PTT #### [facility] [address] [address] [address] Hood Loco PTTon 12-13-2021 aPTT Coag (Bld) [Time] 24.3 s Normal 22.3-36.2 Th [facility] Comment on above: Performed By: #### P T, PTT #### [facility] [address] [address] [address] Hood Loco SALICYLATEon 12-13-2021 SALICYLATE <10.0 Normal <=20.0 [facility] Comment on above: Performed By: #### P HVEN #### [facility] [address] [address] [address] Hood Loco Vital Signs Date Time Vital Sign Value Performing Clinician Joryi lity 03-13-2022 19:00-0400 Body temperature 97.8 [degF] PHYSICIAN NO [facility] 03-13-2022 18:35-0400 Diastolic blood pressure 98 mm[Hg] PHYSICIAN [facility] 03-13-2022 18:35-0400 Heart rate 98 /min PHYSICIAN NO [facility] 03-13-2022 18:35-0400 Respiratory rate 22 /min PHYSICIAN NO [facility] 03-13-2022 18:35-0400 SaO2% (BldA) [Mass fraction] 98 % PHYSICIAN NO [facility] 03-13-2022 18:35-0400 Systolic blood pressure 158 mm[Hg] PHYSICIAN [facility] 03-13-2022 13:59-0400 Body height 177.8 cm PHYSICIAN NO [facility] 03-13-2022 13:59-0400 Body mass index (BMI) [Ratio] 37.6 kg/m2 PHYSICIAN NO [facility] 03-13-2022 13:59-0400 Body weight 119 kg PHYSICIAN NO [facility] Encounters Encounter Date Encounter Type Care Provider Facility Start: 12-18-2024 End: 12-18-2024 Emergency department patient visit ISRAEL SEN [facility] Start: 12-05-2024 End: 12-05-2024 ambulatory SEAMUS PEREZ Facility:[facility] Start: 12-05-2024 End: 12-05-2024 Patient encounter procedure MELISSA PHILIPPE [facility] Start: 11-06-2024 ambulatory SEAMUS PEREZ Facility:[facility] Start: 03-13-2022 End: 03-13-2022 Emergency department patient visit PHYSICIAN NO [facility] Start: 03-12-2022 End: 03-13-[address] NONE LISTED REQUEST Facility: Start: 12-14-2021 End: 12-15-[address] NONE LISTED REQUEST Facility:[facility] Start: 10-11-2021 End: 10-11-[address] NONE LISTED REQUEST Facility: Start: 06-06-2018 End: 06-07-2018 Patient encounter DEFAULT PHYSICIAN Facility:[facility] Procedures Date Procedure Procedure Detail Performing Clinician Start: 03-13-2022 SARS Antigen (LFIA) PHY SICIAN NO FAMILY Plan of Treatment Date Care Activity Detail Author Patient referral [facility] Work Phone: Payers Date Payer Category Payer Medicaid [id number] 2023 Medicaid [id number] 1970 Unknown [id number] 1968 Unknown [id number] 1968 Unknown [id number] 1968 Unknown [id number] [id number] 1968 Unknown [id number] [id number] 1959 Unknown [id number] 1959 Unknown [id number] Self-pay Self Pay [id number] Unknown Social History Date Type Detail Facility Start: 03-13-2022 [facility] Start: 1970 Sex Assigned At Male [facility] Tobacco smoking status No Smokin g Status Entered [facility] Sex Assigned At Male [facility] Evaluation + Plan note Note Date & Type Note Facility Evaluation + Plan note No data available for this section [facility] Evaluation note Note Date & Type Note Facility Evaluation note No assessment information availa [facility] Work Phone: Hospital Discharge instructions Note Date & Type Note Facility Hospital Discharge instructions No data available for this section [facility] Progress note Note Date & Type Note Facility Progress note No data available for this section [facility] Summary Purpose Family History No Family History [...] section and content) DATE CREATED AUTHOR 06/07/2018 [facility] DATE CREATED AUTHOR AUTHOR'S ORGANIZ ATION 03/14/2022 [facility] DATE CREATED AUTHOR AUTHOR'S ORGANIZ ATION 03/16/2022 [facility] DATE CREATED AUTHOR AUTHOR'S ORGANIZ ATION 12/10/2024 [facility] DATE CREATED AUTHOR AUTHOR'S ORGANIZ ATION 12/29/2024 [facility] Care Teams (unrecognized sec tion and content) [...] BE BASED ON THE PRIMARY CLINICAL RECORDS. [facility] [facility]. provides no warranty or guarantee of the accuracy or completeness of information in this document.
[2025-08-05] MEDS: 0.9 % SODIUM CHLORIDE 1,000 ML 200 ML IV (13:42)
[2025-08-05 14:10] LABS: Hematocrit 40.5 % (42.0-54.0); Hemoglobin 14.8 g/dL (14.0-18.0); Immature Granulocytes Abs Auto 0.02 10^3/uL (0.00-0.03); Immature Granulocytes Pct Auto 0.4 % (0.0-0.5); Lymphocytes Absolute Auto 1.2 10^3/uL (1.2-3.8); Mean Corpuscular HGB Conc 36.5 g/dL (29.9-35.2); Mean Corpuscular Hemoglobin 32.5 pg (25.9-34.0); Mean Corpuscular Volume 88.8 fL (80.0-94.0); Platelet Count 113 10^3/uL (150-450); Red Blood Count 4.56 10^6/uL (4.70-6.10); White Blood Count 4.5 10^3/uL (4.0-11.0)
[2025-08-05 14:26] LABS: Alanine Aminotransferase 31 U/L (16-63); Albumin Globulin Ratio 1.0; Albumin Level 3.6 g/dL (3.4-5.0); Alkaline Phosphatase 69 U/L (46-116); Anion Gap 14.4; Aspartate Amino Transferase 43 U/L (15-37); Blood Urea Nitrogen 11.0 mg/dL (7.0-18.0); Calcium 8.4 mg/dL (8.5-10.1); Carbon Dioxide 26.1 mmol/L (21.0-32.0); Chloride 105 mmol/L (98-107); Estimated GFR (African America >60 (>=60 mL/min/1.73m^2); Estimated GFR (Non-African Ame >60 (>=60 mL/min/1.73m^2); Globulin 3.7 g/dL; Glucose 111 mg/dL (74-106); Potassium 3.5 mmol/L (3.5-5.1); Sodium 142 mmol/L (136-145); Total Protein 7.3 g/dL (6.4-8.2)
[2025-08-05 15:11] LABS: Glucose Urine UA NEGATIVE (NEGATIVE)
[2025-08-05 15:27] LABS: Cannabinoid Screen Urine NEGATIVE (NEGATIVE); Methamphetamines Screen Urine NEGATIVE (NEGATIVE); Tricyclic Antidepressant Urine NEGATIVE (NEGATIVE)
[2025-08-05 15:29] LABS: Cast Seen? NONE SEEN #/LPF (NONE SEEN); Crystals Seen? None Seen #/HPF (None Seen); Urine Culture Indicated NO
[2025-08-06 02:20] VITALS: BP 129/69; PULSE 73; O2SAT 98
[2025-08-06] MEDS: DIAZEPAM 10 MG/2 ML SYRINGE 5 MG IV ×2 (03:16→07:19)
[2025-08-06 07:32] VITALS: BP 124/87; PULSE 74; O2SAT 98
[2025-08-06] MEDS: ONDANSETRON 4 MG RAPDIS TABLET SL (13:46)
[2025-08-06] MEDS: LORAZEPAM 1 MG TABLET 2 MG PO (14:22)
[2025-08-06 15:33] VITALS: BP 136/87; PULSE 86; O2SAT 99
== END 2025-08-06 15:35 | disposition home or self-care (01) ==
PROVIDERS: Emergency Medicine; Emergency Provider Emergency Medicine
DX: R45.851 Suicidal ideations (principal); F10.129 Alcohol abuse with intoxication, unspecified; Y90.8 Blood alcohol level of 240 mg/100 ml or more
CPT/HCPCS: 36415; 80048; 80076; 80307; 80320; 81001; 85025; 93005; 96374; 96375; 96376; 99285; J2405; J3360; Q0162